=== PATIENT | female | born 1940 ===

== ENCOUNTER → 2022-06-03 | Outpatient (CLI) | payer MEDICARE, OTHER ==
--- NOTE | 2022-06-03 11:16 | XR ---
EXAMINATION TYPE: XR chest 2V DATE OF EXAM: 06/03/2022 11:12 AM COMPARISON: None TECHNIQUE: XR chest 2V Frontal and lateral views of the chest. CLINICAL INDICATION:Female, 81 years old with history of Z01.818 PRE SURGICAL; FINDINGS: Lungs/Pleura: There is no evidence of pleural effusion, focal consolidation, or pneumothorax. Left b asilar linear scarring and/or atelectasis. Pulmonary vascularity: Unremarkable. Heart/mediastinum: Cardiomediastinal silhouette is unremarkable. Atherosclerotic calcifications are seen in the aorta. Musculoskeletal: No acute osseous pathology. Other findings: Multiple surgical clips in the left upper quadrant. IMPRESSION: No acute cardiopulmonary disease/process.
== END | disposition home or self-care (01) ==
LOC: LABWHC1 09:54
PROVIDERS: ATTEND Orthopaedic Surgery Orthopaedic Surgery of the Spine
DX: Z01.818 Encounter for other preprocedural examination (principal); M48.02 Spinal stenosis, cervical region; M50.020 Cervical disc disorder with myelopathy, mid-cervical region, unspecified level
CPT/HCPCS: 71046

== ENCOUNTER → 2022-06-03 | Outpatient (CLI) | payer MEDICARE, OTHER ==
[2022-06-03 16:17] LABS: Basophils # (A) 0.02 X 10*3/uL (0.00-0.10); Basophils % (A) 0.3 %; Eosinophils # (A) 0.04 X 10*3/uL (0.04-0.35); Eosinophils % (A) 0.6 %; HCT 32.9 % (37.2-46.3); HGB 9.7 g/dL (12.0-15.0); Immature Grans, Automated 0.5 %; Lymphocytes # (A) 1.46 X 10*3/uL (0.90-5.00); Lymphocytes % (A) 23.5 %; MCH 22.4 pg (27.0-32.0); MCHC 29.5 g/dL (32.0-37.0); Mean Platelet Volume 10.6 fL (9.5-12.2); Monocytes # (A) 0.72 X 10*3/uL (0.20-1.00); Monocytes % (A) 11.6 %; NRBC Per 100 WBC 0.3 /100 WBCS (0.0-0.0); Neutrophils # (A) 3.93 X 10*3/uL (1.80-7.70); Neutrophils % (A) 63.5 %; Platelet Count 175 X 10*3/uL (140-440); RBC 4.33 X 10*6/uL (4.10-5.20); RDW 15.8 % (11.5-14.5)
[2022-06-03 16:41] LABS: ALT 14 U/L (8-44); AST 23 U/L (13-35); African American GFR (CKD) 49.1 (60.0-200.0); Albumin 3.7 g/dL (3.8-4.9); Albumin/Globulin Ratio 1.68 (1.60-3.17); Alkaline Phosphatase 67 U/L (41-126); BUN/Creat Ratio 22.25 Ratio (12.00-20.00); Blood Urea Nitrogen 26.7 mg/dL (9.0-27.0); Carbon Dioxide 20.1 mmol/L (20.0-27.5); Chloride 102 mmol/L (96-109); Chol/HDL Ratio 4.05 Ratio; Creatine Kinase 55 U/L (26-186); Globulin 2.2 g/dL (1.6-3.3); Glucose 112 mg/dL (70-110); LDL Cholesterol,Calculated 142.2 mg/dL (0.0-131.0); Non-African American GFR(CKD) 42.3 (60.0-200.0); Potassium 4.9 mmol/L (3.5-5.5); Sodium 137 mmol/L (135-145); Total Protein 5.9 g/dL (6.2-8.2); Uric Acid 6.9 mg/dL (2.9-7.7)
[2022-06-03 20:06] LABS: Appearance,Urine Clear (Clear); Bilirubin,Urine Negative (Negative); Blood,Urine Negative (Negative); Color,Urine Yellow (Yellow); Ketones,Urine Negative (Negative); Nitrite,Urine Positive (Negative); PH, Urine 5.5 (5.0-8.0); Specific Gravity,Urine 1.007 (1.001-1.030); Urobilinogen,Urine 0.2 (0.2,1.0)
[2022-06-03 22:25] LABS: Bacteria,Urine 3+ /HPF (None Seen)
== END | disposition home or self-care (01) ==
LOC: LABWHC1 09:56
PROVIDERS: ATTEND Family Medicine
DX: E11.22 Type 2 diabetes mellitus with diabetic chronic kidney disease (principal); N18.31 Chronic kidney disease, stage 3a; I48.0 Paroxysmal atrial fibrillation; E11.8 Type 2 diabetes mellitus with unspecified complications; E78.5 Hyperlipidemia, unspecified; M10.9 Gout, unspecified
CPT/HCPCS: 36415; 80053; 80061; 81001; 82550; 83036; 83970; 84439; 84443; 84550; 85025; 93005

== ENCOUNTER → 2022-07-31 | Outpatient (CLI) | payer MEDICARE, OTHER ==
[2022-07-31 10:00] LABS: INR 0.9 (<1.2); Partial Thromboplastin Time 25.1 sec (22.0-30.0); Prothrombin Time 9.6 sec (9.0-12.0)
--- NOTE | 2022-07-31 10:42 | XR ---
EXAMINATION TYPE: XR chest 2V DATE OF EXAM: 07/31/2022 COMPARISON: 06/03/2022 INDICATION: Presurgical testing TECHNIQUE: Frontal and lateral views of the chest are obtained. FINDINGS: The heart size is highly prominent. The pulmonary vasculature is normal. Some mild platelike atelectasis may be at the left base.. This was present in May and scarring s hould be considered within the differential. Multiple surgical clips are within the left abdomen. IMPRESSION: 1. Mild plate atelectasis left lung base. Scarring could be considered within the differential.
[2022-07-31 14:22] LABS: Basophils # (A) 0.03 X 10*3/uL (0.00-0.10); Basophils % (A) 0.3 %; Eosinophils # (A) 0.11 X 10*3/uL (0.04-0.35); Eosinophils % (A) 1.3 %; HCT 27.1 % (37.2-46.3); HGB 8.1 g/dL (12.0-15.0); Immature Grans, Automated 0.3 %; Lymphocytes # (A) 0.89 X 10*3/uL (0.90-5.00); Lymphocytes % (A) 10.2 %; MCH 23.1 pg (27.0-32.0); MCHC 29.9 g/dL (32.0-37.0); MCV 77.4 fL (80.0-97.0); Mean Platelet Volume 11.1 fL (9.5-12.2); Monocytes # (A) 1.09 X 10*3/uL (0.20-1.00); Monocytes % (A) 12.5 %; NRBC Per 100 WBC 0 /100 WBCS (0.0-0.0); Neutrophils % (A) 75.4 %; Platelet Count 173 X 10*3/uL (140-440); RDW 14.6 % (11.5-14.5); WBC 8.75 X 10*3/uL (4.50-10.00)
[2022-07-31 16:04] LABS: African American GFR (CKD) 36.3 (60.0-200.0); Albumin 3.5 g/dL (3.8-4.9); Albumin/Globulin Ratio 1.64 (1.60-3.17); Anion Gap 11.7 mmol/L (10.00-18.00); BUN/Creat Ratio 14.03 Ratio (12.00-20.00); Blood Urea Nitrogen 21.6 mg/dL (9.0-27.0); Calcium 8.7 mg/dL (8.7-10.3); Carbon Dioxide 23.5 mmol/L (20.0-27.5); Globulin 2.1 g/dL (1.6-3.3); Non-African American GFR(CKD) 31.3 (60.0-200.0); Potassium 4.6 mmol/L (3.5-5.5); Total Bilirubin 0.8 mg/dL (0.30-1.20); Total Protein 5.7 g/dL (6.2-8.2)
[2022-07-31 17:04] LABS: Appearance,Urine Cloudy (Clear); Bilirubin,Urine Negative (Negative); Blood,Urine Negative (Negative); Color,Urine Dark Yellow (Yellow); Ketones,Urine Negative (Negative); Nitrite,Urine Positive (Negative); Specific Gravity,Urine 1.016 (1.001-1.030)
[2022-07-31 17:56] LABS: Bacteria,Urine 3+ /HPF (None Seen); Calcium Oxalate Crystals,Urine Present /LPF (None Seen)
== END | disposition home or self-care (01) ==
LOC: LABPAT 09:06
PROVIDERS: ATTEND Orthopaedic Surgery Orthopaedic Surgery of the Spine
DX: Z01.818 Encounter for other preprocedural examination (principal); J98.11 Atelectasis; I50.9 Heart failure, unspecified; J45.909 Unspecified asthma, uncomplicated
CPT/HCPCS: 71046; 80053; 81001; 82043; 82570; 83036; 83880; 84443; 85025; 85610; 85730; 87070

== ENCOUNTER 2022-08-07 08:00 | Inpatient (IN) | payer MEDICARE, OTHER ==
[~2022-08-07 08:00] MED LIST: ceFAZolin 1,000 MG in SODIUM CHLORIDE 0.9% IRRIGATIO 1,000 ML IRRIGATION PRN
[2022-08-07] MEDS ORDERED: HYDROmorphone 0.5 MG/0.5 ML SYRINGE IVP PRN (10:09)
[2022-08-07] MEDS ORDERED: DEXAMETHASONE SOD PHOSPHATE 4 MG/ML 1 ML VIAL IV ONE (10:09)
[2022-08-07] MEDS ORDERED: LIDOCAINE 1% (10MG/ML) FOR IV START INTRADERMA PRN (10:09)
[2022-08-07] MEDS ORDERED: LACTATED RINGERS 1,000 ML IV SCH (10:09)
[2022-08-07] MEDS ORDERED: ONDANSETRON 4 MG/2 ML VIAL IVP ONE (10:09)
[2022-08-07] MEDS ORDERED: ONDANSETRON 4 MG/2 ML VIAL ONE (10:11)
[2022-08-07] MEDS ORDERED: LACTATED RINGERS 1,000 ML IV ONE (10:29)
[2022-08-07 10:55] LABS: Glucose,Whole Blood 157 mg/dL (70-110)
[2022-08-07 11:05] VITALS: RESP 16; TEMP 97.6
[2022-08-07] MEDS ORDERED: TRELEGY INHALATION PRN (11:46)
[2022-08-07] MEDS ORDERED: NITROGLYCERIN SL TABS 0.4 MG TAB SUBLINGUAL PRN (11:46)
[2022-08-07] MEDS ORDERED: FLUTICASONE 220 MCG INHALER INHALATION PRN (11:46)
[2022-08-07 11:55] VITALS: BP 193/90; PULSE 68
[2022-08-07] MEDS ORDERED: HYDROcodone/APAP 5-325MG 1 EACH TAB PO PRN (11:57)
[2022-08-07] MEDS ORDERED: ERGOCALCIFEROL 1,250 MCG (50,000 IU) CAPSULE PO SCH (12:00)
--- NOTE | 2022-08-07 12:09 | P.HPOR ---
History of Present Illness H&P Date: 08/07/22 Chief Complaint: New hypertensive crisis, new onset atrial ablation, cervical myelopathy, se Patient is a very pleasant 81-year-old female. She presented today for surgical intervention for her cervical spine. She is known to have severe cervical stenosis with cervical myelopathy and upper extremity weakness. We had been playing on her surgery and she has had appropriate workup for this. Today she was scheduled for surgical intervention for anterior cervical decompression with discectomy and fusion C4 5 C5 6 C6 7 and possibly C3 4 for treatment of her cervical myelopathy and cervical stenosis. Today in preoperative holding area the patient was seen and examined. Her blood pressure in preoperatively area was 229/107. She had multiple repeated blood pressure taken the hand she was consistently over 200 systolic and approximately 100 diastolic. Her rhythm leads suggested atrial fibrillation as well. She is known to have anemia and usually runs around 9.0 hemoglobin but had been running approximately 8.0 and 7.9 on recent testing. The patient was not symp tomatically in terms of her hypertension or atrial fibrillation or anemia. With the increased blood pressures and the change in her rhythm as well as her anemia we had to discuss whether or not to proceed with surgical intervention today. We felt that she may be best served with postponing surgical intervention to get a handle on her medical management blood pressure and rhythm issues. She denied any chest pain or shortness of breath. She any visual changes. She denies any headaches. Review of Systems Denies fevers chills. Denies chest pain shortness breath. Denies any headaches or visual changes. Denies any neurologic changes other than her ongoing issues with her cervical myelopathy particularly with some weakness in her right upper extremity Past Medical History Past Medical History: Atrial Fibrillation, Asthma, Coronary Artery Disease (CAD), Cancer, Chest Pain / Angina, Heart Failure, Diabetes Mellitus, GERD/Reflux, Hearing Disorder / Deafness, Hyperlipidemia, Hypertension, Osteoarthritis (OA), Renal Disease, Rheumatoid Arthritis (RA), Vascular Disorder Additional Past Medical History / Comment(s): Cervical myopathy, spinal stenosis, paroxysmal afib, sinus bradycardia, NIDDM type II, 1984 L breast cancer/surgery and chemotherapy, 1985 L renal carcinoma, kidney infections, UTIs with current UTI, pt unsure if she had previous tia, ckd stage III, anemia, past small bowel obstructions, past ulcer, abnormal gait/uses walker, FALLS History of Any Multi-Drug Resistant Organisms: None Reported Past Surgical History: Breast Surgery, Heart Catheterization, Heart Catheterization With Stent, Joint Replacement, Orthopedic Surgery Additional Past Surgical History / Comment(s): Bilateral carpal tunnel releases, bilateral knee replacements, L breast mastectomy, L nephrectomy, colonoscopy, cataract removals. Past Anesthesia/Blood Transfusion Reactions: Motion Sickness, Postoperative Nausea & Vomiting (PONV) Additional Past Anesthesia/Blood Transfusion Reaction / Comment(s): Pt has had blood transfusion without reaction. Pt states she has fear of anesthesia. Date of Last Stent Placement:: 2007 Smoking Status: Never smoker - Past Family History Mother Family Medical History: Cancer, Diabetes Mellitus Additional Family Medical History / Comment(s): Breast and colon cancer Father Additional Family Medical History / Comment(s): bowel problems Medications and Allergies Home Medications Medication Instructions Recorded Confirmed Type Aspirin 81 mg PO QAM 06/05/22 08/07/22 History Ergocalciferol [Vitamin D2 (1250 1,250 mcg PO Q14D 06/05/22 08/07/22 History Mcg = 25815 Iu)] Fluticasone Propionate 220 Mcg 2 puff INHALATION RT-BID PRN 06/05/22 08/07/22 History [Flovent 220 Mcg Inhaler] Irbesartan 300 mg PO QAM 06/05/22 08/07/22 History Isosorbide Mononitrate ER [Imdur] 90 mg PO QAM 06/05/22 08/07/22 History Leflunomide [Arava] 20 mg PO QAM 06/05/22 08/07/22 History Montelukast Sodium [Singulair] 10 mg PO HS 06/05/22 08/07/22 History Nitroglycerin Sl Tabs [Nitrostat] 0.4 mg SUBLINGUAL Q5M PRN 06/05/22 08/07/22 History Pioglitazone [Actos] 15 mg PO QAM 06/05/22 08/07/22 History Ranolazine [Ranexa] 500 mg PO BID 06/05/22 08/07/22 History Repaglinide [Prandin] 0.5 mg PO AC-BID 06/05/22 08/07/22 History Trelegy Unk Dose 1 puff INHALATION DAILY PRN 06/05/22 08/07/22 History amLODIPine [Norvasc] 5 mg PO HS 06/05/22 08/07/22 History atenoloL [Tenormin] 25 mg PO BID 06/05/22 08/07/22 History traMADol HCl [Ultram] 50 mg PO Q4H PRN 06/05/22 08/07/22 History Allergies Allergy/AdvReac Type Severity Reaction Status Date / Time codeine AdvReac Nausea & Verified 08/07/22 10:37 Vomiting,hyperactive Physical Examination Osteopathic Statement: *. No significant issues noted on an osteopathic structural exam other than those noted in the History and Physical/Consult. 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 She has 4+ strength on the left upper extremity. 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 She had undergone preoperative(medical evaluation and testing appropriately and she had been adequately maintained and controlled in this regard. However in the preoperative holding area and her hypertension was significant and she appeared to have new change in her cardiac rhythm. With these changes we did not feel that we should pursue surgery and felt that stabilizing these issues with the potentially safer for the patient and avoid undue risk. I had a long discussion with the patient and her as well as the anesthesia staff. Together we feel that the patient should postpone surgical intervention today. We will cancel surgery for today. We'll plan to have the patient admitted for medical management evaluation with echo service as well as cardiology to evaluate for her hypertension as well as her possible rhythm changes and anemia. We will continue workup and treatment appropriate we. If she stabilizes well without any issues we could consider proceeding with surgery tomorrow however if we need further time we will plan to postpone surgery further. We'll discuss this further with her primary care physician as well as cardiology and follow her closely. I discussed this at length with her and her and they are agreeable Time with Patient: Greater than 30
[2022-08-07] MEDS ORDERED: DEXTROSE 50% SYRINGE 50 ML IVP PRN ×2 (13:40)
[2022-08-07] MEDS ORDERED: NON FORMULARY DRUG (Repaglinide 0.5 MG Tab) PO SCH (17:30)
[2022-08-07] MEDS ORDERED: INSULIN ASPART (NovoLOG) 100 UNIT/ML VIAL SQ SCH (17:30)
[2022-08-07] MEDS ORDERED: MONTELUKAST 10 MG TAB PO SCH (21:00)
[2022-08-07] MEDS ORDERED: atenoloL 25 MG TAB PO SCH (21:00)
[2022-08-07] MEDS ORDERED: amLODIPine 5 MG TAB PO SCH (21:00)
[2022-08-08] MEDS ORDERED: LEFLUNOMIDE 20 MG TAB PO SCH (09:00)
[2022-08-08] MEDS ORDERED: ISOSORBIDE MONONITRATE ER 30 MG TAB.ER.24H PO SCH (09:00)
[2022-08-08] MEDS ORDERED: PIOGLITAZONE 15 MG TAB PO SCH (09:00)
[2022-08-08] MEDS ORDERED: LOSARTAN 50 MG TAB PO SCH (09:00)
[2022-08-08] MEDS ORDERED: ASPIRIN 81 MG PO SCH (09:00)
== END 2022-08-07 11:30 | disposition home or self-care (01) | DRG 305 ==
LOC: 2ORMAIN 09:46
PROVIDERS: ADMIT Orthopaedic Surgery Orthopaedic Surgery of the Spine; ATTEND Orthopaedic Surgery Orthopaedic Surgery of the Spine
DX: I16.9 Hypertensive crisis, unspecified (principal); M47.12 Other spondylosis with myelopathy, cervical region; M50.023 Cervical disc disorder at C6-C7 level with myelopathy; M43.12 Spondylolisthesis, cervical region; Z53.09 Procedure and treatment not carried out because of other contraindication; J45.909 Unspecified asthma, uncomplicated; D64.9 Anemia, unspecified; M50.123 Cervical disc disorder at C6-C7 level with radiculopathy; I25.10 Atherosclerotic heart disease of native coronary artery without angina pectoris; E78.5 Hyperlipidemia, unspecified; G89.29 Other chronic pain; I11.0 Hypertensive heart disease with heart failure; H91.90 Unspecified hearing loss, unspecified ear; I48.0 Paroxysmal atrial fibrillation; M19.90 Unspecified osteoarthritis, unspecified site; M06.9 Rheumatoid arthritis, unspecified; N18.30 Chronic kidney disease, stage 3 unspecified; M47.22 Other spondylosis with radiculopathy, cervical region; E11.22 Type 2 diabetes mellitus with diabetic chronic kidney disease; I50.9 Heart failure, unspecified; R29.6 Repeated falls; M48.02 Spinal stenosis, cervical region; M48.061 Spinal stenosis, lumbar region without neurogenic claudication; Z79.82 Long term (current) use of aspirin; Z79.84 Long term (current) use of oral hypoglycemic drugs; Z79.899 Other long term (current) drug therapy; Z85.3 Personal history of malignant neoplasm of breast; Z85.528 Personal history of other malignant neoplasm of kidney; Z90.12 Acquired absence of left breast and nipple; Z90.5 Acquired absence of kidney; Z96.653 Presence of artificial knee joint, bilateral; Z98.42 Cataract extraction status, left eye; Z98.41 Cataract extraction status, right eye; Z87.440 Personal history of urinary (tract) infections; Z86.73 Personal history of transient ischemic attack (TIA), and cerebral infarction without residual deficits; Z91.81 History of falling; Z87.19 Personal history of other diseases of the digestive system
CPT/HCPCS: 83036; 86850; 86900; 86901

== ENCOUNTER → 2022-08-20 | Outpatient (CLI) | payer MEDICARE, OTHER ==
--- NOTE | 2022-08-20 17:26 | CT ---
EXAMINATION TYPE: CT cervical spine wo con CT DLP: 382 mGycm, Automated exposure control for dose reduction was used. DATE OF EXAM: 08/20/2022 5:14 PM COMPARISON: Cervical spine radiograph 08/08/2022. CLINICAL INDICATION:Female, 81 years old with history of M79.12 MYALGIA OF AUXILIARY MUSCLES, HEAD AN D NECK; PHH, pain in neck post sx. TECHNIQUE: Axial CT images from the skull base to the inferior aspect of T2 we obtained without intra venous contrast. Coronal and sagittal reformatted images were also reviewed. FINDINGS: Fracture: None. Osseous structures: Postsurgical changes with anterior fusion hardware involving C4-C7. Multilevel fa cet arthropathy. Left shoulder arthropathy with bursal fluid collection measuring up to 3.6 cm Vertebral alignment: Straightening of the cervical spine likely due to patient position and postsurgi raphael change. Grade 1 anterolisthesis of C2 on C3 and C7 on T1. Spinal canal/Neural Foramina: Disc osteophyte complexes at C2-C3 and C7-T1 with at least mild spinal canal stenosis. Central disc herniation at C3-C4 with mild canal stenosis. Multilevel uncovertebral j oint hypertrophy and facet arthropathy. Facet joint uncovertebral joint arthropathy scattered through out the cervical spine with varying degrees of moderate to severe neural foraminal stenosis. Neck soft tissues: Prevertebral tissue edema without organized fluid collection. Other: The airway is patent. The lung apices are clear. Moderate atherosclerotic calcification of the bilateral carotid bulbs. IMPRESSION: 1. No evidence of cervical spine fracture. 2. Postsurgical changes of anterior cervical fusion from C4 through C7. Hardware appears intact. Prev ertebral soft tissue edema without organized fluid collection likely postsurgical. 3. Moderate multilevel degenerative disc disease. Central disc herniation at C3-C4 with at least mild spinal canal stenosis. Consider further evaluation with cervical MRI. 4. Left shoulder arthropathy with bursal fluid collection measuring up to 3.6 cm.
== END | disposition home or self-care (01) ==
LOC: RADCTMAIN 16:52
PROVIDERS: ATTEND Orthopaedic Surgery Orthopaedic Surgery of the Spine
DX: M50.121 Cervical disc disorder at C4-C5 level with radiculopathy (principal); M47.22 Other spondylosis with radiculopathy, cervical region; M79.12 Myalgia of auxiliary muscles, head and neck; M99.71 Connective tissue and disc stenosis of intervertebral foramina of cervical region; R59.0 Localized enlarged lymph nodes; Z48.89 Encounter for other specified surgical aftercare; Z98.1 Arthrodesis status
CPT/HCPCS: 72125

== ENCOUNTER 2022-08-23 11:26 | Inpatient (IN) | payer MEDICARE, OTHER ==
[2022-08-23] MEDS ORDERED: LABETALOL 5 MG/ML VIAL MDV IVP STA (11:44)
--- NOTE | 2022-08-23 12:27 | ED ---
General Adult HPI - General Chief complaint: Neck Pain/Injury Stated complaint: post op - neck/shoulder pain Time Seen by Provider: 08/23/22 11:40 Source: patient, RN notes reviewed, old records reviewed Mode of arrival: EMS Limitations: no limitations - History of Present Illness Initial comments: This is an 81-year-old female who presents emergency Department as a transfer from [facility]. Patient had surgery by Dr. Edward couple weeks ago on her neck and according to the patient it did not heal the way it was posttussive Dr. Edward 1 to do a second surgery. Patient was not comfortable with this and wanted a second opinion so went to [facility] as they saw Dr. Hogan and Dr. Hogan stated it wasn't he emergent surgery but I surgery needed to be done and he did not want to do it because he didn't do the original surgery so he sent the patient back to [place] to see Dr. Edward and Dr. Edward is aware the patient is coming to the ER. Patient denies any new pain or numbness or weakness - Related Data Home Medications Medication Instructions Recorded Confirmed Aspirin 81 mg PO QAM 06/05/22 08/07/22 Ergocalciferol [Vitamin D2 (1250 1,250 mcg PO Q14D 06/05/22 08/07/22 Mcg = 74551 Iu)] Fluticasone Propionate 220 Mcg 2 puff INHALATION RT-BID PRN 06/05/22 08/07/22 [Flovent 220 Mcg Inhaler] Irbesartan 300 mg PO QAM 06/05/22 08/07/22 Isosorbide Mononitrate ER [Imdur] 60 mg PO QAM 06/05/22 08/07/22 Leflunomide [Arava] 20 mg PO QAM 06/05/22 08/07/22 Montelukast Sodium [Singulair] 10 mg PO HS 06/05/22 08/07/22 Nitroglycerin Sl Tabs [Nitrostat] 0.4 mg SUBLINGUAL Q5M PRN 06/05/22 08/07/22 Pioglitazone [Actos] 15 mg PO QAM 06/05/22 08/07/22 Ranolazine [Ranexa] 500 mg PO BID 06/05/22 08/07/22 Repaglinide [Prandin] 0.5 mg PO AC-BID 06/05/22 08/07/22 traMADol HCl [Ultram] 50 mg PO QID PRN 06/05/22 08/07/22 Isosorbide Mononitrate ER [Imdur] 30 mg PO QAM 08/07/22 08/07/22 Previous Rx's Medication Instructions Recorded Cyclobenzaprine [Flexeril] 5 mg PO TID PRN #60 tablet 08/09/22 HYDROcodone/APAP 5-325MG [[place] 1 tab PO Q8HR PRN 7 Days #21 tab 08/09/22 5-325] amLODIPine [Norvasc] 10 mg PO DAILY #30 tab 08/09/22 atenoloL [Tenormin] 50 mg PO BID #60 tab 08/09/22 Acetaminophen Tab [Tylenol] 650 mg PO Q6HR PRN tab 08/10/22 Sennosides-Docusate Sodium 1 each PO DAILY #20 tab 08/10/22 [Senokot-S] Allergies Allergy/AdvReac Type Severity Reaction Status Date / Time codeine AdvReac Nausea & Verified 08/07/22 12:26 Vomiting,hyperactive Review of Systems ROS Statement: Those systems with pertinent positive or pertinent negative responses have been documented in the HPI. ROS Other: All systems not noted in ROS Statement are negative. Past Medical History Past Medical History: Atrial Fibrillation, Asthma, Coronary Artery Disease (CAD), Cancer, Chest Pain / Angina, Heart Failure, Diabetes Mellitus, GERD/Reflux, Hearing Disorder / Deafness, Hyperlipidemia, Hypertension, Osteoarthritis (OA), Renal Disease, Rheumatoid Arthritis (RA), Vascular Disorder Additional Past Medical History / Comment(s): Cervical myopathy, spinal s tenosis, paroxysmal afib, sinus bradycardia, NIDDM type II, 1984 L breast cancer/surgery and chemotherapy, 1985 L renal carcinoma, kidney infections, UTIs with current UTI, pt unsure if she had previous tia, ckd stage III, anemia, past small bowel obstructions, past ulcer, abnormal gait/uses walker, FALLS History of Any Multi-Drug Resistant Organisms: None Reported Past Surgical History: Breast Surgery, Heart Catheterization, Heart Catheterization With Stent, Joint Replacement, Orthopedic Surgery Additional Past Surgical History / Comment(s): Bilateral carpal tunnel releases, bilateral knee replacements, L breast mastectomy, L nephrectomy, colonoscopy, cataract removals. Past Anesthesia/Blood Transfusion Reactions: Motion Sickness, Postoperative Nausea & Vomiting (PONV) Additional Past Anesthesia/Blood Transfusion Reaction / Comment(s): Pt has had blood transfusion without reaction. Pt states she has fear of anesthesia. Date of Last Stent Placement:: 2007 Past Psychological History: Anxiety Smoking Status: Never smoker Past Alcohol Use History: None Reported Past Drug Use History: None Reported - Past Family History Mother Family Medical History: Cancer, Diabetes Mellitus Additional Family Medical History / Comment(s): Breast and colon cancer Father Additional Family Medical History / Comment(s): bowel problems General Exam - General Exam Comments Initial Comments: GENERAL: Patient is well-developed and well-nourished. Patient is nontoxic and well- hydrated and is in no acute distress. ENT: Neck is soft and supple. No significant lymphadenopathy is noted. Oropharynx is clear. Moist mucous membranes. Patient was in a c-collar EYES: The sclera were anicteric and conjunctiva were pink and moist. Extraocular movements were intact and pupils were equal round and reactive to light. Eyelids were unremarkable. PULMONARY: Unlabored respirations. Good breath sounds bilaterally. No audible rales rhonchi or wheezing was noted. CARDIOVASCULAR: There is a regular rate and rhythm without any murmurs gallops or rubs. ABDOMEN: Soft and nontender with normal bowel sounds. SKIN: Skin is clear with no lesions or rashes and otherwise unremarkable. NEUROLOGIC: Patient is alert and oriented x3. Cranial nerves II through XII are grossly intact. Motor and sensory are also intact. Normal speech, volume and content. Symmetrical smile. MUSCULOSKELETAL: Normal extremities with adequate strength and full range of motion. No lower extremity swelling or edema. No calf tenderness. LYMPHATICS: No significant lymphadenopathy is noted PSYCHIATRIC: Normal psychiatric evaluation. Limitations: no limitations Course Vital Signs 08/23/22 08/23/22 11:37 11:46 Temperature 98 F Pulse Rate 79 71 Respiratory 20 20 Rate Blood Pressure 219/96 199/91 O2 Sat by Pulse 99 99 Oximetry Medical Decision Making - Medical Decision Making EKG was interpreted by myself shows a sinus rhythm at 69 bpm NM interval is 247 QRS is 90 QT interval 414 QTC is 433. Patient's EKG shows no ST segment eleva tion or depression. Was pt. sent in by a medical professional or institution (, PA, MANAGER INTERVENTIONAL, urgent care, hospital, or snf...) When possible be specific @ -Patient was sent to us from [facility] emergency Department Did you speak to anyone other than the patient for history (EMS, parent, family, police, friend...)? What history was obtained from this source @ -I spoke with Dr. Olivas I spoke with the ER doc at [facility] about this patient's history Did you review nursing and triage notes (agree or disagree)? Why? @ -I reviewed and agree with nursing and triage notes Were old charts reviewed (outside hosp., previous admission, EMS record, old EKG, old radiological studies, urgent care reports/EKG's, snf records)? Report findings @ -I reviewed prior urological studies as well as prior lab work Differential Diagnosis (chest pain, altered mental status, abdominal pain women, abdominal pain men, vaginal bleeding, weakness, fever, dyspnea, syncope, headache, dizziness, GI bleed, back pain, seizure, CVA, palpatations, mental health, musculoskeletal)? @ -Differential Musculoskeletal Muscular strain, contusion, ligament sprain, fracture, arthritis, septic arthritis, bursitis, cellulitis, muscle spasm, nerve compression, DVT, arterial occlusion, herpes zoster, electrolyte abnormality, tumor.... This is not meant to be in all inclusive list EKG interpreted by me (3pts min.). @ -As above X-rays interpreted by me (1pt min.). @ -None done CT interpreted by me (1pt min.). @ -None done U/S interpreted by me (1pt. min.). @ -None done What testing was considered but not performed or refused? (CT, X-rays, U/S, labs)? Why? @ -None What meds were considered but not given or refused? Why? @ -None Did you discuss the management of the patient with other professionals (professionals i.e. , PA, MANAGER INTERVENTIONAL, lab, RT, psych nurse, social worker clinical, airline hostess, teacher, customs patrol officer, foster care case manager)? Give summary @ -I spoke with Dr. Kellogg about the admission. I spoke with Dr. Edward is physician assistant professor of mathematics about the admission and he was in agreement with admitting Was smoking cessation discussed for >3mins.? @ -No Was critical care preformed (if so, how long)? @ -No Were there social determinants of health that impacted care today? How? (Homelessness, low income, unemployed, alcoholism, drug addiction, transportation, low edu. Level, literacy, decrease access to med. care, usp, rehab)? @ -No Was there de-escalation of care discussed even if they declined (Discuss DNR or withdrawal of care, Hospice)? DNR status @ -No What co-morbidities impacted this encounter? (DM, HTN, Smoking, COPD, CAD, Cancer, CVA, ARF, Chemo, Hep., AIDS, mental health diagnosis, sleep apnea, morbid obesity)? @ -None Was patient admitted / discharged? Hospital course, mention meds given and route, prescriptions, significant lab abnormalities, going to OR and other pertinent info. @ -Patient was not having any complaints at this time I spoke with Dr. Edward physician assistant professor of mathematics and there were agreement with me admitting the patient admitted the patient. Undiagnosed new problem with uncertain prognosis? @ -No Drug Therapy requiring intensive monitoring for toxicity (Heparin, Nitro, Insulin, Cardizem)? @ -No Were any procedures done? @ -No Diagnosis/symptom? @ -Spinal stenosis Acute, or Chronic, or Acute on Chronic? @ -Acute Uncomplicated (without systemic symptoms) or Complicated (systemic symptoms)? @ -Complicated Side effects of treatment? @ -No Exacerbation, Progression, or Severe Exacerbation? @ -No Poses a threat to life or bodily function? How? (Chest pain, [place], [place], pneumonia, PE, COPD, DKA, ARF, appy, cholecystitis, CVA, Diverticulitis, Homicidal, Suicidal, threat to staff... and all critical care pts) @ -No Disposition Clinical Impression: Spinal stenosis Disposition: ADMITTED IP TO THIS HOSP Referrals: Ashley Olivas MD [Primary Care Provider] - 1-2 days Time of Disposition: 12:27
[2022-08-23] MEDS ORDERED: SODIUM CHLORIDE 0.9% 1,000 ML IV ONE (12:42)
[2022-08-23] MEDS: HYDROmorphone 1 MG/ML 1 ML SYRINGE IVP PRN ×3 (13:06→21:25)
--- NOTE | 2022-08-23 13:15 | P.HPOR ---
History of Present Illness H&P Date: 08/23/22 Chief Complaint: Upper extremity weakness, neck pain, cervical myelopathy, f pj internal f Patient is 81-year-old female who is well known to our service. She has history of cervical myelopathy with severe cervical stenosis and upper extremity weakness. On August 07 she underwent anterior cervical decompression with discectomy and fusion at C4 5 C5 6 and C6 7 and had a relatively uneventful immediate postoperative course. However on follow-up after the patient was disc harged I was able to see her this week. She had evidence of failed internal fixation with increased kyphosis and dislodgment of the anterior hardware and fixation. She is not having any new progressive neurologic change. At that point we ordered further imaging and discussed the need for further surgical intervention with revision of the hardware anteriorly further decompression and also posterior cervical decompression and fusion. The patient was not having new problem aggressive neurologic deficits or any progressive neurologic loss. She did have chronic upper extremity weakness which was still present. She was able to tolerate her diet. She had not been wearing her cervical collar. She had been controlling her pain with oral medication. She does have history of myelopathy which continued and she is not having changes with her myelopathic symptoms. The patient was discussed with her primary care physician and her family. They were evaluated for further opinions and further imaging of this issue. I discussed the case with other spine surgeon as well. We were in agreement for the possibility of revision anterior cervical decompression with posterior cervical decompression and fusion. The patient decided to present to the emergency room at [facility] and had similar opinions and was deferred back to [facility] for further treatment here. I was able to see the patient and discussed this all with him again. I had had numerous discussions with the family the course of the few days since I saw them in clinic and had continued to recommend surgery. Review of Systems She has significant weakness at her upper extremities worse on the right than left. She has difficulty with her and inflating and she has difficulty with her balance. This has not changed from prior to her cervical surgery 2 weeks ago. She is able to swallow. She was having some coughing yesterday but that has resolved. She denies any changes in bowel bladder function. She denies any new weakness or new changes in her neurologic status. He denies any chest pain shortness breath. Denies any fevers chills or night sweats. Past Medical History Past Medical History: Atrial Fibrillation, Asthma, Coronary Artery Disease (CAD), Cancer, Chest Pain / Angina, Heart Failure, Diabetes Mellitus, GERD/Reflux, Hearing Disorder / Deafness, Hyperlipidemia, Hypertension, Osteoarthritis (OA), Renal Disease, Rheumatoid Arthritis (RA), Vascular Disorder Additional Past Medical History / Comment(s): Cervical myopathy, spinal stenosis, paroxysmal afib, sinus bradycardia, NIDDM type II, 1984 L breast cancer/surgery and chemotherapy, 1985 L renal carcinoma, kidney infections, UTIs with current UTI, pt unsure if she had previous tia, ckd stage III, anemia, past small bowel obstructions, past ulcer, abnormal gait/uses walker, FALLS History of Any Multi-Drug Resistant Organisms: None Reported Past Surgical History: Breast Surgery, Heart Catheterization, Heart Catheterization With Stent, Joint Replacement, Orthopedic Surgery Additional Past Surgical History / Comment(s): Bilateral carpal tunnel releases, bilateral knee replacements, L breast mastectomy, L nephrectomy, colonoscopy, cataract removals. Past Anesthesia/Blood Transfusion Reactions: Motion Sickness, Postoperative Nausea & Vomiting (PONV) Additional Past Anesthesia/Blood Transfusion Reaction / Comment(s): Pt has had blood transfusion without reaction. Pt states she has fear of anesthesia. Date of Last Stent Placement:: 2007 Past Psychological History: Anxiety Smoking Status: Never smoker Past Alcohol Use History: None Reported Past Drug Use History: None Reported - Past Family History Mother Family Medical History: Cancer, Diabetes Mellitus Additional Family Medical History / Comment(s): Breast and colon cancer Father Additional Family Medical History / Comment(s): bowel problems Medications and Allergies Home Medications Medication Instructions Recorded Confirmed Type Aspirin 81 mg PO DAILY 06/05/22 08/23/22 History Ergocalciferol [Vitamin D2 (1250 1,250 mcg PO Q14D 06/05/22 08/23/22 History Mcg = 74216 Iu)] Fluticasone Propionate 220 Mcg 2 puff INHALATION RT-BID PRN 06/05/22 08/23/22 History [Flovent 220 Mcg Inhaler] Irbesartan 300 mg PO QAM 06/05/22 08/23/22 History Isosorbide Mononitrate ER [Imdur] 60 mg PO QAM 06/05/22 08/23/22 History Leflunomide [Arava] 20 mg PO QAM 06/05/22 08/23/22 History Montelukast Sodium [Singulair] 10 mg PO HS 06/05/22 08/23/22 History Nitroglycerin Sl Tabs [Nitrostat] 0.4 mg SUBLINGUAL Q5M PRN 06/05/22 08/23/22 History Pioglitazone [Actos] 15 mg PO QAM 06/05/22 08/23/22 History Ranolazine [Ranexa] 500 mg PO BID 06/05/22 08/23/22 History Repaglinide [Prandin] 0.5 mg PO AC-BID 06/05/22 08/23/22 History traMADol HCl [Ultram] 50 mg PO QID PRN 06/05/22 08/23/22 History Isosorbide Mononitrate ER [Imdur] 30 mg PO QAM 08/07/22 08/23/22 History Cyclobenzaprine [Flexeril] 5 mg PO TID PRN #60 tablet 08/09/22 08/23/22 Rx HYDROcodone/APAP 5-325MG [[place] 1 tab PO Q8HR PRN 7 Days #21 tab 08/09/22 08/23/22 Rx 5-325] amLODIPine [Norvasc] 10 mg PO DAILY #30 tab 08/09/22 08/23/22 Rx atenoloL [Tenormin] 50 mg PO BID #60 tab 08/09/22 08/23/22 Rx Acetaminophen Tab [Tylenol] 650 mg PO Q6HR PRN tab 08/10/22 08/23/22 Rx Sennosides-Docusate Sodium 1 tab PO DAILY 08/23/22 08/23/22 History [Senokot-S] Allergies Allergy/AdvReac Type Severity Reaction Status Date / Time codeine AdvReac Nausea & Verified 08/23/22 12:50 Vomiting,hyperactive Physical Examination Osteopathic Statement: *. No significant issues noted on an osteopathic structural exam other than those noted in the History and Physical/Consult. - C Spine: dermatomal strength & reflexes bilateral Shoulder strength: flexion: 3/5 (Her upper extremity shows significant neurologic change with weakness worse on the right than the left. She has 2-3 strength globally in her right upper extremity and 3 out of 5 strength at the left upper extremity. She has some difficulty when she tries to ambulate and difficulty with her balance) Shoulder strength: extension: 3/5 (Her chest is good excursion with deep inspiration and expiration. Lower extremities have sustained dorsal flexion plantar flexion and EHL. Her thighs Soft nontender. Abdomen is soft nontender) Shoulder strength: abduction: 3/5 (Her neck incision site is clean dry and intact. There is mild swelling without any erythema. There is no drainage. Is nontender over her anterior spine) Results - Diagnostic results CT scan - cervical: report reviewed, image reviewed (Computed tomography scan of cervical spine is reviewed and comparison with her intraoperative x-ray which shows obvious change in hardware position and alignment. There is increased kyphosis at the area. There is dislodgment of the hardware and interbody de vices) Assessment and Plan Assessment: Failed internal fixation C4 to C7-- 2 half weeks status post anterior cervical decompression with discectomy and fusion at C4 5 C5 6 and C6 7 Cervical myelopathy with cervical stenosis Osteopenia Upper extremity weakness Difficulty with ambulation Plan: Failed internal fixation C4 to C7-- 2 half weeks status post anterior cervical decompression with discectomy and fusion at C4 5 C5 6 and C6 7 Cervical myelopathy with cervical stenosis Osteopenia Upper extremity weakness Difficulty with ambulation The patient underwent surgery about 2-1/2 weeks ago however the surgical fixation appears to be failing. This dislodged from the anterior cervical spine and she is falling into kyphosis. She's not having progressive neurologic deficit but does have significant myelopathy and weakness. I do not think that the anterior construct is stable for her hand I believe that she needs revision surgery for stabilization and revision decompression. I would plan for revision anterior cervical decompression and fusion likely from C3 to C7. We will have to remove the hardware. Once this is accomplished we would place posterior stabilization as well. I think that it would be most prudent to pursue posterior fusion from C2 to T2 to allow for good fixation and the best possibility of maintaining alignment. I discussed this case at length with her primary care physician as well as the family and her . I answered their questions repeatedly in regards to the nature of the surgery the issues with her cervical spine and the need for further surgical intervention. I discussed the risks, occasions alternatives and benefits including but limited to the risk of bleeding risk and infection risk and need for further surgery risk of decreased loss of motion loss of function malunion nonunion hardware failure and need for possible surgery further surgery as well as the possibility of problems anesthesia. I answered all his questions and I discussed this at length and they elected to proceed with surgical intervention. I discussed the case with Dr. Jonah Fischer a spine surgeon. Kirk as well. He is in agreement with my evaluation and treatment options and we plan to work together in the case for revision anterior cervical decompression and fusion with posterior cervical decompression and fusion. We'll plan to pursue surgery tomorrow morning. We'll have the patient nothing by mouth after midnight and will obtain further labs and workup to further optimize prior to her surgery.
[2022-08-23 13:32] LABS: Appearance,Urine Clear (Clear); Bilirubin,Urine Negative (Negative); Blood,Urine Negative (Negative); Color,Urine Light Yellow; Glucose,Urine (UA) Negative (Negative); Ketones,Urine Negative (Negative); Leukocyte Esterase,Urine Negative (Negative); Mucus,Urine Rare /hpf; Nitrite,Urine Negative (Negative); PH, Urine 7.5 (5.0-8.0); Protein,Urine 1+ (Negative); RBC,Urine 1 /hpf (0-5); Specific Gravity,Urine 1.007 (1.001-1.035); Squamous Epithelial Cell,Urine 1 /hpf (0-4); Urobilinogen,Urine <2.0 mg/dL (<2.0); WBC,Urine 3 /hpf (0-5)
[2022-08-23 13:38] LABS: Prothrombin Time 10.2 sec (9.0-12.0)
[2022-08-23 13:52] LABS: Calcium 8.9 mg/dL (8.4-10.2); Potassium 4.2 mmol/L (3.5-5.1)
[2022-08-23 15:06] LABS: HCT 28.6 % (34.0-46.0); HGB 8.6 gm/dL (11.4-16.0); Hypochromasia Moderate; MCH 23.8 pg (25.0-35.0); MCHC 30.1 g/dL (31.0-37.0); MCV 78.9 fL (80.0-100.0); Mean Platelet Volume 7.4; Platelet Count 208 k/uL (150-450); RBC 3.63 m/uL (3.80-5.40)
[2022-08-23 16:01] LABS: Glucose,Whole Blood 182 mg/dL (70-110)
[2022-08-23] MEDS ORDERED: CYCLOBENZAPRINE 5 MG TAB PO PRN (19:36)
[2022-08-23] MEDS ORDERED: NITROGLYCERIN SL TABS 0.4 MG TAB SUBLINGUAL PRN (19:36)
[2022-08-23] MEDS ORDERED: HYDROcodone/APAP 5-325MG 1 EACH TAB PO PRN (19:36)
[2022-08-23] MEDS ORDERED: ACETAMINOPHEN TAB 325 MG TAB PO PRN (19:36)
[2022-08-23] MEDS ORDERED: FLUTICASONE 220 MCG INHALER INHALATION PRN (19:36)
[2022-08-23] MEDS ORDERED: LOSARTAN 50 MG TAB PO SCH (19:45)
[2022-08-23] MEDS ORDERED: ISOSORBIDE MONONITRATE ER 30 MG TAB.ER.24H PO SCH (19:45)
[2022-08-23] MEDS ORDERED: PIOGLITAZONE 15 MG TAB PO SCH (19:45)
[2022-08-23] MEDS ORDERED: amLODIPine 10 MG TAB PO SCH (19:45)
[2022-08-23] MEDS ORDERED: ISOSORBIDE MONONITRATE ER 60 MG TAB.ER.24H PO SCH (19:45)
[2022-08-23] MEDS ORDERED: ERGOCALCIFEROL 1,250 MCG (50,000 IU) CAPSULE PO SCH (20:00)
[2022-08-23 20:53] LABS: Glucose,Whole Blood 180 mg/dL (70-110)
[2022-08-23] MEDS: INSULIN ASPART (NovoLOG) 100 UNIT/ML VIAL SQ SCH (21:23)
[2022-08-23] MEDS: atenoloL 50 MG TAB PO SCH (21:24)
[2022-08-23] MEDS: MONTELUKAST 10 MG TAB PO SCH (21:24)
[2022-08-23] MEDS: RANOLAZINE 500 MG TAB.ER.12H PO SCH (21:24)
[2022-08-24] MEDS: HYDROmorphone 1 MG/ML 1 ML SYRINGE IVP PRN ×2 (02:25→08:25)
[2022-08-24 06:12] LABS: Glucose,Whole Blood 117 mg/dL (70-110)
[2022-08-24] MEDS: INSULIN ASPART (NovoLOG) 100 UNIT/ML VIAL SQ SCH ×3 (07:46→18:37)
[2022-08-24] MEDS: LOSARTAN 50 MG TAB PO SCH (08:23)
[2022-08-24] MEDS: PIOGLITAZONE 15 MG TAB PO SCH (08:23)
[2022-08-24] MEDS: ISOSORBIDE MONONITRATE ER 60 MG TAB.ER.24H PO SCH (08:24)
[2022-08-24] MEDS: RANOLAZINE 500 MG TAB.ER.12H PO SCH (08:24)
[2022-08-24] MEDS: atenoloL 50 MG TAB PO SCH (08:24)
[2022-08-24] MEDS: amLODIPine 10 MG TAB PO SCH (08:24)
[2022-08-24] MEDS: SENNOSIDES-DOCUSATE SODIUM 1 EACH TAB PO SCH (08:24)
[2022-08-24] MEDS: ISOSORBIDE MONONITRATE ER 30 MG TAB.ER.24H PO SCH (08:42)
[2022-08-24 09:27] LABS: Basophils # (A) 0.04 X 10*3/uL (0.00-0.10); Basophils % (A) 0.7 %; Eosinophils # (A) 0.09 X 10*3/uL (0.04-0.35); Eosinophils % (A) 1.5 %; HCT 26.3 % (37.2-46.3); HGB 7.9 g/dL (12.0-15.0); Immature Grans, Automated 0.2 %; Lymphocytes # (A) 1.15 X 10*3/uL (0.90-5.00); Lymphocytes % (A) 19.5 %; MCV 76.5 fL (80.0-97.0); Mean Platelet Volume 9.1 fL (9.5-12.2); Monocytes # (A) 0.63 X 10*3/uL (0.20-1.00); Monocytes % (A) 10.7 %; NRBC Per 100 WBC 0 /100 WBCS (0.0-0.0); Neutrophils # (A) 3.97 X 10*3/uL (1.80-7.70); Neutrophils % (A) 67.4 %; Platelet Count 221 X 10*3/uL (140-440); RBC 3.44 X 10*6/uL (4.10-5.20); RDW 16.2 % (11.5-14.5); WBC 5.89 X 10*3/uL (4.50-10.00)
[2022-08-24 09:44] LABS: African American GFR (CKD) 61.2 (60.0-200.0); Anion Gap 9.1 mmol/L (10.00-18.00); Calcium 8.8 mg/dL (8.7-10.3); Carbon Dioxide 24.9 mmol/L (20.0-27.5); Non-African American GFR(CKD) 52.8 (60.0-200.0)
--- NOTE | 2022-08-24 10:12 | P.PN ---
Progress Note - Text Progress Note Date: 08/24/22 Spine Surgery Clinical and Risk Review Paulina Celis is a 81 yo female presenting for evaluation of Neck pain s/p C4-7 ACDF with loosened hardware. It was my pleasure to have seen and examined Paulina Celis. In our visit today we have had a chance to go over subjective complaints, physical examination findings and treatments including the natural course history without intervention and various interventional options. The patients imaging demonstrates Failed hardware C4-7 with cervical kyphosis. On physical exam, Paulina Celis demonstrates Neck pain, b/l UE weakness with paresthesia. I have explained to the patient that as their condition progresses it will cause further neurological deficits and eventual paralysis. Based on the patients imaging, physical exam, and the rapid progression and disabling nature of their symptoms, at this time I recommend surgery in the form or a: Revision anterior decompression fusion with posterior decompression fusion. I discussed the risk and benefits of this procedure at length with Paulina Celis and family The patient and family agreed to considered pursuing the procedure abovementioned. Prior to surgery, she should follow up with her PCP (Cardio, ID, IM etc) for clearance. Questions were invited and answered, and the patient wishes to proceed as outlined below. Currently, I am recommendin. Staged procedure same day, revision C4-7 ACDF with possible C3-7 fusion with corpectomy; Stage II C2-T2 decompression and stabilized fusion with Dr. Edward and myself 2. Follow up with PCP for surgical clearance 3. Review of surgical risks and benefits as well as an educational packet on the proposed surgical procedure. Risks: All surgical procedures come with inherent risks, including those related to positioning, anesthesia, intraoperative findings, and postoperative complications. It is important to understand that surgery does not come with any guarantee of a successful outcome as complications and adverse events are always possible. The patient was given a handout in office today discussing the surgical procedure and risks associated with the intervention, both of which were discussed with the patient. These risks include but are not limited to the following: * Experiencing same, different or even worse symptoms in back, neck, arms, or legs compared to before surgery. * Requiring further surgery or other forms of treatment presently or at some time in the future at same or other levels of the intended spine surgery. * On an extreme but fortunately relatively rare basis severe complication such as blindness, stroke, heart attack, temporary and/or permanent nerve injury, paralysis, coma, or may occur, sometimes without known explanation. * Surgical complications may include but are not limited to risk of infection, fluid accumulation in the surgical dissection site, including a seroma or hematoma, that requires additional surgery, wound drainage, bleeding, new numbness or weakness, vision changes/loss, spinal fluid leakage, non-healing and/or infected incision, headaches, difficulty or inability to swallow, hoarseness, hemopneumothorax, pneumothorax, impotence, retrograde ejaculation, vaginal dryness; injury to nerves, spinal cord, blood vessels, lymphatics or other vital organs (i.e., bowel injury, injury to the great vessels); heterotopic bone formation; complications related to the hardware such as screws, rods, cages including misplaced hardware, device failure, instrumentation at the wrong spine level, hardware fracture/breakage, or hardware loosening; vertebral failure of the spinal column above or below the newly placed hardware; retained surgical instrumentations or devices and the need for further surgery. * Medical risks of the planned spine surgery include but are not limited to generalized Infections to the whole body or local areas outside of the surgical site (sepsis), heart attack, bleeding, anaphylaxis, meningitis, seizure, epilepsy, hearing loss, burn juarez, laceration of the head or other areas of the body, bruising, hypersensitivity of the skin, bladder over distension; allergic reaction; shoulder injury related to positioning; fat, blood and air clots to other areas of the body like heart, lungs, brain; failure of internal organs such as lungs, kidneys, liver and excessive bleeding. If blood transfusions are necessary, note that transfusions may cause intolerance reactions such as anaphylaxis or other complex reactions. * Despite best efforts, the results of spine surgery might not heal in terms of bone, soft tissues such as skin, fascia, ligaments, and joints. Additionally, in order to achieve best possible results, spine surgery may be carried out beyond the initially planned levels and involve decompression, fusion including insertion of hardware at levels other than the original intended area of surgical interest change some portions of the procedure in order to ensure the best possible outcomes. * With spine surgery and spinal fusion, there are different off label uses of instrumentation (devices, implants and hardware) as well as biological substances (bone morphogenic proteins, demineralized bone matrix) as well as using extra bone from allograft sources (i.e. cadaver bone) or autograft (iliac crest bone, ribs, or the spine itself). The patient has been given information about these practices and their inherent risks and benefits. The patient has had a chance to review all the listed information, has been given print outs detailing this information, and has had all his/her questions answered to their satisfaction. It was my pleasure to have seen and examined Paulina Celis. In our visit today we have had a chance to go over my understanding of our patient's current condition, the natural course history without intervention and various interventional options. Questions were invited and answered, and the patient wishes to proceed as outlined above. I have seen and examined the patient for 25 minutes and we have spent more than 50% of the time in repeat and detailed counseling about the patient's condition, its natural course history with out and as much as can be predicted with surgery and re-review of various surgical treatment options. In conclusion, Paulina Celis and her family requested we proceed with the above suggested surgery and are willing to accept risks and limitations of the suggested surgery as nature of the disease process and our best attempts at treatment for the condition. Thank you again for allowing us to be part of your patient's care. Please don't hesitate to contact me if you have any further questions. Signed and authenticated by: Jonah Smith [facility] [address] [place] [address] [place] [address] [address]
[2022-08-24] MEDS ORDERED: TRANEXAMIC ACID IN NACL,ISO-OS 1,000 MG/100 ML BAG ONE (10:13)
[2022-08-24] MEDS ORDERED: ONDANSETRON 4 MG/2 ML VIAL ONE (10:13)
[2022-08-24] MEDS ORDERED: HYDROmorphone (PF) 1 MG/ML ONE (10:13)
[2022-08-24] MEDS ORDERED: DEXAMETHASONE SOD PHOSPHATE 4 MG/ML 1 ML VIAL ONE (10:13)
[2022-08-24] MEDS ORDERED: PROPOFOL 10 MG/ML 20 ML VIAL IV ONE (10:13)
[2022-08-24] MEDS ORDERED: SUCCINYLCHOLINE CHLORIDE 200 MG/10 ML VIAL IV ONE (10:13)
[2022-08-24] MEDS ORDERED: MIDAZOLAM 2 MG/2 ML VIAL ONE (10:13)
[2022-08-24] MEDS ORDERED: LIDOCAINE 2% INJ 20 MG/ML (2 ML VIAL) ONE (10:13)
[2022-08-24] MEDS ORDERED: fentaNYL (PF) 50 MCG/ML 2 ML AMP ONE (10:13)
[2022-08-24] MEDS ORDERED: NEOSTIGMINE 1 MG/ML 10 ML VIAL ONE (10:13)
[2022-08-24] MEDS ORDERED: GLYCOPYRROLATE 0.2 MG/ML 2 ML VIAL ONE (10:13)
[2022-08-24] MEDS ORDERED: ROCURONIUM 10 MG/ML (5 ML VIAL) IV ONE (10:13)
[2022-08-24] MEDS ORDERED: LACTATED RINGERS 1,000 ML IV ONE ×4 (10:16→13:41)
[2022-08-24] MEDS ORDERED: IV FLUID CONTINUATION 1,000 ML IV ONE (10:16)
[2022-08-24] MEDS ORDERED: ceFAZolin 1,000 MG in SODIUM CHLORIDE 0.9% 1,000 ML IRRIGATION ONE (10:50)
[2022-08-24] MEDS ORDERED: SODIUM CHLORIDE 0.9% 100 ML with ceFAZolin 2,000 MG IV ONE ×2 (10:50)
[2022-08-24] MEDS ORDERED: LIDOCAINE 2%-EPI 1:100,000 20 ML VIAL SQ ONE (11:24)
[2022-08-24] MEDS ORDERED: BUPIVACAINE (PF) 0.5% 30 ML VIAL SQ ONE (11:24)
--- NOTE | 2022-08-24 12:52 | P.ANPRN ---
Procedure Note - Anesthesia - Invasive Line Right Arterial Line Time Out Performed: Yes ([id number]) Date of Procedure: 08/24/22 Time of Procedure: 09:47 Location of Patient: Phase I Preparation: Sterile Prep, Sterile Dressing Arterial Line Location: Radial (right radial) Ultrasound Used: Yes Purpose - Visualization and Identification of Vasculature: Yes Needle Guage: 20g Image Stored and Saved: Yes Narrative: Central line placement per sterile protocol utilized.
[2022-08-24] MEDS ORDERED: TRANEXAMIC ACID 1,000 MG in SODIUM CHLORIDE 0.9% 100 ML IVPB PRN (13:48)
[2022-08-24] MEDS ORDERED: ceFAZolin 3,000 MG in SODIUM CHLORIDE 0.9% IRRIGATIO 3,000 ML IRRIGATION ONE (14:22)
[2022-08-24] MEDS ORDERED: GENTAMICIN 80 MG in SODIUM CHLORIDE 0.9% IRRIGATIO 3,000 ML IRRIGATION ONE (14:22)
[2022-08-24] MEDS ORDERED: VANCOMYCIN 1,000 MG VIAL MISCELLANE ONE (15:26)
--- NOTE | 2022-08-24 16:09 | XR ---
Fluoroscopy History: Anterior cervical revision/ posterior decompression Anterior cervical revision and posterior cervical decompression. Dr. Edward and Dr. Fischer. 52 sec fluoro time. 20 images. [id number] DAP
[2022-08-24] MEDS ORDERED: propofoL 100 ML IV ONE (16:32)
[2022-08-24 16:40] LABS: Glucose,Whole Blood 183 mg/dL (70-110)
--- NOTE | 2022-08-24 16:40 | FL ---
Fluoroscopy History: LOOKING FOR NEEDLE; C SPINE Metallic surgical needle is not seen with absolute certainty however there is extensive metallic hard grace which could obscure a needle. Correlate clinically.
[2022-08-24] MEDS ORDERED: BENZOCAINE/MENTHOL LOZENG 1 EACH LOZENGE MUCOUS MEM PRN (16:56)
[2022-08-24] MEDS ORDERED: ONDANSETRON 4 MG/2 ML VIAL IVP PRN (16:56)
[2022-08-24] MEDS ORDERED: MAGNESIUM HYDROXIDE 2,400 MG/10 ML CUP PO PRN (16:56)
[2022-08-24] MEDS ORDERED: diazePAM 5 MG TAB PO PRN (16:56)
[2022-08-24] MEDS ORDERED: CYCLOBENZAPRINE 5 MG TAB PO PRN (16:56)
[2022-08-24] MEDS: SODIUM CHLORIDE 0.9% 1,000 ML IV SCH (17:00)
[2022-08-24 17:04] LABS: ABG Base Excess -0.4 mmol/L; ABG HCO3 24 mmol/L (21-25); ABG PCO2 33 mmHg (35-45); ABG PH 7.46 (7.35-7.45); ABG PO2 231 mmHg (83-108); ABG TCO2 25 mmol/L (19-24); Allen Test Performed? Yes
[2022-08-24 17:08] LABS: Glucose,Whole Blood 211 mg/dL (70-110)
--- NOTE | 2022-08-24 17:16 | FL ---
Fluoroscopy History: Anterior cervical revision/ posterior decompression Anterior cervical revision and posterior cervical decompression. Dr. Edward and Dr. Fischer. 52 sec fluoro time. 20 images. [id number] DAP
--- NOTE | 2022-08-24 17:33 | P.OP ---
Date of Procedure: 08/24/22 Preoperative Diagnosis: Cervical myelopathy, severe cervical stenosis, upper extremity weakness, Failed cervical anterior cervical fixation C4 to C7 2-1/2 weeks status post anterior cervical decompression with discectomy and fusion C4 5 C5 6 C6 7 Cervical kyphosis Postoperative Diagnosis: Cervical myelopathy, severe cervical stenosis, upper extremity weakness, Failed cervical anterior cervical fixation C4 to C7 2-1/2 weeks status post anterior cervical decompression with discectomy and fusion C4 5 C5 6 C6 7 Cervical kyphosis Anesthesia: GETA Pathology: none sent Condition: other (Intubated but stable to the intensive care unit) Disposition: ICU Description of Procedure: BRIEF OPERATIVE NOTE Preoperative Diagnosis:Cervical myelopathy, severe cervical stenosis, upper extremity weakness, Failed cervical anterior cervical fixation C4 to C7 2-1/2 weeks status post anterior cervical decompression with discectomy and fusion C4 5 C5 6 C6 7 Cervical kyphosis Postoperative Diagnosis:Cervical myelopathy, severe cervical stenosis, upper extremity weakness, Failed cervical anterior cervical fixation C4 to C7 2-1/2 weeks status post anterior cervical decompression with discectomy and fusion C4 5 C5 6 C6 7 Cervical kyphosis Findings of vertical type fractures at the vertebral bodies of C4-C5 and C6 where the hardware appeared to dislodge from the vertebral bodies Procedure: Two-stage procedure with anterior and posterior cervical decompression and fusion under the same anesthesia Stage I Revision Anterior cervical decompression and fusion C3 4 C4 5 C5 6 C6 7 Corpectomy of C3 4 C5 and C6 for decompression Placement of interbody expandable titanium graft from C3 to C7 Application of anterior cervical plate from C3 to C7 Local autogenous bone grafting Use of Vika longoria Stage II Posterior cervical decompression C2 3 C3 4 C4 5 C5 6 C6 7 Posterior cervical spinal fusion C2 3 C3 4 C4 5 C5 6 C6 7 C7 T1 T1-T2, for 8 levels of spinal fusion for a posterior lateral and facet fusion Local autogenous bone grafting Use of fluoroscopic guidance He[employer] of [place] filter tank tender helper head Co-surgeons: Dr. Edward and Dr. Jonah Walls, both of us were present throughout the entirety of the case persistence during positioning dissection exposure visualization decompression for the anterior cervical surgery as well as the posterior cervical surgery Anesthesia: General anesthesia Estimated blood loss: Approximately 500 mL total with 250 mL from anterior stage I and 250 mL from the posterior stage II Complications: None apparent Components implanted: For the stage I procedure with the anterior surgery we remove the anterior cervical plate with screws there evaluated and found to be in their entirety. We also removed the 3 because allograft bone grafts. We placed an expandable titanium interbody cage from C3 to C7 with a new anterior cervical plate with 2 screws measuring 3.5 and 410 mm at C3 and at C7. We used local autogenous bone graft within the cage itself For stage II procedure with the posterior cervical decompression and fusion we used [employer] posterior cervical system with pedicle screws at C2 bilaterally as well as at T1 and T2 pedicle screws bilaterally with lateral mass screws at C3 4 5 and 6 with 2 rods and one cross-link. We used Teodoro oss synthetic bone graft strips as well as local autogenous bone graft from the laminectomy. We also left surgi cell overlying the dura Disposition: To recovery room in good stable condition, intubated and sedated with hard cervical collar intact OPERATIVE INDICATIONS The patient has had significant issues in their neck and upper extremities. She has been having significant worsening at her neck and her upper extremities also troubles with her balance. She was showing synovitis myelopathy. She was found have severe stenosis at multiple levels at her cervical spine most prominently at C4 5 C5 6 and C6 7 but also some changes at C3 4. The patient initially went through some conservative management for this The patient has been through conservative treatment. She was having worsening of her symptoms and she underwent anterior cervical decompression with discectomy and fusion at C4 5 C5 6 C6 7 on 08/07/2022 with our service. The patient initially had a uneventful immediate postoperative course and was able to go home but on follow-up she was found have evidence of increased kyphosis with failure of the inner internal fixation and disruption of the fixation and hardware. She underwent further testing and imaging which showed obvious displacement of the hardware and interbody grafts. The patient was not having new neurologic deficits she is not having any new focal neurologic changes. She was having some increased pain and continued have evidence of myelopathy. With the failed internal fixation at multiple levels will multiple discussions regarding the possibility of further treatment. I counseled that in had further evaluation from Dr. Jonah Walls spine surgeon here cleared. We reviewed the imaging together and discussed the case. The patient also had evaluation at [facility] with Dr. Edison gipson. We felt that the best Course of action for the patient would be to perform revision decompression of her cervical spine anteriorly and provided further decompression with stabilization and fusion posteriorly. We felt that this can give us the best chance of decompressing her spine and giving her neurologic structures the best chance of healing well also. He stabilization both anteriorly and posteriorly giving the best chance for fusion and minimizing chance of hardware failure. We had long lengthy discussions with the family and with multiple services for this. I discussed this with primary care physician as well. We discussed various treatment options including surgery, and the patient wishes to proceed with surgery We discussed the risk, patient's alternatives and benefits of surgery including but not limited to, risk of bleeding risk of infection, risk of need for further surgery, risk of decreased, loss of motion, muscle function, malunion nonunion, hardware failure, nerve damage, paralysis, heart attack, and . I felt that the patient be best served with myself and Dr. Fischer working together is co-operators and co-surgeons for the procedure to provide revision anterior cervical compression with fusion and corpectomy and stabilization with a 2-stage staged approach during the same anesthesia and posterior cervical decompression and fusion from C2 to T2. OPERATIVE SUMMARY After discussing all the risks, patient alternatives and benefits at length, the patient elected to proceed with surgical intervention, signed informed consent, and presented for their procedure. The patient was seen and examined in the preoperative holding area and the surgical site was marked. The patient was given antibiotics and brought to the operating room. The patient was positioned on the operating room table in a supine position being careful to pad any bony prominences and pressure points. The patient was sedated and intubated by anesthesia in standard fashion with a hard cervical collar intact. Once the airway and C-spine were stabilized the patient's arms were padded and tucked at her side, with her shoulders gently taped. The head was placed in a donut pad with the neck in good neutral alignment and position. We were careful to maintain the patient's cervical spine and good neutral alignment and position throughout. We placed [employer] tongs and applied approximate 15 pounds of in-line traction. The patient was prepped and draped in a normal standard fashion. An appropriate timeout and keystone protocol performed. We were able to proceed with the surgery. The local wound area was infiltrated with local anesthetic. I was able to use the prior incision on the right side and extended slightly for about 3-1/2 cm there was a significant amount of scar tissue formation but I was able to split the platysma and gain access with a carotid approach down to the anterior surface of the vertebral bodies and to expose the plate. We're able to protect the trachea and esophagus medially and the carotid sheath laterally. All of the operative levels were exposed appropriately from C3 to C7. The patient had all their twitches back, and there was no evidence of recurrent laryngeal issue. The wound was copiously irrigated and suctioned dry as had been done periodically throughout the case. It was obvious that the plate had failed fixation. I was able to undo all of the locking devices and removed the screws appropriately. There were all accounted for and examined and found be in total. The plate was removed probably and found be in total. There is obvious fracture of the vertebral bodies in a vertical type fashion causing shear from the anterior aspect of the vertebral bodies from the posterior. There is multiple loose fragments which were able to be removed there is and were saved for local autogenous bone grafting. I started at C67 and then worked my way cephalad. I did corpectomy at C6 C5 and C4 to get further decompression. Portions of the posterior wall of C6 were left intact. I was able get excellent decompression from C4 to C7. At C34 I did a new discectomy. I established an annulotomy with an 11 blade scalpel. A discectomy was performed with a combination of pituitary rongeurs, curettes, a high-speed bur, and Kerrison rongeurs. The posterior longitudinal ligament was taken down as were any posterior osteophytes. This gave good central and bilateral foraminal decompression. The C4 vertebral body was significantly comminuted and I did corpectomy at C4 to provide further decompression and to prepare for placement of a longitudinal graft from C3 to C7. There is no evidence of any dural tear or leak. The endplates were prepared with a high-speed bur. With the endplates in good parallel position, I was able to size for the appropriate size interbody graft. The wound was irrigated and suctioned dry. I measured appropriate for the expandable interbody graft size. We chose appropriate size graft placed it at the midline position from C3 to C7 and then expanded it appropriately for good resistance and good stabilization from C3 to C7. I was able to adjust the lordosis and get good feel and fit along the endplates at C3 and C7. Lordosis and the expansion were locked in place appropriate length screws. The construct was checked and f ound have good stability. It was checked with C-arm as it had been done periodically throughout the case and it was shown to have good position at the midline from C3 to see 7 with anterior surface flush with the anterior surface of the vertebral bodies. the graft was prepared and malleted into position. It had good alignment and position with the anterior surface flush with the anterior surface of the vertebral bodies. With the expandable cage intact, I was able to measure and contour and appropriate sized plate. The plate was positioned at the midline over the appropriate levels from C3 to C7. Screw holes were established with a hand drill and drill guide. Screws were placed in good alignment and position with adequate bony purchase. I placed rescue screws at C7 2. They were seated under the locking device. The construct was checked and found to be stable. Intraoperative x-ray was taken which showed good alignment and position of the implants at the appropriate levels from C3 C7. There was no evidence of any dural tear or leak. Good hemostasis was maintained. The wound was copiously irrigated and suctioned dry as had been done periodically throughout the case. The platysma was closed with absorbable suture. The subcutaneous tissue was closed. The subcuticular tissue was closed with absorbable suture. The wound was cleaned and dried and dressed appropriately. A hard cervical collar was placed appropriately. At this point stage I of the procedure was completed and we're able to move on toward stage II. I was able to remove the [employer] tongs properly without any evidence of problem. The patient was transferred back to her hospital bed as the Dany table was prepared. The patient had the same intubation without waking up. We will see her the bed and I placed new Jaime filter tank tender helper head on the patient appropriately without any apparent complications. We then flipped the patient into a prone position onto appropriate chest and thigh pads with [place] filter tank tender helper head and keeping her neck in good neutral alignment and position and placing the appropriate filter tank tender helper head construct. Her neck was in good position and imaging was taken which showed excellent alignment and position of her cervical spine without change in hardware anteriorly. Her arms were padded and tucked at her sides and her hair was shaved and her neck was prepped and draped in normal standard fashion posteriorly. We then prepared for posterior cervical decompression and fusion. Incision made sharply through the skin and subcu tissue from C2 to T2. That his dissection was taken down with Bovie cauterization over the posterior spinous processes and over the lamina over the lateral masses and transfer processes appropriately from C2 to T2. Once we had good exposure were then able to prepare for placement of the hardware. We started with placement of pedicle screws at C2. We were able to visualize appropriately the starting point palpate the medial wall and then with C-arm guidance establish pedicle screw holes bilaterally at C2. The holes were palpated and found have good for luis and a good base and pedicle screws were placed in good alignment and good position with good bony purchase. We then moved down to T1 and T2 where in similar fashion where able to expose our starting point appropriately drill out the facet joint and then drill out a starting hole. We able to use a [id number] pedicle finder to establish appropriate chest x-ray alignment and position. This was checked with C-arm guidance. Once we found have good alignment and position where place the bilateral pedicle screws in good alignment good position with excellent bony purchase at T1 and T2 bilaterally. With screws at C2, T1 and T2 we are then able place lateral mass screws at C3 4 5 and 6. The facet joints were drilled out appropriately and starting screw points were established with C-arm guidance. The holes were checked and we'll place screws bilaterally at C3 and C4 unilaterally at C5 and C6 skipping C7 so that we could place the rods in appropriate contour. The positions of the screws were checked and we're able to measure and contour appropriate rods bilaterally the screws were then placed Screws were placed with the rods in place in good alignment good position and the construct checked found have good stability. We then moved on to decompression posteriorly We established appropriate troughs bilaterally from C3 to C7 inclusive, and with the troughs that we're able to mobilize the posterior elements and remove the posterior elements for unroofing decompression from C2 to T1. This gave excellent posterior decompression. Bleeding was meticulously controlled. There is no evidence of any dural tear or leak. We're then able to place a cross-link from magali magali to give further security and stability and the construct was checked and found to be stable. All of the screws were torqued appropriately. With excellent decompression posteriorly final images were taken which showed excellent position of the hardware from C2 to T2 We're able to prepare for closure. The wound was irrigated suctioned dry. We Were [address] Surgicel over the exposed dura and we placed May DOS bone graft as well as local autogenous bone graft over the posterior lateral aspects and facet joints from C2 to T2. The area was coated with back Meissen powder and we prepared for closure the fascial layer was closed with #1 PDS for watertight closure over a drain. Subcu tissues closed with 2-0 Vicryl and the skin was closed with jeremias. The wound is clean and dried and dressed with Opteform securing the drain. The drapes were broken down. We eventually had all counts correct control the needles. The patient was then transferred back supine position onto her hospital bed keep her neck in good neutral alignment and position with a hard cervical collar intact. The Jaime filter tank tender helper head was removed without any evidence of consultation or problems. The patient had good stable vital signs and was doing well however anesthesia felt that she would become more comfortable and safer with a slow wakeup prior to extubation. She remained estimated and was being transferred to the intensive care unit for weaning off the vent. The patient will be admitted to the hospital intensive care unit for weaning the vent for appropriate postoperative care, medical management and monitoring. We will continue to follow them closely about the postoperative course.She should have her hard cervical collar intact at all times
--- NOTE | 2022-08-24 18:03 | XR ---
EXAMINATION TYPE: XR chest 1V DATE OF EXAM: 08/24/2022 HISTORY: Shortness of breath. COMPARISON: 08/09/2022 TECHNIQUE: Single view of the chest is submitted. FINDINGS: Endotracheal tube is appropriately placed with its distal tip 3.6 cm from the toñito. NG tube is seen coursing into the stomach. Pedicular screws cervicothoracic region. Increased density left lower lob e may reflect atelectasis or infiltrate. The heart is stable. Hilar and mediastinal structures are within normal limits. Degenerative changes are seen of the dorsal spine. IMPRESSION: 1. Indwelling tubes and catheters as noted. 2.Increased density left lower lobe may reflect atelectasis or infiltrate.
[2022-08-24] MEDS: HYDROmorphone 0.5 MG/0.5 ML SYRINGE IVP PRN ×2 (18:24→23:04)
[2022-08-24] MEDS: REPAGLINIDE 1 MG TAB PO SCH (18:28)
[2022-08-24 18:38] LABS: Glucose,Whole Blood 175 mg/dL (70-110)
[2022-08-24] MEDS ORDERED: SODIUM CHLORIDE 0.9% 1,000 ML IV ONE (21:32)
[2022-08-24] MEDS: hydrALAZINE HCL 20 MG/ML 1 ML VIAL IVP PRN (21:44)
--- NOTE | 2022-08-24 22:37 | P.CONS ---
History of Present Illness - Reason for Consult Consult date: 08/24/22 Medical management - Chief Complaint Revision anterior cervical decompression and fusion - History of Present Illness Patient is a 81-year-old female with a known history of coronary artery disease history of stent placement, atrial fibrillation, diabetes type 2 [id number], hearing disorder/deafness, osteoarthritis, rheumatoid arthritis, anxiety and other medical problems was admitted to the hospital due to upper extremity weakness, neck pain and cervical myelopathy failed outpatient conservative treatment. Patient underwent anterior cervical decompression with discectomy and fusion at C4 C5-C6 and C6-C7 due to severe cervical stenosis and cervical myelopathy. Upon follow-up in the clinic she had evidence of failed internal fixation with increased kyphosis and dislodgment of the anterior hardware and fixation. Patient was admitted to the hospital for possible revision anterior cervical decompression with posterior cervical decompression and fusion. Patient initially presented to [facility] and was transferred back to [facility] for further management. Otherwise patient denied any chest pain or shortness of breath. No fever no chills. Laboratory showed WBC 5.0 hemoglobin 8.6 and platelets 206 RDW 16.0 Sodium 139 potassium 4.2 chloride 105 bicarb is 30 BUN 13 and creatinine 0.94 Urinalysis is negative for infection Blood sugar is 142 EKG showed sinus rhythm with first-degree AV block Patient is scheduled for revision ACDF Past Medical History Past Medical History: Atrial Fibrillation, Asthma, Coronary Artery Disease (CAD), Cancer, Chest Pain / Angina, Heart Failure, Diabetes Mellitus, GERD/Refl ux, Hearing Disorder / Deafness, Hyperlipidemia, Hypertension, Osteoarthritis (OA), Renal Disease, Rheumatoid Arthritis (RA), Vascular Disorder Additional Past Medical History / Comment(s): Cervical myopathy, spinal stenosis, paroxysmal afib, sinus bradycardia, NIDDM type II, 1984 L breast cancer/surgery and chemotherapy, 1985 L renal carcinoma, kidney infections, UTIs with current UTI, pt unsure if she had previous tia, ckd stage III, anemia, past small bowel obstructions, past ulcer, abnormal gait/uses walker, FALLS History of Any Multi-Drug Resistant Organisms: None Reported Past Surgical History: Breast Surgery, Heart Catheterization, Heart Catheterization With Stent, Joint Replacement, Orthopedic Surgery Additional Past Surgical History / Comment(s): Bilateral carpal tunnel releases, bilateral knee replacements, L breast mastectomy, L nephrectomy, colonoscopy, cataract removals. Past Anesthesia/Blood Transfusion Reactions: Motion Sickness, Postoperative Na usea & Vomiting (PONV) Additional Past Anesthesia/Blood Transfusion Reaction / Comm: Pt has had blood transfusion without reaction. Pt states she has fear of anesthesia. Date of Last Stent Placement:: 2007 Past Psychological History: Anxiety Additional Psychological History / Comment(s): Pt resides with her spouse. Smoking Status: Never smoker Past Alcohol Use History: None Reported Past Drug Use History: None Reported - Past Family History Mother Family Medical History: Cancer, Diabetes Mellitus Additional Family Medical History / Comment(s): Breast and colon cancer Father Additional Family Medical History / Comment(s): bowel problems Medications and Allergies Home Medications Medication Instructions Recorded Confirmed Type Aspirin 81 mg PO DAILY 06/05/22 08/23/22 History Ergocalciferol [Vitamin D2 (1250 1,250 mcg PO Q14D 06/05/22 08/23/22 History Mcg = 60437 Iu)] Fluticasone Propionate 220 Mcg 2 puff INHALATION RT-BID PRN 06/05/22 08/23/22 History [Flovent 220 Mcg Inhaler] Irbesartan 300 mg PO QAM 06/05/22 08/23/22 History Isosorbide Mononitrate ER [Imdur] 60 mg PO QAM 06/05/22 08/23/22 History Leflunomide [Arava] 20 mg PO QAM 06/05/22 08/23/22 History Montelukast Sodium [Singulair] 10 mg PO HS 06/05/22 08/23/22 History Nitroglycerin Sl Tabs [Nitrostat] 0.4 mg SUBLINGUAL Q5M PRN 06/05/22 08/23/22 History Pioglitazone [Actos] 15 mg PO QAM 06/05/22 08/23/22 History Ranolazine [Ranexa] 500 mg PO BID 06/05/22 08/23/22 History Repaglinide [Prandin] 0.5 mg PO AC-BID 06/05/22 08/23/22 History traMADol HCl [Ultram] 50 mg PO QID PRN 06/05/22 08/23/22 History Isosorbide Mononitrate ER [Imdur] 30 mg PO QAM 08/07/22 08/23/22 History Cyclobenzaprine [Flexeril] 5 mg PO TID PRN #60 tablet 08/09/22 08/23/22 Rx HYDROcodone/APAP 5-325MG [[place] 1 tab PO Q8HR PRN 7 Days #21 tab 08/09/22 08/23/22 Rx 5-325] amLODIPine [Norvasc] 10 mg PO DAILY #30 tab 08/09/22 08/23/22 Rx atenoloL [Tenormin] 50 mg PO BID #60 tab 08/09/22 08/23/22 Rx Acetaminophen Tab [Tylenol] 650 mg PO Q6HR PRN tab 08/10/22 08/23/22 Rx Sennosides-Docusate Sodium 1 tab PO DAILY 08/23/22 08/23/22 History [Senokot-S] Allergies Allergy/AdvReac Type Severity Reaction Status Date / Time codeine AdvReac Nausea & Verified 08/23/22 12:50 Vomiting,hyperactive Physical Exam Vitals: Vital Signs Temp Pulse Pulse Pulse Resp BP BP 08/24/22 07:15 98.4 F 67 16 192/79 08/24/22 01:58 98.5 F 60 18 133/63 08/23/22 20:54 98.4 F 82 18 08/23/22 20:00 82 18 08/23/22 16:08 98.7 F 67 16 08/23/22 15:33 65 16 110/60 08/23/22 14:00 70 16 100/60 08/23/22 13:00 75 20 99/65 08/23/22 12:42 60 20 130/60 08/23/22 11:46 71 20 199/91 08/23/22 11:37 98 F 79 20 219/96 BP Pulse Ox 08/24/22 07:15 97 08/24/22 01:58 96 08/23/22 20:54 132/88 97 08/23/22 20:00 08/23/22 16:08 132/72 100 08/23/22 15:33 98 08/23/22 14:00 98 08/23/22 13:00 98 08/23/22 12:42 98 08/23/22 11:46 99 08/23/22 11:37 99 Intake and Output 08/23/22 08/24/22 08/24/22 22:59 06:59 14:59 Other: # Voids 1 Weight 63.503 kg Results CBC & Chem 7: 08/24/22 06:44 08/24/22 06:44 Labs: Abnormal Lab Results - Last 24 Hours (Table) 08/23/22 08/23/22 08/23/22 Range/Units 13:03 13:03 14:26 RBC 3.63 L (3.80-5.40) m/uL Hgb 8.6 L (11.4-16.0) gm/dL Hct 28.6 L (34.0-46.0) % MCV 78.9 L (80.0-100.0) fL MCH 23.8 L (25.0-35.0) pg MCHC 30.1 L (31.0-37.0) g/dL RDW 16.0 H (11.5-15.5) % MPV (9.5-12.2) fL Chloride (96-109) mmol/L Anion Gap (10.00-18.00) mmol/L Est GFR (CKD-EPI)NonAf (60.0-200.0) Glucose 142 H (74-99) mg/dL POC Glucose (mg/dL) (70-110) mg/dL Urine Protein 1+ H (Negative) Urine Mucus Rare H (None) /hpf 08/23/22 08/23/22 08/24/22 Range/Units 16:00 20:45 06:08 RBC (3.80-5.40) m/uL Hgb (11.4-16.0) gm/dL Hct (34.0-46.0) % MCV (80.0-100.0) fL MCH (25.0-35.0) pg MCHC (31.0-37.0) g/dL RDW (11.5-15.5) % MPV (9.5-12.2) fL Chloride (96-109) mmol/L Anion Gap (10.00-18.00) mmol/L Est GFR (CKD-EPI)NonAf (60.0-200.0) Glucose (74-99) mg/dL POC Glucose (mg/dL) 182 H 180 H 117 H (70-110) mg/dL Urine Protein (Negative) Urine Mucus (None) /hpf 04/22/23 04/22/23 Range/Units 06:44 06:44 RBC 3.44 L (3.80-5.40) m/uL Hgb 7.9 L (11.4-16.0) gm/dL Hct 26.3 L (34.0-46.0) % MCV 76.5 L (80.0-100.0) fL MCH 23.0 L (25.0-35.0) pg MCHC 30.0 L (31.0-37.0) g/dL RDW 16.2 H (11.5-15.5) % MPV 9.1 L (9.5-12.2) fL Chloride 110 H (96-109) mmol/L Anion Gap 9.10 L (10.00-18.00) mmol/L Est GFR (CKD-EPI)NonAf 52.8 L (60.0-200.0) Glucose 117 H (74-99) mg/dL POC Glucose (mg/dL) (70-110) mg/dL Urine Protein (Negative) Urine Mucus (None) /hpf Assessment and Plan Assessment: Failed internal fixation C4-C7. Status post ACDF at C4 C5-C6 and C6-C7 initially done on 08/08/2022.Scheduled for revision surgery today. Cervical myelopathy and spinal stenosis and upper extremity weakness. Atrial fibrillation ruled out as per recent cardiology consult. Diabetes type 2 [id number] Coronary artery disease history of stent in the mid RCA Hyperlipidemia Hypertension Hearing disorder/deafness Rheumatoid arthritis Osteoarthritis History of left breast cancer status post surgery and chemotherapy in 1984. Anxiety DVT prophylaxis with SCDs Plan: Patient will be continued on pain management, bowel regimen and encourage incentive spirometry. Started back on atenolol, amlodipine and losartan. Continue with Imdur and hydralazine as needed. Titrate blood pressure medications as needed. Continue with insulin sliding scale and home medications.. We will continue to follow and further recommendations based on the clinical course. Thank you for your consult. Time with Patient: Greater than 30
[2022-08-25] MEDS: atenoloL 50 MG TAB PO SCH ×3 (00:05→21:42)
[2022-08-25] MEDS: RANOLAZINE 500 MG TAB.ER.12H PO SCH ×3 (00:05→21:43)
[2022-08-25] MEDS: MONTELUKAST 10 MG TAB PO SCH ×2 (00:07→21:43)
[2022-08-25 00:11] LABS: Glucose,Whole Blood 166 mg/dL (70-110)
[2022-08-25] MEDS: INSULIN ASPART (NovoLOG) 100 UNIT/ML VIAL SQ SCH ×4 (00:15→18:25)
[2022-08-25] MEDS: HYDROmorphone 1 MG/ML 1 ML SYRINGE IVP PRN ×3 (01:14→12:41)
[2022-08-25] MEDS ORDERED: SODIUM CHLORIDE 0.9% 1,000 ML IV ONE (02:10)
[2022-08-25] MEDS: HYDROmorphone 0.5 MG/0.5 ML SYRINGE IVP PRN ×5 (03:33→23:06)
[2022-08-25 04:12] LABS: Calcium 6.8 mg/dL (8.4-10.2); Potassium 3.3 mmol/L (3.5-5.1); Total Bilirubin 0.2 mg/dL (0.2-1.3); Total Protein 3.7 g/dL (6.3-8.2)
[2022-08-25 04:13] LABS: Anisocytosis Slight; HCT 20.4 % (34.0-46.0); Hypochromasia Slight; MCH 24.7 pg (25.0-35.0); MCHC 31.8 g/dL (31.0-37.0); MCV 77.8 fL (80.0-100.0); Mean Platelet Volume 7.9; Microcytosis Slight; Platelet Count 155 k/uL (150-450); Poikilocytosis Slight; RBC 2.62 m/uL (3.80-5.40); RDW 16.1 % (11.5-15.5)
[2022-08-25 04:32] LABS: ABG Base Excess -0.1 mmol/L; ABG HCO3 23 mmol/L (21-25); ABG Oxygen Saturation 99.6 % (94-97); ABG PCO2 28 mmHg (35-45); ABG PH 7.52 (7.35-7.45); ABG PO2 103 mmHg (83-108); ABG TCO2 24 mmol/L (19-24)
[2022-08-25 04:35] LABS: Allen Test Performed? no
[2022-08-25 04:39] LABS: HGB 6.5 gm/dL (11.4-16.0)
[2022-08-25] MEDS: POTASSIUM BICARBONATE/CIT AC 20 MEQ TABLET.EFF NG-TUBE SCH ×2 (05:08→06:26)
[2022-08-25 06:18] LABS: Glucose,Whole Blood 114 mg/dL (70-110)
[2022-08-25] MEDS: REPAGLINIDE 1 MG TAB PO SCH ×2 (06:56→18:21)
[2022-08-25] MEDS: SODIUM CHLORIDE 0.9% 1,000 ML IV SCH ×2 (06:57→23:10)
--- NOTE | 2022-08-25 07:11 | XR ---
EXAMINATION TYPE: XR chest 1V DATE OF EXAM: 08/25/2022 COMPARISON: 08/24/2022 HISTORY: SOB, Follow Up FINDINGS: Indwelling tubes and catheters are unchanged. Stable left lower lobe opacity may reflect atelectasis or infiltrate. Small effusion is not excluded. The remainder of the lungs are clear and unchanged. Stable appearance of the cardio-mediastinal structures at this time. Postoperative changes cervical spine. IMPRESSION: 1. Stable portable chest. Clinical correlation and follow up until resolution is recommended.
[2022-08-25] MEDS: SENNOSIDES-DOCUSATE SODIUM 1 EACH TAB PO SCH (08:29)
[2022-08-25] MEDS: LOSARTAN 50 MG TAB PO SCH (08:29)
[2022-08-25] MEDS: amLODIPine 10 MG TAB PO SCH (08:29)
[2022-08-25] MEDS: PIOGLITAZONE 15 MG TAB PO SCH (08:33)
[2022-08-25] MEDS: ISOSORBIDE MONONITRATE ER 60 MG TAB.ER.24H PO SCH (08:34)
[2022-08-25] MEDS: ISOSORBIDE MONONITRATE ER 30 MG TAB.ER.24H PO SCH (08:34)
[2022-08-25] MEDS ORDERED: SENNOSIDES-DOCUSATE SODIUM 1 EACH TAB PO SCH (09:00)
--- NOTE | 2022-08-25 09:35 | P.PN ---
Progress Note - Text Progress Note Date: 08/25/22 Postoperative day #1 and postop day 17 Patient is seen and examined today at bedside in the intensive care unit. Patient has remained intubated on the vent overnight. Currently she is at 30% oxygen and saturating 100%. She received 1 unit of blood overnight last night for hemoglobin of 6.5. Physical Exam Afebrile with stable vital signs. She is on a vent at 30% and appears comfortable Abdomen is soft nontender. Chest has good excursion deep and space expiration The incision site is clean dry and intact. No erythema there is no purulence. The neck incision sites. The neck incision sites. Be stable without any significant swelling or drainage. The posterior cervical drain is intact. She has remained intubated from her surgery and is not able to have neurologic exam change from prior to surgery. Calves and thighs were soft nontender without evidence of DVT. Assessment/Plan Postoperative day #1 status post 2-stage anterior and posterior cervical decompression and fusion from C2 to C7 with removal of failed hardware from prior surgery 17 days ago with anterior cervical decompression and fusion C4 to 7 Intubated and sedated on mechanical ventilator postoperatively for airway protection Acute on chronic anemia, acute blood loss anemia due to surgery says post [place] sfusion 1 unit of blood overnight Patient seems to be making some progress with her ventilation status postoperatively. There is a plan to start to wake her up and to hopefully be able to wean the vent this morning after she seen by the intensive care physician. The operative sites appear to be stable without obvious incident. We will leave the posterior cervical drain until tomorrow. When she is x-ray that she can start to increase her mobilization. She should have her hard cervical collar intact at all times.. She's getting close medical management critical care management as per the ICU and medicine service. We will continue to increase the patient's mobilization with therapy when she is able with her hard cervical collar intact. We will continue pain control with oral or IV medications. We'll continue to follow patient closely.
[2022-08-25] MEDS: HYDROcodone/APAP 5-325MG 1 EACH TAB PO PRN (10:15)
--- NOTE | 2022-08-25 10:38 | P.CNPUL ---
History of Present Illness Consult date: 08/25/22 Chief complaint: Surgery, respiratory failure History of present illness: The patient is a 81-year-old female patient who was post a lengthy and extensive cervical spine surgery and postoperative the patient was kept intubated on a mechanical ventilator and the patient was transferred to the ICU for further evaluation and treatment. The patient has had significant issues in their neck and upper extremities. She has been having significant worsening at her neck and her upper extremities also troubles with her balance. She was showing syn ovitis myelopathy. She was found have severe stenosis at multiple levels at her cervical spine most prominently at C4 5 C5 6 and C6 7 but also some changes at C3 4. The patient initially went through some conservative management for this The patient has been through conservative treatment. She was having worsening of her symptoms and she underwent anterior cervical decompression with discectomy and fusion at C4 5 C5 6 C6 7 on 08/07/2022 with our service. The patient initially had a uneventful immediate postoperative course and was able to go home but on follow-up she was found have evidence of increased kyphosis with failure of the inner internal fixation and disruption of the fixation and hardware. She underwent further testing and imaging which showed obvious displacement of the hardware and interbody grafts. The patient was not having new neurologic deficits she is not having any new focal neurologic changes. She was having some increased pain and continued have evidence of myelopathy. The patient underwent Two-stage procedure with anterior and posterior cervical decompression and fusion under the same anesthesia Stage I Revision Anterior cervical decompression and fusion C3 4 C4 5 C5 6 C6 7 Corpectomy of C3 4 C5 and C6 for decompression Placement of interbody expandable titanium graft from C3 to C7 Application of anterior cervical plate from C3 to C7 Local autogenous bone grafting Use of Vika longoria Stage II Posterior cervical decompression C2 3 C3 4 C4 5 C5 6 C6 7 Posterior cervical spinal fusion C2 3 C3 4 C4 5 C5 6 C6 7 C7 T1 T1-T2, for 8 levels of spinal fusion for a posterior lateral and facet fusion Local autogenous bone grafting Use of fluoroscopic guidance He[facility] of [facility] head neck surgeon At this point in time, the patient remains intubated on a mechanical ventilator. The patient was kept intubated overnight. The patient is postop day #1. The patient is wearing a hard neck collar. She does have a drain in her posterior neck area and this is a Hemovac and the output from the drain is minimal at this point in time. Overnight, the patient continued to have low urine output. The patient was given a total of 2 L of normal saline bolus and currently she is on a maintenance of normal saline at the rate of 75 mL's an hour. She remains sedated on propofol. She is calm and comfortable. Along with the fluid resuscitation, the patient's urine output improved and she is currently producing 30 mL an hour. In terms of her blood work, there is a drop in hemoglobin down to 6.5. A unit of packed RBC was ordered and given to her. Note that her preop hemoglobin was 8.6. As such, the patient may potentially have chronic anemia. The morning blood gas showing a pH of 7.2 with a pCO2 of 28 and pO2 of 103. This was on assist-control mode at the rate of 16, tidal volume of 400, FiO2 of 30% with a PEEP of 5. The electrolytes are all stable. BUN is at 70 with a creatinine of 0.8. Sodiums of 139 with a potassium level of 3.3. Bicarb is 21. LFTs are normal. Her white cell count is 5.0. The chest x-ray from today shows adequate positioning of 82. The patient has a stable left lower lobe opacity/atelectasis. There are postoperative changes in the neck area. The patient is known to have coronary artery disease and she has undergone previous coronary stenting. She has hypertension and she is known to have chronic anemia. She does have Dilaudid for pain control. She is also diabetic maintained on oral hypoglycemics on outpatient basis. Review of Systems ROS unobtainable: due to endotracheal tube Past Medical History Past Medical History: Atrial Fibrillation, Asthma, Coronary Artery Disease (CAD), Cancer, Chest Pain / Angina, Heart Failure, Diabetes Mellitus, GERD/Reflux, Hearing Disorder / Deafness, Hyperlipidemia, Hypertension, Osteoarthritis (OA), Renal Disease, Rheumatoid Arthritis (RA), Vascular Disorder Additional Past Medical History / Comment(s): Cervical myopathy, spinal stenosis, paroxysmal afib, sinus bradycardia, NIDDM type II, 1984 L breast cancer/surgery and chemotherapy, 1985 L renal carcinoma, kidney infections, UTIs with current UTI, pt unsure if she had previous tia, ckd stage III, anemia, past small bowel obstructions, past ulcer, abnormal gait/uses walker, FALLS History of Any Multi-Drug Resistant Organisms: None Reported Past Surgical History: Breast Surgery, Heart Catheterization, Heart Catheterization With Stent, Joint Replacement, Orthopedic Surgery Additional Past Surgical History / Comment(s): Bilateral carpal tunnel releases, bilateral knee replacements, L breast mastectomy, L nephrectomy, colonoscopy, cataract removals. Past Anesthesia/Blood Transfusion Reactions: Motion Sickness, Postoperative Nausea & Vomiting (PONV) Additional Past Anesthesia/Blood Transfusion Reaction / Comment(s): Pt has had blood transfusion without reaction. Pt states she has fear of anesthesia. Date of Last Stent Placement:: 2007 Past Psychological History: Anxiety Additional Psychological History / Comment(s): Pt resides with her spouse. Smoking Status: Never smoker Past Alcohol Use History: None Reported Past Drug Use History: None Reported - Past Family History Mother Family Medical History: Cancer, Diabetes Mellitus Additional Family Medical History / Comment(s): Breast and colon cancer Father Additional Family Medical History / Comment(s): bowel problems Medications and Allergies Home Medications Medication Instructions Recorded Confirmed Type Aspirin 81 mg PO DAILY 06/05/22 08/23/22 History Ergocalciferol [Vitamin D2 (1250 1,250 mcg PO Q14D 06/05/22 08/23/22 History Mcg = 33101 Iu)] Fluticasone Propionate 220 Mcg 2 puff INHALATION RT-BID PRN 06/05/22 08/23/22 History [Flovent 220 Mcg Inhaler] Irbesartan 300 mg PO QAM 06/05/22 08/23/22 History Isosorbide Mononitrate ER [Imdur] 60 mg PO QAM 06/05/22 08/23/22 History Leflunomide [Arava] 20 mg PO QAM 06/05/22 08/23/22 History Montelukast Sodium [Singulair] 10 mg PO HS 06/05/22 08/23/22 History Nitroglycerin Sl Tabs [Nitrostat] 0.4 mg SUBLINGUAL Q5M PRN 06/05/22 08/23/22 History Pioglitazone [Actos] 15 mg PO QAM 06/05/22 08/23/22 History Ranolazine [Ranexa] 500 mg PO BID 06/05/22 08/23/22 History Repaglinide [Prandin] 0.5 mg PO AC-BID 06/05/22 08/23/22 History traMADol HCl [Ultram] 50 mg PO QID PRN 06/05/22 08/23/22 History Isosorbide Mononitrate ER [Imdur] 30 mg PO QAM 08/07/22 08/23/22 History Cyclobenzaprine [Flexeril] 5 mg PO TID PRN #60 tablet 08/09/22 08/23/22 Rx HYDROcodone/APAP 5-325MG [[place] 1 tab PO Q8HR PRN 7 Days #21 tab 08/09/22 08/23/22 Rx 5-325] amLODIPine [Norvasc] 10 mg PO DAILY #30 tab 08/09/22 08/23/22 Rx atenoloL [Tenormin] 50 mg PO BID #60 tab 08/09/22 08/23/22 Rx Acetaminophen Tab [Tylenol] 650 mg PO Q6HR PRN tab 08/10/22 08/23/22 Rx Sennosides-Docusate Sodium 1 tab PO DAILY 08/23/22 08/23/22 History [Senokot-S] Allergies Allergy/AdvReac Type Severity Reaction Status Date / Time codeine AdvReac Nausea & Verified 08/23/22 12:50 Vomiting,hyperactive Physical Exam Vitals: Vital Signs Temp Pulse Pulse Resp BP BP Pulse Ox 08/25/22 10:00 52 L 13 100 08/25/22 09:00 56 L 16 100 08/25/22 08:49 08/25/22 08:00 97.5 F L 53 L 17 100 08/25/22 07:00 54 L 16 100 08/25/22 06:24 97.4 F L 54 L 16 167/52 100 08/25/22 06:04 97.3 F L 56 L 16 164/51 100 08/25/22 06:00 56 L 16 105/54 100 08/25/22 05:00 52 L 16 105/54 100 08/25/22 04:00 97.4 F L 53 L 17 105/54 100 08/25/22 03:26 08/25/22 03:00 53 L 12 105/54 100 08/25/22 02:00 57 L 16 105/54 100 08/25/22 01:00 64 15 100 08/25/22 00:18 58 L 16 100 08/25/22 00:00 97.4 F L 57 L 16 100 08/24/22 23:38 08/24/22 23:00 61 17 100 08/24/22 22:00 69 16 100 08/24/22 21:00 56 L 16 100 08/24/22 20:00 97.4 F L 53 L 16 100 08/24/22 19:57 08/24/22 19:08 50 L 13 100 08/24/22 19:00 100 16 158/42 08/24/22 18:00 49 L 16 166/77 08/24/22 17:14 08/24/22 17:00 95.6 F L 55 L 16 143/43 08/24/22 16:52 08/24/22 16:49 08/24/22 14:40 97.4 F L 56 L 16 164/52 100 FiO2 08/25/22 10:00 30 08/25/22 09:00 30 08/25/22 08:49 30 08/25/22 08:00 30 08/25/22 07:00 08/25/22 06:24 08/25/22 06:04 08/25/22 06:00 08/25/22 05:00 08/25/22 04:00 30 08/25/22 03:26 30 08/25/22 03:00 08/25/22 02:00 08/25/22 01:00 08/25/22 00:18 08/25/22 00:00 30 08/24/22 23:38 30 08/24/22 23:00 08/24/22 22:00 08/24/22 21:00 08/24/22 20:00 30 08/24/22 19:57 30 08/24/22 19:08 08/24/22 19:00 30 08/24/22 18:00 08/24/22 17:14 30 08/24/22 17:00 08/24/22 16:52 60 08/24/22 16:49 100 08/24/22 14:40 Intake and Output 08/24/22 08/25/22 08/25/22 22:59 06:59 14:59 Intake Total 7350.315 1498.960 973.664 Output Total 552 122 130 Balance 325.675 0872.960 843.664 Intake: IV 1465 1590 55 Sodium Chloride 0.9% 1, 415 540 55 000 ml @ 75 mls/hr IV . [id number] [facility] Rx#:[id number] Sodium Chloride 0.9% 1, 1000 1000 000 ml @ 999 mls/hr IV . Q1H1M ONE Rx#:[id number] ceFAZolin 2 gm In Sodium 50 50 Chloride 0.9% 50 ml @ 100 mls/hr IVPB Q8H [facility] Rx#: [id number] Intake, IV Titration 72.014 148.960 298.664 Amount Sodium Chloride 0.9% 1, 225 000 ml @ 75 mls/hr IV . [id number] [facility] Rx#:[id number] propofoL 1,000 mg In 72.014 148.960 73.664 Empty Bag 1 bag @ 15 MCG/ KG/MIN 5.715 mls/hr IV . [id number] [facility] Rx#:[id number] Blood Product 0 620 Rc As-1 Unit 0 310 [id number] Output: Drainage 0 0 Neck 0 0 Urine 52 122 130 Estimated Blood Loss 500 Other: Voiding Method Indwelling Catheter Indwelling Catheter Indwelling Catheter Weight 62.2 kg ABP, PAP, CO, CI - Last 8 Hours Arterial Blood Pressure 151/46 Arterial Blood Pressure 163/51 Arterial Blood Pressure 163/50 Arterial Blood Pressure 164/54 Arterial Blood Pressure 162/51 Arterial Blood Pressure 144/41 Arterial Blood Pressure 145/39 Gen. appearance, the patient is calm and comfortable, currently intubated on a mechanical ventilator and she continues to wear a hard neck collar. She has an NG tube in place. Orotracheal tube is also in place. Head exam was generally normal. There was no scleral icterus or corneal arcus. Mucous membranes were moist. In fact there is some swelling in her eyes and her face which is attributed to her prolonged surgery Neck examination shows a hard neck collar and the patient has a drain in her posterior neck area. Output is blood. Minimal at this point in time. Lungs were clear to auscultation and percussion, and with normal diaphragmatic excursion. No wheezes or rales were noted. Cardiac exam revealed the PMI to be normally situated and sized. The rhythm was regular and no extrasystoles were noted during several minutes of auscultation. The first and second heart sounds were normal and physiologic splitting of the second heart sound was noted. There were no murmurs, rubs, clicks, or gallops. Abdominal exam revealed normal bowel sounds. The abdomen was soft, non-tender, and without masses, organomegaly, or appreciable enlargement of the abdominal aorta. Extremities are slightly swollen and the proximity is bilaterally and there is some minimal edema lower extremities Examination of the skin revealed no evidence of significant rashes, suspicious appearing nevi or other concerning lesions. Neurologically, the patient is waken up from sedation. The patient has following simple commands and she is moving all 4 extremities without any limitation. No facial asymmetry. Pupils are equal and reactive to light. Results - Laboratory Findings CBC and BMP: 08/25/22 03:23 08/25/22 03:23 ABG ABG pH 7.52 (7.35-7.45) H 08/25/22 04:30 ABG pCO2 28 mmHg (35-45) L 08/25/22 04:30 ABG pO2 103 mmHg (83-108) 08/25/22 04:30 ABG O2 Saturation 99.6 % (94-97) H 08/25/22 04:30 PT/INR, D-dimer PT 10.2 sec (9.0-12.0) 08/23/22 13:03 INR 1.0 (<1.2) 08/23/22 13:03 Abnormal lab findings: Abnormal Labs 08/23/22 08/23/22 08/23/22 13:03 13:03 14:26 RBC 3.63 L Hgb 8.6 L Hct 28.6 L MCV 78.9 L MCH 23.8 L MCHC 30.1 L RDW 16.0 H MPV ABG pH ABG pCO2 ABG pO2 ABG Total CO2 ABG O2 Saturation Potassium Chloride Carbon Dioxide Anion Gap Est GFR (CKD-EPI)NonAf Glucose 142 H POC Glucose (mg/dL) Calcium Total Protein Albumin Urine Protein 1+ H Urine Mucus Rare H Crossmatch 08/23/22 08/23/22 08/23/22 14:37 16:00 20:45 RBC Hgb Hct MCV MCH MCHC RDW MPV ABG pH ABG pCO2 ABG pO2 ABG Total CO2 ABG O2 Saturation Potassium Chloride Carbon Dioxide Anion Gap Est GFR (CKD-EPI)NonAf Glucose POC Glucose (mg/dL) 182 H 180 H Calcium Total Protein Albumin Urine Protein Urine Mucus Crossmatch See Detail 08/24/22 08/24/22 08/24/22 06:08 06:44 06:44 RBC 3.44 L Hgb 7.9 L Hct 26.3 L MCV 76.5 L MCH 23.0 L MCHC 30.0 L RDW 16.2 H MPV 9.1 L ABG pH ABG pCO2 ABG pO2 ABG Total CO2 ABG O2 Saturation Potassium Chloride 110 H Carbon Dioxide Anion Gap 9.10 L Est GFR (CKD-EPI)NonAf 52.8 L Glucose 117 H POC Glucose (mg/dL) 117 H Calcium Total Protein Albumin Urine Protein Urine Mucus Crossmatch 08/24/22 08/24/22 08/24/22 16:38 16:50 17:06 RBC Hgb Hct MCV MCH MCHC RDW MPV ABG pH 7.46 H ABG pCO2 33 L ABG pO2 231 H ABG Total CO2 25 H ABG O2 Saturation 100.0 H Potassium Chloride Carbon Dioxide Anion Gap Est GFR (CKD-EPI)NonAf Glucose POC Glucose (mg/dL) 183 H 211 H Calcium Total Protein Albumin Urine Protein Urine Mucus Crossmatch 08/24/22 08/25/22 08/25/22 18:37 00:10 03:23 RBC 2.62 L Hgb 6.5 L* D Hct 20.4 L MCV 77.8 L MCH 24.7 L MCHC RDW 16.1 H MPV ABG pH ABG pCO2 ABG pO2 ABG Total CO2 ABG O2 Saturation Potassium Chloride Carbon Dioxide Anion Gap Est GFR (CKD-EPI)NonAf Glucose POC Glucose (mg/dL) 175 H 166 H Calcium Total Protein Albumin Urine Protein Urine Mucus Crossmatch 08/25/22 08/25/22 08/25/22 03:23 04:30 06:16 RBC Hgb Hct MCV MCH MCHC RDW MPV ABG pH 7.52 H ABG pCO2 28 L ABG pO2 ABG Total CO2 ABG O2 Saturation 99.6 H Potassium 3.3 L Chloride 114 H Carbon Dioxide 21 L Anion Gap Est GFR (CKD-EPI)NonAf Glucose 131 H POC Glucose (mg/dL) 114 H Calcium 6.8 L Total Protein 3.7 L Albumin 2.0 L Urine Protein Urine Mucus Crossmatch - Diagnostic Findings Chest x-ray: image reviewed Assessment and Plan Plan: Cervical myelopathy, severe cervical stenosis, upper extremity weakness,Failed cervical anterior cervical fixation C4 to C7, 2-1/2 weeks status post anterior cervical decompression with discectomy and fusion C4 5 C5 6 C6 7, Cervical kyphosis. The patient has an extensive neck surgery which involved Two-stage procedure with anterior and posterior cervical decompression and fusion under the same anesthesia Stage I Revision Anterior cervical decompression and fusion C3 4 C4 5 C5 6 C6 7 Corpectomy of C3 4 C5 and C6 for decompression Placement of interbody expandable titanium graft from C3 to C7 Application of anterior cervical plate from C3 to C7 Local autogenous bone grafting Use of Vika longoria Stage II Posterior cervical decompression C2 3 C3 4 C4 5 C5 6 C6 7 Posterior cervical spinal fusion C2 3 C3 4 C4 5 C5 6 C6 7 C7 T1 T1-T2, for 8 levels of spinal fusion for a posterior lateral and facet fusion Local autogenous bone grafting Use of fluoroscopic guidance He's of Jaime head neck surgeon The patient is postop day #1 Ventilatory dependent respiratory failure. The patient was Intubated yesterday due to concerns of airway swelling and compromise due to prolonged surgical time. As such, she was kept on a mechanical ventilator overnight and this morning we'll going to proceed with her weaning. She remains intubated on a mechanical ventilator for now. Chest x-ray in the blood gases are adequate. Acute on chronic anemia. Acute drop in hemoglobin is probably due to intraoperative blood loss and the patient was given units of packed RBC today. Coronary artery disease with previous history of coronary stenting Paroxysmal A. fib fibrillation, currently in sinus rhythm Diabetes mellitus type 2 History of rheumatoid arthritis History of osteoarthritis Chronic intermittent bronchial asthma History of less breast cancer with a previous surgical resection followed by systemic chemotherapy back in 1984 History of renal carcinoma with a left nephrectomy History of recurrent UTIs History of TIA. Previous history of bowel obstruction involving the small bowel Difficulty with mobility and gait and the patient uses a walker and she is considered to be at a high risk of falls Plan Continue vent support for now Stop the sedation and assess the patient's neurologic functions. Assess the level of consciousness and assess her motor functions the lower and upper extremities bilaterally following Surgery Check weaning parameters Interval weaning parameters are adequate, we'll going to give the patient is point his breathing trial and possibly extubated today We'll monitor the hemoglobin and the patient will receive units of packed RBC Hemodynamically stable and the patient is on no pressors and will continue normal saline at rate of 75 mL an hour. In fact she has slightly hypertensive this morning. Continue sliding scale insulin coverage Pain control with Dilaudid Compression devices to lower oximetry for DVT prophylaxis and we'll utilize Lovenox once cleared by spine surgery Continue atenolol 50 mg by mouth twice a day and Norvasc 10 mg by mouth daily for blood pressure control She has hydralazine on an as-needed basis Monitor the output from the DENA drain We'll continue to follow Time with Patient: Greater than 30
[2022-08-25] MEDS: hydrALAZINE HCL 20 MG/ML 1 ML VIAL IVP PRN (10:45)
[2022-08-25 11:13] LABS: Anisocytosis Slight; Basophils % (A) 0 %; Eosinophils % (A) 0 %; HCT 26.6 % (34.0-46.0); Lymphocytes # (A) 0.7 k/uL (1.0-4.8); Lymphocytes % (A) 7 %; MCH 26.4 pg (25.0-35.0); MCHC 32.9 g/dL (31.0-37.0); MCV 80.1 fL (80.0-100.0); Mean Platelet Volume 8.1; Monocytes # (A) 0.5 k/uL (0-1.0); Monocytes % (A) 5 %; Neutrophils % (A) 87 %; Platelet Count 172 k/uL (150-450); Poikilocytosis Slight; RBC 3.32 m/uL (3.80-5.40); RDW 17.2 % (11.5-15.5); WBC 9.3 k/uL (3.8-10.6)
[2022-08-25 11:18] LABS: Calcium 7.3 mg/dL (8.4-10.2)
[2022-08-25 11:34] LABS: HGB 8.8 gm/dL (11.4-16.0)
[2022-08-25 12:03] LABS: Allen Test Performed? Yes
[2022-08-25 12:06] LABS: ABG Base Excess -1.7 mmol/L; ABG HCO3 20 mmol/L (21-25); ABG Oxygen Saturation 98.7 % (94-97); ABG PCO2 21 mmHg (35-45); ABG PO2 128 mmHg (83-108); ABG TCO2 21 mmol/L (19-24)
[2022-08-25 12:18] LABS: ABG PH 7.58 (7.35-7.45)
[2022-08-25] MEDS: ALBUTEROL NEBULIZED 2.5 MG/3 ML INHALATION SCH ×3 (13:06→21:14)
--- NOTE | 2022-08-25 16:01 | P.OP ---
Date of Procedure: 08/24/22 Preoperative Diagnosis: 1. 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 Neck pain 3. Cervical myelopathy 4. UE weakness 5. Osteoporosis 6. Complex medical patient Postoperative Diagnosis: 1. 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 Neck pain 3. Cervical myelopathy 4. UE weakness 5. Osteoporosis 6. Complex medical patient Procedure(s) Performed: Two-stage procedure with anterior and posterior cervical decompression and fusion under the same anesthesia Co-Surgeon Case with Dr. Edward and myself who were both present for both stages and the entire case from positioning to dressing placement. Stage I 1. C4, C5, C6 corpectomy (19299, [id number]) 2. Revision anterior fusion C3-7 (25401, [id number]) 3. Application of non integrated anterior cervical plate C3-7 (28963) 4. Insertion of biomechanical device C3-7, corpectomy cage x1 (75810) 5. Removal of anterior hardware plate and grafts (73047) Stage II 1. C2-T2 posteriolateral stabilized fusion (65705, 76294v0) 2. Segmental instrumentation C2-T2 (68898) 3. Bilateral decompressive laminectomy C2-C7 (17374, 18488q5) Use of IONM Implants: -Mandi [place]ef[place] expandable corpectomy cage anterior -Mandi [place] Plate anterior -Mandi Posterior cervical system -Autograft, Allograft, MagnatOs Anesthesia: GETA Surgeon: Jonah Fischer (Co-Surgeon Case with Dr. Edmond Edward) Estimated Blood Loss (ml): 500 IV fluids (ml): 2,500 Urine output (ml): 450 Pathology: none sent Condition: stable Disposition: PACU Indications for Procedure: This is a pleasant 81 yo female who 2 weeks prior had a C3-7 ACDF. She initially did OK, but was found on her post op appointment to have fractured her anterior cervical vertebral bodies From C4-6 with hardware failure and neck pain with progressive weakness and continued issues. She was seen and evaluated in the Pre-op area. She and her family understood the options for treatment and due to her poor bone quality and failed hardware would need an anterior and posterior surgery to fix the issues. They understood and were comfortable with this. Risks were discussed as in the risk review. Anesthesia cleared her for surgery. They were ready and willing to proceed. Description of Procedure: Stage I: C3-7 revision ACDF with corpectomy The patient was seen and examined in the preoperative area. All preoperative protocols were followed. Informed consent was obtained risks and benefits of the procedure were discussed at length. Risks including bleeding infection damage to the surrounding tissue and risk of re-operation were discussed with the patient. Risk of anesthesia up to and including was a discussed with the patient. These are outlined in the risk review. They were willing to accept these risks and all the risks of surgery. The patient was given a weight-based dose of antibiotics in the form of 2 g Ancef. The patient was seen and evaluated by the anesthesia team who deemed them fit for surgery. The site was marked, the patient was willing to proceed with the procedure.The patient was transferred to the operative suite by the Department of anesthesia. They were then drifted off to sleep by the department anesthesia and GETA was performed. The patient tolerated this well. Copeland catheter was placed by nursing staff, a-traumatically. Once confirmation of lines and ventilation the patient was transferred to a Supine Dany table very carefully. All bony prominences including wrists, elbows, axilla, chest, hips, and thighs, and feet were padded very well. Special attention was paid to the genitalia, and these were padded accordingly. SCDs were placed on bilateral lower extremities and were connected. Arms were well padded and placed at their side thumbs up. Once in position, again we confirmed good ventilation capabilities and that lines were running appropriately. The patients Cervical spine was then exposed. 1010s were placed outlining the incision site. Standard alcohol was used to clean the incision site and allowed to dry. C-arm was used to bio-pippa the patient and confirm level for incision which was marked with a skin marker. Operative briefing was performed with all teams and everyone in agreement to proceed. The patient was then prepped and draped in a normal sterile fashion. Timeout was then performed, and all parties agreed with the procedure to be performed. Transverse skin incision was then made on the right side of the patients neck 3 cm over the previous incision and dissection taken down to the platysma which was split. Scar tissue was exposed and carefully mobilized. Sub platysma flap was made, and interval identified between SCM and medial structures. Omohyoid was visualized and protected. Blunt dissection taken down to the anterior cervical plate was identified. Exposure was taken up to C3 and plate and screw were removed along with allograft inerbodies. The wound bed was irrigated and then inspected. Retractor was then placed deep to these muscles and held in place with a bed arm. Due to the fractures of each body it was elected to do corpectomies of C4-6. This was accomplished with dony, rongure, up-bite curette and pituitary. High speed dony used to remove osteophytes anteriorly and posteriorly until PLL was identified. 6-0 up curette then used to identify the canal and resect the PLL. 2-0 and 3-0 Kerrison used then to remove PLL and disc herniation and performed b/l foraminotomies. Once good decompression accomplished, meticulous hemostasis was performed. Sizers were then placed under lateral fluoroscopy until the desired height and lordosis. Cage was then selected, packed with autograft and allograft and placed under lateral imaging. Once in good position it was tested and stable. Motors run before and after cage placement were stable. The wound was irrigated, and autograft placed lateral to the cage anteriorly for fusion. A plate was then selected and placed and sized appropriately. Once in position screw holes were drilled in C7 and C3 respectively and filled with screws. There was adequate purchase. The locking mechanisms were then set. Final AP and lateral images taken confirmed good placement of hardware and good reduction and denominational of height. The wound was then irrigated copiously with NSS. Layered closure then performed with 3-0 Vicryl in the platysma and sub-Q tissue. 4-0 Strata fix in the subcuticular tissue. The wound was then cleaned, and dried and skin glue placed. Once glue dried an Opifoam was placed. The patient was then transferred back to their hospital bed a-traumatically. She was placed in a hard collar for the flip. She tolerated this stage well and after discussion with anesthesia and parties in the room it was OK to proceed with second stage. Stage II: C2-T2 Decompression and Fusion After first stage, The patient was given a weight-based dose of antibiotics at appropriate interval. Once confirmation of lines and ventilation Jaime head clamp was placed on the patient and secured and the patient was transferred to a [prone Dany table very carefully] with the Jaime head of music the head was secured and placed into an optimal position x-ray confirmed this position. Post- positioning motors remained stable. All bony prominences including wrists, elbows, axilla, chest, hips, and thighs, and feet were padded very well. Special attention was paid to the genitalia and these were padded accordingly. SCDs were placed on bilateral lower extremities and were connected. Arms were well padded and placed tucked at his side thumbs down. Shoulders were gently taped down to the table.. Once in position, again we confirmed good ventilation capabilities and that lines were running appropriately. The patient's posterior cervical spine was then exposed. 1010s were placed outlining the incision site. Standard alcohol was used to clean the incision site and allowed to dry. C-arm was used to biomark the patient and confirm level for incision which was marked with a skin marker. Operative briefing was performed with all teams and everyone in agreement to proceed. The patient was then prepped and draped in a normal sterile fashion. Timeout was then performed and all parties were in agreement with the procedure to be performed. Midline skin incision made over the previously biomarked area and dissection taken down midline to the SP of C2-T1. Subperiosteal dissection taken out over the lamina and lateral masses of C2-C7 and TVP of T2. Once exposure complete, wound was irrigated and c arm brought in for imaging. A penfield 4 was used to bluntly dissect the medial border of C2 pedicle and placed for guidance. C arm used and dony hole made for starting point. C2 pedicle was then drilled in 2mm increments to 18 mm using a ball tip feeler in between each drill session to make sure within the 4 luis with a good bottom. once this was accomplished a screw was selected and placed under lateral fluoroscopic guidance. Screw had good purchase. This was then repeated on the contralateral side drilling to 16 mm due to anatomy of VA. AP confirmed good placement of both screws. We then proceeded to the T1 and T2 screws bilaterally dony was used to remove the facet joint of C7 and to create a starting point for T1. Pedicle finder was then passed into T1 and imaging taken to confirm placement this was then removed and a tap placed ball-tipped probe was then placed and 4 luis of pedicle fell with good bottom. Screw was then measured and placed into T1. This is repeated on the contralateral side.T2 was placed in the same fashion and had good purchase. The wound was then irrigated. Lateral mass screws were then drilled to 14 mm and placed at each level. Each had a good bite. Rods were then sized and selected and cut to length. They were bent accordingly and lordosis. There is secured into C2 bilaterally and then sequentially her diet reduced into T1. All set screws were placed and were then final tightened and the position. Laminectomy was then performed using Ronjair followed by dony bilateral laminotomies and laminectomy was performed using high-speed bur Kerrison Ronjair and up-biting curette. Motors were run before and after decompression and they remain stable. Good pulsations of the cord were noted after decompression. The wound was then copiously irrigated with 3 L of Ancef irrigation followed by 3 L of gentamicin irrigation followed by 3 L of normal sterile saline. Facet joints were drilled at each level to allow for fusion Surgicel was placed over the dura. MagnetOs were placed in the posterior lateral gutters along with autograft. This was impacted into position for fusion. 2 g of powdered bank was not placed deep within the wound and a deep drain was placed. A cross-link was placed and final tightened. We then proceeded with layered closure first in the deep fascia with #1 PDS then in the middle fascia with 0 Vicryl superficial fascia was closed with 2-0 Vicryl and skin closed with skin jeremias. The wound edges approximated very well. The wound was then cleaned and dressed sterilely with an operative foam dressing 4 x 4 and Tegaderm. The drain had good suction. The patient was placed in a hard cervical collar.The patient was transferred back to their hospital bed atraumatically. Jaime head clamp was removed and pin sites were clear. [Drain continued to hold suction and were in good position]. Patient was then awakened and extubated by the department of anesthesia having tolerated the procedure very well with no complications. They were transferred to the postoperative care unit in stable condition.
[2022-08-25 18:26] LABS: Glucose,Whole Blood 159 mg/dL (70-110)
[2022-08-25] MEDS: LORazepam 2 MG/ML INJ IV PRN (21:35)
[2022-08-26 00:09] LABS: Glucose,Whole Blood 130 mg/dL (70-110)
[2022-08-26] MEDS: INSULIN ASPART (NovoLOG) 100 UNIT/ML VIAL SQ SCH (00:12)
[2022-08-26] MEDS: HYDROmorphone 0.5 MG/0.5 ML SYRINGE IVP PRN ×7 (02:24→23:29)
[2022-08-26 05:26] LABS: Anisocytosis Slight; Basophils % (A) 0 %; Eosinophils % (A) 0 %; HCT 30.1 % (34.0-46.0); HGB 9.5 gm/dL (11.4-16.0); Hypochromasia Slight; Lymphocytes # (A) 1.1 k/uL (1.0-4.8); Lymphocytes % (A) 11 %; MCH 25.7 pg (25.0-35.0); MCHC 31.6 g/dL (31.0-37.0); MCV 81.4 fL (80.0-100.0); Mean Platelet Volume 8.1; Monocytes # (A) 0.8 k/uL (0-1.0); Monocytes % (A) 8 %; Neutrophils # (A) 8.6 k/uL (1.3-7.7); Neutrophils % (A) 81 %; Platelet Count 214 k/uL (150-450); Poikilocytosis Slight; RDW 17.4 % (11.5-15.5); WBC 10.6 k/uL (3.8-10.6)
[2022-08-26 05:37] LABS: Albumin 2.6 g/dL (3.5-5.0); Calcium 7.8 mg/dL (8.4-10.2); Potassium 3.7 mmol/L (3.5-5.1); Total Bilirubin 0.6 mg/dL (0.2-1.3); Total Protein 4.8 g/dL (6.3-8.2)
[2022-08-26] MEDS: REPAGLINIDE 1 MG TAB PO SCH ×2 (06:44→16:09)
[2022-08-26] MEDS: atenoloL 50 MG TAB PO SCH ×2 (08:51→20:24)
[2022-08-26] MEDS: ISOSORBIDE MONONITRATE ER 60 MG TAB.ER.24H PO SCH (08:51)
[2022-08-26] MEDS: amLODIPine 10 MG TAB PO SCH (08:51)
[2022-08-26] MEDS: ISOSORBIDE MONONITRATE ER 30 MG TAB.ER.24H PO SCH (08:51)
[2022-08-26] MEDS: LOSARTAN 50 MG TAB PO SCH (08:53)
[2022-08-26] MEDS: SENNOSIDES-DOCUSATE SODIUM 1 EACH TAB PO SCH (08:53)
[2022-08-26] MEDS: PIOGLITAZONE 15 MG TAB PO SCH (08:53)
[2022-08-26] MEDS: RANOLAZINE 500 MG TAB.ER.12H PO SCH ×2 (08:53→20:25)
[2022-08-26 09:05] LABS: % Iron Saturation 29.23 (12.00-45.00)
[2022-08-26] MEDS ORDERED: HEPARIN SODIUM 1,000 UN/ML (10ML VL) IV PRN (09:17)
[2022-08-26] MEDS: ALBUTEROL NEBULIZED 2.5 MG/3 ML INHALATION SCH ×4 (09:17→20:30)
[2022-08-26] MEDS ORDERED: HEPARIN SODIUM 1,000 UN/ML (10ML VL) IV ONE (09:17)
[2022-08-26] MEDS: CLEVIDIPINE BUTYRATE 25 MG in EMPTY BAG 1 BAG IV SCH ×4 (09:25→22:25)
[2022-08-26] MEDS: SODIUM CHLORIDE 0.9% 1,000 ML IV SCH ×2 (09:26→22:26)
[2022-08-26 09:51] LABS: INR 0.9 (<1.2); Partial Thromboplastin Time 24.1 sec (22.0-30.0); Prothrombin Time 9.9 sec (9.0-12.0)
[2022-08-26] MEDS: HEPARIN SOD,PORK IN 0.45% NACL 25,000 UNIT in 0.45% NACL 1 250ML.BAG IV SCH (10:18)
--- NOTE | 2022-08-26 10:31 | P.PN ---
Progress Note - Text Progress Note Date: 08/26/22 Postoperative day #2 Patient is seen and examined today at bedside. Her and her daughter at bedside with her. She was extubated yesterday and is breathing comfortably on room air. She was saturating 100% on room air. She has been using her hard cervical collar. She does not feel that she has made any change in her right upper extremity. She has not yet been out of bed but has her bed elevated to sit up. She had a swallow study this morning but failed. She has pain between her shoulder blades and at the base of her neck and towards her front of her chest around her surgical site. Pain is being controlled with medication. Physical Exam Afebrile Her rhythm showed evidence of atrial fibrillation and she had EKG which confirms presence of atrial fibrillation with a rate around 80 Abdomen is soft nontender. Chest has good excursion deep and space expiration The incision site is clean dry and intact. No erythema there is no purulence. The anterior incision does not have any drainage at all. There is no segment swelling or tension. The posterior incision site jeremias are intact. I removed the drain is it was not putting out any drainage since the time of surgery. On pulling the drainage there is some small amount of serosanguineous fluid but no significant fluid or bleeding. The jeremias were intact and appear to be doing well without any segment swelling Extremities have not had neurologic change from prior to surgery. She is very limited motion at her right upper extremity but is able to move her hands and fingers. Her left upper extremity and bilateral lower extremities do not have any change and she seems to be moving those adequately Calves and thighs were soft nontender without evidence of DVT. Assessment/Plan Postoperative day #2 status post revision anterior cervical compression and fusion with corpectomy C3 to C7 along with posterior cervical decompression and fusion C2 to T2 for her cervical myelopathy with failed internal fixation after her surgery from August 08 almost 3 weeks ago. Patient is progressing as expected from the surgery in terms of her pain and neurologic status. She has her hard collar on and we would like to see her mobilizing further if she is able. They plan to get her up out of bed today and transferring over to a chair with significant assistance. We will continue to increase the patient's mobilization with therapy as she is able. She has atrial fibrillation on her rhythm now and critical care is starting her on anticoagulants. She is going to start heparin drip as she is not been able to clear her swallow study yet. She was tolerating some fluid yesterday but occasionally has some difficulty and had a swallow study which she failed this morning. Hopefully we can start to mobilize her diet as her swelling improves. We will continue pain control with oral or IV medications. We'll continue to follow patient closely. She should continue her hard collar all times
--- NOTE | 2022-08-26 13:37 | P.PN ---
Subjective Progress Note Date: 08/26/22 Principal diagnosis: Cervical myelopathy The patient is a 81-year-old female patient who was post a lengthy and extensive cervical spine surgery and postoperative the patient was kept intubated on a mechanical ventilator and the patient was transferred to the ICU for further dilshad luation and treatment. The patient has had significant issues in their neck and upper extremities. She has been having significant worsening at her neck and her upper extremities also troubles with her balance. She was showing synovitis myelopathy. She was found have severe stenosis at multiple levels at her cervical spine most prominently at C4 5 C5 6 and C6 7 but also some changes at C3 4. The patient initially went through some conservative management for this The patient has been through conservative treatment. She was having worsening of her symptoms and she underwent anterior cervical decompression with discectomy and fusion at C4 5 C5 6 C6 7 on 08/07/2022 with our service. The patient initially had a uneventful immediate postoperative course and was able to go home but on follow-up she was found have evidence of increased kyphosis with failure of the inner internal fixation and disruption of the fixation and hardware. She underwent further testing and imaging which showed obvious displacement of the hardware and interbody grafts. The patient was not having new neurologic deficits she is not having any new focal neurologic changes. She was having some increased pain and continued have evidence of myelopathy. The patient underwent Two-stage procedure with anterior and posterior cervical decompression and fusion under the same anesthesia Stage I Revision Anterior cervical decompression and fusion C3 4 C4 5 C5 6 C6 7 Corpectomy of C3 4 C5 and C6 for decompression Placement of interbody expandable titanium graft from C3 to C7 Application of anterior cervical plate from C3 to C7 Local autogenous bone grafting Use of Vika longoria Stage II Posterior cervical decompression C2 3 C3 4 C4 5 C5 6 C6 7 Posterior cervical spinal fusion C2 3 C3 4 C4 5 C5 6 C6 7 C7 T1 T1-T2, for 8 levels of spinal fusion for a posterior lateral and facet fusion Local autogenous bone grafting Use of fluoroscopic guidance He's of Stendal hogshead liner At this point in time, the patient remains intubated on a mechanical ventilator. The patient was kept intubated overnight. The patient is postop day #1. The patient is wearing a hard neck collar. She does have a drain in her posterior neck area and this is a Hemovac and the output from the drain is minimal at this point in time. Overnight, the patient continued to have low urine output. The patient was given a total of 2 L of normal saline bolus and currently she is on a maintenance of normal saline at the rate of 75 mL's an hour. She remains sedated on propofol. She is calm and comfortable. Along with the fluid resuscitation, the patient's urine output improved and she is currently producing 30 mL an hour. In terms of her blood work, there is a drop in hemoglobin down to 6.5. A unit of packed RBC was ordered and given to her. Note that her preop hemoglobin was 8.6. As such, the patient may potentially have chronic anemia. The morning blood gas showing a pH of 7.2 with a pCO2 of 28 and pO2 of 103. This was on assist-control mode at the rate of 16, tidal volume of 400, FiO2 of 30% with a PEEP of 5. The electrolytes are all stable. BUN is at 70 with a creatinine of 0.8. Sodiums of 139 with a potassium level of 3.3. Bicarb is 21. LFTs are normal. Her white cell count is 5.0. The chest x-ray from today shows adequate positioning of 82. The patient has a stable left lower lobe opacity/atelectasis. There are postoperative changes in the neck area. The patient is known to have coronary artery disease and she has undergone previous coronary stenting. She has hypertension and she is known to have chronic anemia. She does have Dilaudid for pain control. She is also diabetic maintained on oral hypoglycemics on outpatient basis. Reevaluated today on 08/26/2022, patient was extubated yesterday by Dr. Jim, seems to be doing relatively well. She is now postoperative day #2, status post revision anterior cervical compression and fusion with corpectomy C3 to C7 along with posterior cervical decompression and fusion C2 to T2 for her cervical myelopathy with failed internal fixation after her surgery from August 08 almost 3 weeks ago. Patient seems to have difficulty with swallowing, she failed the swallow evaluation. Patient is on room air, she does not seem to be in any distress. WBC count of 10.6 hemoglobin is 9.5. Basic metabolic profile is unremarkable. Bicarb is 18 BUN is 19 and creatinine 1.05. Again the patient is on room air with O2 sats from 99%, blood pressure is a bit elevated 158/44, may consider using IV clevidipine X a blood pressure remains elevated. No oral meds to be given yet since the patient failed her swallow evaluation. And this will be reassessed in the next 24 hours Objective - Vital Signs Vital signs: Vital Signs Temp 98.4 F 08/26/22 08:00 Pulse 98 08/26/22 11:00 Resp 28 H 08/26/22 11:00 BP 78/52 08/26/22 07:00 Pulse Ox 98 08/26/22 11:00 FiO2 30 08/25/22 12:00 Intake & Output 08/25/22 08/26/22 08/26/22 18:59 06:59 18:59 Intake Total 1577.474 900 521.6 Output Total 480 715 290 Balance 1097.474 185 231.6 Weight 78 kg Intake: IV 55 825 450 Sodium Chloride 0.9% 1, 55 375 000 ml @ 75 mls/hr IV . [id number] [facility] Rx#:[id number] Sodium Chloride 0.9% 1, 450 450 000 ml @ 75 mls/hr IV . [id number] [facility] Rx#:[id number] Intake, IV Titration 902.474 75 71.6 Amount Clevidipine Butyrate 25 21.6 mg In Empty Bag 1 bag @ 1 MG/HR 2 mls/hr IV .Q24H [facility] Rx#:[id number] Sodium Chloride 0.9% 1, 825 75 000 ml @ 75 mls/hr IV . [id number] [facility] Rx#:[id number] ceFAZolin 2 gm In Sodium 50 Chloride 0.9% 50 ml @ 100 mls/hr IVPB Q8HR [facility] Rx# :[id number] propofoL 1,000 mg In 77.474 Empty Bag 1 bag @ 15 MCG/ KG/MIN 5.715 mls/hr IV . [id number] [facility] Rx#:[id number] Blood Product 620 Rc As-1 Unit 310 [id number] Output: Drainage 0 0 Neck 0 0 Urine 480 715 290 Other: Voiding Method Indwelling Catheter Indwelling Catheter Indwelling Catheter ABP, PAP, CO, CI - Last Documented Arterial Blood Pressure 133/37 - Exam Physical Exam: Revealed an 81-year-old female in no distress. Head: Atraumatic, normocephalic, HEENT:[Neck is supple.] [No neck masses.] [No thyromegaly.] [No JVD.] Cervical hard neck collar remains in place. Chest: [Clear throughout, no crackles, no rhonchi, no wheezes.] Cardiac Exam: [Normal S1 and S2, no S3 gallop, no murmur.] Abdomen: [Soft, nontender, no megaly, no rebound, no guarding, normal bowel sounds.] Extremities: [No clubbing, no edema, no cyanosis.] Right upper extremity seems to be a bit weaker compared to the left upper extremity. Neurological Exam: [No focal neurologic deficit.] No gross focal neurologic deficits. Psychiatric: Normal mood affect and normal mental status examination. - Labs CBC & Chem 7: 08/26/22 04:40 08/26/22 04:40 Labs: Abnormal Lab Results - Last 24 Hours (Table) 08/25/22 08/25/22 08/26/22 Range/Units 10:31 18:24 00:08 RBC (3.80-5.40) m/uL Hgb (11.4-16.0) gm/dL Hct (34.0-46.0) % RDW (11.5-15.5) % Neutrophils # (1.3-7.7) k/uL Chloride (98-107) mmol/L Carbon Dioxide (22-30) mmol/L BUN (7-17) mg/dL Creatinine (0.52-1.04) mg/dL Glucose (74-99) mg/dL POC Glucose (mg/dL) 159 H 130 H (70-110) mg/dL Calcium (8.4-10.2) mg/dL TIBC 183 L (228-460) ug/dL Transferrin 131.0 L (204.0-354.0) mg/dL Total Protein (6.3-8.2) g/dL Albumin (3.5-5.0) g/dL 08/26/22 08/26/22 Range/Units 04:40 04:40 RBC 3.70 L (3.80-5.40) m/uL Hgb 9.5 L (11.4-16.0) gm/dL Hct 30.1 L (34.0-46.0) % RDW 17.4 H (11.5-15.5) % Neutrophils # 8.6 H (1.3-7.7) k/uL Chloride 114 H (98-107) mmol/L Carbon Dioxide 18 L (22-30) mmol/L BUN 19 H (7-17) mg/dL Creatinine 1.05 H (0.52-1.04) mg/dL Glucose 146 H (74-99) mg/dL POC Glucose (mg/dL) (70-110) mg/dL Calcium 7.8 L (8.4-10.2) mg/dL TIBC (228-460) ug/dL Transferrin (204.0-354.0) mg/dL Total Protein 4.8 L (6.3-8.2) g/dL Albumin 2.6 L (3.5-5.0) g/dL Microbiology - Last 24 Hours (Table) 08/25/22 09:00 Sputum Culture - Preliminary Sputum Assessment and Plan Assessment: Impression: Postoperative day #2 status post revision anterior cervical compression and fusion with corpectomy C3 to C7 along with posterior cervical decompression and fusion C2 to T2 for her cervical myelopathy with failed internal fixation after her surgery from August 08 almost 3 weeks ago. Patient was extubated yesterday, tolerated extubation well. History of coronary artery disease and previous coronary stenting Paroxysmal atrial fibrillation, that is being addressed by cardiology on the case. Type 2 diabetes without complications. Mild intermittent asthma, under control. History of rheumatoid arthritis. History of renal cell carcinoma and previous left nephrectomy Previous TIA. Failed swallow evaluation Recommendation: Continue to monitor in the ICU for the next 24 hours Continue incentive spirometry Repeat swallow evaluation in the next 24 hours and addressed accordingly Early ambulation Continue pain control with Dilaudid Continue GI and DVT prophylaxis Continue blood pressure medication/hydralazine as needed may use clevidipine. Continue to monitor JVD or a output from cervical spine area. We will continue to follow. Time with Patient: Less than 30
--- NOTE | 2022-08-26 15:46 | CDI ---
Documentation Clarification Form Date: 08/26/2022 3:17:00 PM From: Jackie Joseph RN, CCDS Phone: [phone] Admit Date: 08/23/2022 12:42:00 PM Patient Name: Paulina Celis Visit Number: [id number] Discharge Date: ATTENTION: The Clinical Documentation Specialists (CDI) and [facility] Coding Staff appreciate your assistance in clarifying documentation. Please respond to the clarification below the line at the bottom and electronically sign. The CDI & [facility] Coding staff will review the response and follow-up if needed. Please note: Queries are made part of the Legal Health Record. If you have any questions, please contact the author of this message via ITS. Dr. Indio Edward Acute blood loss anemia due to surgery is documented in the progress note on 08/25/22 and patient had 2 stage anterior and posterior cervical decompression and fusion C2 to C7 with removal of failed hardware from prior surgery 17 days ago with anterior cervical decompression and fusion C4 to 7. Additional clarification is requested regarding the relationship, if any, that exists between the diagnosis and the procedure. Patients Admitting Diagnosis: Cervical myopathy, severe cervical stenosis, upper extremity weakness. Failed cervical anterior cervical fixation C4-C7 Post-Operative Diagnosis: Same Procedure performed: 2 stage anterior and posterior cervical decompression and fusion C2 to C7 with removal of failed hardware from prior surgery 17 days ago with anterior cervical decompression and fusion C4 to 7. History/Risk Factors: Afib, Asthma CAD, Heart Failure, Diabetes mellitus Hypertension Rheumatoid Arthritis CKD stage III, Estimated blood loss: Approximately 500 ml with 200 ml form anterior stage I and 250 ml form the posterior stage II (per operative note) Clinical Indicators: 81-year old female present with upper extremity weakness, neck pain, cervical myelopathy, failed internal fixation C4 to C7. 08/23 HGB 8.6 HCT 28.6 08/24 HGB 7.9 HCT 26.3 08/25 HGB 6.5 HCT 20.4 post transfusion HGB 8.8 HCT 26.6 Treatment: ICU/Telemetry monitoring Transfuse 2 units PRBC Monitor CBC per orders What relationship, if any, exists between the diagnosis of acute blood loss anemia and the procedure? [ ] Acute blood loss anemia is a complication of surgical procedure [ ] Acute blood loss anemia is an expected outcome of the surgical procedure [ x ] Acute blood loss anemia is related to patients co-morbid condition(s) of [insert co-morbid dxs] & not a complication of the procedure [ ] Other please specify ____ [ ] Unable to determine Acute blood loss anemia is related to the patient's comorbid conditions and chronic anemia. She did have significant blood loss of 500 mL and it is an expected outcome of the surgical procedure as well. (Template Last Revised: July 2020) MTDD
[2022-08-26 18:05] LABS: Glucose,Whole Blood 175 mg/dL (70-110)
[2022-08-26] MEDS: MONTELUKAST 10 MG TAB PO SCH (20:24)
[2022-08-26] MEDS ORDERED: FUROSEMIDE 10 MG/ML 2 ML VIAL IV STA (23:39)
[2022-08-26 23:48] LABS: Glucose,Whole Blood 179 mg/dL (70-110)
--- NOTE | 2022-08-27 00:35 | P.PN ---
Subjective Progress Note Date: 08/25/22 Patient is a 81-year-old female with a known history of coronary artery disease history of stent placement, atrial fibrillation, diabetes type 2 [id number], hearing disorder/deafness, osteoarthritis, rheumatoid arthritis, anxiety and other medical problems was admitted to the hospital due to upper extremity weakness, neck pain and cervical myelopathy failed outpatient conservative treatment. Patient underwent anterior cervical decompression with discectomy and fusion at C4 C5-C6 and C6-C7 due to severe cervical stenosis and cervical myelopathy. Upon follow-up in the clinic she had evidence of failed internal fixation with increased kyphosis and dislodgment of the anterior hardware and fixation. Patient was admitted to the hospital for possible revision anterior cervical decompression with posterior cervical decompression and fusion. Patient initially presented to [facility] and was transferred back to [facility] for further management. Otherwise patient denied any chest pain or shortness of breath. No fever no chills. Laboratory showed WBC 5.0 hemoglobin 8.6 and platelets 206 RDW 16.0 Sodium 139 potassium 4.2 chloride 105 bicarb is 30 BUN 13 and creatinine 0.94 Urinalysis is negative for infection Blood sugar is 142 EKG showed sinus rhythm with first-degree AV block Patient is scheduled for revision ACDF 08/25/2022 Patient is currently in the MICU. Extubated this morning. Awake alert but lethargic and drowsy currently. Pain is fairly controlled. Patient is on neck collar.Denied complaints of chest pain or worsening shortness of breath. Chest x-ray showed stable portable chest. Clinical correlation and follow-up until resolution is recommended. Laboratory data showed WBC 9.3 hemoglobin 8.8 and platelets 172 ABGs showed pH of 7.58 PCO2 21 and PO2 128. Sodium 138 potassium 4.0 chloride 112 bicarb is 21 BUN 19 and creatinine 0.94 Patient is being continued on cefazolin and also on IV hydration with normal saline at 75 cc/h. Current medications reviewed. Objective - Vital Signs Vital signs: Vital Signs Temp 98.3 F 08/25/22 20:00 Pulse 91 08/25/22 21:20 Resp 27 H 08/25/22 21:00 BP 93/59 08/25/22 16:00 Pulse Ox 100 08/25/22 21:00 FiO2 30 08/25/22 12:00 Intake & Output 08/25/22 08/25/22 08/26/22 06:59 18:59 06:59 Intake Total 3142.494 1577.474 225 Output Total 174 480 220 Balance 2968.494 1097.474 5 Weight 62.2 kg Intake: IV 2940 55 150 Sodium Chloride 0.9% 1, 840 55 150 000 ml @ 75 mls/hr IV . [id number] [facility] Rx#:[id number] Sodium Chloride 0.9% 1, 2000 000 ml @ 999 mls/hr IV . Q1H1M [facility] Rx#:[id number] ceFAZolin 2 gm In Sodium 100 Chloride 0.9% 50 ml @ 100 mls/hr IVPB Q8H [facility] Rx#: [id number] Intake, IV Titration 202.494 902.474 75 Amount Sodium Chloride 0.9% 1, 825 75 000 ml @ 75 mls/hr IV . [id number] [facility] Rx#:[id number] propofoL 1,000 mg In 202.494 77.474 Empty Bag 1 bag @ 15 MCG/ KG/MIN 5.715 mls/hr IV . [id number] [facility] Rx#:[id number] Blood Product 0 620 Rc As-1 Unit 0 310 [id number] Output: Drainage 0 0 Neck 0 0 Urine 174 480 220 Other: Voiding Method Indwelling Catheter Indwelling Catheter Indwelling Catheter ABP, PAP, CO, CI - Last Documented Arterial Blood Pressure 158/51 - Exam PHYSICAL EXAMINATION: Patient is lying in the bed awake alert but lethargic and drowsy. HEENT: N ormocephalic. Neck is supple. Pupils reactive. Nostrils clear. Oral cavity is moist. Neck reveals no JVD, carotid bruits, or thyromegaly. CHEST EXAMINATION: Trachea is central. Symmetrical expansion. Bibasilar diminished sounds. No wheezing or rhonchi. CARDIAC: Normal S1, S2 with no gallops. No murmurs ABDOMEN: Soft. Bowel sounds present. Nontender. No organomegaly. No abdominal bruits. Extremities: reveal no edema. No clubbing or cyanosis Neurologically awake, alert. Drowsy. No gross focal deficits noted Skin: No rash or skin lesions. Psychiatric: Coperative could not be assessed completely, Musculoskeletal: No joint swelling or deformity - Labs CBC & Chem 7: 08/26/22 04:40 08/26/22 04:40 Labs: Abnormal Lab Results - Last 24 Hours (Table) 08/23/22 08/25/22 08/25/22 Range/Units 14:37 00:10 03:23 RBC 2.62 L (3.80-5.40) m/uL Hgb 6.5 L* D (11.4-16.0) gm/dL Hct 20.4 L (34.0-46.0) % MCV 77.8 L (80.0-100.0) fL MCH 24.7 L (25.0-35.0) pg RDW 16.1 H (11.5-15.5) % Neutrophils # (1.3-7.7) k/uL Lymphocytes # (1.0-4.8) k/uL ABG pH (7.35-7.45) ABG pCO2 (35-45) mmHg ABG pO2 (83-108) mmHg ABG HCO3 (21-25) mmol/L ABG O2 Saturation (94-97) % Potassium (3.5-5.1) mmol/L Chloride (98-107) mmol/L Carbon Dioxide (22-30) mmol/L BUN (7-17) mg/dL Glucose (74-99) mg/dL POC Glucose (mg/dL) 166 H (70-110) mg/dL Calcium (8.4-10.2) mg/dL Total Protein (6.3-8.2) g/dL Albumin (3.5-5.0) g/dL Crossmatch See Detail 08/25/22 08/25/22 08/25/22 Range/Units 03:23 04:30 06:16 RBC (3.80-5.40) m/uL Hgb (11.4-16.0) gm/dL Hct (34.0-46.0) % MCV (80.0-100.0) fL MCH (25.0-35.0) pg RDW (11.5-15.5) % Neutrophils # (1.3-7.7) k/uL Lymphocytes # (1.0-4.8) k/uL ABG pH 7.52 H (7.35-7.45) ABG pCO2 28 L (35-45) mmHg ABG pO2 (83-108) mmHg ABG HCO3 (21-25) mmol/L ABG O2 Saturation 99.6 H (94-97) % Potassium 3.3 L (3.5-5.1) mmol/L Chloride 114 H (98-107) mmol/L Carbon Dioxide 21 L (22-30) mmol/L BUN (7-17) mg/dL Glucose 131 H (74-99) mg/dL POC Glucose (mg/dL) 114 H (70-110) mg/dL Calcium 6.8 L (8.4-10.2) mg/dL Total Protein 3.7 L (6.3-8.2) g/dL Albumin 2.0 L (3.5-5.0) g/dL Crossmatch 08/25/22 08/25/22 08/25/22 Range/Units 10:31 10:31 11:59 RBC 3.32 L (3.80-5.40) m/uL Hgb 8.8 L D (11.4-16.0) gm/dL Hct 26.6 L (34.0-46.0) % MCV (80.0-100.0) fL MCH (25.0-35.0) pg RDW 17.2 H (11.5-15.5) % Neutrophils # 8.0 H (1.3-7.7) k/uL Lymphocytes # 0.7 L (1.0-4.8) k/uL ABG pH 7.58 H* (7.35-7.45) ABG pCO2 21 L (35-45) mmHg ABG pO2 128 H (83-108) mmHg ABG HCO3 20 L (21-25) mmol/L ABG O2 Saturation 98.7 H (94-97) % Potassium (3.5-5.1) mmol/L Chloride 112 H (98-107) mmol/L Carbon Dioxide 21 L (22-30) mmol/L BUN 19 H (7-17) mg/dL Glucose 137 H (74-99) mg/dL POC Glucose (mg/dL) (70-110) mg/dL Calcium 7.3 L (8.4-10.2) mg/dL Total Protein (6.3-8.2) g/dL Albumin (3.5-5.0) g/dL Crossmatch 08/25/22 Range/Units 18:24 RBC (3.80-5.40) m/uL Hgb (11.4-16.0) gm/dL Hct (34.0-46.0) % MCV (80.0-100.0) fL MCH (25.0-35.0) pg RDW (11.5-15.5) % Neutrophils # (1.3-7.7) k/uL Lymphocytes # (1.0-4.8) k/uL ABG pH (7.35-7.45) ABG pCO2 (35-45) mmHg ABG pO2 (83-108) mmHg ABG HCO3 (21-25) mmol/L ABG O2 Saturation (94-97) % Potassium (3.5-5.1) mmol/L Chloride (98-107) mmol/L Carbon Dioxide (22-30) mmol/L BUN (7-17) mg/dL Glucose (74-99) mg/dL POC Glucose (mg/dL) 159 H (70-110) mg/dL Calcium (8.4-10.2) mg/dL Total Protein (6.3-8.2) g/dL Albumin (3.5-5.0) g/dL Crossmatch Assessment and Plan Assessment: Failed internal fixation C4-C7. Status post ACDF at C4 C5-C6 and C6-C7 initially done on 08/08/2022.Scheduled for revision surgery on 08/24/22. Patient was on mechanical ventilator perioperatively. Extubated on 08/25/2022 Cervical myelopathy and spinal stenosis and upper extremity weakness. Atrial fibrillation ruled out as per recent cardiology consult. Diabetes type 2 cch-edwjjzy-eyuqidjlm Coronary artery disease history of stent in the mid RCA Hyperlipidemia Hypertension Hearing disorder/deafness Rheumatoid arthritis Osteoarthritis History of left breast cancer status post surgery and chemotherapy in 1984. Anxiety DVT prophylaxis with SCDs Plan: Patient will be continued on pain management, bowel regimen and encourage incentive spirometry. Started back on atenolol, amlodipine and losartan. Continue with Imdur and hydralazine as needed. Titrate blood pressure medications as needed. Continue with insulin sliding scale and home medications.. We will continue to follow and further recommendations based on the clinical course. Time with Patient: Greater than 30
--- NOTE | 2022-08-27 00:49 | P.PN ---
Subjective Progress Note Date: 08/26/22 Patient is a 81-year-old female with a known history of coronary artery disease history of stent placement, atrial fibrillation, diabetes type 2 [id number]-hexahlfzd, hearing disorder/deafness, osteoarthritis, rheumatoid arthritis, anxiety and other medical problems was admitted to the hospital due to upper extremity weakness, neck pain and cervical myelopathy failed outpatient conservative treatment. Patient underwent anterior cervical decompression with discectomy and fusion at C4 C5-C6 and C6-C7 due to severe cervical stenosis and cervical myelopathy. Upon follow-up in the clinic she had evidence of failed internal fixation with increased kyphosis and dislodgment of the anterior hardware and fixation. Patient was admitted to the hospital for possible revision anterior cervical decompression with posterior cervical decompression and fusion. Patient initially presented to [facility] and was transferred back to [facility] for further management. Otherwise patient denied any chest pain or shortness of breath. No fever no chills. Laboratory showed WBC 5.0 hemoglobin 8.6 and platelets 206 RDW 16.0 Sodium 139 potassium 4.2 chloride 105 bicarb is 30 BUN 13 and creatinine 0.94 Urinalysis is negative for infection Blood sugar is 142 EKG showed sinus rhythm with first-degree AV block Patient is scheduled for revision ACDF 08/25/2022 Patient is currently in the MICU. Extubated this morning. Awake alert but lethargic and drowsy currently. Pain is fairly controlled. Patient is on neck collar.Denied complaints of chest pain or worsening shortness of breath. Chest x-ray showed stable portable chest. Clinical correlation and follow-up until resolution is recommended. Laboratory data showed WBC 9.3 hemoglobin 8.8 and platelets 172 ABGs showed pH of 7.58 PCO2 21 and PO2 128. Sodium 138 potassium 4.0 chloride 112 bicarb is 21 BUN 19 and creatinine 0.94 Patient is being continued on cefazolin and also on IV hydration with normal saline at 75 cc/h. 08/26/2022 Patient is in the MICU. Awake alert and oriented. Neck collar in place. Patient is currently on room air. Status post revision ACDF postoperative day 2 Patient went into atrial fibrillation. Heart rate is controlled. Patient otherwise failed swallow evaluation and is kept nothing by mouth. IV hydration with normal saline at 75 cc/h. Laboratory data showed WBC 10.6 hemoglobin 9.9 platelets 214 Sodium 141 potassium 3.7 chloride 114 bicarb is 18 BUN 19 and creatinine 1.05 and blood sugar is 146 and albumin 2.6. Cardiology will be consulted due to atrial fibrillation. Current medications reviewed. Objective - Vital Signs Vital signs: Vital Signs Temp 99.7 F H 08/26/22 16:00 Pulse 78 08/26/22 20:39 Resp 24 08/26/22 19:00 BP 78/52 08/26/22 07:00 Pulse Ox 98 08/26/22 19:00 FiO2 30 08/25/22 12:00 Intake & Output 08/26/22 08/26/22 08/27/22 06:59 18:59 06:59 Intake Total 900 1218.379 161 Output Total 715 565 30 Balance 185 653.379 131 Weight 78 kg Intake: IV 825 975 150 Sodium Chloride 0.9% 1, 375 000 ml @ 75 mls/hr IV . [id number] [facility] Rx#:[id number] Sodium Chloride 0.9% 1, 450 975 150 000 ml @ 75 mls/hr IV . [id number] [facility] Rx#:[id number] Intake, IV Titration 75 243.379 11 Amount Clevidipine Butyrate 25 72.867 11 mg In Empty Bag 1 bag @ 1 MG/HR 2 mls/hr IV .Q24H [facility] Rx#:[id number] Heparin Sod,Pork in 0.45% 70.512 NaCl 25,000 unit In 0.45 % NaCl 1 250ml.bag @ 12 UNITS/KG/HR 9.36 mls/hr IV .Q24H [facility] Rx#: [id number] Sodium Chloride 0.9% 1, 75 000 ml @ 75 mls/hr IV . [id number] [facility] Rx#:[id number] ceFAZolin 2 gm In Sodium 100 Chloride 0.9% 50 ml @ 100 mls/hr IVPB Q8HR [facility] Rx# :[id number] Output: Drainage 0 0 Neck 0 0 Urine 715 565 30 Other: Voiding Method Indwelling Catheter Indwelling Catheter ABP, PAP, CO, CI - Last Documented Arterial Blood Pressure 143/39 - Exam PHYSICAL EXAMINATION: Patient is lying in the bed awake alert and oriented. HEENT: Normocephalic. Neck is supple. Pupils reactive. Nostrils clear. Oral cavity is moist. Neck reveals no JVD, carotid bruits, or thyromegaly. CHEST EXAMINATION: Trachea is central. Symmetrical expansion. Bibasilar diminished sounds. No wheezing or rhonchi. CARDIAC: Normal S1, S2 with no gallops. No murmurs ABDOMEN: Soft. Bowel sounds present. Nontender. No organomegaly. No abdominal bruits. Extremities: reveal no edema. No clubbing or cyanosis Neurologically awake, alert. Drowsy. No gross focal deficits noted Skin: No rash or skin lesions. Psychiatric: Coperative could not be assessed completely, Musculoskeletal: No joint swelling or deformity - Labs CBC & Chem 7: 08/26/22 04:40 08/26/22 04:40 Labs: Abnormal Lab Results - Last 24 Hours (Table) 08/25/22 08/26/22 08/26/22 Range/Units 10:31 00:08 04:40 RBC 3.70 L (3.80-5.40) m/uL Hgb 9.5 L (11.4-16.0) gm/dL Hct 30.1 L (34.0-46.0) % RDW 17.4 H (11.5-15.5) % Neutrophils # 8.6 H (1.3-7.7) k/uL APTT (22.0-30.0) sec Chloride (98-107) mmol/L Carbon Dioxide (22-30) mmol/L BUN (7-17) mg/dL Creatinine (0.52-1.04) mg/dL Glucose (74-99) mg/dL POC Glucose (mg/dL) 130 H (70-110) mg/dL Calcium (8.4-10.2) mg/dL TIBC 183 L (228-460) ug/dL Transferrin 131.0 L (204.0-354.0) mg/dL Total Protein (6.3-8.2) g/dL Albumin (3.5-5.0) g/dL 08/26/22 08/26/22 08/26/22 Range/Units 04:40 16:45 18:03 RBC (3.80-5.40) m/uL Hgb (11.4-16.0) gm/dL Hct (34.0-46.0) % RDW (11.5-15.5) % Neutrophils # (1.3-7.7) k/uL APTT 140.6 H* (22.0-30.0) sec Chloride 114 H (98-107) mmol/L Carbon Dioxide 18 L (22-30) mmol/L BUN 19 H (7-17) mg/dL Creatinine 1.05 H (0.52-1.04) mg/dL Glucose 146 H (74-99) mg/dL POC Glucose (mg/dL) 175 H (70-110) mg/dL Calcium 7.8 L (8.4-10.2) mg/dL TIBC (228-460) ug/dL Transferrin (204.0-354.0) mg/dL Total Protein 4.8 L (6.3-8.2) g/dL Albumin 2.6 L (3.5-5.0) g/dL Microbiology - Last 24 Hours (Table) 08/25/22 09:00 Sputum Culture - Preliminary Sputum Assessment and Plan Assessment: Failed internal fixation C4-C7. Status post ACDF at C4 C5-C6 and C6-C7 initially done on 08/08/2022.Scheduled for revision surgery on 08/24/22. Patient was on mechanical ventilator perioperatively. Extubated on 08/25/2022 Cervical myelopathy and spinal stenosis and upper extremity weakness. Atrial fibrillation ruled out as per recent cardiology consult. Diabetes type 2 mvn-yvvhnbd-trozyxios Coronary artery disease history of stent in the mid RCA Hyperlipidemia Hypertension Hearing disorder/deafness Rheumatoid arthritis Osteoarthritis History of left breast cancer status post surgery and chemotherapy in 1984. Anxiety DVT prophylaxis with SCDs Plan: Patient will be continued on pain management, bowel regimen and encourage incentive spirometry. Started back on atenolol, amlodipine and losartan. Continue with Imdur and hydralazine as needed. Titrate blood pressure medications as needed. Continue with insulin sliding scale and home medications.. Atrial fibrillation noted on the EKG. Cardiology consult for further evaluation. Patient failed swallow evaluation and is kept nothing by mouth currently. We will continue to follow and further recommendations based on the clinical course. Time with Patient: Greater than 30
[2022-08-27] MEDS: LORazepam 2 MG/ML INJ IV PRN (02:28)
[2022-08-27] MEDS: CLEVIDIPINE BUTYRATE 25 MG in EMPTY BAG 1 BAG IV SCH ×6 (02:43→19:13)
[2022-08-27 03:48] LABS: Partial Thromboplastin Time 59.6 sec (22.0-30.0); Prothrombin Time 10.4 sec (9.0-12.0)
[2022-08-27 05:13] LABS: Anisocytosis Slight; Basophils % (A) 0 %; Eosinophils % (A) 0 %; HCT 29.5 % (34.0-46.0); HGB 8.9 gm/dL (11.4-16.0); Hypochromasia Slight; Lymphocytes % (A) 10 %; MCH 25.1 pg (25.0-35.0); MCHC 30.1 g/dL (31.0-37.0); MCV 83.4 fL (80.0-100.0); Mean Platelet Volume 8.6; Monocytes # (A) 0.8 k/uL (0-1.0); Monocytes % (A) 9 %; Neutrophils # (A) 7.7 k/uL (1.3-7.7); Neutrophils % (A) 79 %; Platelet Count 212 k/uL (150-450); Poikilocytosis Slight; RBC 3.53 m/uL (3.80-5.40); RDW 17.6 % (11.5-15.5); WBC 9.7 k/uL (3.8-10.6)
[2022-08-27 05:33] LABS: Glucose,Whole Blood 178 mg/dL (70-110)
[2022-08-27] MEDS ORDERED: POTASSIUM CHLORIDE 10 MEQ in WATER FOR INJECTION 1 100ML.BAG IVPB SCH ×2 (05:45→06:00)
[2022-08-27 05:47] LABS: Calcium 7.6 mg/dL (8.4-10.2); Potassium 3.5 mmol/L (3.5-5.1)
[2022-08-27] MEDS: POTASSIUM CHLORIDE 10 MEQ in WATER FOR INJECTION 1 100ML.BAG IVPB SCH ×6 (06:33→19:20)
[2022-08-27] MEDS: HYDROmorphone 0.5 MG/0.5 ML SYRINGE IVP PRN ×6 (06:45→22:14)
[2022-08-27] MEDS: REPAGLINIDE 1 MG TAB PO SCH ×2 (07:11→15:05)
[2022-08-27] MEDS: ALBUTEROL NEBULIZED 2.5 MG/3 ML INHALATION SCH ×4 (08:04→21:54)
--- NOTE | 2022-08-27 08:05 | P.PN ---
Progress Note - Text Progress Note Date: 08/27/22 Postoperative day #3 Patient is seen and examined today at bedside in the intensive care unit. She is resting comfortably this morning but responsive. The patient has some pain around the surgical site as expected, but was able get out of bed 2 yesterday. She is able to move her hand on the right but does not feel any significant improvement thus far. Pain is being controlled with medication. Physical Exam Afebrile with stable vital signs Her rhythm remains in atrial fibrillation with a rate in the 80s. Abdomen is soft nontender. Chest has good excursion deep and space expiration The incision site is clean dry and intact. No erythema there is no purulence. There is no active drainage. Her neck is supple Extremities have not had neurologic change from prior to surgery.she has decreased strength particular at the right upper extremity which is unchanged from prior to surgery Calves and thighs were soft nontender without evidence of DVT. Assessment/Plan Postoperative day #3 status post revision anterior cervical decompression and fusion with posterior cervical decompression and fusion C2 to T2 for her cervical myelopathy with upper extremity and lower extremity weakness due to her severe cervical stenosis Patient is progressing slowly as expected from the surgery. She was able to get out of bed yesterday which is encouraging. Hopefully we can encourage and improve and increase her mobilization today We will continue to increase the patient's mobilization with therapy. We will have to see if patient is able to return home versus prison or rehab post hospitalization. It may be helpful to have PMNR see her as well. The patient had some slight decrease in her urinary output and was started on some Lasix yesterday. Cardiology was also consulted. We will continue pain control with oral or IV medications. We'll continue to follow patient closely.
--- NOTE | 2022-08-27 08:45 | P.CONS ---
History of Present Illness - Chief Complaint Gait disturbance, cervical spondylosis - History of Present Illness I had the opportunity to see patient for inpatient rehab consultation. Patient admitted to [facility] August 23 history of recent C-spine surgery, ACDF, Dr. Edward 3 weeks ago. Seen by Dr. Edward diagnosis failed spine surgery and underwent redo on August 24. Was also seen by Dr. Walls who did a cervical spine surgery in August 25. Seen for medical by Dr. Campos. Seen for ICU care by Dr. Jim. Chest x-rays noted and possible left lower lobe atelectasis versus infiltrate. PT and [employer] prescribed. I've added OT at this time. Previous functional history as elicited from : Patient currently drowsy from medication. Patient 81-year-old right-handed female who is lives in one floor home. Patient previously independent 3 weeks ago including cooking, laundry, standing shower gait without device. does the driving. 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 Over the last 3 weeks, his been using a roller walker and required some assistance for a sponge bath and occasional assistance for dressing. Review of Systems Review of systems: ENT: Rigid collar. Eyes: Denies discharge or photophobia. Cardiac: Denies chest pain or palpitation. Pulmonary: Denies cough or shortness of breath. Breast: Denies discharge or lumps. Gastrointestinal: Denies nausea, emesis, constipation, diarrhea. Genitourinary: Denies discharge or frequency. Musculoskeletal: Denies muscle or bone aches. Neurologic: Sleepy. Generalized weakness. Endocrine: Denies shakes or sweats. Oncology: Denies cancers. Dermatologic: Denies rash, itching, pruritus. ALLERGY/immunology: Denies sneezes, rashes. Past Medical History Past Medical History: Atrial Fibrillation, Asthma, Coronary Artery Disease (CAD), Cancer, Chest Pain / Angina, Heart Failure, Diabetes Mellitus, GERD/Reflux, Hearing Disorder / Deafness, Hyperlipidemia, Hypertension, Osteoarthritis (OA), Renal Disease, Rheumatoid Arthritis (RA), Vascular Disorder Additional Past Medical History / Comment(s): Cervical myopathy, spinal stenosis, paroxysmal afib, sinus bradycardia, NIDDM type II, 1984 L breast cancer/surgery and chemotherapy, 1985 L renal carcinoma, kidney infections, UTIs with current UTI, pt unsure if she had previous tia, ckd stage III, anemia, past small bowel obstructions, past ulcer, abnormal gait/uses walker, FALLS History of Any Multi-Drug Resistant Organisms: None Reported Past Surgical History: Breast Surgery, Heart Catheterization, Heart Catheterization With Stent, Joint Replacement, Orthopedic Surgery Additional Past Surgical History / Comment(s): Bilateral carpal tunnel releases, bilateral knee replacements, L breast mastectomy, L nephrectomy, colonoscopy, cataract removals. Past Anesthesia/Blood Transfusion Reactions: Motion Sickness, Postoperative Nausea & Vomiting (PONV) Additional Past Anesthesia/Blood Transfusion Reaction / Comm: Pt has had blood transfusion without reaction. Pt states she has fear of anesthesia. Date of Last Stent Placement:: 2007 Past Psychological History: Anxiety Additional Psychological History / Comment(s): Pt resides with her spouse. Smoking Status: Never smoker Past Alcohol Use History: None Reported Past Drug Use History: None Reported - Past Family History Mother Family Medical History: Cancer, Diabetes Mellitus Additional Family Medical History / Comment(s): Breast and colon cancer Father Additional Family Medical History / Comment(s): bowel problems Medications and Allergies Home Medications Medication Instructions Recorded Confirmed Type Aspirin 81 mg PO DAILY 06/05/22 08/23/22 History Ergocalciferol [Vitamin D2 (1250 1,250 mcg PO Q14D 06/05/22 08/23/22 History Mcg = [id number] Iu)] Fluticasone Propionate 220 Mcg 2 puff INHALATION RT-BID PRN 06/05/22 08/23/22 History [Flovent 220 Mcg Inhaler] Irbesartan 300 mg PO QAM 06/05/22 08/23/22 History Isosorbide Mononitrate ER [Imdur] 60 mg PO QAM 06/05/22 08/23/22 History Leflunomide [Arava] 20 mg PO QAM 06/05/22 08/23/22 History Montelukast Sodium [Singulair] 10 mg PO HS 06/05/22 08/23/22 History Nitroglycerin Sl Tabs [Nitrostat] 0.4 mg SUBLINGUAL Q5M PRN 06/05/22 08/23/22 History Pioglitazone [Actos] 15 mg PO QAM 06/05/22 08/23/22 History Ranolazine [Ranexa] 500 mg PO BID 06/05/22 08/23/22 History Repaglinide [Prandin] 0.5 mg PO AC-BID 06/05/22 08/23/22 History traMADol HCl [Ultram] 50 mg PO QID PRN 06/05/22 08/23/22 History Isosorbide Mononitrate ER [Imdur] 30 mg PO QAM 08/07/22 08/23/22 History Cyclobenzaprine [Flexeril] 5 mg PO TID PRN #60 tablet 08/09/22 08/23/22 Rx HYDROcodone/APAP 5-325MG [[place] 1 tab PO Q8HR PRN 7 Days #21 tab 08/09/22 08/23/22 Rx 5-325] amLODIPine [Norvasc] 10 mg PO DAILY #30 tab 08/09/22 08/23/22 Rx atenoloL [Tenormin] 50 mg PO BID #60 tab 08/09/22 08/23/22 Rx Acetaminophen Tab [Tylenol] 650 mg PO Q6HR PRN tab 08/10/22 08/23/22 Rx Sennosides-Docusate Sodium 1 tab PO DAILY 08/23/22 08/23/22 History [Senokot-S] Allergies Allergy/AdvReac Type Severity Reaction Status Date / Time codeine AdvReac Nausea & Verified 08/23/22 12:50 Vomiting,hyperactive Physical Exam Vitals: Vital Signs Temp Pulse Resp Pulse Ox 08/27/22 08:18 78 08/27/22 08:06 76 08/27/22 07:00 96 26 H 98 08/27/22 06:00 85 27 H 99 08/27/22 05:00 80 21 98 08/27/22 04:00 99 F 89 24 98 08/27/22 03:00 58 L 22 99 08/27/22 02:00 85 18 100 08/27/22 01:00 71 20 99 08/27/22 00:11 82 18 100 08/27/22 00:00 99.6 F 87 20 100 08/26/22 23:00 90 24 98 08/26/22 22:00 90 20 98 08/26/22 21:00 92 22 99 08/26/22 20:39 78 08/26/22 20:32 84 08/26/22 20:00 99.2 F 87 24 98 08/26/22 19:00 96 24 98 08/26/22 18:00 103 H 16 97 08/26/22 17:00 79 20 98 08/26/22 16:54 89 08/26/22 16:46 80 08/26/22 16:00 99.7 F H 74 24 98 08/26/22 15:00 85 16 100 08/26/22 14:00 74 20 99 08/26/22 13:00 80 12 100 08/26/22 12:00 89.6 F L 98 16 99 08/26/22 11:00 98 28 H 98 08/26/22 10:00 83 20 96 08/26/22 09:23 79 08/26/22 09:17 78 08/26/22 09:00 78 14 100 Intake and Output 08/26/22 08/27/22 08/27/22 22:59 06:59 14:59 Intake Total 818.579 739.9 75 Output Total 185 830 50 Balance 633.579 -90.1 25 Intake: IV 600 650 75 Sodium Chloride 0.9% 1, 600 600 75 000 ml @ 75 mls/hr IV . [id number] [facility] Rx#:[id number] ceFAZolin 2 gm In Sodium 50 Chloride 0.9% 50 ml @ 100 mls/hr IVPB Q8HR [facility] Rx# :[id number] Intake, IV Titration 218.579 89.9 Amount Clevidipine Butyrate 25 98.067 89.9 mg In Empty Bag 1 bag @ 1 MG/HR 2 mls/hr IV .Q24H [facility] Rx#:[id number] Heparin Sod,Pork in 0.45% 70.512 NaCl 25,000 unit In 0.45 % NaCl 1 250ml.bag @ 12 UNITS/KG/HR 9.36 mls/hr IV .Q24H [facility] Rx#: [id number] ceFAZolin 2 gm In Sodium 50 Chloride 0.9% 50 ml @ 100 mls/hr IVPB Q8HR [facility] Rx# :[id number] Output: Urine 185 830 50 Other: Voiding Method Indwelling Catheter Indwelling Catheter Weight 71.5 kg ABP, PAP, CO, CI - Last 8 Hours Arterial Blood Pressure 135/34 Arterial Blood Pressure 136/37 Arterial Blood Pressure 129/34 Arterial Blood Pressure 136/48 Arterial Blood Pressure 128/31 Arterial Blood Pressure 126/34 Arterial Blood Pressure 129/32 Skin: Atrophic, intact. General: Medium build and sleepy appearance. Head: Normocephalic, atraumatic. Eyes: Symmetric. Pupils equal round. Ears: Symmetric. Hearing within normal limits. Mouth: Clear. Neck: Rigid collar. Cardiac: Regular rate and rhythm. Lungs: Clear anteriorly and posteriorly. Abdomen: Soft active nontender. Extremities: Normal tone. Neurological: Mental status: Alert, cooperative, pleasant. Cranial nerves: Symmetric facial tone and trapezius. Motor: Can actively move all 4 limbs but less than antigravity and this appears to be related to sedation. Sensation: Intact throughout. DTRs: Symmetric and equal throughout. Mobility: I did not attempt to sit or stand at this time. Results CBC & Chem 7: 08/27/22 04:45 08/27/22 04:45 Labs: Abnormal Lab Results - Last 24 Hours (Table) 08/25/22 08/26/22 08/26/22 Range/Units 10:31 16:45 18:03 RBC (3.80-5.40) m/uL Hgb (11.4-16.0) gm/dL Hct (34.0-46.0) % MCHC (31.0-37.0) g/dL RDW (11.5-15.5) % APTT 140.6 H* (22.0-30.0) sec Chloride (98-107) mmol/L Carbon Dioxide (22-30) mmol/L BUN (7-17) mg/dL Creatinine (0.52-1.04) mg/dL Glucose (74-99) mg/dL POC Glucose (mg/dL) 175 H (70-110) mg/dL Calcium (8.4-10.2) mg/dL TIBC 183 L (228-460) ug/dL Transferrin 131.0 L (204.0-354.0) mg/dL 08/26/22 08/27/22 08/27/22 Range/Units 23:46 03:15 04:45 RBC 3.53 L (3.80-5.40) m/uL Hgb 8.9 L (11.4-16.0) gm/dL Hct 29.5 L (34.0-46.0) % MCHC 30.1 L (31.0-37.0) g/dL RDW 17.6 H (11.5-15.5) % APTT 59.6 H (22.0-30.0) sec Chloride (98-107) mmol/L Carbon Dioxide (22-30) mmol/L BUN (7-17) mg/dL Creatinine (0.52-1.04) mg/dL Glucose (74-99) mg/dL POC Glucose (mg/dL) 179 H (70-110) mg/dL Calcium (8.4-10.2) mg/dL TIBC (228-460) ug/dL Transferrin (204.0-354.0) mg/dL 08/27/22 08/27/22 Range/Units 04:45 05:31 RBC (3.80-5.40) m/uL Hgb (11.4-16.0) gm/dL Hct (34.0-46.0) % MCHC (31.0-37.0) g/dL RDW (11.5-15.5) % APTT (22.0-30.0) sec Chloride 116 H (98-107) mmol/L Carbon Dioxide 14 L (22-30) mmol/L BUN 22 H (7-17) mg/dL Creatinine 1.06 H (0.52-1.04) mg/dL Glucose 179 H (74-99) mg/dL POC Glucose (mg/dL) 178 H (70-110) mg/dL Calcium 7.6 L (8.4-10.2) mg/dL TIBC (228-460) ug/dL Transferrin (204.0-354.0) mg/dL Microbiology - Last 24 Hours (Table) 08/25/22 09:00 Gram Stain - Preliminary Sputum Sputum Culture - Preliminary Assessment and Plan (1) Cervical myelopathy Current Visit: No Status: Acute Code(s): G95.9 - DISEASE OF SPINAL CORD, UNSPECIFIED SNOMED Code(s): 944461874 (2) Cervical stenosis of spine Current Visit: No Status: Acute Code(s): M48.02 - SPINAL STENOSIS, CERVICAL REGION SNOMED Code(s): 84786857 Plan: Comments and plan: At this time PT, OT, [employer] all now prescribed. Follow therapies with yourself. Discussed possible inpatient rehab with and he is aware of a anticipated need for such.
[2022-08-27] MEDS ORDERED: DEXTROSE 50% SYRINGE 50 ML IVP PRN ×2 (09:57)
--- NOTE | 2022-08-27 10:04 | P.CRDCN ---
History of Present Illness History of present illness: History of present illness: This is an 81 year old female patient of Dr. Herman with past medical history of angina on Ranexa, coronary artery disease with stent in the mid RCA in 2007, hypertension, dyslipidemia. We have been asked to evaluate the patient for hypertension and new onset atrial fibrillation. Patient had anterior cervical decompression and fusion approximately 3 weeks ago and unfortunately has had progressive issues with her surgery requiring redo surgery 08/23. Cardiology was consulted for A. fib. She had prior episodes preoperatively 08/07 with prior consultation at that time however appeared to be frequent PACs. Patient currently with a neck brace and has been having difficulty swallowing and undergoing swallow eval. Her albumin is decreased at 2.6 and she has been third spacing with significant bilateral upper as well as lower extremity edema. She denies any chest pain or pressure however at home occasionally takes nitro. admits sometimes she has a difficult time explaining some of her symptoms. She denies any recent chest pain or pressure however. Cardiology was consult with secondary to similar episodes of irregular heart rates with reading out of A. fib. It appears she has had sinus rhythm with frequent PACs and no clear-cut prolonged episodes of A. fib. She did have one episode of questionable left upper face numbness and tingling for a few seconds 3-4 months ago however not clearly TIA and denies any history of TIA or stroke. She is on a cleviprex drip with systolics 120s over 30s. Bicarb going down to 14 today. Echocardiogram 2019 revealed normal EF, mild mitral regurgitation, mild mitral annular calcification, mild tricuspid regurgitation, mild pulmonic regurgitation. Cardiolite stress test in 2019 was negative. Abnormal perfusion study with mild reversible defect involving the inferior lateral segment. Gated study shows normal wall motion and thickening. At that time, patient declined coronary angiography. Review Of Systems: At the time of my evaluation: Constitutional: No fever, no chills. No weakness, fatigue or lethargy. EENT: No headache. No dizziness. Lungs: No shortness of breath, cough, no sputum production. No wheezing. Cardiovascular: No chest pain, no lower extremity edema. No palpitations. No paroxysmal nocturnal dyspnea. No orthopnea. No lightheadedness or dizziness. No syncopal episodes. Genitourinary: No dysuria.. No urinary retention. Musculoskeletal: No myalgias. No muscle weakness, no frequent falls. Reported neck pain. Neurologic: No aphasia. No facial droop. No change in mentation. No head injury. No headache. Physical examination: Gen: This is an 81-year-old female, resting in bed and appears to be comfortable and in no acute distress VS: reviewed HEENT: Head is atraumatic, normocephalic. Pupils equal, round. Sclerae is anicteric. NECK: Supple. No JVD. . LUNGS: Clear to auscultation. No wheezes or rhonchi. No intercostal retractions. HEART: Regular rate and rhythm. 2/6 systolic ejection murmur at the base. ABDOMEN: Soft No tenderness. EXTREMITIES: No pedal edema. No calf tenderness. NEUROLOGICAL: Patient is awake, alert and oriented x3. Assessment: Abnormal EKG with a regular rhythm appears mainly related to sinus rhythm and frequent PACs. No clear-cut prolonged A. fib episodes Cervical pain History of coronary artery disease with stent in the mid RCA Hypertension Dyslipidemia Plan: Patient with multiple atrial ectopy and no prolonged A. fib episodes. Especially given recent surgery and no clear-cut A. fib discontinue anticoagulation. Patient does have decreased bicarbonate and check lactic acid to evaluate for any cause of worsening acidosis. Speech eval and when able transition to oral medications. Start hydralazine 10 mg IV every 6 hours and decrease Cleviprex as able. Significant third spacing and evaluate speech eval or consider NG tube. Check TSH for completeness. Past Medical History Past Medical History: Atrial Fibrillation, Asthma, Coronary Artery Disease (CAD), Cancer, Chest Pain / Angina, Heart Failure, Diabetes Mellitus, GERD/Reflux, Hearing Disorder / Deafness, Hyperlipidemia, Hypertension, Osteoarthritis (OA), Renal Disease, Rheumatoid Arthritis (RA), Vascular Disorder Additional Past Medical History / Comment(s): Cervical myopathy, spinal stenosis, paroxysmal afib, sinus bradycardia, NIDDM type II, 1985 L breast canc er/surgery and chemotherapy, 1985 L renal carcinoma, kidney infections, UTIs with current UTI, pt unsure if she had previous tia, ckd stage III, anemia, past small bowel obstructions, past ulcer, abnormal gait/uses walker, FALLS History of Any Multi-Drug Resistant Organisms: None Reported Past Surgical History: Breast Surgery, Heart Catheterization, Heart Catheterization With Stent, Joint Replacement, Orthopedic Surgery Additional Past Surgical History / Comment(s): Bilateral carpal tunnel releases, bilateral knee replacements, L breast mastectomy, L nephrectomy, colonoscopy, cataract removals. Past Anesthesia/Blood Transfusion Reactions: Motion Sickness, Postoperative Nausea & Vomiting (PONV) Additional Past Anesthesia/Blood Transfusion Reaction / Comment(s): Pt has had blood transfusion without reaction. Pt states she has fear of anesthesia. Date of Last Stent Placement:: 2007 Past Psychological History: Anxiety Additional Psychological History / Comment(s): Pt resides with her spouse. Smoking Status: Never smoker Past Alcohol Use History: None Reported Past Drug Use History: None Reported - Past Family History Mother Family Medical History: Cancer, Diabetes Mellitus Additional Family Medical History / Comment(s): Breast and colon cancer Father Additional Family Medical History / Comment(s): bowel problems Medications and Allergies Home Medications Medication Instructions Recorded Confirmed Type Aspirin 81 mg PO DAILY 06/05/22 08/23/22 History Ergocalciferol [Vitamin D2 (1250 1,250 mcg PO Q14D 06/05/22 08/23/22 History Mcg = 32721 Iu)] Fluticasone Propionate 220 Mcg 2 puff INHALATION RT-BID PRN 06/05/22 08/23/22 History [Flovent 220 Mcg Inhaler] Irbesartan 300 mg PO QAM 06/05/22 08/23/22 History Isosorbide Mononitrate ER [Imdur] 60 mg PO QAM 06/05/22 08/23/22 History Leflunomide [Arava] 20 mg PO QAM 06/05/22 08/23/22 History Montelukast Sodium [Singulair] 10 mg PO HS 06/05/22 08/23/22 History Nitroglycerin Sl Tabs [Nitrostat] 0.4 mg SUBLINGUAL Q5M PRN 06/05/22 08/23/22 History Pioglitazone [Actos] 15 mg PO QAM 06/05/22 08/23/22 History Ranolazine [Ranexa] 500 mg PO BID 06/05/22 08/23/22 History Repaglinide [Prandin] 0.5 mg PO AC-BID 06/05/22 08/23/22 History traMADol HCl [Ultram] 50 mg PO QID PRN 06/05/22 08/23/22 History Isosorbide Mononitrate ER [Imdur] 30 mg PO QAM 08/07/22 08/23/22 History Cyclobenzaprine [Flexeril] 5 mg PO TID PRN #60 tablet 08/09/22 08/23/22 Rx HYDROcodone/APAP 5-325MG [[place] 1 tab PO Q8HR PRN 7 Days #21 tab 08/09/22 08/23/22 Rx 5-325] amLODIPine [Norvasc] 10 mg PO DAILY #30 tab 08/09/22 08/23/22 Rx atenoloL [Tenormin] 50 mg PO BID #60 tab 08/09/22 08/23/22 Rx Acetaminophen Tab [Tylenol] 650 mg PO Q6HR PRN tab 08/10/22 08/23/22 Rx Sennosides-Docusate Sodium 1 tab PO DAILY 08/23/22 08/23/22 History [Senokot-S] Allergies Allergy/AdvReac Type Severity Reaction Status Date / Time codeine AdvReac Nausea & Verified 08/23/22 12:50 Vomiting,hyperactive Physical Exam Vitals: Vital Signs Temp Pulse Resp Pulse Ox 08/27/22 09:00 92 22 97 08/27/22 08:18 78 08/27/22 08:06 76 08/27/22 08:00 98.1 F 84 20 98 08/27/22 07:00 96 26 H 98 08/27/22 06:00 85 27 H 99 08/27/22 05:00 80 21 98 08/27/22 04:00 99 F 89 24 98 08/27/22 03:00 58 L 22 99 08/27/22 02:00 85 18 100 08/27/22 01:00 71 20 99 08/27/22 00:11 82 18 100 08/27/22 00:00 99.6 F 87 20 100 08/26/22 23:00 90 24 98 08/26/22 22:00 90 20 98 08/26/22 21:00 92 22 99 08/26/22 20:39 78 08/26/22 20:32 84 08/26/22 20:00 99.2 F 87 24 98 08/26/22 19:00 96 24 98 08/26/22 18:00 103 H 16 97 08/26/22 17:00 79 20 98 04/24/23 16:54 89 08/26/22 16:46 80 08/26/22 16:00 99.7 F H 74 24 98 08/26/22 15:00 85 16 100 08/26/22 14:00 74 20 99 08/26/22 13:00 80 12 100 08/26/22 12:00 89.6 F L 98 16 99 08/26/22 11:00 98 28 H 98 08/26/22 10:00 83 20 96 Intake and Output 08/26/22 08/27/22 08/27/22 22:59 06:59 14:59 Intake Total 818.579 739.9 521.667 Output Total 185 830 160 Balance 633.579 -90.1 361.667 Intake: IV 600 650 275 Sodium Chloride 0.9% 1, 600 600 225 000 ml @ 75 mls/hr IV . [id number] [facility] Rx#:[id number] ceFAZolin 2 gm In Sodium 50 50 Chloride 0.9% 50 ml @ 100 mls/hr IVPB Q8HR [facility] Rx# :[id number] Intake, IV Titration 218.579 89.9 246.667 Amount Clevidipine Butyrate 25 98.067 89.9 46.667 mg In Empty Bag 1 bag @ 1 MG/HR 2 mls/hr IV .Q24H [facility] Rx#:[id number] Heparin Sod,Pork in 0.45% 70.512 NaCl 25,000 unit In 0.45 % NaCl 1 250ml.bag @ 12 UNITS/KG/HR 9.36 mls/hr IV .Q24H [facility] Rx#: [id number] Potassium Chloride 10 meq 200 In Water For Injection 1 100ml.bag @ 100 mls/hr IVPB Q1H [facility] Rx#: [id number] ceFAZolin 2 gm In Sodium 50 Chloride 0.9% 50 ml @ 100 mls/hr IVPB Q8HR [facility] Rx# :[id number] Output: Urine 185 830 160 Other: Voiding Method Indwelling Catheter Indwelling Catheter Indwelling Catheter Weight 71.5 kg ABP, PAP, CO, CI - Last 8 Hours Arterial Blood Pressure 130/33 Arterial Blood Pressure 126/33 Arterial Blood Pressure 135/34 Arterial Blood Pressure 136/37 Arterial Blood Pressure 129/34 Arterial Blood Pressure 136/48 Arterial Blood Pressure 128/31 Arterial Blood Pressure 126/34 Results 08/27/22 04:45 08/27/22 04:45 Coagulation 08/26/22 08/27/22 Range/Units 16:45 03:15 PT 10.4 (9.0-12.0) sec APTT 140.6 H* 59.6 H (22.0-30.0) sec CBC 08/27/22 Range/Units 04:45 WBC 9.7 (3.8-10.6) k/uL RBC 3.53 L (3.80-5.40) m/uL Hgb 8.9 L (11.4-16.0) gm/dL Hct 29.5 L (34.0-46.0) % Plt Count 212 (150-450) k/uL Comprehensive Metabolic Panel 08/27/22 Range/Units 04:45 Sodium 141 (137-145) mmol/L Potassium 3.5 (3.5-5.1) mmol/L Chloride 116 H (98-107) mmol/L Carbon Dioxide 14 L (22-30) mmol/L BUN 22 H (7-17) mg/dL Creatinine 1.06 H (0.52-1.04) mg/dL Glucose 179 H (74-99) mg/dL Calcium 7.6 L (8.4-10.2) mg/dL Current Medications Generic Name Dose Route Start Last Admin Trade Name Freq PRN Reason Stop Dose Admin Acetaminophen 650 mg 08/23/22 19:36 Acetaminophen Tab 325 Mg Tab PO Q6HR PRN Pain Hydrocodone Bitart/Acetaminophen 1 each 08/24/22 16:56 08/25/22 10:15 Hydrocodone/Apap 5-325mg 1 Each Tab PO 1 each Q4HR PRN Administration Pain Albuterol Sulfate 2.5 mg 08/25/22 12:00 08/27/22 08:04 Albuterol Nebulized 2.5 Mg/3 Ml INHALATION 2.5 mg RT-QID [facility] Administration Atenolol 50 mg 08/23/22 21:00 08/26/22 20:24 Atenolol 50 Mg Tab PO Not Given BID [facility] Benzocaine/Menthol 1 each 08/24/22 16:56 Benzocaine/Menthol Lozeng 1 Each Lozenge MUCOUS MEM Q4HR PRN Sore Throat Cyclobenzaprine HCl 5 mg 08/24/22 16:56 Cyclobenzaprine 5 Mg Tab PO TID PRN Muscle Spasm Diazepam 5 mg 08/24/22 16:56 Diazepam 5 Mg Tab PO QID PRN Anxiety Ergocalciferol 1,250 mcg 08/23/22 20:00 08/23/22 21:24 Ergocalciferol 1,250 Mcg (50,000 Iu) Capsule PO 1,250 mcg Q14D [facility] Administration Heparin Sodium (Porcine) 0 unit 08/26/22 09:17 Heparin Sodium 1,000 Un/Ml (10ml Vl) IV PER PROTOCOL PRN Low PTT Protocol Hydralazine HCl 10 mg 08/24/22 21:29 08/25/22 10:45 Hydralazine Hcl 20 Mg/Ml 1 Ml Vial IVP 10 mg Q4HR PRN Administration Blood Pressure - High Hydromorphone HCl 1 mg 08/24/22 16:56 08/25/22 12:41 Hydromorphone 1 Mg/Ml 1 Ml Syringe IVP 1 mg Q4HR PRN Administration Pain 6-10 Hydromorphone HCl 0.5 mg 08/26/22 13:44 08/27/22 06:45 Hydromorphone 0.5 Mg/0.5 Ml Syringe IVP 0.5 mg Q3H PRN Administration Pain 1-5 Sodium Chloride 1,000 mls @ 75 mls/hr 08/24/22 17:00 08/26/22 22:26 Saline 0.9% IV 75 mls/hr .[id number] [facility] Administration Propofol 1,000 mg/ IV Solution 100 mls @ 5.715 mls/hr 08/24/22 18:30 08/25/22 10:33 IV 30 mcg/kg/min .[id number] [facility] 11.431 mls/hr Titration Protocol 15 MCG/KG/MIN Clevidipine 25 mg/ IV Solution 50 mls @ 2 mls/hr 08/26/22 09:00 08/27/22 08:54 IV 7 mg/hr .Q24H [facility] 14 mls/hr Administration Protocol 1 MG/HR Heparin Sodium/Sodium Chloride 250 mls @ 9.36 mls/hr 08/26/22 09:30 08/26/22 18:53 25,000 unit/ Sodium Chloride IV 9 units/kg/hr .Q24H [facility] 7.02 mls/hr Titration Protocol 12 UNITS/KG/HR Cefazolin Sodium 2 gm/ Sodium 50 mls @ 100 mls/hr 08/26/22 10:30 08/27/22 08:54 Chloride IVPB 08/28/22 23:59 100 mls/hr Q8HR [facility] Administration Protocol Potassium Chloride 10 meq/ IV 100 mls @ 100 mls/hr 08/27/22 06:00 08/27/22 08:54 Solution IVPB 08/27/22 09:59 100 mls/hr Q1H [facility] Administration Protocol Isosorbide Mononitrate 30 mg 08/24/22 09:00 08/26/22 08:51 Isosorbide Mononitrate Er 30 Mg Tab.Er.24h PO Not Given QAM [facility] Isosorbide Mononitrate 60 mg 08/24/22 09:00 08/26/22 08:51 Isosorbide Mononitrate Er 60 Mg Tab.Er.24h PO Not Given QAM [facility] Lorazepam 0.25 mg 08/25/22 21:23 08/27/22 02:28 Lorazepam 2 Mg/Ml Inj IV 0.25 mg BID PRN Administration Anxiety Losartan Potassium 100 mg 08/24/22 09:00 08/26/22 08:53 Losartan 50 Mg Tab PO Not Given QAM [facility] Magnesium Hydroxide 2,400 mg 08/24/22 16:56 Magnesium Hydroxide 2,400 Mg/10 Ml Cup PO DAILY PRN Constipation Montelukast Sodium 10 mg 08/23/22 21:00 08/26/22 20:24 Montelukast 10 Mg Tab PO Not Given HS [facility] Nitroglycerin 0.4 mg 08/23/22 19:36 Nitroglycerin Sl Tabs 0.4 Mg Tab SUBLINGUAL Q5M PRN Chest Pain Ondansetron HCl 4 mg 08/24/22 16:56 Ondansetron 4 Mg/2 Ml Vial IVP Q8HR PRN Nausea And Vomiting Pioglitazone HCl 15 mg 08/24/22 09:00 08/26/22 08:53 Pioglitazone 15 Mg Tab PO Not Given QAM [facility] Ranolazine 500 mg 08/23/22 21:00 08/26/22 20:25 Ranolazine 500 Mg Tab.Er.12h PO Not Given BID [facility] Repaglinide 0.5 mg 08/24/22 18:00 08/27/22 07:11 Repaglinide 1 Mg Tab PO Not Given AC-BID [facility] Senna/Docusate Sodium 1 each 08/24/22 09:00 08/26/22 08:53 Sennosides-Docusate Sodium 1 Each Tab PO Not Given DAILY [facility] Intake and Output 08/26/22 08/27/22 08/27/22 22:59 06:59 14:59 Intake Total 818.579 739.9 521.667 Output Total 185 830 160 Balance 633.579 -90.1 361.667 Intake: IV 600 650 275 Sodium Chloride 0.9% 1, 600 600 225 000 ml @ 75 mls/hr IV . [id number] [facility] Rx#:[id number] ceFAZolin 2 gm In Sodium 50 50 Chloride 0.9% 50 ml @ 100 mls/hr IVPB Q8HR [facility] Rx# :[id number] Intake, IV Titration 218.579 89.9 246.667 Amount Clevidipine Butyrate 25 98.067 89.9 46.667 mg In Empty Bag 1 bag @ 1 MG/HR 2 mls/hr IV .Q24H [facility] Rx#:[id number] Heparin Sod,Pork in 0.45% 70.512 NaCl 25,000 unit In 0.45 % NaCl 1 250ml.bag @ 12 UNITS/KG/HR 9.36 mls/hr IV .Q24H [facility] Rx#: [id number] Potassium Chloride 10 meq 200 In Water For Injection 1 100ml.bag @ 100 mls/hr IVPB Q1H [facility] Rx#: [id number] ceFAZolin 2 gm In Sodium 50 Chloride 0.9% 50 ml @ 100 mls/hr IVPB Q8HR [facility] Rx# :[id number] Output: Urine 185 830 160 Other: Voiding Method Indwelling Catheter Indwelling Catheter Indwelling Catheter Weight 71.5 kg 08/27/22 04:45 08/27/22 04:45
[2022-08-27] MEDS: RANOLAZINE 500 MG TAB.ER.12H PO SCH ×2 (10:09→20:25)
[2022-08-27] MEDS: SENNOSIDES-DOCUSATE SODIUM 1 EACH TAB PO SCH (10:09)
[2022-08-27] MEDS: atenoloL 50 MG TAB PO SCH ×2 (10:09→20:25)
[2022-08-27] MEDS: PIOGLITAZONE 15 MG TAB PO SCH (10:09)
[2022-08-27] MEDS: ISOSORBIDE MONONITRATE ER 30 MG TAB.ER.24H PO SCH (10:09)
[2022-08-27] MEDS: LOSARTAN 50 MG TAB PO SCH (10:09)
[2022-08-27] MEDS: ISOSORBIDE MONONITRATE ER 60 MG TAB.ER.24H PO SCH (10:09)
[2022-08-27] MEDS: hydrALAZINE HCL 20 MG/ML 1 ML VIAL IVP PRN ×3 (10:17→19:14)
[2022-08-27 11:24] LABS: Glucose,Whole Blood 220 mg/dL (70-110)
[2022-08-27] MEDS: SODIUM CHLORIDE 0.9% 1,000 ML IV SCH (11:44)
[2022-08-27] MEDS: INSULIN ASPART (NovoLOG) 100 UNIT/ML VIAL SQ SCH ×3 (11:44→20:34)
--- NOTE | 2022-08-27 12:19 | P.PN ---
Subjective Progress Note Date: 08/27/22 Principal diagnosis: Cervical myelopathy The patient is a 81-year-old female patient who was post a lengthy and extensive cervical spine surgery and postoperative the patient was kept intubated on a mechanical ventilator and the patient was transferred to the ICU for further dilshad luation and treatment. The patient has had significant issues in their neck and upper extremities. She has been having significant worsening at her neck and her upper extremities also troubles with her balance. She was showing synovitis myelopathy. She was found have severe stenosis at multiple levels at her cervical spine most prominently at C4 5 C5 6 and C6 7 but also some changes at C3 4. The patient initially went through some conservative management for this The patient has been through conservative treatment. She was having worsening of her symptoms and she underwent anterior cervical decompression with discectomy and fusion at C4 5 C5 6 C6 7 on 08/07/2022 with our service. The patient initially had a uneventful immediate postoperative course and was able to go home but on follow-up she was found have evidence of increased kyphosis with failure of the inner internal fixation and disruption of the fixation and hardware. She underwent further testing and imaging which showed obvious displacement of the hardware and interbody grafts. The patient was not having new neurologic deficits she is not having any new focal neurologic changes. She was having some increased pain and continued have evidence of myelopathy. The patient underwent Two-stage procedure with anterior and posterior cervical decompression and fusion under the same anesthesia Stage I Revision Anterior cervical decompression and fusion C3 4 C4 5 C5 6 C6 7 Corpectomy of C3 4 C5 and C6 for decompression Placement of interbody expandable titanium graft from C3 to C7 Application of anterior cervical plate from C3 to C7 Local autogenous bone grafting Use of Vika longoria Stage II Posterior cervical decompression C2 3 C3 4 C4 5 C5 6 C6 7 Posterior cervical spinal fusion C2 3 C3 4 C4 5 C5 6 C6 7 C7 T1 T1-T2, for 8 levels of spinal fusion for a posterior lateral and facet fusion Local autogenous bone grafting Use of fluoroscopic guidance [employer] [place] supervisor heading At this point in time, the patient remains intubated on a mechanical ventilator. The patient was kept intubated overnight. The patient is postop day #1. The patient is wearing a hard neck collar. She does have a drain in her posterior neck area and this is a Hemovac and the output from the drain is minimal at this point in time. Overnight, the patient continued to have low urine output. The patient was given a total of 2 L of normal saline bolus and currently she is on a maintenance of normal saline at the rate of 75 mL's an hour. She remains sedated on propofol. She is calm and comfortable. Along with the fluid resuscitation, the patient's urine output improved and she is currently producing 30 mL an hour. In terms of her blood work, there is a drop in hemoglobin down to 6.5. A unit of packed RBC was ordered and given to her. Note that her preop hemoglobin was 8.6. As such, the patient may potentially have chronic anemia. The morning blood gas showing a pH of 7.2 with a pCO2 of 28 and pO2 of 103. This was on assist-control mode at the rate of 16, tidal volume of 400, FiO2 of 30% with a PEEP of 5. The electrolytes are all stable. BUN is at 70 with a creatinine of 0.8. Sodiums of 139 with a potassium level of 3.3. Bicarb is 21. LFTs are normal. Her white cell count is 5.0. The chest x-ray from today shows adequate positioning of 82. The patient has a stable left lower lobe opacity/atelectasis. There are postoperative changes in the neck area. The patient is known to have coronary artery disease and she has undergone previous coronary stenting. She has hypertension and she is known to have chronic anemia. She does have Dilaudid for pain control. She is also diabetic maintained on oral hypoglycemics on outpatient basis. Reevaluated today on 08/26/2022, patient was extubated yesterday by Dr. Jim, seems to be doing relatively well. She is now postoperative day #2, status post revision anterior cervical compression and fusion with corpectomy C3 to C7 along with posterior cervical decompression and fusion C2 to T2 for her cervical myelopathy with failed internal fixation after her surgery from August 08 almost 3 weeks ago. Patient seems to have difficulty with swallowing, she failed the swallow evaluation. Patient is on room air, she does not seem to be in any distress. WBC count of 10.6 hemoglobin is 9.5. Basic metabolic profile is unremarkable. Bicarb is 18 BUN is 19 and creatinine 1.05. Again the patient is on room air with O2 sats from 99%, blood pressure is a bit elevated 158/44, may consider using IV clevidipine X a blood pressure remains elevated. No oral meds to be given yet since the patient failed her swallow evaluation. And this will be reassessed in the next 24 hours Reevaluated today on 08/27/2022, patient remains in the ICU, tolerated the extubation well few days ago, she is on room air, her blood pressure is elevated and she is on Klonopin X at 7 mg per hour. Patient is to have repeat swallow evaluation today. Continues to have weakness mostly in the right upper extremity and it basically the same as it was prior to surgery. According to the at bedside. Patient remains nothing by mouth, being followed by many consultants. Cardiology saw the patient for frequent PACs, no evidence of atrial fibrillation episodes. Labs today showed WBC count of 9.7 hemoglobin is 8.9. Lactic acid is 0.7. Patient does have a picture of hyperchloremic non-anion gap metabolic acidosis, bicarb is 14 and renal profile is normal. Objective - Vital Signs Vital signs: Vital Signs Temp 98.1 F 08/27/22 08:00 Pulse 75 08/27/22 12:10 Resp 20 08/27/22 10:00 BP 78/52 08/26/22 07:00 Pulse Ox 98 08/27/22 10:00 FiO2 30 08/25/22 12:00 Intake & Output 08/26/22 08/27/22 08/27/22 18:59 06:59 18:59 Intake Total 7138.908 6773.9 531.300 Output Total 565 880 160 Balance 653.379 134.9 371.300 Weight 71.5 kg Intake: IV 975 875 275 Sodium Chloride 0.9% 1, 975 825 225 000 ml @ 75 mls/hr IV . [id number] [facility] Rx#:[id number] ceFAZolin 2 gm In Sodium 50 50 Chloride 0.9% 50 ml @ 100 mls/hr IVPB Q8HR [facility] Rx# :[id number] Intake, IV Titration 243.379 139.9 256.300 Amount Clevidipine Butyrate 25 72.867 139.9 46.667 mg In Empty Bag 1 bag @ 1 MG/HR 2 mls/hr IV .Q24H [facility] Rx#:[id number] Clevidipine Butyrate 25 9.633 mg In Empty Bag 1 bag @ 1 MG/HR 2 mls/hr IV .Q24H [facility] Rx#:[id number] Heparin Sod,Pork in 0.45% 70.512 NaCl 25,000 unit In 0.45 % NaCl 1 250ml.bag @ 12 UNITS/KG/HR 9.36 mls/hr IV .Q24H [facility] Rx#: [id number] Potassium Chloride 10 meq 200 In Water For Injection 1 100ml.bag @ 100 mls/hr IVPB Q1H [facility] Rx#: [id number] ceFAZolin 2 gm In Sodium 100 Chloride 0.9% 50 ml @ 100 mls/hr IVPB Q8HR [facility] Rx# :[id number] Output: Drainage 0 Neck 0 Urine 565 880 160 Other: Voiding Method Indwelling Catheter Indwelling Catheter Indwelling Catheter ABP, PAP, CO, CI - Last Documented Arterial Blood Pressure 145/40 - Exam Physical Exam: Revealed an 81-year-old female in no distress. Remains on room air. Head: Atraumatic, normocephalic, HEENT:[Neck is supple.] [No neck masses.] [No thyromegaly.] [No JVD.] Cervical hard neck collar remains in place. Chest: [Clear throughout, no crackles, no rhonchi, no wheezes.] Cardiac Exam: [Normal S1 and S2, no S3 gallop, no murmur.] Abdomen: [Soft, nontender, no megaly, no rebound, no guarding, normal bowel sounds.] Extremities: [No clubbing, no edema, no cyanosis.] Right upper extremity seems to be a bit weaker compared to the left upper extremity. Neurological Exam: [No focal neurologic deficit.] No gross focal neurologic d eficits. Psychiatric: Normal mood affect and normal mental status examination. - Labs CBC & Chem 7: 08/27/22 04:45 08/27/22 04:45 Labs: Abnormal Lab Results - Last 24 Hours (Table) 08/26/22 08/26/22 08/26/22 Range/Units 16:45 18:03 23:46 RBC (3.80-5.40) m/uL Hgb (11.4-16.0) gm/dL Hct (34.0-46.0) % MCHC (31.0-37.0) g/dL RDW (11.5-15.5) % APTT 140.6 H* (22.0-30.0) sec Chloride (98-107) mmol/L Carbon Dioxide (22-30) mmol/L BUN (7-17) mg/dL Creatinine (0.52-1.04) mg/dL Glucose (74-99) mg/dL POC Glucose (mg/dL) 175 H 179 H (70-110) mg/dL Calcium (8.4-10.2) mg/dL 08/27/22 08/27/22 08/27/22 Range/Units 03:15 04:45 04:45 RBC 3.53 L (3.80-5.40) m/uL Hgb 8.9 L (11.4-16.0) gm/dL Hct 29.5 L (34.0-46.0) % MCHC 30.1 L (31.0-37.0) g/dL RDW 17.6 H (11.5-15.5) % APTT 59.6 H (22.0-30.0) sec Chloride 116 H (98-107) mmol/L Carbon Dioxide 14 L (22-30) mmol/L BUN 22 H (7-17) mg/dL Creatinine 1.06 H (0.52-1.04) mg/dL Glucose 179 H (74-99) mg/dL POC Glucose (mg/dL) (70-110) mg/dL Calcium 7.6 L (8.4-10.2) mg/dL 08/27/22 08/27/22 Range/Units 05:31 11:22 RBC (3.80-5.40) m/uL Hgb (11.4-16.0) gm/dL Hct (34.0-46.0) % MCHC (31.0-37.0) g/dL RDW (11.5-15.5) % APTT (22.0-30.0) sec Chloride (98-107) mmol/L Carbon Dioxide (22-30) mmol/L BUN (7-17) mg/dL Creatinine (0.52-1.04) mg/dL Glucose (74-99) mg/dL POC Glucose (mg/dL) 178 H 220 H (70-110) mg/dL Calcium (8.4-10.2) mg/dL Microbiology - Last 24 Hours (Table) 08/25/22 09:00 Gram Stain - Preliminary Sputum Sputum Culture - Preliminary Assessment and Plan Assessment: Impression: Postoperative day #3 status post revision anterior cervical compression and fusion with corpectomy C3 to C7 along with posterior cervical decompression and fusion C2 to T2 for her cervical myelopathy with failed internal fixation after her surgery from August 08 almost 3 weeks ago. History of coronary artery disease and previous coronary stenting Paroxysmal atrial fibrillation, seen by cardiology feels that the patient has mostly premature atrial contractions recommending stopping and coagulation therapy Type 2 diabetes without complications. Mild intermittent asthma, under control. History of rheumatoid arthritis. History of renal cell carcinoma and previous left nephrectomy Previous TIA. Failed swallow evaluation patient will have repeat swallow evaluation today. Recommendation: Continue to monitor in the ICU for the next 24 hours Continue incentive spirometry Repeat swallow evaluation Early ambulation Continue pain control with Dilaudid Continue GI and DVT prophylaxis Continue blood pressure medication, will switch to oral blood pressure meds once the patient could swallow properly. Discussed her overall status with her at bedside We will continue to follow. Time with Patient: Less than 30
--- NOTE | 2022-08-27 12:32 | CA ---
Transthoracic Echo Report Name: Paulina Celis Age: 81 Gender: F : 1940 Exam Date: 08/27/2022 10:24 Exam Location: [facility] Ht (in): 60 Wt (lb): 157 Ordering Physician: Jose Rafael Mejia DO ([id number]) Attending/Referring Phys: Addiction Therapist Jazlyn Martínez RDCS Procedure CPT: Indications: re: LV function Cardiac Hx: Technical Quality: Good Contrast 1: Total Dose (mL): Contrast 2: Total Dose (mL): MEASUREMENTS (Male / Female) Normal Values 2D ECHO LV Diastolic Diameter PLAX 3.8 cm 4.2 - 5.9 / 3.9 - 5.3 cm LV Systolic Diameter PLAX 1.5 cm IVS Diastolic Thickness 1.1 cm 0.6 - 1.0 / 0.6 - 0.9 cm LVPW Diastolic Thickness 1.1 cm 0.6 - 1.0 / 0.6 - 0.9 cm LV Relative Wall Thickness 0.6 RV Internal Dim ED PLAX 2.5 cm LA Systolic Diameter LX 3.5 cm 3.0 - 4.0 / 2.7 - 3.8 cm LV Diastolic Volume MOD 4C 65.6 cm??? LV Systolic Volume MOD 4C 23.7 cm??? LV Ejection Fraction MOD 4C 63.8 % LV Diastolic Length 4C 6.5 cm LV Systolic Length 4C 5.4 cm LV Diastolic Volume MOD 2C 58.7 cm??? LV Systolic Volume MOD 2C 26.8 cm??? LV Ejection Fraction MOD 2C 54.3 % LV Diastolic Length 2C 6.5 cm LV Systolic Length 2C 5.5 cm LA Volume 60.2 cm??? 18 - 58 / 22 - 52 cm??? M-MODE Aortic Root Diameter MM 3.3 cm MV E Point Septal Separation 0.5 cm AV Cusp Separation MM 2.0 cm DOPPLER AV Peak Velocity 167.0 cm/s AV Peak Gradient 11.2 mmHg LVOT Peak Velocity 123.2 cm/s LVOT Peak Gradient 6.1 mmHg MV Area PHT 2.7 cm??? MV Deceleration Time 258.6 ms MV E' Velocity 8.5 cm/s TR Peak Velocity 317.2 cm/s TR Peak Gradient 40.2 mmHg Right Ventricular Systolic Press 45.2 mmHg FINDINGS Left Ventricle Left ventricular ejection fraction is estimated at 60-65 %. Small left ventricular cavity. Mildly increased septal wall thickness. Mildly increased posterior wall thickness. Normal left ventricular wall motion. Right Ventricle Normal right ventricular size and function. Mild to moderata pulmonary hypertension. Right ventricular systolic pressure estimated at 45 mm hg. Right Atrium Normal right atrial size. Left Atrium Mildly increased left atrial volume. Mitral Valve Mitral valve thickened. Moderate mitral annular calcification. Trace to mild mitral regurgitation. Aortic Valve Trileaflet aortic valve. Focal thickening of the aortic valve cusps. No aortic valve stenosis or regurgitation. Tricuspid Valve Structurally normal tricuspid valve. Mild tricuspid regurgitation. Pulmonic Valve Structurally normal pulmonic valve. No pulmonic regurgitation. Pericardium Normal pericardium. No pericardial effusion. Aorta Normal size aortic root and proximal ascending aorta. CONCLUSIONS Normal LV systolic function [id number] pulmonary hypertension Previewed by: Dr. Max Weinstein MD (Electronically Signed) Final Date: 27 August 2022 12:31
--- NOTE | 2022-08-27 12:38 | XR ---
EXAMINATION TYPE: XR chest 1V portable DATE OF EXAM: 08/27/2022 HISTORY: Shortness of breath. COMPARISON: 08/25/2022 TECHNIQUE: Single view of the chest is submitted. FINDINGS: Demonstrated are scattered senescent parenchymal change. Increased basilar density left greater than right. Small effusions. No overt failure seen. The heart is stable. Hilar and mediastinal structures are within normal limits. Degenerative changes are seen of the dorsal spine. IMPRESSION: 1. Increased basilar density left greater than right. Small effusions. No overt failure seen.
[2022-08-27] MEDS ORDERED: Potassium Replacement Protocol 1 EACH MISC MISCELLANE PRN (16:16)
[2022-08-27 19:12] LABS: Glucose,Whole Blood 133 mg/dL (70-110)
[2022-08-27] MEDS: MONTELUKAST 10 MG TAB PO SCH (20:25)
[2022-08-27 20:31] LABS: Glucose,Whole Blood 159 mg/dL (70-110)
[2022-08-28] MEDS: SODIUM CHLORIDE 0.9% 1,000 ML IV SCH ×2 (00:21→09:27)
[2022-08-28] MEDS: CLEVIDIPINE BUTYRATE 25 MG in EMPTY BAG 1 BAG IV SCH ×2 (00:22→05:07)
[2022-08-28] MEDS: HYDROmorphone 0.5 MG/0.5 ML SYRINGE IVP PRN ×3 (01:28→20:21)
--- NOTE | 2022-08-28 03:20 | PN ---
PROGRESS NOTE DATE OF SERVICE: 08/27/2022 SUBJECTIVE: This is an 81-year-old woman who was admitted after redo surgery and internal fixation of C4-C7, also was on mechanical ventilation. Currently, the patient has some swallowing issues. The patient also has irregular cardiac rhythm, possibly noted atrial fibrillation per Cardiology, otherwise the patient will be closely monitored in ICU. PAST MEDICAL HISTORY: Reviewed. REVIEW OF SYSTEMS: A 14-point review of systems is negative except as mentioned earlier. PHYSICAL EXAMINATION: VITAL SIGNS: Pulse is 95, blood pressure ntd, respirations 20. NECK: No jugular venous distention. CARDIOVASCULAR: S1, S2 noted. CHEST: Clear to auscultation. ABDOMEN: Soft. LABORATORY DATA: Reviewed. ASSESSMENT: 1. Status post revision surgery for C4-C7. 2. Status post mechanical ventilation preoperatively. 3. Cervical myelopathy. 4. Atrial fibrillation, ruled out per Cardiology. 5. Hypertension. 6. Diabetes mellitus, type 2. 7. CAD and stent in the mid RCA. 8. Multiple medical issues. RECOMMENDATIONS AND DISCUSSION: This 81-year-old woman who presented with multiple complex medical issues. I would recommend to continue the current medications, continue symptomatic treatment. Otherwise, I will recommend swallow evaluation. Repeat labs. Otherwise, monitor closely. Guarded prognosis. Further recommendations to follow. MMODL / IJN: [id number] / MTDD
[2022-08-28 06:20] LABS: Anisocytosis Slight; HCT 27.5 % (34.0-46.0); HGB 8.6 gm/dL (11.4-16.0); Hypochromasia Moderate; MCH 25.4 pg (25.0-35.0); MCHC 31.2 g/dL (31.0-37.0); MCV 81.4 fL (80.0-100.0); Mean Platelet Volume 8.2; Platelet Count 198 k/uL (150-450); Poikilocytosis Slight; RBC 3.38 m/uL (3.80-5.40); RDW 17.6 % (11.5-15.5); WBC 9.8 k/uL (3.8-10.6)
[2022-08-28 06:32] LABS: Calcium 7.9 mg/dL (8.4-10.2); Potassium 3.9 mmol/L (3.5-5.1)
[2022-08-28 07:02] LABS: Glucose,Whole Blood 173 mg/dL (70-110)
[2022-08-28] MEDS: INSULIN ASPART (NovoLOG) 100 UNIT/ML VIAL SQ SCH ×4 (07:09→20:41)
[2022-08-28] MEDS: POTASSIUM CHLORIDE 10 MEQ in WATER FOR INJECTION 1 100ML.BAG IVPB SCH ×2 (07:12→09:27)
[2022-08-28] MEDS: REPAGLINIDE 1 MG TAB PO SCH ×2 (07:16→18:26)
--- NOTE | 2022-08-28 08:32 | P.PN ---
Subjective History of present illness: This is an 81 year old female patient of Dr. Hemran with past medical history of angina on Ranexa, coronary artery disease with stent in the mid RCA in 2007, hypertension, dyslipidemia. We have been asked to evaluate the patient for hypertension and new onset atrial fibrillation. Patient had anterior cervical decompression and fusion approximately 3 weeks ago and unfortunately has had progressive issues with her surgery requiring redo surgery 08/23. Cardiology was consulted for A. fib. She had prior episodes preoperatively 08/07 with prior consultation at that time however appeared to be frequent PACs. Patient currently with a neck brace and has been having difficulty swallowing and undergoing swallow eval. Her albumin is decreased at 2.6 and she has been third spacing with significant bilateral upper as well as lower extremity edema. She denies any chest pain or pressure however at home occasionally takes nitro. admits sometimes she has a difficult time explaining some of her symptoms. She denies any recent chest pain or pressure however. Cardiology was consult with secondary to similar episodes of irregular heart rates with reading out of A. fib. It appears she has had sinus rhythm with frequent PACs and no clear-cut prolonged episodes of A. fib. She did have one episode of questi onable left upper face numbness and tingling for a few seconds 3-4 months ago however not clearly TIA and denies any history of TIA or stroke. She is on a cleviprex drip with systolics 120s over 30s. Bicarb going down to 14 today. Echocardiogram 2019 revealed normal EF, mild mitral regurgitation, mild mitral annular calcification, mild tricuspid regurgitation, mild pulmonic regurgitation. Cardiolite stress test in 2019 was negative. Abnormal perfusion study with mild reversible defect involving the inferior lateral segment. Gated study shows normal wall motion and thickening. At that time, patient declined coronary angiography. 08/28 Patient seen and examined. Echocardiogram performed yesterday which shows left ventricular ejection fraction 60-65% with RVSP 45. Hemoglobin today 8.6, platelets 198, bicarb continues a decreased down to 12, BUN 20, creatinine 0.9, TSH yesterday was 0.3 with free T4 2 0.0, lactic acid was normal. EKG reviewed with episodes overnight clearly consistent with atrial fibrillation with varying heart rates 90s to low 100 100s. Physical examination: Gen: This is an 81-year-old female, resting in bed and appears to be comfortable and in no acute distress VS: reviewed HEENT: Head is atraumatic, normocephalic. Pupils equal, round. Sclerae is anic teric. NECK: Supple. No JVD. . LUNGS: Clear to auscultation. No wheezes or rhonchi. No intercostal retractions. HEART: Regular rate and rhythm. 2/6 systolic ejection murmur at the base. ABDOMEN: Soft No tenderness. EXTREMITIES: No pedal edema. No calf tenderness. NEUROLOGICAL: Patient is awake, alert and oriented x3. Assessment: Paroxysmal Afib Cervical pain History of coronary artery disease with stent in the mid RCA Hypertension Dyslipidemia Acidosis Upper extremeity edema appears related to third spacing Plan: Telemetry does show clear cut Afib and therefore restart heparin drip. Start Cardizem drip and wean Cleviprex as able. When able to tolerate oral meds transition to BBlocker. Cautious IVF however has been NPO. Consider NG tube if failing swallow eval. Objective - Vital Signs Vital signs: Vital Signs Temp 98.3 F 08/28/22 04:00 Pulse 105 H 08/28/22 07:00 Resp 31 H 08/28/22 07:00 BP 78/52 08/26/22 07:00 Pulse Ox 96 08/28/22 07:00 FiO2 30 08/25/22 12:00 Intake & Output 08/27/22 08/28/22 08/28/22 18:59 06:59 18:59 Intake Total 1245.900 928.867 75 Output Total 590 385 30 Balance 655.900 543.867 45 Intake: IV 850 825 75 Sodium Chloride 0.9% 1, 750 825 75 000 ml @ 75 mls/hr IV . [id number] [facility] Rx#:[id number] ceFAZolin 2 gm In Sodium 100 Chloride 0.9% 50 ml @ 100 mls/hr IVPB Q8HR [facility] Rx# :[id number] Intake, IV Titration 395.900 103.867 Amount Clevidipine Butyrate 25 46.667 mg In Empty Bag 1 bag @ 1 MG/HR 2 mls/hr IV .Q24H [facility] Rx#:[id number] Clevidipine Butyrate 25 49.233 103.867 mg In Empty Bag 1 bag @ 1 MG/HR 2 mls/hr IV .Q24H [facility] Rx#:[id number] Potassium Chloride 10 meq 300 In Water For Injection 1 100ml.bag @ 100 mls/hr IVPB Q1H [facility] Rx#: [id number] Output: Urine 590 385 30 Other: Voiding Method Indwelling Catheter Indwelling Catheter ABP, PAP, CO, CI - Last Documented Arterial Blood Pressure 131/39 - Labs CBC & Chem 7: 08/28/22 06:00 08/28/22 06:00 Labs: Abnormal Lab Results - Last 24 Hours (Table) 08/27/22 08/27/22 08/27/22 Range/Units 04:45 11:22 19:10 RBC (3.80-5.40) m/uL Hgb (11.4-16.0) gm/dL Hct (34.0-46.0) % RDW (11.5-15.5) % Chloride (98-107) mmol/L Carbon Dioxide (22-30) mmol/L BUN (7-17) mg/dL Glucose (74-99) mg/dL POC Glucose (mg/dL) 220 H 133 H (70-110) mg/dL Calcium (8.4-10.2) mg/dL TSH 0.323 L (0.465-4.680) mIU/L 08/27/22 08/28/22 08/28/22 Range/Units 20:29 06:00 06:00 RBC 3.38 L (3.80-5.40) m/uL Hgb 8.6 L (11.4-16.0) gm/dL Hct 27.5 L (34.0-46.0) % RDW 17.6 H (11.5-15.5) % Chloride 117 H (98-107) mmol/L Carbon Dioxide 12 L (22-30) mmol/L BUN 20 H (7-17) mg/dL Glucose 160 H (74-99) mg/dL POC Glucose (mg/dL) 159 H (70-110) mg/dL Calcium 7.9 L (8.4-10.2) mg/dL TSH (0.465-4.680) mIU/L 08/28/22 Range/Units 07:00 RBC (3.80-5.40) m/uL Hgb (11.4-16.0) gm/dL Hct (34.0-46.0) % RDW (11.5-15.5) % Chloride (98-107) mmol/L Carbon Dioxide (22-30) mmol/L BUN (7-17) mg/dL Glucose (74-99) mg/dL POC Glucose (mg/dL) 173 H (70-110) mg/dL Calcium (8.4-10.2) mg/dL TSH (0.465-4.680) mIU/L Microbiology - Last 24 Hours (Table) 08/25/22 09:00 Gram Stain - Preliminary Sputum Sputum Culture - Preliminary
[2022-08-28] MEDS: ALBUTEROL NEBULIZED 2.5 MG/3 ML INHALATION SCH ×4 (08:37→21:24)
[2022-08-28] MEDS ORDERED: HEPARIN SODIUM 1,000 UN/ML (10ML VL) IV ONE (09:01)
[2022-08-28] MEDS ORDERED: HEPARIN SODIUM 1,000 UN/ML (10ML VL) IV PRN (09:01)
[2022-08-28] MEDS ORDERED: HEPARIN SOD,PORK IN 0.45% NACL 25,000 UNIT in 0.45% NACL 1 250ML.BAG IV SCH (09:15)
[2022-08-28] MEDS: HYDROmorphone 1 MG/ML 1 ML SYRINGE IVP PRN ×3 (09:16→17:03)
[2022-08-28] MEDS: LOSARTAN 50 MG TAB PO SCH ×2 (09:22→14:40)
[2022-08-28] MEDS: ISOSORBIDE MONONITRATE ER 60 MG TAB.ER.24H PO SCH ×2 (09:22→14:40)
[2022-08-28] MEDS: SENNOSIDES-DOCUSATE SODIUM 1 EACH TAB PO SCH ×2 (09:22→14:40)
[2022-08-28] MEDS: ISOSORBIDE MONONITRATE ER 30 MG TAB.ER.24H PO SCH ×2 (09:22→14:39)
[2022-08-28] MEDS: RANOLAZINE 500 MG TAB.ER.12H PO SCH ×2 (09:22→20:40)
[2022-08-28] MEDS: atenoloL 50 MG TAB PO SCH ×2 (09:22→19:13)
[2022-08-28] MEDS: PIOGLITAZONE 15 MG TAB PO SCH (09:22)
[2022-08-28] MEDS: DILTIAZEM 125 MG in SODIUM CHLORIDE 0.9% 100 ML IV SCH (09:43)
[2022-08-28] MEDS: LORazepam 2 MG/ML INJ IV PRN ×2 (09:43→18:45)
[2022-08-28 09:51] LABS: Anisocytosis Slight; Basophils % (A) 0 %; Eosinophils # (A) 0.1 k/uL (0-0.7); Eosinophils % (A) 1 %; HCT 27.2 % (34.0-46.0); HGB 8.4 gm/dL (11.4-16.0); Hypochromasia Moderate; Lymphocytes # (A) 0.9 k/uL (1.0-4.8); Lymphocytes % (A) 9 %; MCH 24.7 pg (25.0-35.0); MCHC 30.7 g/dL (31.0-37.0); MCV 80.5 fL (80.0-100.0); Mean Platelet Volume 9.2; Microcytosis Slight; Monocytes # (A) 0.7 k/uL (0-1.0); Monocytes % (A) 7 %; Neutrophils # (A) 8.4 k/uL (1.3-7.7); Neutrophils % (A) 82 %; Platelet Count 205 k/uL (150-450); Poikilocytosis Slight; RBC 3.38 m/uL (3.80-5.40); RDW 17.8 % (11.5-15.5); WBC 10.3 k/uL (3.8-10.6)
[2022-08-28] MEDS: HEPARIN SOD,PORK IN 0.45% NACL 25,000 UNIT in 0.45% NACL 1 250ML.BAG IV SCH (09:59)
[2022-08-28 10:09] LABS: INR 0.9 (<1.2); Partial Thromboplastin Time 26.2 sec (22.0-30.0); Prothrombin Time 9.5 sec (9.0-12.0)
[2022-08-28] MEDS ORDERED: cloNIDine 0.3 MG/24HR PATCH TRANSDERM SCH (11:00)
--- NOTE | 2022-08-28 11:01 | XR ---
EXAMINATION TYPE: XR chest 1V portable DATE OF EXAM: 08/28/2022 10:50 AM COMPARISON: Chest radiographs from 08/27/2022 TECHNIQUE: XR chest 1V portable Frontal view of the chest. CLINICAL INDICATION:Female, 81 years old with history of sob; FINDINGS: Lungs/Pleura: No evidence of focal consolidation or pneumothorax. Blunting of the costophrenic angles is present. Pulmonary vascularity: Unremarkable. Heart/mediastinum: Cardiomediastinal silhouette is enlarged and stable. Atherosclerotic calcificatio ns are seen in the aorta. Musculoskeletal: No acute osseous pathology. Postsurgical changes in the upper spine with hardware in tact. Other findings: Surgical clips near gastroesophageal junction. IMPRESSION: Bibasilar pleural effusions with cardiomegaly. Correlate for volume overload.
--- NOTE | 2022-08-28 11:49 | P.PN ---
Progress Note - Text Progress Note Date: 08/28/22 Postoperative day #4 Patient is seen and examined today at bedside in the intensive care unit. The patient has some pain around the surgical site as expected. Pain is being controlled with medication. She is breathing comfortably on room air saturating 98 200%. Her brace is intact. She is still not been able to pass her swallow study was scheduled to have another one today. She does not feel her neurologic status is changed. Physical Exam Afebrile with stable vital signs. She goes in and out of atrial fibrillation and remains on IV medications to control Abdomen is soft nontender. Chest has good excursion deep and space expiration The incision site is clean dry and intact. No erythema there is no purulence. Her dressings are intact and clear without any active drainage Extremities have not had neurologic change from prior to surgery. She has global weakness but is able to move her legs and then her knees ankles and toes. Her left arm able to lift up off the bed extend and flex her wrist and elbow hand and fingers. Her right arm she is unable to lift her arm up above that but she is able to flex her elbow wrist and fingers remains weak. Calves and thighs were soft nontender without evidence of DVT. Assessment/Plan Postoperative day #4 status post anterior and posterior cervical spinal decompression with corpectomy and fusion done anteriorly from C3 to C7 and posteriorly from C2 to T2 Approximately 3 weeks post initial anterior cervical decompression and fusion which was revised 4 days ago Cervical myelopathy with severe stenosis and upper extremity lower extremity weakness most severe at the right upper extremity Atrial fibrillation being managed by cardiology Patient is progressing very slowly from the surgery. She remains in the intensive care unit as she needs IV medication to help control her rhythm. She is unable to take oral medications for control at this point but hopefully this will make some progress with her swallow study today and we will be able to increase her diet and medications by mouth. We will continue to increase the patient's mobilization with therapy. The patient has her cervical collar intact and should try to increase her mobilization with her collar intact. It is okay for her family to move her arms and legs with her in bed and when she is up in a chair. She just needs to have her collar intact. We will continue pain control with oral or IV medications. We'll continue to follow patient closely.
[2022-08-28 11:54] LABS: Glucose,Whole Blood 152 mg/dL (70-110)
[2022-08-28] MEDS: DEXTROSE 5%-0.45% NACL 1,000 ML IV SCH (13:19)
--- NOTE | 2022-08-28 14:35 | P.PN ---
Subjective Progress Note Date: 08/28/22 Principal diagnosis: Cervical myelopathy The patient is a 81-year-old female patient who was post a lengthy and extensive cervical spine surgery and postoperative the patient was kept intubated on a mechanical ventilator and the patient was transferred to the ICU for further dilshad luation and treatment. The patient has had significant issues in their neck and upper extremities. She has been having significant worsening at her neck and her upper extremities also troubles with her balance. She was showing synovitis myelopathy. She was found have severe stenosis at multiple levels at her cervical spine most prominently at C4 5 C5 6 and C6 7 but also some changes at C3 4. The patient initially went through some conservative management for this The patient has been through conservative treatment. She was having worsening of her symptoms and she underwent anterior cervical decompression with discectomy and fusion at C4 5 C5 6 C6 7 on 08/07/2022 with our service. The patient initially had a uneventful immediate postoperative course and was able to go home but on follow-up she was found have evidence of increased kyphosis with failure of the inner internal fixation and disruption of the fixation and hardware. She underwent further testing and imaging which showed obvious displacement of the hardware and interbody grafts. The patient was not having new neurologic deficits she is not having any new focal neurologic changes. She was having some increased pain and continued have evidence of myelopathy. The patient underwent Two-stage procedure with anterior and posterior cervical decompression and fusion under the same anesthesia Stage I Revision Anterior cervical decompression and fusion C3 4 C4 5 C5 6 C6 7 Corpectomy of C3 4 C5 and C6 for decompression Placement of interbody expandable titanium graft from C3 to C7 Application of anterior cervical plate from C3 to C7 Local autogenous bone grafting Use of Vika longoria Stage II Posterior cervical decompression C2 3 C3 4 C4 5 C5 6 C6 7 Posterior cervical spinal fusion C2 3 C3 4 C4 5 C5 6 C6 7 C7 T1 T1-T2, for 8 levels of spinal fusion for a posterior lateral and facet fusion Local autogenous bone grafting Use of fluoroscopic guidance He's of [place] billet header At this point in time, the patient remains intubated on a mechanical ventilator. The patient was kept intubated overnight. The patient is postop day #1. The patient is wearing a hard neck collar. She does have a drain in her posterior neck area and this is a Hemovac and the output from the drain is minimal at this point in time. Overnight, the patient continued to have low urine output. The patient was given a total of 2 L of normal saline bolus and currently she is on a maintenance of normal saline at the rate of 75 mL's an hour. She remains sedated on propofol. She is calm and comfortable. Along with the fluid resuscitation, the patient's urine output improved and she is currently producing 30 mL an hour. In terms of her blood work, there is a drop in hemoglobin down to 6.5. A unit of packed RBC was ordered and given to her. Note that her preop hemoglobin was 8.6. As such, the patient may potentially have chronic anemia. The morning blood gas showing a pH of 7.2 with a pCO2 of 28 and pO2 of 103. This was on assist-control mode at the rate of 16, tidal volume of 400, FiO2 of 30% with a PEEP of 5. The electrolytes are all stable. BUN is at 70 with a creatinine of 0.8. Sodiums of 139 with a potassium level of 3.3. Bicarb is 21. LFTs are normal. Her white cell count is 5.0. The chest x-ray from today shows adequate positioning of 82. The patient has a stable left lower lobe opacity/atelectasis. There are postoperative changes in the neck area. The patient is known to have coronary artery disease and she has undergone previous coronary stenting. She has hypertension and she is known to have chronic anemia. She does have Dilaudid for pain control. She is also diabetic maintained on oral hypoglycemics on outpatient basis. Reevaluated today on 08/26/2022, patient was extubated yesterday by Dr. Jim, seems to be doing relatively well. She is now postoperative day #2, status post revision anterior cervical compression and fusion with corpectomy C3 to C7 along with posterior cervical decompression and fusion C2 to T2 for her cervical myelopathy with failed internal fixation after her surgery from August 08 almost 3 weeks ago. Patient seems to have difficulty with swallowing, she failed the swallow evaluation. Patient is on room air, she does not seem to be in any distress. WBC count of 10.6 hemoglobin is 9.5. Basic metabolic profile is unremarkable. Bicarb is 18 BUN is 19 and creatinine 1.05. Again the patient is on room air with O2 sats from 99%, blood pressure is a bit elevated 158/44, may consider using IV clevidipine X a blood pressure remains elevated. No oral meds to be given yet since the patient failed her swallow evaluation. And this will be reassessed in the next 24 hours Reevaluated today on 08/27/2022, patient remains in the ICU, tolerated the extubation well few days ago, she is on room air, her blood pressure is elevated and she is on Klonopin X at 7 mg per hour. Patient is to have repeat swallow evaluation today. Continues to have weakness mostly in the right upper extremity and it basically the same as it was prior to surgery. According to the at bedside. Patient remains nothing by mouth, being followed by many consultants. Cardiology saw the patient for frequent PACs, no evidence of atrial fibrillation episodes. Labs today showed WBC count of 9.7 hemoglobin is 8.9. Lactic acid is 0.7. Patient does have a picture of hyperchloremic non-anion gap metabolic acidosis, bicarb is 14 and renal profile is normal. Reevaluated today on 08/28/2022, patient remains in the ICU, remains on clevidipine for elevated blood pressure, trying to titrate and possibly discontinue. Patient is receiving IV hydralazine she remains nothing by mouth, patient failed her swallow evaluation, hence am recommending a clonidine patch to be started on this patient, and hopefully continue to titrate her Cleviprex and use hydralazine as needed. Patient continues to have what seems to be at hyperchloremic metabolic acidosis, non-anion gap, patient may have renal tubular acidosis, will recommend nephrology to evaluate. In the meantime continue IV fluids, electrolytes are relatively unremarkable except for hyperchloremia and low bicarb of 12. Patient did have positive ketones but her glucose is 152. Objective - Vital Signs Vital signs: Vital Signs Temp 98.3 F 08/28/22 04:00 Pulse 98 08/28/22 08:48 Resp 31 H 08/28/22 07:00 BP 78/52 08/26/22 07:00 Pulse Ox 96 08/28/22 07:00 FiO2 30 08/25/22 12:00 Intake & Output 08/27/22 08/28/22 08/28/22 18:59 06:59 18:59 Intake Total 1245.900 928.867 75 Output Total 590 385 30 Balance 655.900 543.867 45 Intake: IV 850 825 75 Sodium Chloride 0.9% 1, 750 825 75 000 ml @ 75 mls/hr IV . [id number] [facility] Rx#:[id number] ceFAZolin 2 gm In Sodium 100 Chloride 0.9% 50 ml @ 100 mls/hr IVPB Q8HR [facility] Rx# :[id number] Intake, IV Titration 395.900 103.867 Amount Clevidipine Butyrate 25 46.667 mg In Empty Bag 1 bag @ 1 MG/HR 2 mls/hr IV .Q24H [facility] Rx#:[id number] Clevidipine Butyrate 25 49.233 103.867 mg In Empty Bag 1 bag @ 1 MG/HR 2 mls/hr IV .Q24H [facility] Rx#:[id number] Potassium Chloride 10 meq 300 In Water For Injection 1 100ml.bag @ 100 mls/hr IVPB Q1H [facility] Rx#: [id number] Output: Urine 590 385 30 Other: Voiding Method Indwelling Catheter Indwelling Catheter ABP, PAP, CO, CI - Last Documented Arterial Blood Pressure 131/39 - Exam Physical Exam: Revealed an 81-year-old female in no distress. Remains on room air. O2 saturations 96% Head: Atraumatic, normocephalic, HEENT:[Neck is supple.] [No neck masses.] [No thyromegaly.] [No JVD.] Cervical hard neck collar remains in place. Chest: [Clear throughout, no crackles, no rhonchi, no wheezes.] Cardiac Exam: [Normal S1 and S2, no S3 gallop, no murmur.] Abdomen: [Soft, nontender, no megaly, no rebound, no guarding, normal bowel sounds.] Extremities: [No clubbing, no edema, no cyanosis.] Right upper extremity seems to be a bit weaker compared to the left upper extremity. Neurological Exam: [No focal neurologic deficit.] No gross focal neurologic deficits. Psychiatric: Normal mood affect and normal mental status examination. - Labs CBC & Chem 7: 08/28/22 09:36 08/28/22 06:00 Labs: Abnormal Lab Results - Last 24 Hours (Table) 08/27/22 08/27/22 08/28/22 Range/Units 19:10 20:29 06:00 RBC (3.80-5.40) m/uL Hgb (11.4-16.0) gm/dL Hct (34.0-46.0) % MCH (25.0-35.0) pg MCHC (31.0-37.0) g/dL RDW (11.5-15.5) % Neutrophils # (1.3-7.7) k/uL Lymphocytes # (1.0-4.8) k/uL Chloride (98-107) mmol/L Carbon Dioxide (22-30) mmol/L BUN (7-17) mg/dL Glucose (74-99) mg/dL POC Glucose (mg/dL) 133 H 159 H (70-110) mg/dL Hemoglobin A1c 6.3 H (0.0-6.0) % Calcium (8.4-10.2) mg/dL 08/28/22 08/28/22 08/28/22 Range/Units 06:00 06:00 07:00 RBC 3.38 L (3.80-5.40) m/uL Hgb 8.6 L (11.4-16.0) gm/dL Hct 27.5 L (34.0-46.0) % MCH (25.0-35.0) pg MCHC (31.0-37.0) g/dL RDW 17.6 H (11.5-15.5) % Neutrophils # (1.3-7.7) k/uL Lymphocytes # (1.0-4.8) k/uL Chloride 117 H (98-107) mmol/L Carbon Dioxide 12 L (22-30) mmol/L BUN 20 H (7-17) mg/dL Glucose 160 H (74-99) mg/dL POC Glucose (mg/dL) 173 H (70-110) mg/dL Hemoglobin A1c (0.0-6.0) % Calcium 7.9 L (8.4-10.2) mg/dL 08/28/22 08/28/22 Range/Units 09:36 11:53 RBC 3.38 L (3.80-5.40) m/uL Hgb 8.4 L (11.4-16.0) gm/dL Hct 27.2 L (34.0-46.0) % MCH 24.7 L (25.0-35.0) pg MCHC 30.7 L (31.0-37.0) g/dL RDW 17.8 H (11.5-15.5) % Neutrophils # 8.4 H (1.3-7.7) k/uL Lymphocytes # 0.9 L (1.0-4.8) k/uL Chloride (98-107) mmol/L Carbon Dioxide (22-30) mmol/L BUN (7-17) mg/dL Glucose (74-99) mg/dL POC Glucose (mg/dL) 152 H (70-110) mg/dL Hemoglobin A1c (0.0-6.0) % Calcium (8.4-10.2) mg/dL Microbiology - Last 24 Hours (Table) 08/25/22 09:00 Gram Stain - Final Sputum Sputum Culture - Final Assessment and Plan Assessment: Impression: Postoperative day #4 status post revision anterior cervical compression and fusion with corpectomy C3 to C7 along with posterior cervical decompression and fusion C2 to T2 for her cervical myelopathy with failed internal fixation after her surgery from August 08 almost 3 weeks ago. History of coronary artery disease and previous coronary stenting Paroxysmal atrial fibrillation, seen by cardiology feels that the patient has mostly premature atrial contractions recommending stopping and coagulation therapy Type 2 diabetes without complications. Mild intermittent asthma, under control. History of rheumatoid arthritis. History of renal cell carcinoma and previous left nephrectomy Previous TIA. Failed swallow evaluation patient will have repeat swallow evaluation today. Suspect renal tubular acidosis/hyperchloremic metabolic acidosis, nephrology will be consulted Recommendation: Continue incentive spirometry nephrology to see on consultation Clonidine patch was added hopefully we could get the patient off clevidipine. Repeat swallow evaluation Early ambulation Continue pain control with Dilaudid Continue GI and DVT prophylaxis We will continue to follow. Time with Patient: Less than 30
[2022-08-28] MEDS: HYDROcodone/APAP 5-325MG 1 EACH TAB PO PRN ×2 (14:49→21:54)
--- NOTE | 2022-08-28 15:44 | FL ---
Exam Date: 08/28/2022 2:36 PM. Modified barium swallow for dysphagia. Consistencies administered: Various consistency of barium. Fluoro time: 51 seconds DAP: 142.50
[2022-08-28] MEDS ORDERED: FUROSEMIDE 10 MG/ML 4 ML VIAL IV STA (17:24)
[2022-08-28 18:03] LABS: Glucose,Whole Blood 222 mg/dL (70-110)
[2022-08-28 18:19] LABS: ABG Base Excess -10.3 mmol/L; ABG HCO3 16 mmol/L (21-25); ABG Oxygen Saturation 98.6 % (94-97); ABG PCO2 31 mmHg (35-45); ABG PH 7.32 (7.35-7.45); ABG PO2 104 mmHg (83-108); ABG TCO2 17 mmol/L (19-24)
[2022-08-28 18:20] LABS: Allen Test Performed? no
[2022-08-28 19:43] LABS: Albumin 2.6 g/dL (3.5-5.0); Calcium 7.7 mg/dL (8.4-10.2); Magnesium 1.8 mg/dL (1.6-2.3); Potassium 3.8 mmol/L (3.5-5.1); Total Bilirubin 0.7 mg/dL (0.2-1.3); Total Protein 5.2 g/dL (6.3-8.2)
[2022-08-28 20:33] LABS: Glucose,Whole Blood 222 mg/dL (70-110)
[2022-08-28] MEDS: POTASSIUM CHLORIDE ER 10 MEQ TAB.ER.PRT PO SCH (20:41)
[2022-08-28] MEDS: MONTELUKAST 10 MG TAB PO SCH (21:04)
[2022-08-29] MEDS: DEXTROSE 5%-0.45% NACL 1,000 ML IV SCH (03:08)
[2022-08-29 03:40] LABS: INR 0.9 (<1.2); Partial Thromboplastin Time 52.1 sec (22.0-30.0); Prothrombin Time 9.7 sec (9.0-12.0)
[2022-08-29 03:45] LABS: Albumin 2.1 g/dL (3.5-5.0); Potassium 3.8 mmol/L (3.5-5.1); Total Bilirubin 0.6 mg/dL (0.2-1.3)
[2022-08-29 03:49] LABS: Anisocytosis Slight; Basophils % (A) 0 %; Eosinophils # (A) 0.1 k/uL (0-0.7); Eosinophils % (A) 1 %; HCT 22.4 % (34.0-46.0); Hypochromasia Moderate; Lymphocytes # (A) 0.7 k/uL (1.0-4.8); Lymphocytes % (A) 11 %; MCH 24.4 pg (25.0-35.0); MCHC 30.6 g/dL (31.0-37.0); MCV 79.9 fL (80.0-100.0); Mean Platelet Volume 8.4; Microcytosis Slight; Monocytes # (A) 0.6 k/uL (0-1.0); Monocytes % (A) 8 %; Neutrophils # (A) 5.3 k/uL (1.3-7.7); Neutrophils % (A) 77 %; Platelet Count 168 k/uL (150-450); Poikilocytosis Slight; RBC 2.81 m/uL (3.80-5.40); RDW 17.9 % (11.5-15.5); WBC 6.8 k/uL (3.8-10.6)
[2022-08-29 03:51] LABS: HGB 6.9 gm/dL (11.4-16.0)
[2022-08-29 04:21] LABS: Calcium 7.4 mg/dL (8.4-10.2); Total Protein 4.2 g/dL (6.3-8.2)
[2022-08-29] MEDS ORDERED: POTASSIUM CHLORIDE ER 20 MEQ TAB.ER PO SCH (05:00)
[2022-08-29] MEDS: REPAGLINIDE 1 MG TAB PO SCH ×2 (06:27→17:18)
[2022-08-29] MEDS: HYDROmorphone 0.5 MG/0.5 ML SYRINGE IVP PRN ×2 (06:27→11:08)
[2022-08-29 06:49] LABS: Glucose,Whole Blood 170 mg/dL (70-110)
[2022-08-29] MEDS: INSULIN ASPART (NovoLOG) 100 UNIT/ML VIAL SQ SCH ×4 (06:53→20:25)
[2022-08-29] MEDS: ISOSORBIDE MONONITRATE ER 60 MG TAB.ER.24H PO SCH (08:16)
[2022-08-29] MEDS: PIOGLITAZONE 15 MG TAB PO SCH (08:16)
[2022-08-29] MEDS: atenoloL 50 MG TAB PO SCH ×2 (08:16→20:45)
[2022-08-29] MEDS: LOSARTAN 50 MG TAB PO SCH (08:16)
[2022-08-29] MEDS: ISOSORBIDE MONONITRATE ER 30 MG TAB.ER.24H PO SCH (08:16)
[2022-08-29] MEDS: SENNOSIDES-DOCUSATE SODIUM 1 EACH TAB PO SCH (08:17)
[2022-08-29] MEDS: RANOLAZINE 500 MG TAB.ER.12H PO SCH ×2 (08:17→20:44)
[2022-08-29] MEDS: ALBUTEROL NEBULIZED 2.5 MG/3 ML INHALATION SCH ×4 (08:39→20:12)
--- NOTE | 2022-08-29 08:47 | P.PN ---
Progress Note - Text Progress Note Date: 08/29/22 Postoperative day #5 Patient is seen and examined today at bedside. Her pain seems better cont rolled. She was able to pass her swallow study yesterday and is moving on to regular diet today. She says she has been trying to move her arms and legs a bit more. She still has weakness somewhat globally bone was significantly in her right upper extremity Physical Exam Afebrile with stable vital signs this morning she was on 2 L nasal cannula at 98%. They will try to see if she is okay on room air. Rhythm and still atrial fibrillation morning Abdomen is soft nontender. Chest has good excursion deep and space expiration The dressing at her neck is changed today. There is no see him and swelling there is no active drainage there is no erythema. Mirna are intact. Collar is intact. The incision site is clean dry and intact. No erythema there is no purulence. Extremities have not had neurologic change from prior to surgery. Calves and thighs were soft nontender without evidence of DVT. Assessment/Plan Postoperative day #5 status post two-stage cervical decompression and fusion with anterior revision decompression and fusion C3 through 7 with corpectomy and posterior decompression fusion from C2 to T2 for her severe cervical myelopathy and severe cervical stenosis with upper extremity weakness The patient seems to be starting to move a little bit more in bed which is encouraging. We will continue to increase the patient's mobilization with therapy. She was able to pass her swallow study and hopefully will get more energy as she starts to eat foods. She should continue her hard cervical collar at all times. We'll see if she can be supplied with some supple metal pads for her collar so that she can wash them and change them out when they're soiled. From a orthopedic standpoint is okay for patient to transfer and increase her mobilization. His okay for her to be on a regular floor when she is stable with medicine and and critical care and cardiac service. It is likely that she'll need some inpatient rehab versus extended care versus home with home health after hospitalization. I discussed case further with the and son at bedside today as well. We will continue pain control with oral or IV medications. We'll continue to follow patient closely.
[2022-08-29] MEDS: HYDROcodone/APAP 5-325MG 1 EACH TAB PO PRN ×3 (09:21→20:44)
[2022-08-29] MEDS ORDERED: FUROSEMIDE 10 MG/ML 4 ML VIAL IV STA (09:53)
[2022-08-29] MEDS: DILTIAZEM 125 MG in SODIUM CHLORIDE 0.9% 100 ML IV SCH (09:54)
[2022-08-29] MEDS: SODIUM CHLORIDE 0.9% 1,000 ML IV SCH (10:05)
--- NOTE | 2022-08-29 10:16 | PN ---
PROGRESS NOTE DATE OF SERVICE: 08/28/2022 SUBJECTIVE: This is an 81-year-old woman who was admitted after revision surgery for C4-C7, also had atrial fibrillation with fast ventricular rate, hypertension also. The patient is on Cleviprex drip and being closely monitored with Cardiology and Pulmonology. OBJECTIVE: VITAL SIGNS: Pulse 105, blood pressure 131/39, respirations 20. CHEST: Clear to auscultation. CARDIOVASCULAR: S1, S2 muffled. ABDOMEN: Soft, nontender. NECK: Status post surgery. LABORATORY DATA: CO2 is 12. ASSESSMENT: 1. Status post revision surgery for C4-C7. 2. Acidosis for evaluation. 3. Status post mechanical ventilation preoperatively. 4. Cervical myelopathy. 5. Atrial fibrillation with fast ventricular rate. 6. Hypertension. 7. Diabetes mellitus, type 2. 8. Coronary artery disease and stent in the mid right coronary artery. 9. Multiple medical issues. RECOMMENDATIONS AND DISCUSSION: Recommend to continue current medications, continue symptomatic treatment. Otherwise, I would also recommend an ABG. Repeat labs. Closely monitor. Further recommendations to follow. MMODL / IJN: [id number] /
--- NOTE | 2022-08-29 10:46 | P.NPCON ---
History of Present Illness - Reason for Consult chronic renal failure, metabolic acidosis - History of Present Illness Patient is an 81-year-old female with history of chronic kidney disease NKF stage III with baseline creatinine about 1-1.3 mg/dL. Patient has a solitary kidney due to history of left nephrectomy for renal cell carcinoma. Patient is status post anterior cervical decompression with discectomy and fusion at C4 C5 C6 and 7 for cervical stenosis and cervical myelopathy. Patient has been extubated Serum creatinine has been around 0.9 mg/dL. Patient has been receiving IV fluids. Patient was noted to have metabolic acidosis with decreased bicarb to about 12 on 08/28/2022. Lactic acid was not elevated No diarrhea documented. Blood sugar was not elevated. Off note is that patient's pCO2 on blood gas was quite low around 21 after intubation. The serum bicarb had been progressively decreasing since patient was intubated and it has improved on its own after extubation. Patient has not received IV bicarb. Medications were reviewed and no significant meds were noted to predispose to metabolic acidosis. Review of Systems As per HPI Past Medical History Past Medical History: Atrial Fibrillation, Asthma, Coronary Artery Disease (CAD), Cancer, Chest Pain / Angina, Heart Failure, Diabetes Mellitus, GERD/Reflux, Hearing Disorder / Deafness, Hyperlipidemia, Hypertension, Osteoarthritis (OA), Renal Disease, Rheumatoid Arthritis (RA), Vascular Disorder Additional Past Medical History / Comment(s): Cervical myopathy, spinal stenosis, paroxysmal afib, sinus bradycardia, NIDDM type II, 1984 L breast cancer/surgery and chemotherapy, 1985 L renal carcinoma, kidney infections, UTIs with current UTI, pt unsure if she had previous tia, ckd stage III, anemia, past small bowel obstructions, past ulcer, abnormal gait/uses walker, FALLS History of Any Multi-Drug Resistant Organisms: None Reported Past Surgical History: Breast Surgery, Heart Catheterization, Heart Catheterization With Stent, Joint Replacement, Orthopedic Surgery Additional Past Surgical History / Comment(s): Bilateral carpal tunnel releases, bilateral knee replacements, L breast mastectomy, L nephrectomy, colonoscopy, cataract removals. Past Anesthesia/Blood Transfusion Reactions: Motion Sickness, Postoperative Nausea & Vomiting (PONV) Additional Past Anesthesia/Blood Transfusion Reaction / Comment(s): Pt has had blood transfusion without reaction. Pt states she has fear of anesthesia. Date of Last Stent Placement:: 2007 Past Psychological History: Anxiety Additional Psychological History / Comment(s): Pt resides with her spouse. Smoking Status: Never smoker Past Alcohol Use History: None Reported Past Drug Use History: None Reported - Past Family History Mother Family Medical History: Cancer, Diabetes Mellitus Additional Family Medical History / Comment(s): Breast and colon cancer Father Additional Family Medical History / Comment(s): bowel problems Medications and Allergies Home Medications Medication Instructions Recorded Confirmed Type Aspirin 81 mg PO DAILY 06/05/22 08/23/22 History Ergocalciferol [Vitamin D2 (1250 1,250 mcg PO Q14D 06/05/22 08/23/22 History Mcg = [id number] Iu)] Fluticasone Propionate 220 Mcg 2 puff INHALATION RT-BID PRN 06/05/22 08/23/22 History [Flovent 220 Mcg Inhaler] Irbesartan 300 mg PO QAM 06/05/22 08/23/22 History Isosorbide Mononitrate ER [Imdur] 60 mg PO QAM 06/05/22 08/23/22 History Leflunomide [Arava] 20 mg PO QAM 06/05/22 08/23/22 History Montelukast Sodium [Singulair] 10 mg PO HS 06/05/22 08/23/22 History Nitroglycerin Sl Tabs [Nitrostat] 0.4 mg SUBLINGUAL Q5M PRN 06/05/22 08/23/22 History Pioglitazone [Actos] 15 mg PO QAM 06/05/22 08/23/22 History Ranolazine [Ranexa] 500 mg PO BID 06/05/22 08/23/22 History Repaglinide [Prandin] 0.5 mg PO AC-BID 06/05/22 08/23/22 History traMADol HCl [Ultram] 50 mg PO QID PRN 06/05/22 08/23/22 History Isosorbide Mononitrate ER [Imdur] 30 mg PO QAM 08/07/22 08/23/22 History Cyclobenzaprine [Flexeril] 5 mg PO TID PRN #60 tablet 08/09/22 08/23/22 Rx HYDROcodone/APAP 5-325MG [[place] 1 tab PO Q8HR PRN 7 Days #21 tab 08/09/22 08/23/22 Rx 5-325] amLODIPine [Norvasc] 10 mg PO DAILY #30 tab 08/09/22 08/23/22 Rx atenoloL [Tenormin] 50 mg PO BID #60 tab 08/09/22 08/23/22 Rx Acetaminophen Tab [Tylenol] 650 mg PO Q6HR PRN tab 08/10/22 08/23/22 Rx Sennosides-Docusate Sodium 1 tab PO DAILY 08/23/22 08/23/22 History [Senokot-S] Allergies Allergy/AdvReac Type Severity Reaction Status Date / Time codeine AdvReac Nausea & Verified 08/23/22 12:50 Vomiting,hyperactive Physical Exam Vitals: Vital Signs Temp Pulse Resp BP Pulse Ox 08/29/22 10:00 68 21 92 L 08/29/22 09:32 97.7 F 73 28 H 153/48 08/29/22 09:12 97.7 F 75 24 156/46 08/29/22 09:02 97.7 F 78 26 H 142/42 08/29/22 09:00 77 18 94 L 08/29/22 08:53 84 08/29/22 08:43 83 08/29/22 08:00 97.7 F 67 15 94/82 97 08/29/22 07:00 60 13 97 08/29/22 06:00 62 22 100 08/29/22 05:00 64 24 99 08/29/22 04:00 98.2 F 54 L 20 100 08/29/22 03:04 50 L 17 99 08/29/22 02:00 63 22 94/82 100 08/29/22 01:00 56 L 21 99 08/29/22 00:00 98.1 F 68 22 99 08/28/22 23:00 53 L 22 99 08/28/22 22:00 73 20 97 08/28/22 21:45 80 08/28/22 21:24 79 08/28/22 21:00 80 12 97 08/28/22 20:00 98.2 F 85 26 H 97 08/28/22 19:00 79 22 98 08/28/22 18:00 79 27 H 99 08/28/22 17:00 93 18 97 08/28/22 16:19 93 08/28/22 16:08 93 08/28/22 16:00 98.6 F 88 16 98 08/28/22 15:00 83 15 08/28/22 13:00 99 23 99 08/28/22 12:00 98.2 F 91 22 98 08/28/22 11:00 81 24 99 Intake and Output 08/28/22 08/29/22 08/29/22 22:59 06:59 14:59 Intake Total 1430.489 768.327 415 Output Total 780 500 140 Balance 650.489 268.327 275 Intake: IV 690 640 265 Dextrose 5%-0.45% NaCl 1, 600 600 225 000 ml @ 75 mls/hr IV . [id number] [facility] Rx#:[id number] Invasive Line 1 20 20 10 Invasive Line 2 20 20 10 Sodium Chloride 0.9% 1, 20 000 ml @ 20 mls/hr IV . Q24H [facility] Rx#:[id number] ceFAZolin 2 gm In Sodium 50 Chloride 0.9% 50 ml @ 100 mls/hr IVPB Q8HR [facility] Rx# :[id number] Intake, IV Titration 60.489 128.327 Amount Diltiazem 125 mg In 74.583 Sodium Chloride 0.9% 100 ml @ 5 MG/HR 5 mls/hr IV .Q24H [facility] Rx#:[id number] Heparin Sod,Pork in 0.45% 60.489 53.744 NaCl 25,000 unit In 0.45 % NaCl 1 250ml.bag @ 12 UNITS/KG/HR 8.58 mls/hr IV .Q24H ON LICENSE OF [facility] Rx#: [id number] Oral 680 150 Blood Product 0 Unit 0 Output: Urine 780 500 140 Other: Voiding Method Indwelling Catheter Indwelling Catheter Indwelling Catheter ABP, PAP, CO, CI - Last 8 Hours Arterial Blood Pressure 142/47 Arterial Blood Pressure 138/41 Arterial Blood Pressure 144/45 Arterial Blood Pressure 137/40 Arterial Blood Pressure 141/40 Arterial Blood Pressure 123/35 Arterial Blood Pressure 121/34 Awake, comfortable Cervical collar Examination of the heart S1 and S2 Examination of the lungs decreased breath sounds at the bases Abdomen is soft nontender Examination lower extremity shows edema trace bilaterally Results - Lab Results Most recent lab results ABG pH 7.32 (7.35-7.45) L 08/28/22 18:15 ABG pCO2 31 mmHg (35-45) L 08/28/22 18:15 ABG pO2 104 mmHg (83-108) 08/28/22 18:15 ABG HCO3 16 mmol/L (21-25) L 08/28/22 18:15 ABG O2 Saturation 98.6 % (94-97) H 08/28/22 18:15 Calcium 7.4 mg/dL (8.4-10.2) L 08/29/22 03:10 Magnesium 1.8 mg/dL (1.6-2.3) 08/28/22 19:02 08/29/22 03:10 08/29/22 03:10 Assessment and Plan Assessment: 1. Non-gap metabolic acidosis appears to be compensatory mechanism for respiratory alkalosis while patient was intubated. This has improved after extubation. No obvious medication was noted to predispose to metabolic acidosis. Doubt RTA however urine and on Will be sent out. 2. Chronic kidney disease NKF stage III with baseline creatinine around 1-1.3 mg/dL secondary to solitary kidney and possible underlying diabetic kidney disease 3. History of left nephrectomy for renal cell carcinoma 4. Anemia status post packed RBCs transfusion. No active bleeding noted 5. Status post anterior cervical decompression and discectomy with fusion at C4 C5 to C6 and C6-C7 per cervical stenosis and cervical myelopathy Plan: Repeat Lasix times one today KVO IV fluids Repeat labs in a.m. Check random urine potassium, chloride and sodium next Thank you for the consultation. We will continue to follow the patient with you during her hospitalization
[2022-08-29 11:12] LABS: Glucose,Whole Blood 145 mg/dL (70-110)
[2022-08-29] MEDS ORDERED: Potassium Replacement Protocol 1 EACH MISC MISCELLANE PRN (11:39)
[2022-08-29] MEDS ORDERED: Magnesium Replacement Protocol 1 EACH MISC MISCELLANE PRN (11:39)
--- NOTE | 2022-08-29 12:27 | P.PN ---
Subjective Progress Note Date: 08/29/22 Principal diagnosis: Cervical myelopathy The patient is a 81-year-old female patient who was post a lengthy and extensive cervical spine surgery and postoperative the patient was kept intubated on a mechanical ventilator and the patient was transferred to the ICU for further dilshad luation and treatment. The patient has had significant issues in their neck and upper extremities. She has been having significant worsening at her neck and her upper extremities also troubles with her balance. She was showing synovitis myelopathy. She was found have severe stenosis at multiple levels at her cervical spine most prominently at C4 5 C5 6 and C6 7 but also some changes at C3 4. The patient initially went through some conservative management for this The patient has been through conservative treatment. She was having worsening of her symptoms and she underwent anterior cervical decompression with discectomy and fusion at C4 5 C5 6 C6 7 on 08/07/2022 with our service. The patient initially had a uneventful immediate postoperative course and was able to go home but on follow-up she was found have evidence of increased kyphosis with failure of the inner internal fixation and disruption of the fixation and hardware. She underwent further testing and imaging which showed obvious displacement of the hardware and interbody grafts. The patient was not having new neurologic deficits she is not having any new focal neurologic changes. She was having some increased pain and continued have evidence of myelopathy. The patient underwent Two-stage procedure with anterior and posterior cervical decompression and fusion under the same anesthesia Stage I Revision Anterior cervical decompression and fusion C3 4 C4 5 C5 6 C6 7 Corpectomy of C3 4 C5 and C6 for decompression Placement of interbody expandable titanium graft from C3 to C7 Application of anterior cervical plate from C3 to C7 Local autogenous bone grafting Use of Vika longoria Stage II Posterior cervical decompression C2 3 C3 4 C4 5 C5 6 C6 7 Posterior cervical spinal fusion C2 3 C3 4 C4 5 C5 6 C6 7 C7 T1 T1-T2, for 8 levels of spinal fusion for a posterior lateral and facet fusion Local autogenous bone grafting 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 The patient was kept intubated overnight. The patient is postop day #1. The patient is wearing a hard neck collar. She does have a drain in her posterior neck area and this is a Hemovac and the output from the drain is minimal at this point in time. Overnight, the patient continued to have low urine output. The patient was given a total of 2 L of normal saline bolus and currently she is on a maintenance of normal saline at the rate of 75 mL's an hour. She remains sedated on propofol. She is calm and comfortable. Along with the fluid resuscitation, the patient's urine output improved and she is currently producing 30 mL an hour. In terms of her blood work, there is a drop in hemoglobin down to 6.5. A unit of packed RBC was ordered and given to her. Note that her preop hemoglobin was 8.6. As such, the patient may potentially have chronic anemia. The morning blood gas showing a pH of 7.2 with a pCO2 of 28 and pO2 of 103. This was on assist-control mode at the rate of 16, tidal volume of 400, FiO2 of 30% with a PEEP of 5. The electrolytes are all stable. BUN is at 70 with a creatinine of 0.8. Sodiums of 139 with a potassium level of 3.3. Bicarb is 21. LFTs are normal. Her white cell count is 5.0. The chest x-ray from today shows adequate positioning of 82. The patient has a stable left lower lobe opacity/atelectasis. There are postoperative changes in the neck area. The patient is known to have coronary artery disease and she has undergone previous coronary stenting. She has hypertension and she is known to have chronic anemia. She does have Dilaudid for pain control. She is also diabetic maintained on oral hypoglycemics on outpatient basis. Reevaluated today on 08/26/2022, patient was extubated yesterday by Dr. Jim, seems to be doing relatively well. She is now postoperative day #2, status post revision anterior cervical compression and fusion with corpectomy C3 to C7 along with posterior cervical decompression and fusion C2 to T2 for her cervical myelopathy with failed internal fixation after her surgery from August 08 almost 3 weeks ago. Patient seems to have difficulty with swallowing, she failed the swallow evaluation. Patient is on room air, she does not seem to be in any distress. WBC count of 10.6 hemoglobin is 9.5. Basic metabolic profile is unremarkable. Bicarb is 18 BUN is 19 and creatinine 1.05. Again the patient is on room air with O2 sats from 99%, blood pressure is a bit elevated 158/44, may consider using IV clevidipine X a blood pressure remains elevated. No oral meds to be given yet since the patient failed her swallow evaluation. And this will be reassessed in the next 24 hours Reevaluated today on 08/27/2022, patient remains in the ICU, tolerated the extubation well few days ago, she is on room air, her blood pressure is elevated and she is on Klonopin X at 7 mg per hour. Patient is to have repeat swallow evaluation today. Continues to have weakness mostly in the right upper extremity and it basically the same as it was prior to surgery. According to the at bedside. Patient remains nothing by mouth, being followed by many consultants. Cardiology saw the patient for frequent PACs, no evidence of atrial fibrillation episodes. Labs today showed WBC count of 9.7 hemoglobin is 8.9. Lactic acid is 0.7. Patient does have a picture of hyperchloremic non-anion gap metabolic acidosis, bicarb is 14 and renal profile is normal. Reevaluated today on 08/28/2022, patient remains in the ICU, remains on clevidipine for elevated blood pressure, trying to titrate and possibly discontinue. Patient is receiving IV hydralazine she remains nothing by mouth, patient failed her swallow evaluation, hence am recommending a clonidine patch to be started on this patient, and hopefully continue to titrate her Cleviprex and use hydralazine as needed. Patient continues to have what seems to be at hyperchloremic metabolic acidosis, non-anion gap, patient may have renal tubular acidosis, will recommend nephrology to evaluate. In the meantime continue IV fluids, electrolytes are relatively unremarkable except for hyperchloremia and low bicarb of 12. Patient did have positive ketones but her glucose is 152. Reevaluated today on 08/29/2022, patient is doing much better today compared to yesterday, she is now off clevidipine, her blood pressure seems to be under be tter control. Her bicarb is improving based on the labs today. Patient did receive Lasix 1 dose yesterday for what seems to be a bit of fluid overload according to the chest x-ray done yesterday. Patient also developed drop in her hemoglobin without obvious active bleeding, and she required a unit of packed RBCs which was given this morning. Overall the patient is doing better, her electrolytes are improving her bicarb is also improving up to 19 today. Seen by nephrology for possible RTA, however patient is correcting her acid base status nicely over the last 24 hours. Workup for RTA is still pending Objective - Vital Signs Vital signs: Vital Signs Temp 97.7 F 08/29/22 11:14 Pulse 85 08/29/22 11:42 Resp 24 08/29/22 11:14 BP 133/74 08/29/22 11:14 Pulse Ox 95 08/29/22 11:14 FiO2 30 08/25/22 12:00 Intake & Output 08/28/22 08/29/22 08/29/22 18:59 06:59 18:59 Intake Total 1600 1388.816 725 Output Total 605 940 140 Balance 995 448.816 585 Intake: IV 1160 960 265 Dextrose 5%-0.45% NaCl 1, 600 900 225 000 ml @ 75 mls/hr IV . [id number] [facility] Rx#:[id number] Invasive Line 1 30 30 10 Invasive Line 2 30 30 10 Potassium Chloride 10 meq 100 In Water For Injection 1 100ml.bag @ 100 mls/hr IVPB Q1H [facility] Rx#: [id number] Sodium Chloride 0.9% 1, 20 000 ml @ 20 mls/hr IV . Q24H [facility] Rx#:[id number] Sodium Chloride 0.9% 1, 300 000 ml @ 75 mls/hr IV . [id number] [facility] Rx#:[id number] ceFAZolin 2 gm In Sodium 100 Chloride 0.9% 50 ml @ 100 mls/hr IVPB Q8HR [facility] Rx# :[id number] Intake, IV Titration 188.816 Amount Diltiazem 125 mg In 74.583 Sodium Chloride 0.9% 100 ml @ 5 MG/HR 5 mls/hr IV .Q24H [facility] Rx#:[id number] Heparin Sod,Pork in 0.45% 114.233 NaCl 25,000 unit In 0.45 % NaCl 1 250ml.bag @ 12 UNITS/KG/HR 8.58 mls/hr IV .Q24H [facility] Rx#: [id number] Oral 440 240 150 Blood Product 310 Rc As-1 Unit 310 [id number] Output: Urine 605 940 140 Other: Voiding Method Indwelling Catheter Indwelling Catheter Indwelling Catheter ABP, PAP, CO, CI - Last Documented Arterial Blood Pressure 142/47 - Exam Physical Exam: Revealed an 81-year-old female in no distress. Remains on room air. O2 saturations 96% Head: Atraumatic, normocephalic, HEENT:[Neck is supple.] [No neck masses.] [No thyromegaly.] [No JVD.] Cervical hard neck collar remains in place. Chest: [Clear throughout, no crackles, no rhonchi, no wheezes.] Cardiac Exam: [Normal S1 and S2, no S3 gallop, no murmur.] Abdomen: [Soft, nontender, no megaly, no rebound, no guarding, normal bowel sounds.] Extremities: [No clubbing, no edema, no cyanosis.] Right upper extremity seems to be a bit weaker compared to the left upper extremity. Neurological Exam: [No focal neurologic deficit.] No gross focal neurologic deficits. Psychiatric: Normal mood affect and normal mental status examination. - Labs CBC & Chem 7: 08/29/22 03:10 08/29/22 03:10 Labs: Abnormal Lab Results - Last 24 Hours (Table) 08/23/22 08/28/22 08/28/22 Range/Units 14:37 18:01 18:15 RBC (3.80-5.40) m/uL Hgb (11.4-16.0) gm/dL Hct (34.0-46.0) % MCV (80.0-100.0) fL MCH (25.0-35.0) pg MCHC (31.0-37.0) g/dL RDW (11.5-15.5) % Lymphocytes # (1.0-4.8) k/uL APTT (22.0-30.0) sec ABG pH 7.32 L (7.35-7.45) ABG pCO2 31 L (35-45) mmHg ABG HCO3 16 L (21-25) mmol/L ABG Total CO2 17 L (19-24) mmol/L ABG O2 Saturation 98.6 H (94-97) % Chloride (98-107) mmol/L Carbon Dioxide (22-30) mmol/L BUN (7-17) mg/dL Glucose (74-99) mg/dL POC Glucose (mg/dL) 222 H (70-110) mg/dL Calcium (8.4-10.2) mg/dL Total Protein (6.3-8.2) g/dL Albumin (3.5-5.0) g/dL Crossmatch See Detail 08/28/22 08/28/22 08/28/22 Range/Units 19:02 19:02 20:31 RBC (3.80-5.40) m/uL Hgb (11.4-16.0) gm/dL Hct (34.0-46.0) % MCV (80.0-100.0) fL MCH (25.0-35.0) pg MCHC (31.0-37.0) g/dL RDW (11.5-15.5) % Lymphocytes # (1.0-4.8) k/uL APTT 80.1 H (22.0-30.0) sec ABG pH (7.35-7.45) ABG pCO2 (35-45) mmHg ABG HCO3 (21-25) mmol/L ABG Total CO2 (19-24) mmol/L ABG O2 Saturation (94-97) % Chloride 116 H (98-107) mmol/L Carbon Dioxide 16 L (22-30) mmol/L BUN 20 H (7-17) mg/dL Glucose 221 H (74-99) mg/dL POC Glucose (mg/dL) 222 H (70-110) mg/dL Calcium 7.7 L (8.4-10.2) mg/dL Total Protein 5.2 L (6.3-8.2) g/dL Albumin 2.6 L (3.5-5.0) g/dL Crossmatch 08/29/22 08/29/22 08/29/22 Range/Units 03:10 03:10 03:10 RBC 2.81 L (3.80-5.40) m/uL Hgb 6.9 L* D (11.4-16.0) gm/dL Hct 22.4 L (34.0-46.0) % MCV 79.9 L (80.0-100.0) fL MCH 24.4 L (25.0-35.0) pg MCHC 30.6 L (31.0-37.0) g/dL RDW 17.9 H (11.5-15.5) % Lymphocytes # 0.7 L (1.0-4.8) k/uL APTT 52.1 H (22.0-30.0) sec ABG pH (7.35-7.45) ABG pCO2 (35-45) mmHg ABG HCO3 (21-25) mmol/L ABG Total CO2 (19-24) mmol/L ABG O2 Saturation (94-97) % Chloride 116 H (98-107) mmol/L Carbon Dioxide 19 L (22-30) mmol/L BUN 20 H (7-17) mg/dL Glucose 106 H (74-99) mg/dL POC Glucose (mg/dL) (70-110) mg/dL Calcium 7.4 L (8.4-10.2) mg/dL Total Protein 4.2 L (6.3-8.2) g/dL Albumin 2.1 L (3.5-5.0) g/dL Crossmatch 08/29/22 08/29/22 08/29/22 Range/Units 04:55 06:47 11:10 RBC (3.80-5.40) m/uL Hgb (11.4-16.0) gm/dL Hct (34.0-46.0) % MCV (80.0-100.0) fL MCH (25.0-35.0) pg MCHC (31.0-37.0) g/dL RDW (11.5-15.5) % Lymphocytes # (1.0-4.8) k/uL APTT (22.0-30.0) sec ABG pH (7.35-7.45) ABG pCO2 (35-45) mmHg ABG HCO3 (21-25) mmol/L ABG Total CO2 (19-24) mmol/L ABG O2 Saturation (94-97) % Chloride (98-107) mmol/L Carbon Dioxide (22-30) mmol/L BUN (7-17) mg/dL Glucose (74-99) mg/dL POC Glucose (mg/dL) 170 H 145 H (70-110) mg/dL Calcium (8.4-10.2) mg/dL Total Protein (6.3-8.2) g/dL Albumin (3.5-5.0) g/dL Crossmatch See Detail Microbiology - Last 24 Hours (Table) 08/25/22 09:00 Gram Stain - Final Sputum Sputum Culture - Final Assessment and Plan Assessment: Impression: Postoperative day #5 status post revision anterior cervical compression and f usion with corpectomy C3 to C7 along with posterior cervical decompression and fusion C2 to T2 for her cervical myelopathy with failed internal fixation after her surgery from August 08 almost 3 weeks ago. History of coronary artery disease and previous coronary stenting Paroxysmal atrial fibrillation, seen by cardiology feels that the patient has mostly premature atrial contractions recommending stopping and coagulation therapy Type 2 diabetes without complications. Mild intermittent asthma, under control. History of rheumatoid arthritis. History of renal cell carcinoma and previous left nephrectomy Previous TIA. Repeat swallow evaluation was normal, hence the patient will be started on oral meds and oral blood pressure medications. Non-Anion gap hyperchloremic metabolic acidosis, being addressed by nephrology on consultation. Recommendation: Transfer patient out of the ICU to a monitor bed. Continue to hold heparin for now. Mostly because of the drop in her hemoglobin Continue incentive spirometry Nephrology consultation is appreciated. Continue pain control with Dilaudid Continue GI and DVT prophylaxis We will continue to follow. Time with Patient: Less than 30
--- NOTE | 2022-08-29 16:00 | PN ---
PROGRESS NOTE DATE OF SERVICE: 08/29/2022 SUBJECTIVE: This is an 81-year-old woman who was admitted after revision surgery at C4-7, also had atrial fibrillation. The patient also had anemia, being transfused at this time. There are no obvious signs of bleeding. No chest pain. No palpitation. OBJECTIVE: VITAL SIGNS: Pulse is 68, blood pressure 136/74, respirations 24. CHEST: Clear to auscultation. CARDIOVASCULAR: S1, S2 normal. ABDOMEN: Soft, nontender. NERVOUS SYSTEM: No focal deficits. LABORATORY DATA: Hemoglobin 6.9. The rest of the labs are noted. ASSESSMENT: 1. Status post revision surgery for C4-C7. 2. Acidosis, improving. 3. Status post mechanical ventilation preoperatively. 4. Cervical myelopathy. 5. Atrial fibrillation with fast ventricular rate. 6. Hypertension. 7. Diabetes mellitus, type 2. 8. Coronary artery disease, history of stent in the mid RCA. 9. Multiple medical issues. RECOMMENDATIONS: Recommend to continue current medications. Continue symptomatic treatment. Otherwise, continue with p.o. atenolol. Continue the rest of medications. Closely follow with Cardiology and further recommendations to follow. MMODL / IJN: [id number] /
[2022-08-29 16:22] LABS: Glucose,Whole Blood 202 mg/dL (70-110)
[2022-08-29 19:57] LABS: Glucose,Whole Blood 146 mg/dL (70-110)
[2022-08-29] MEDS: hydrALAZINE HCL 20 MG/ML 1 ML VIAL IVP PRN (20:43)
[2022-08-29] MEDS: MONTELUKAST 10 MG TAB PO SCH (20:44)
[2022-08-29 21:16] LABS: Potassium,Urine Random 35.9 mmol/L (25.0-125.0)
[2022-08-29] MEDS: HYDROmorphone 1 MG/ML 1 ML SYRINGE IVP PRN (22:13)
[2022-08-29] MEDS: LORazepam 2 MG/ML INJ IV PRN (22:14)
[2022-08-30] MEDS: HYDROmorphone 0.5 MG/0.5 ML SYRINGE IVP PRN (04:25)
[2022-08-30 06:03] LABS: Glucose,Whole Blood 115 mg/dL (70-110)
[2022-08-30] MEDS: INSULIN ASPART (NovoLOG) 100 UNIT/ML VIAL SQ SCH ×4 (06:11→21:38)
[2022-08-30] MEDS: REPAGLINIDE 1 MG TAB PO SCH ×2 (06:20→17:12)
--- NOTE | 2022-08-30 07:27 | P.PN ---
Progress Note - Text Progress Note Date: 08/30/22 Postoperative day #6 Patient is seen and examined today at bedside. Her neck pain is being better controlled but she still having occasional breakthrough pain requiring IV meds. She has been able to sit up in bed yesterday but has had very limited ambulation and walking. She does feel like she is moving her left arm better and moving her leg somewhat better in sitting up a little more but it is still quite minimal. She is tolerating her diet. She does not feel like she is choking. Physical Exam Afebrile with stable vital signs Abdomen is soft nontender. Chest has good excursion deep and space expiration The incision site is clean dry and intact. No erythema there is no purulence. The dressings are clean and dry without any active drainage. Her neck is soft and supple Extremities have not had neurologic change from prior to surgery. She has some better motion at her left arm but still very limited motion in her right arm with only 2-2+ strength Calves and thighs were soft nontender without evidence of DVT. The [place] has been discontinued Assessment/Plan Postoperative day #6 status post anterior and posterior cervical decompression with fusion for her severe cervical myelopathy and severe cervical stenosis with upper and lower extremity weakness Patient is progressing a bit more in the past 2 days from the surgery. We will continue to increase the patient's mobilization with therapy. We will see how she is able to increase her mobilization and determine if she is able to start doing transfers a bit more on her own. She should keep her hard cervical collar intact. She is quite timid in terms of her movement which is understandable given that her fixation failed after her first surgery 3 weeks ago and she had yet a second procedure 6 days ago. She has very limited motion and believe placement likely to long term post hospitalization with [facility] physical therapy. She should continue her therapy with her hard cervical collar intact. All limitations from cardiology, critical care, and nephrology are appreciated. She'll continue with her regular aggressive management We will continue pain control with oral or IV medications. We'll continue to follow patient closely.
[2022-08-30] MEDS: ISOSORBIDE MONONITRATE ER 60 MG TAB.ER.24H PO SCH (08:45)
[2022-08-30] MEDS: LOSARTAN 50 MG TAB PO SCH (08:45)
[2022-08-30] MEDS: HYDROcodone/APAP 5-325MG 1 EACH TAB PO PRN ×3 (08:45→21:38)
[2022-08-30] MEDS: PIOGLITAZONE 15 MG TAB PO SCH (08:45)
[2022-08-30] MEDS: atenoloL 50 MG TAB PO SCH ×2 (08:46→21:35)
[2022-08-30] MEDS: SENNOSIDES-DOCUSATE SODIUM 1 EACH TAB PO SCH (08:46)
[2022-08-30] MEDS: RANOLAZINE 500 MG TAB.ER.12H PO SCH ×2 (08:46→21:35)
[2022-08-30] MEDS: ISOSORBIDE MONONITRATE ER 30 MG TAB.ER.24H PO SCH (08:46)
--- NOTE | 2022-08-30 10:36 | P.PN ---
Subjective Patient is seen for follow-up for chronic kidney disease. Patient has underlying chronic kidney disease stage IIIA with baseline creatinine around 1- 1.3 mg/dL. She has a solitary kidney due to history of left nephrectomy for renal cell carcinoma. Patient is status post anterior and posterior cervical decompression and fusion. Patient had developed non-gap metabolic acidosis while she had been on the vent. Review of blood gases and labs revealed respiratory alkalosis at that time. Labs have improved with much improvement in the metabolic acidosis postextubation. Labs are pending from today. There is evidence of volume overload, third spacing and patient received a dose of IV Lasix yesterday. IV fluids have been discontinued and patient is encouraged to increase oral intake. Patient has been transferred out of the ICU. No significant complaints today. Objective - Vital Signs Vital signs: Vital Signs Temp 97.6 F 08/30/22 08:00 Pulse 72 08/30/22 08:00 Resp 16 08/30/22 08:00 BP 164/76 08/30/22 08:00 Pulse Ox 96 08/30/22 08:00 FiO2 30 08/25/22 12:00 Intake & Output 08/29/22 08/30/22 08/30/22 18:59 06:59 18:59 Intake Total 735 540 Output Total 2040 450 Balance -1305 90 Intake: IV 275 Dextrose 5%-0.45% NaCl 1, 225 000 ml @ 75 mls/hr IV . [id number] WILLIS Rx#:[id number] Invasive Line 1 10 Invasive Line 2 10 Invasive Line 4 10 Sodium Chloride 0.9% 1, 20 000 ml @ 20 mls/hr IV . Q24H WILLIS Rx#:[id number] Oral 150 540 Blood Product 310 Rc As-1 Unit 310 [id number] Output: Urine 2040 450 Uretheral (Copeland) 950 Other: Voiding Method Indwelling Catheter External Catheter ABP, PAP, CO, CI - Last Documented Arterial Blood Pressure 142/47 - Exam Awake comfortable no acute distress Cervical collar in place Examination of the heart S1 and S2 Examination of the lungs bilateral breath sounds are heard with decreased breath sounds at the bases Abdomen is soft nontender Examination lower extremity shows trace edema bilaterally with edema noted in the upper extremities as well. [employer]ES [employer]ER exam grossly intact - Labs CBC & Chem 7: 08/29/22 03:10 08/29/22 03:10 Labs: Abnormal Lab Results - Last 24 Hours (Table) 08/29/22 08/29/22 08/29/22 Range/Units 04:55 11:10 16:20 POC Glucose (mg/dL) 145 H 202 H (70-110) mg/dL Crossmatch See Detail 08/29/22 08/30/22 Range/Units 19:53 06:01 POC Glucose (mg/dL) 146 H 115 H (70-110) mg/dL Crossmatch Assessment and Plan Assessment: 1. Non-gap metabolic acidosis appears to be compensatory mechanism for respiratory alkalosis while patient was intubated. This has improved after extubation. No obvious medication was noted to predispose to metabolic acidosis. Doubt RTA however urine anion gap will be sent out. Urinary chloride not reported. We will discuss with lab 2. Chronic kidney disease NKF stage III with baseline creatinine around 1-1.3 mg/dL secondary to solitary kidney and possible underlying diabetic kidney disease 3. History of left nephrectomy for renal cell carcinoma 4. Anemia status post packed RBCs transfusion. No active bleeding noted 5. Status post anterior cervical decompression and discectomy with fusion at C4 C5 to C6 and C6-C7 per cervical stenosis and cervical myelopathy Plan: Follow-up on labs from today Encourage increased oral intake Check with lab regarding urine chloride to calculate the urine anion gap.
[2022-08-30 11:50] LABS: Anisocytosis Slight; Basophils % (A) 0 %; Eosinophils # (A) 0.2 k/uL (0-0.7); Eosinophils % (A) 4 %; HCT 31.2 % (34.0-46.0); Hypochromasia Marked; Lymphocytes # (A) 0.6 k/uL (1.0-4.8); Lymphocytes % (A) 11 %; MCH 26.2 pg (25.0-35.0); MCHC 31.5 g/dL (31.0-37.0); MCV 83.2 fL (80.0-100.0); Mean Platelet Volume 8.5; Monocytes # (A) 0.5 k/uL (0-1.0); Monocytes % (A) 9 %; Neutrophils # (A) 4.2 k/uL (1.3-7.7); Neutrophils % (A) 74 %; Platelet Count 212 k/uL (150-450); Poikilocytosis Slight; RBC 3.75 m/uL (3.80-5.40); RDW 17.8 % (11.5-15.5); WBC 5.7 k/uL (3.8-10.6)
[2022-08-30 11:52] LABS: HGB 9.8 gm/dL (11.4-16.0)
[2022-08-30 11:52] LABS: Glucose,Whole Blood 165 mg/dL (70-110)
[2022-08-30 11:57] LABS: Albumin 2.5 g/dL (3.5-5.0); Calcium 8.2 mg/dL (8.4-10.2); Magnesium 1.7 mg/dL (1.6-2.3); Potassium 3.9 mmol/L (3.5-5.1); Total Bilirubin 0.7 mg/dL (0.2-1.3); Total Protein 4.9 g/dL (6.3-8.2)
[2022-08-30] MEDS: SODIUM CHLORIDE 0.9% 1,000 ML IV SCH (12:11)
--- NOTE | 2022-08-30 15:56 | US ---
EXAMINATION TYPE: US venous doppler duplex UE DATE OF EXAM: 08/30/2022 COMPARISON: NONE CLINICAL INDICATION: Female, 81 years old with history of swelling; Bilateral arm swelling, h/o left mastectomy years ago, patient states left arm is always swollen, right arm swollen now, does have IV in this arm SIDE PERFORMED: Bilateral patient wearing c-collar from recent spinal surgery, unable to view IJV and subclavian vein bilater ally Right Arm: Negative for DVT Left Arm: Negative for DVT Grayscale, color doppler, spectral doppler imaging performed of the deep veins of the bilateral upper extremities. There is normal flow, compressibility and vascular waveforms. IMPRESSION: Slightly suboptimal study but no convincing evidence for acute deep or superficial venous thrombosis in either upper extremity. Focal nonsimple thin-walled fluid collection near the right sh oulder is marked by technologist. There is moderate subcutaneous edema in the distal right upper extr emity noted.
[2022-08-30 16:35] LABS: Glucose,Whole Blood 121 mg/dL (70-110)
[2022-08-30] MEDS: ALBUTEROL NEBULIZED 2.5 MG/3 ML INHALATION SCH ×3 (18:52→19:46)
[2022-08-30 20:07] LABS: Glucose,Whole Blood 173 mg/dL (70-110)
[2022-08-30] MEDS: MONTELUKAST 10 MG TAB PO SCH (21:35)
[2022-08-30] MEDS: SODIUM BICARBONATE TAB 650 MG TAB PO SCH (21:35)
[2022-08-30] MEDS: hydrALAZINE HCL 20 MG/ML 1 ML VIAL IVP PRN (21:37)
--- NOTE | 2022-08-30 22:19 | P.PN ---
Subjective History of present illness: This is an 81 year old female patient of Dr. Herman with past medical history of angina on Ranexa, coronary artery disease with stent in the mid RCA in 2007, hypertension, dyslipidemia. We have been asked to evaluate the patient for hypertension and new onset atrial fibrillation. Patient had anterior cervical decompression and fusion approximately 3 weeks ago and unfortunately has had progressive issues with her surgery requiring redo surgery 08/23. Cardiology was consulted for A. fib. She had prior episodes preoperatively 08/07 with prior consultation at that time however appeared to be frequent PACs. Patient currently with a neck brace and has been having difficulty swallowing and undergoing swallow eval. Her albumin is decreased at 2.6 and she has been third spacing with significant bilateral upper as well as lower extremity edema. She denies any chest pain or pressure however at home occasionally takes nitro. admits sometimes she has a difficult time explaining some of her symptoms. She denies any recent chest pain or pressure however. Cardiology was consult with secondary to similar episodes of irregular heart rates with reading out of A. fib. It appears she has had sinus rhythm with frequent PACs and no clear-cut prolonged episodes of A. fib. She did have one episode of questi onable left upper face numbness and tingling for a few seconds 3-4 months ago however not clearly TIA and denies any history of TIA or stroke. She is on a cleviprex drip with systolics 120s over 30s. Bicarb going down to 14 today. Echocardiogram 2019 revealed normal EF, mild mitral regurgitation, mild mitral annular calcification, mild tricuspid regurgitation, mild pulmonic regurgitation. Cardiolite stress test in 2019 was negative. Abnormal perfusion study with mild reversible defect involving the inferior lateral segment. Gated study shows normal wall motion and thickening. At that time, patient declined coronary angiography. 08/28 Patient seen and examined. Echocardiogram performed yesterday which shows left ventricular ejection fraction 60-65% with RVSP 45. Hemoglobin today 8.6, platelets 198, bicarb continues a decreased down to 12, BUN 20, creatinine 0.9, TSH yesterday was 0.3 with free T4 2 0.0, lactic acid was normal. EKG reviewed with episodes overnight clearly consistent with atrial fibrillation with varying heart rates 90s to low 100 100s. 08/30 Patient seen and examined. Denies any SOB, no chest pain or pressure. She had anemia with hgb down from 8.4-6.9 and up to 9.8 after 1UPRBCs. Heparin drip was discontinued. Tolerating diet. Still with some difficulty swallowing and feeling like she has mucous she has to cough up. No hematochezia or melena. Physical examination: Gen: This is an 81-year-old female, resting in bed and appears to be comfortable and in no acute distress VS: reviewed HEENT: Head is atraumatic, normocephalic. Pupils equal, round. Sclerae is anicteric. NECK: Supple. No JVD. . LUNGS: Clear to auscultation. No wheezes or rhonchi. No intercostal retractions. HEART: Regular rate and rhythm. 2/6 systolic ejection murmur at the base. ABDOMEN: Soft No tenderness. EXTREMITIES: No pedal edema. No calf tenderness. NEUROLOGICAL: Patient is awake, alert and oriented x3. Assessment: Paroxysmal Afib Cervical pain History of coronary artery disease with stent in the mid RCA Hypertension Dyslipidemia Acidosis Upper extremeity edema appears related to third spacing Anemia, s/p transfusion Plan: Hgb of 6.9 likely lab error with hgb going from 6.9 to 9.8 with only 1 UPRBC's. Continue to hold anticoagulation for now and reassess in the future. BP labile and home Atenolol, Ranexa, Imdur restarted. May be influenced by pain. Further recommendations to follow. Objective - Vital Signs Vital signs: Vital Signs Temp 97.4 F L 08/30/22 20:00 Pulse 73 08/30/22 20:00 Resp 18 08/30/22 20:00 BP 179/60 08/30/22 20:00 Pulse Ox 96 08/30/22 20:00 FiO2 30 08/25/22 12:00 Intake & Output 08/30/22 08/30/22 08/31/22 06:59 18:59 06:59 Intake Total 540 540 Output Total 450 500 Balance 90 -500 540 Intake: Oral 540 540 Output: Urine 450 500 Other: Voiding Method External Catheter External Catheter External Catheter ABP, PAP, CO, CI - Last Documented Arterial Blood Pressure 142/47 - Labs CBC & Chem 7: 08/30/22 11:18 08/30/22 11:18 Labs: Abnormal Lab Results - Last 24 Hours (Table) 0408/30/22 08/30/22 Range/Units 06:01 11:18 11:18 RBC 3.75 L (3.80-5.40) m/uL Hgb 9.8 L D (11.4-16.0) gm/dL Hct 31.2 L (34.0-46.0) % RDW 17.8 H (11.5-15.5) % Lymphocytes # 0.6 L (1.0-4.8) k/uL Chloride 112 H (98-107) mmol/L Carbon Dioxide 18 L (22-30) mmol/L Glucose 152 H (74-99) mg/dL POC Glucose (mg/dL) 115 H (70-110) mg/dL Calcium 8.2 L (8.4-10.2) mg/dL Total Protein 4.9 L (6.3-8.2) g/dL Albumin 2.5 L (3.5-5.0) g/dL 08/30/22 08/30/22 08/30/22 Range/Units 11:51 16:34 20:06 RBC (3.80-5.40) m/uL Hgb (11.4-16.0) gm/dL Hct (34.0-46.0) % RDW (11.5-15.5) % Lymphocytes # (1.0-4.8) k/uL Chloride (98-107) mmol/L Carbon Dioxide (22-30) mmol/L Glucose (74-99) mg/dL POC Glucose (mg/dL) 165 H 121 H 173 H (70-110) mg/dL Calcium (8.4-10.2) mg/dL Total Protein (6.3-8.2) g/dL Albumin (3.5-5.0) g/dL
[2022-08-31] MEDS: HYDROmorphone 0.5 MG/0.5 ML SYRINGE IVP PRN (00:28)
[2022-08-31] MEDS: LORazepam 2 MG/ML INJ IV PRN ×4 (00:28→23:14)
[2022-08-31 05:48] LABS: Glucose,Whole Blood 109 mg/dL (70-110)
[2022-08-31] MEDS: REPAGLINIDE 1 MG TAB PO SCH ×2 (06:09→17:00)
[2022-08-31] MEDS: INSULIN ASPART (NovoLOG) 100 UNIT/ML VIAL SQ SCH ×4 (06:09→21:36)
--- NOTE | 2022-08-31 06:22 | PN ---
PROGRESS NOTE DATE OF SERVICE: 08/30/2022 SUBJECTIVE: This is an 81-year-old woman who was admitted after revision surgery C4-C7, is being closely monitored. No chest pain, no palpitations, no fever. The patient is complaining of bilateral upper arm edema. OBJECTIVE: VITAL SIGNS: Pulse 71, blood pressure 130/60, and respirations 18. CHEST: Clear to auscultation. CARDIOVASCULAR: S1, S2. ABDOMEN: Soft. NERVOUS SYSTEM: No focal deficits. LABORATORY DATA: Reviewed. ASSESSMENT: 1. Status post revision surgery for C4-C7. 2. Acidosis, improving. 3. Status post mechanical ventilation perioperatively. 4. Cervical myelopathy. 5. Bilateral arm swelling. 6. Atrial ablation with fast ventricular rate, paroxysmal. 7. Hypertension. 8. Diabetes mellitus type 2. 9. History of CAD and history of stent to the mid RCA. 10.Multiple medical issues. RECOMMENDATIONS AND DISCUSSION: Recommended to continue current management, continue symptomatic treatment. Recommend ultrasound of both arms, upper limbs to rule out the possibility of DVT. Otherwise, the patient received [address] Cormier so far is following the patient closely, follow closely with multiple consultants. Prognosis guarded. Eventually ECF rehab, possibly [facility]. Further recommendations to follow. MMODL / IJN: [id number] /
[2022-08-31 08:16] LABS: Anisocytosis Slight; Basophils % (A) 0 %; Eosinophils # (A) 0.2 k/uL (0-0.7); Eosinophils % (A) 5 %; HCT 30.4 % (34.0-46.0); HGB 9.3 gm/dL (11.4-16.0); Hypochromasia Marked; Lymphocytes # (A) 0.6 k/uL (1.0-4.8); Lymphocytes % (A) 18 %; MCH 26.4 pg (25.0-35.0); MCHC 30.6 g/dL (31.0-37.0); MCV 86.1 fL (80.0-100.0); Mean Platelet Volume 7.3; Monocytes # (A) 0.3 k/uL (0-1.0); Monocytes % (A) 9 %; Neutrophils # (A) 2.2 k/uL (1.3-7.7); Neutrophils % (A) 66 %; Platelet Count 207 k/uL (150-450); Poikilocytosis Slight; RBC 3.53 m/uL (3.80-5.40); RDW 17.7 % (11.5-15.5); WBC 3.3 k/uL (3.8-10.6)
--- NOTE | 2022-08-31 09:01 | P.PN ---
Progress Note - Text Progress Note Date: 08/31/22 Post op day #7 Patient is seen and examined today at bedside. She feels her pain is making goo d improvement. Pain is being controlled with medication. She feels that she is moving a little bit better but still significant weakness globally. She was able to take 5 steps yesterday with therapy but feels like her legs give way. She is not been able to transfer on her own yet. She says that she had a couple of anxiety attacks last night and feels the need to have a family member with her 100% of the time. The Ativan helps her anxiety yesterday. Physical Exam Afebrile with stable vital signs she is on 2 L nasal cannula Abdomen is soft nontender. Chest has good excursion deep and space expiration The incision site is clean dry and intact. No erythema there is no purulence. Dressings are clear without any drainage. Her neck is soft. Extremities have significant weakness at her right elbow wrist hand. She is not able to lift her right shoulder up. Her left upper extremity she can bring up to her mouth with her hand. She is able grafts some things and put food in her mouth but is somewhat messy. Her lower extremity she is able to weight-bear on her feet and toes she has significant difficulty lifting her legs up off the bed Calves and thighs were soft nontender without evidence of DVT. Assessment/Plan Postoperative day #7 status post anterior and posterior cervical decompression and fusion for her severe myelopathy with upper and lower extremity weakness Patient is progressing very slowly from the surgery as expected. We had a long talk today in regards to her needs looking forward to post hospitalization. She really feels the need to have someone with her at all times in her room. This poses a difficult situation in terms of inpatient rehab or jail. It does not seem that she is safe enough to return home even with home health for physical therapy and let she is able to improve her strength and mobilized further. Perhaps she can make some gains or turn a corner in the next 1-2 days. We will continue to increase the patient's mobilization with therapy. She can also work on transferring to a wheelchair. From an orthopedic spine standpoint we are really just working on mobilization and strengthening which can be done at jail versus rehab at this point. It would be okay for transfer to one of those possibilities if she is able from a orthopedic spine standpoint once cleared with medicine. We will continue pain control with oral or IV medications. We'll continue to follow patient closely.
[2022-08-31] MEDS: HYDROcodone/APAP 5-325MG 1 EACH TAB PO PRN ×3 (09:17→20:05)
[2022-08-31] MEDS: ISOSORBIDE MONONITRATE ER 30 MG TAB.ER.24H PO SCH (09:18)
[2022-08-31] MEDS: ISOSORBIDE MONONITRATE ER 60 MG TAB.ER.24H PO SCH (09:18)
[2022-08-31] MEDS: PIOGLITAZONE 15 MG TAB PO SCH (09:18)
[2022-08-31] MEDS: SENNOSIDES-DOCUSATE SODIUM 1 EACH TAB PO SCH (09:18)
[2022-08-31] MEDS: atenoloL 50 MG TAB PO SCH ×2 (09:18→20:05)
[2022-08-31] MEDS: LOSARTAN 50 MG TAB PO SCH (09:18)
[2022-08-31] MEDS: SODIUM BICARBONATE TAB 650 MG TAB PO SCH ×2 (09:18→20:05)
[2022-08-31] MEDS: RANOLAZINE 500 MG TAB.ER.12H PO SCH ×2 (09:18→20:05)
[2022-08-31] MEDS: SODIUM CHLORIDE 0.9% 1,000 ML IV SCH (09:19)
--- NOTE | 2022-08-31 09:30 | P.PN ---
Subjective Progress Note Date: 08/31/22 Principal diagnosis: This 81-year-old female is followed up with chronic kidney disease Baseline creatinine about 1.3, and renal cell CA and nephrectomy. She is admitted and had cervical decompression and fusion surgery. She was seen because of significant respiratory alkalosis with a metabolic acidosis as a compensation mechanism. These are all getting better Her creatinine is currently 0.9, bicarb is 19 with a gap of 7 currently on bicarb. She is awake alert oriented has a collar on her While signs are stable urine output is documented at 825 mL somewhat dark, with a pure wick Objective - Vital Signs Vital signs: Vital Signs Temp 96.8 F L 08/31/22 08:00 Pulse 67 08/31/22 08:00 Resp 18 08/31/22 08:00 BP 169/71 08/31/22 08:00 Pulse Ox 100 08/31/22 08:00 FiO2 30 08/25/22 12:00 Intake & Output 08/30/22 08/31/22 08/31/22 18:59 06:59 18:59 Intake Total 780 Output Total 500 325 Balance -500 455 Intake: Oral 780 Output: Urine 500 325 Other: Voiding Method External Catheter External Catheter External Catheter ABP, PAP, CO, CI - Last Documented Arterial Blood Pressure 142/47 Awake alert oriented with neck collar Lungs are clear to auscultation Heart sounds are unremarkable Abdomen soft Extremity exam significant edema of both upper limbs more on the left because of a remote mastectomy. Lower leg also has minimal edema. A upper extremity Doppler was negative for any DVT - Labs CBC & Chem 7: 08/31/22 07:19 08/31/22 07:19 Labs: Abnormal Lab Results - Last 24 Hours (Table) 08/30/22 08/30/22 08/30/22 Range/Units 11:18 11:18 11:51 WBC (3.8-10.6) k/uL RBC 3.75 L (3.80-5.40) m/uL Hgb 9.8 L D (11.4-16.0) gm/dL Hct 31.2 L (34.0-46.0) % MCHC (31.0-37.0) g/dL RDW 17.8 H (11.5-15.5) % Lymphocytes # 0.6 L (1.0-4.8) k/uL Chloride 112 H (98-107) mmol/L Carbon Dioxide 18 L (22-30) mmol/L Glucose 152 H (74-99) mg/dL POC Glucose (mg/dL) 165 H (70-110) mg/dL Calcium 8.2 L (8.4-10.2) mg/dL Total Protein 4.9 L (6.3-8.2) g/dL Albumin 2.5 L (3.5-5.0) g/dL 08/30/22 08/30/22 08/31/22 Range/Units 16:34 20:06 07:19 WBC 3.3 L (3.8-10.6) k/uL RBC 3.53 L (3.80-5.40) m/uL Hgb 9.3 L (11.4-16.0) gm/dL Hct 30.4 L (34.0-46.0) % MCHC 30.6 L (31.0-37.0) g/dL RDW 17.7 H (11.5-15.5) % Lymphocytes # 0.6 L (1.0-4.8) k/uL Chloride (98-107) mmol/L Carbon Dioxide (22-30) mmol/L Glucose (74-99) mg/dL POC Glucose (mg/dL) 121 H 173 H (70-110) mg/dL Calcium (8.4-10.2) mg/dL Total Protein (6.3-8.2) g/dL Albumin (3.5-5.0) g/dL 08/31/22 Range/Units 07:19 WBC (3.8-10.6) k/uL RBC (3.80-5.40) m/uL Hgb (11.4-16.0) gm/dL Hct (34.0-46.0) % MCHC (31.0-37.0) g/dL RDW (11.5-15.5) % Lymphocytes # (1.0-4.8) k/uL Chloride 113 H (98-107) mmol/L Carbon Dioxide 19 L (22-30) mmol/L Glucose (74-99) mg/dL POC Glucose (mg/dL) (70-110) mg/dL Calcium 8.0 L (8.4-10.2) mg/dL Total Protein (6.3-8.2) g/dL Albumin (3.5-5.0) g/dL Assessment and Plan Assessment: Impression 1. Chronic kidney disease stable renal function creatinine 0.9 to GFR is 68 mL per minute. 2. [facility] 3. Seen with significant respiratory alkalosis with a pH of 7.58 and a CO2 of 21 dated 08/25/2022, with a compensate 3 metabolic acidosis, resolving, currently has mild degree of non-gap acidosis and is on bicarb. Recommendation 1. Maintain current bicarb treatment and we will continue to watch her
[2022-08-31] MEDS: ALBUTEROL NEBULIZED 2.5 MG/3 ML INHALATION SCH ×4 (09:40→20:44)
[2022-08-31 11:45] LABS: Glucose,Whole Blood 141 mg/dL (70-110)
[2022-08-31 12:20] VITALS: BMI 30.7
[2022-08-31 13:02] LABS: Appearance,Urine Clear (Clear); Bilirubin,Urine Negative (Negative); Blood,Urine Negative (Negative); Color,Urine Yellow; Glucose,Urine (UA) Negative (Negative); Ketones,Urine Negative (Negative); Leukocyte Esterase,Urine Negative (Negative); Nitrite,Urine Negative (Negative); Protein,Urine 1+ (Negative); RBC,Urine 1 /hpf (0-5); Specific Gravity,Urine 1.017 (1.001-1.035); Squamous Epithelial Cell,Urine <1 /hpf (0-4); Urobilinogen,Urine <2.0 mg/dL (<2.0); WBC,Urine 3 /hpf (0-5)
--- NOTE | 2022-08-31 13:34 | P.PN ---
Subjective Progress Note Date: 08/31/22 This is an 81 year old female patient of Dr. Herman with past medical history of angina on Ranexa, coronary artery disease with stent in the mid RCA in 2007, hypertension, dyslipidemia. We have been asked to evaluate the patient for hypertension and new onset atrial fibrillation. Patient had anterior cervical decompression and fusion approximately 3 weeks ago and unfortunately has had progressive issues with her surgery requiring redo surgery 08/23. Cardiology was consulted for A. fib. She had prior episodes preoperatively 08/07 with prior consultation at that time however appeared to be frequent PACs. Patient currently with a neck brace and has been having difficulty swallowing and undergoing swallow eval. Her albumin is decreased at 2.6 and she has been third spacing with significant bilateral upper as well as lower extremity edema. She denies any chest pain or pressure however at home occasionally takes nitro. admits sometimes she has a difficult time explaining some of her s ymptoms. She denies any recent chest pain or pressure however. Cardiology was consult with secondary to similar episodes of irregular heart rates with reading out of A. fib. It appears she has had sinus rhythm with frequent PACs and no clear-cut prolonged episodes of A. fib. She did have one episode of questionable left upper face numbness and tingling for a few seconds 3-4 months ago however not clearly TIA and denies any history of TIA or stroke. She is on a cleviprex drip with systolics 120s over 30s. Bicarb going down to 14 today. Echocardiogram 2019 revealed normal EF, mild mitral regurgitation, mild mitral annular calcification, mild tricuspid regurgitation, mild pulmonic reg urgitation. Cardiolite stress test in 2019 was negative. Abnormal perfusion study with mild reversible defect involving the inferior lateral segment. Gated study shows normal wall motion and thickening. At that time, patient declined coronary angiography. 08/28 Patient seen and examined. Echocardiogram performed yesterday which shows left ventricular ejection fraction 60-65% with RVSP 45. Hemoglobin today 8.6, platelets 198, bicarb continues a decreased down to 12, BUN 20, creatinine 0.9, TSH yesterday was 0.3 with free T4 2 0.0, lactic acid was normal. EKG reviewed with episodes overnight clearly consistent with atrial fibrillation with varying heart rates 90s to low 100 100s. 08/30 Patient seen and examined. Denies any SOB, no chest pain or pressure. She had anemia with hgb down from 8.4-6.9 and up to 9.8 after 1UPRBCs. Heparin drip was discontinued. Tolerating diet. Still with some difficulty swallowing and feeling like she has mucous she has to cough up. No hematochezia or melena. 08/31 She reports having a headache. Denies any chest pain or shortness of breath. Hgb stable at 9.3. No reports of bleeding. Physical examination: Gen: This is an 81-year-old female, resting in bed and appears to be comfortable and in no acute distress VS: reviewed HEENT: Head is atraumatic, normocephalic. Pupils equal, round. Sclerae is anicteric. NECK: C-collar on. LUNGS: Clear to auscultation. No wheezes or rhonchi. No intercostal retractions. HEART: Regular rate and rhythm. 2/6 systolic ejection murmur at the base. ABDOMEN: Soft No tenderness. EXTREMITIES: No pedal edema. No calf tenderness. NEUROLOGICAL: Patient is awake, alert and oriented x3. Assessment: Paroxysmal Afib Cervical pain History of coronary artery disease with stent in the mid RCA Hypertension Dyslipidemia Acidosis Upper extremeity edema appears related to third spacing Anemia, s/p transfusion Plan: Given anemia, will continue to hold anticoagulation for now and reassess in the future. BP labile and home Atenolol, Ranexa, Imdur restarted. Monitor blood pressure. Will follow. Objective - Vital Signs Vital signs: Vital Signs Temp 96.8 F L 08/31/22 08:00 Pulse 70 08/31/22 09:49 Resp 18 08/31/22 08:00 BP 169/71 08/31/22 08:00 Pulse Ox 96 08/31/22 09:40 FiO2 30 08/25/22 12:00 Intake & Output 08/30/22 08/31/22 08/31/22 18:59 06:59 18:59 Intake Total 780 Output Total 500 325 Balance -500 455 Intake: Oral 780 Output: Urine 500 325 Other: Voiding Method External Catheter External Catheter External Catheter ABP, PAP, CO, CI - Last Documented Arterial Blood Pressure 142/47 - Labs CBC & Chem 7: 08/31/22 07:19 08/31/22 07:19 Labs: Abnormal Lab Results - Last 24 Hours (Table) 08/30/22 08/30/22 08/30/22 Range/Units 11:18 11:18 11:51 WBC (3.8-10.6) k/uL RBC 3.75 L (3.80-5.40) m/uL Hgb 9.8 L D (11.4-16.0) gm/dL Hct 31.2 L (34.0-46.0) % MCHC (31.0-37.0) g/dL RDW 17.8 H (11.5-15.5) % Lymphocytes # 0.6 L (1.0-4.8) k/uL Chloride 112 H (98-107) mmol/L Carbon Dioxide 18 L (22-30) mmol/L Glucose 152 H (74-99) mg/dL POC Glucose (mg/dL) 165 H (70-110) mg/dL Calcium 8.2 L (8.4-10.2) mg/dL Total Protein 4.9 L (6.3-8.2) g/dL Albumin 2.5 L (3.5-5.0) g/dL 08/30/22 08/30/22 08/31/22 Range/Units 16:34 20:06 07:19 WBC 3.3 L (3.8-10.6) k/uL RBC 3.53 L (3.80-5.40) m/uL Hgb 9.3 L (11.4-16.0) gm/dL Hct 30.4 L (34.0-46.0) % MCHC 30.6 L (31.0-37.0) g/dL RDW 17.7 H (11.5-15.5) % Lymphocytes # 0.6 L (1.0-4.8) k/uL Chloride (98-107) mmol/L Carbon Dioxide (22-30) mmol/L Glucose (74-99) mg/dL POC Glucose (mg/dL) 121 H 173 H (70-110) mg/dL Calcium (8.4-10.2) mg/dL Total Protein (6.3-8.2) g/dL Albumin (3.5-5.0) g/dL 08/31/22 Range/Units 07:19 WBC (3.8-10.6) k/uL RBC (3.80-5.40) m/uL Hgb (11.4-16.0) gm/dL Hct (34.0-46.0) % MCHC (31.0-37.0) g/dL RDW (11.5-15.5) % Lymphocytes # (1.0-4.8) k/uL Chloride 113 H (98-107) mmol/L Carbon Dioxide 19 L (22-30) mmol/L Glucose (74-99) mg/dL POC Glucose (mg/dL) (70-110) mg/dL Calcium 8.0 L (8.4-10.2) mg/dL Total Protein (6.3-8.2) g/dL Albumin (3.5-5.0) g/dL
--- NOTE | 2022-08-31 15:20 | P.PN ---
Subjective Progress Note Date: 08/31/22 This is an 81-year-old lady who was admitted after revision surgery for C4-C7 08/31. Patient seen and examined. Laying comfortably in the bed. Son at the bedside. Vital signs this morning are temperature 90.7, heart rate 70, respirations 18, blood pressure 136/62, WBC 3.3, hemoglobin 9.3, sodium 139, potassium 4, BUN 17 REVIEW OF SYSTEMS: CONSTITUTIONAL: No fever, no malaise,. CARDIOVASCULAR: No chest pain, no palpitations, no syncope. PULMONARY: No shortness of breath, no cough, GASTROINTESTINAL: No diarrhea, no nausea, no vomiting, no abdominal pain. NEUROLOGICAL: No headaches, no weakness, PHYSICAL EXAMINATION: GENERAL: The patient is alert and oriented x3, not in any acute distress. Well developed, well nourished. Cervical collar in place HEENT: Pupils are round and equally reacting to light. EOMI. No scleral icterus. No conjunctival pallor. Normocephalic, atraumatic. No pharyngeal erythema. No thyromegaly. CARDIOVASCULAR: S1 and S2 present. No murmurs, rubs, or gallops. PULMONARY: Chest is clear to auscultation, no wheezing or crackles. ABDOMEN: Soft, nontender, nondistended, normoactive bowel sounds. No palpable organomegaly. MUSCULOSKELETAL: No joint swelling or deformity. EXTREMITIES: No cyanosis, clubbing, or pedal edema. NEUROLOGICAL: Gross neurological examination did not reveal any focal deficits. SKIN: No rashes. Assessment and plan Status post revision surgery for C4 to C7 Metabolic acidosis Status post mechanical ventilation perioperatively Cervical myelopathy Atrial fibrillation paroxysmal Hypertension Type 2 diabetes mellitus Plan Monitor vital signs Monitor CBC Monitor CMP Continue telemetry monitoring Continue pain management Encourage ambulation Aggressive bowel regimen Ultrasound of upper extremities negative for DVT. PT and OT recommended rehab Orthopedic spine surgery following Objective - Vital Signs Vital signs: Vital Signs Temp 96.8 F L 08/31/22 08:00 Pulse 67 08/31/22 12:04 Resp 18 08/31/22 12:04 BP 169/71 08/31/22 08:00 Pulse Ox 96 08/31/22 09:40 FiO2 30 08/25/22 12:00 Intake & Output 08/30/22 08/31/22 08/31/22 18:59 06:59 18:59 Intake Total 780 Output Total 500 325 Balance -500 455 Intake: Oral 780 Output: Urine 500 325 Other: Voiding Method External Catheter External Catheter External Catheter ABP, PAP, CO, CI - Last Documented Arterial Blood Pressure 142/47 - Labs CBC & Chem 7: 08/31/22 07:19 08/31/22 07:19 Labs: Abnormal Lab Results - Last 24 Hours (Table) 08/30/22 08/30/22 08/31/22 Range/Units 16:34 20:06 07:19 WBC 3.3 L (3.8-10.6) k/uL RBC 3.53 L (3.80-5.40) m/uL Hgb 9.3 L (11.4-16.0) gm/dL Hct 30.4 L (34.0-46.0) % MCHC 30.6 L (31.0-37.0) g/dL RDW 17.7 H (11.5-15.5) % Lymphocytes # 0.6 L (1.0-4.8) k/uL Chloride (98-107) mmol/L Carbon Dioxide (22-30) mmol/L POC Glucose (mg/dL) 121 H 173 H (70-110) mg/dL Calcium (8.4-10.2) mg/dL 08/31/22 08/31/22 Range/Units 07:19 11:44 WBC (3.8-10.6) k/uL RBC (3.80-5.40) m/uL Hgb (11.4-16.0) gm/dL Hct (34.0-46.0) % MCHC (31.0-37.0) g/dL RDW (11.5-15.5) % Lymphocytes # (1.0-4.8) k/uL Chloride 113 H (98-107) mmol/L Carbon Dioxide 19 L (22-30) mmol/L POC Glucose (mg/dL) 141 H (70-110) mg/dL Calcium 8.0 L (8.4-10.2) mg/dL
[2022-08-31 16:36] LABS: Glucose,Whole Blood 177 mg/dL (70-110)
[2022-08-31] MEDS: MONTELUKAST 10 MG TAB PO SCH (20:05)
[2022-08-31 21:17] LABS: Glucose,Whole Blood 133 mg/dL (70-110)
[2022-08-31] MEDS: HYDROmorphone 1 MG/ML 1 ML SYRINGE IVP PRN (23:13)
[2022-09-01] MEDS: HYDROmorphone 0.5 MG/0.5 ML SYRINGE IVP PRN (03:03)
[2022-09-01 06:30] LABS: Glucose,Whole Blood 84 mg/dL (70-110)
[2022-09-01] MEDS: INSULIN ASPART (NovoLOG) 100 UNIT/ML VIAL SQ SCH ×4 (06:31→21:00)
[2022-09-01] MEDS: REPAGLINIDE 1 MG TAB PO SCH ×2 (06:32→16:38)
--- NOTE | 2022-09-01 07:24 | P.PN ---
Subjective Progress Note Date: 09/01/22 Principal diagnosis: This 81-year-old female is followed up with chronic kidney disease Baseline creatinine about 1.3, and renal cell CA and nephrectomy. She is admitted and had cervical decompression and fusion surgery. She was seen because of significant respiratory alkalosis with a metabolic acidosis as a compensation mechanism. These are all getting better Her creatinine yesterday on 08/31/2022 0.9, bicarb is 19 with a gap of 7 currently on bicarb. She is awake alert oriented has a collar on her neck Vital signs are stable urine output is documented at 825 mL yesterday and this morning only 150 mL her documented somewhat dark, with a pure wick urinalysis is rather benign with 1+ proteinuria 1 RBCs 3 WBCs Objective - Vital Signs Vital signs: Vital Signs Temp 98 F 09/01/22 03:50 Pulse 64 09/01/22 03:50 Resp 16 09/01/22 03:50 BP 137/72 09/01/22 03:50 Pulse Ox 97 09/01/22 03:50 FiO2 30 08/25/22 12:00 Intake & Output 08/31/22 09/01/22 09/01/22 18:59 06:59 18:59 Intake Total 540 Output Total 0 150 Balance 0 390 Weight 71.5 kg Intake: Oral 540 Output: Drainage 0 0 Neck 0 0 Urine 150 Other: Voiding Method External Catheter External Catheter ABP, PAP, CO, CI - Last Documented Arterial Blood Pressure 142/47 Awake alert oriented with neck collar Lungs are clear to auscultation Heart sounds are unremarkable Abdomen soft Extremity exam significant edema of both upper limbs more on the left because of a remote mastectomy. Lower leg also has minimal edema. A upper extremity Doppler was negative for any DVT - Labs CBC & Chem 7: 08/31/22 07:19 08/31/22 07:19 Labs: Abnormal Lab Results - Last 24 Hours (Table) 08/31/22 08/31/22 08/31/22 Range/Units 07:19 07:19 11:44 WBC 3.3 L (3.8-10.6) k/uL RBC 3.53 L (3.80-5.40) m/uL Hgb 9.3 L (11.4-16.0) gm/dL Hct 30.4 L (34.0-46.0) % MCHC 30.6 L (31.0-37.0) g/dL RDW 17.7 H (11.5-15.5) % Lymphocytes # 0.6 L (1.0-4.8) k/uL Chloride 113 H (98-107) mmol/L Carbon Dioxide 19 L (22-30) mmol/L POC Glucose (mg/dL) 141 H (70-110) mg/dL Calcium 8.0 L (8.4-10.2) mg/dL Urine Protein (Negative) 08/31/22 08/31/22 08/31/22 Range/Units 11:47 16:34 21:15 WBC (3.8-10.6) k/uL RBC (3.80-5.40) m/uL Hgb (11.4-16.0) gm/dL Hct (34.0-46.0) % MCHC (31.0-37.0) g/dL RDW (11.5-15.5) % Lymphocytes # (1.0-4.8) k/uL Chloride (98-107) mmol/L Carbon Dioxide (22-30) mmol/L POC Glucose (mg/dL) 177 H 133 H (70-110) mg/dL Calcium (8.4-10.2) mg/dL Urine Protein 1+ H (Negative) Assessment and Plan Assessment: Impression 1. Chronic kidney disease stage II stable renal function creatinine 0.9 to GFR is 68 mL per minute. 2. Status post Cervical decompression surgery, as the neck collar 3. Seen with significant respiratory alkalosis with a pH of 7.58 and a CO2 of 21 dated 08/25/2022, with a compensatory metabolic acidosis, resolving, currently has mild degree of non-gap acidosis and is on bicarb, bicarb is up at 19 as of yesterday lasted air not available. Recommendation 1. Maintain current bicarb treatment and we will continue to watch her. 2. Repeat labs tomorrow. 3. Will give her 1 dose of Lasix 20 mg by mouth today because of the edema
[2022-09-01] MEDS: SODIUM CHLORIDE 0.9% 1,000 ML IV SCH (08:37)
[2022-09-01] MEDS: ALBUTEROL NEBULIZED 2.5 MG/3 ML INHALATION SCH ×4 (08:37→21:39)
[2022-09-01] MEDS ORDERED: FUROSEMIDE 20 MG TAB PO ONE (09:00)
[2022-09-01] MEDS: atenoloL 50 MG TAB PO SCH ×2 (09:05→20:02)
[2022-09-01] MEDS: ISOSORBIDE MONONITRATE ER 30 MG TAB.ER.24H PO SCH (09:05)
[2022-09-01] MEDS: PIOGLITAZONE 15 MG TAB PO SCH (09:05)
[2022-09-01] MEDS: RANOLAZINE 500 MG TAB.ER.12H PO SCH ×2 (09:05→20:02)
[2022-09-01] MEDS: ISOSORBIDE MONONITRATE ER 60 MG TAB.ER.24H PO SCH (09:06)
[2022-09-01] MEDS: SODIUM BICARBONATE TAB 650 MG TAB PO SCH ×2 (09:06→20:03)
[2022-09-01] MEDS: LOSARTAN 50 MG TAB PO SCH (09:06)
[2022-09-01] MEDS: SENNOSIDES-DOCUSATE SODIUM 1 EACH TAB PO SCH (09:06)
[2022-09-01] MEDS: HYDROcodone/APAP 5-325MG 1 EACH TAB PO PRN ×3 (09:32→20:03)
--- NOTE | 2022-09-01 10:01 | P.PN ---
Progress Note - Text Progress Note Date: 09/01/22 Postoperative day #8 Patient is seen and examined today at bedside. The patient has had better control of her pain and is more mobile in bed but his not transferring on her own. She is still requiring full assist with 2 persons for any sort of transfers. She has been able to feed herself some fall soft foods. She has not yet had a bowel movement but she says she is passing gas. Physical Exam Afebrile with stable vital signs She is breathing comfortably and eating on room air Abdomen is soft nontender. Chest has good excursion deep and space expiration The incision site is clean dry and intact. No erythema there is no purulence. A hard cervical collar is intact. Extremities have not had neurologic change from prior to surgery. She still has significant weakness of the right lower extremity and is still weak at the left lower shoulder pain. She is moving her legs somewhat better in bed but cannot stand for more than a few steps Calves and thighs were soft nontender without evidence of DVT. Assessment/Plan Postoperative day #8 status post anterior-posterior cervical decompression and fusion for her severe cervical stenosis with cervical myelopathy and upper and lower extremity weakness The patient continues to make very slow but incremental progress from her proc edure in terms of her strength and mobility. She is moving her hands somewhat better and using her left arm a little bit more for her self-care and ADLs. Her pain is better controlled and her wounds remain stable without any evidence of infectious process. I appreciate the input from the other services. Her renal function is improving. She is passing gas but has not yet had a bowel movement. Hopefully she can get up to a toilet and try to have a bowel movement. We should provide her assistance for getting up to a toilet today. Certainly she should continue to have assistance for getting up to a chair and work on transfer training potentially to a wheelchair that she can become more mobile and progressed to ambulation. We will continue to increase the patient's mobilization with therapy. I think the patient should be okay for alf tomorrow or Friday if it is okay with medicine. Case management is working on this. We will continue pain control with oral or IV medications. We'll continue to follow patient closely.
[2022-09-01 11:36] LABS: Glucose,Whole Blood 135 mg/dL (70-110)
--- NOTE | 2022-09-01 13:51 | P.PN ---
Subjective Progress Note Date: 09/01/22 This is an 81 year old female patient of Dr. Herman with past medical history of angina on Ranexa, coronary artery disease with stent in the mid RCA in 2007, hypertension, dyslipidemia. We have been asked to evaluate the patient for hypertension and new onset atrial fibrillation. Patient had anterior cervical decompression and fusion approximately 3 weeks ago and unfortunately has had progressive issues with her surgery requiring redo surgery 08/23. Cardiology was consulted for A. fib. She had prior episodes preoperatively 08/07 with prior consultation at that time however appeared to be frequent PACs. Patient currently with a neck brace and has been having difficulty swallowing and undergoing swallow eval. Her albumin is decreased at 2.6 and she has been third spacing with significant bilateral upper as well as lower extremity edema. She denies any chest pain or pressure however at home occasionally takes nitro. admits sometimes she has a difficult time explaining some of her s ymptoms. She denies any recent chest pain or pressure however. Cardiology was consult with secondary to similar episodes of irregular heart rates with reading out of A. fib. It appears she has had sinus rhythm with frequent PACs and no clear-cut prolonged episodes of A. fib. She did have one episode of questionable left upper face numbness and tingling for a few seconds 3-4 months ago however not clearly TIA and denies any history of TIA or stroke. She is on a cleviprex drip with systolics 120s over 30s. Bicarb going down to 14 today. Echocardiogram 2019 revealed normal EF, mild mitral regurgitation, mild mitral annular calcification, mild tricuspid regurgitation, mild pulmonic reg urgitation. Cardiolite stress test in 2019 was negative. Abnormal perfusion study with mild reversible defect involving the inferior lateral segment. Gated study shows normal wall motion and thickening. At that time, patient declined coronary angiography. 08/28 Patient seen and examined. Echocardiogram performed yesterday which shows left ventricular ejection fraction 60-65% with RVSP 45. Hemoglobin today 8.6, platelets 198, bicarb continues a decreased down to 12, BUN 20, creatinine 0.9, TSH yesterday was 0.3 with free T4 2 0.0, lactic acid was normal. EKG reviewed with episodes overnight clearly consistent with atrial fibrillation with varying heart rates 90s to low 100 100s. 08/30 Patient seen and examined. Denies any SOB, no chest pain or pressure. She had anemia with hgb down from 8.4-6.9 and up to 9.8 after 1UPRBCs. Heparin drip was discontinued. Tolerating diet. Still with some difficulty swallowing and feeling like she has mucous she has to cough up. No hematochezia or melena. 08/31 She reports having a headache. Denies any chest pain or shortness of breath. Hgb stable at 9.3. No reports of bleeding. 09/01 Denies any pain today, no chest pains. Blood pressure remains labile. She got a 1x dose of lasix 20mg po this am. Physical examination: Gen: This is an 81-year-old female, resting in bed and appears to be comfortable and in no acute distress VS: reviewed HEENT: Head is atraumatic, normocephalic. Pupils equal, round. Sclerae is anicteric. NECK: C-collar on. LUNGS: Clear to auscultation. No wheezes or rhonchi. No intercostal retractions. HEART: Regular rate and rhythm. 2/6 systolic ejection murmur at the base. ABDOMEN: Soft No tenderness. EXTREMITIES: No pedal edema. No calf tenderness. NEUROLOGICAL: Patient is awake, alert and oriented x3. Assessment: Paroxysmal Afib Cervical pain History of coronary artery disease with stent in the mid RCA Hypertension Dyslipidemia Acidosis Upper extremeity edema appears related to third spacing Anemia, s/p transfusion Plan: Given anemia, will continue to hold anticoagulation for now and reassess in the future. BP remains labile. Atenolol, Ranexa, Imdur restarted. Monitor blood pressure. Anticipate DIANN placement in next 1-2 days. Will follow. Objective - Vital Signs Vital signs: Vital Signs Temp 98 F 09/01/22 03:50 Pulse 72 09/01/22 08:47 Resp 18 09/01/22 08:00 BP 198/88 09/01/22 08:00 Pulse Ox 97 09/01/22 08:37 FiO2 30 08/25/22 12:00 Intake & Output 08/31/22 09/01/22 09/01/22 18:59 06:59 18:59 Intake Total 540 Output Total 0 150 Balance 0 390 Weight 71.5 kg Intake: Oral 540 Output: Drainage 0 0 Neck 0 0 Urine 150 Other: Voiding Method External Catheter External Catheter External Catheter ABP, PAP, CO, CI - Last Documented Arterial Blood Pressure 142/47 - Labs CBC & Chem 7: 08/31/22 07:19 08/31/22 07:19 Labs: Abnormal Lab Results - Last 24 Hours (Table) 08/31/22 08/31/22 08/31/22 Range/Units 11:44 11:47 16:34 POC Glucose (mg/dL) 141 H 177 H (70-110) mg/dL Urine Protein 1+ H (Negative) 08/31/22 Range/Units 21:15 POC Glucose (mg/dL) 133 H (70-110) mg/dL Urine Protein (Negative)
--- NOTE | 2022-09-01 14:44 | P.PN ---
Subjective Progress Note Date: 09/01/22 This is an 81-year-old lady who was admitted after revision surgery for C4-C7 08/31. Patient seen and examined. Laying comfortably in the bed. Son at the bedside. Vital signs this morning are temperature 90.7, heart rate 70, respirations 18, blood pressure 136/62, WBC 3.3, hemoglobin 9.3, sodium 139, potassium 4, BUN 17 /30. Patient seen and examined. Nephrology recommended giving one more dose o f Lasix. Vital signs this morning temperature afebrile, pulse 72, blood pressure 137/72. Patient has not had a bowel movement yet, passing gas. Appetite is poor REVIEW OF SYSTEMS: CONSTITUTIONAL: No fever, no malaise,. CARDIOVASCULAR: No chest pain, no palpitations, no syncope. PULMONARY: No shortness of breath, no cough, GASTROINTESTINAL: No diarrhea, no nausea, no vomiting, no abdominal pain. NEUROLOGICAL: No headaches, no weakness, PHYSICAL EXAMINATION: GENERAL: The patient is alert and oriented x3, not in any acute distress. Well developed, well nourished. Cervical collar in place HEENT: Pupils are round and equally reacting to light. EOMI. No scleral icterus. No conjunctival pallor. Normocephalic, atraumatic. No pharyngeal erythema. No thyromegaly. CARDIOVASCULAR: S1 and S2 present. No murmurs, rubs, or gallops. PULMONARY: Chest is clear to auscultation, no wheezing or crackles. ABDOMEN: Soft, nontender, nondistended, normoactive bowel sounds. No palpable organomegaly. MUSCULOSKELETAL: No joint swelling or deformity. EXTREMITIES: No cyanosis, clubbing, or pedal edema. NEUROLOGICAL: Gross neurological examination did not reveal any focal deficits. SKIN: No rashes. Assessment and plan Status post revision surgery for C4 to C7 Metabolic acidosis Status post mechanical ventilation perioperatively Cervical myelopathy Atrial fibrillation paroxysmal Hypertension Type 2 diabetes mellitus Plan Monitor vital signs Monitor CBC Monitor CMP Continue telemetry monitoring Continue pain management Encourage ambulation Aggressive bowel regimen Continue sodium bicarb twice a day Continue Lasix and losartan Ultrasound of upper extremities negative for DVT. PT and OT recommended rehab Orthopedic spine surgery following Objective - Vital Signs Vital signs: Vital Signs Temp 98 F 09/01/22 03:50 Pulse 70 09/01/22 12:01 Resp 18 09/01/22 08:00 BP 198/88 09/01/22 08:00 Pulse Ox 97 09/01/22 08:37 FiO2 30 08/25/22 12:00 Intake & Output 08/31/22 09/01/22 09/01/22 18:59 06:59 18:59 Intake Total 540 Output Total 0 150 Balance 0 390 Weight 71.5 kg Intake: Oral 540 Output: Drainage 0 0 Neck 0 0 Urine 150 Other: Voiding Method External Catheter External Catheter External Catheter ABP, PAP, CO, CI - Last Documented Arterial Blood Pressure 142/47 - Labs CBC & Chem 7: 08/31/22 07:19 08/31/22 07:19 Labs: Abnormal Lab Results - Last 24 Hours (Table) 08/31/22 08/31/22 08/31/22 Range/Units 11:47 16:34 21:15 POC Glucose (mg/dL) 177 H 133 H (70-110) mg/dL Urine Protein 1+ H (Negative) 09/01/22 Range/Units 11:35 POC Glucose (mg/dL) 135 H (70-110) mg/dL Urine Protein (Negative)
[2022-09-01 16:11] LABS: Glucose,Whole Blood 158 mg/dL (70-110)
[2022-09-01] MEDS: LORazepam 2 MG/ML INJ IV PRN (18:00)
[2022-09-01] MEDS: MONTELUKAST 10 MG TAB PO SCH (20:03)
[2022-09-01 20:06] LABS: Glucose,Whole Blood 165 mg/dL (70-110)
[2022-09-02] MEDS: LORazepam 2 MG/ML INJ IV PRN (01:38)
[2022-09-02] MEDS: HYDROmorphone 0.5 MG/0.5 ML SYRINGE IVP PRN ×3 (01:40→20:05)
[2022-09-02 06:22] LABS: Glucose,Whole Blood 105 mg/dL (70-110)
[2022-09-02] MEDS: REPAGLINIDE 1 MG TAB PO SCH ×2 (06:56→17:00)
[2022-09-02] MEDS: INSULIN ASPART (NovoLOG) 100 UNIT/ML VIAL SQ SCH ×4 (06:59→20:45)
[2022-09-02] MEDS: SODIUM CHLORIDE 0.9% 1,000 ML IV SCH (08:34)
[2022-09-02] MEDS: SENNOSIDES-DOCUSATE SODIUM 1 EACH TAB PO SCH ×2 (08:48→20:46)
[2022-09-02] MEDS: HYDROcodone/APAP 5-325MG 1 EACH TAB PO PRN ×3 (08:48→22:43)
[2022-09-02] MEDS: RANOLAZINE 500 MG TAB.ER.12H PO SCH ×2 (08:49→20:45)
[2022-09-02] MEDS: LOSARTAN 50 MG TAB PO SCH (08:49)
[2022-09-02] MEDS: SODIUM BICARBONATE TAB 650 MG TAB PO SCH ×2 (08:49→20:46)
[2022-09-02] MEDS: atenoloL 50 MG TAB PO SCH ×2 (08:49→20:45)
[2022-09-02] MEDS: ISOSORBIDE MONONITRATE ER 60 MG TAB.ER.24H PO SCH (08:49)
[2022-09-02] MEDS: PIOGLITAZONE 15 MG TAB PO SCH (08:49)
[2022-09-02] MEDS: ISOSORBIDE MONONITRATE ER 30 MG TAB.ER.24H PO SCH (08:49)
[2022-09-02] MEDS: ALBUTEROL NEBULIZED 2.5 MG/3 ML INHALATION SCH ×4 (09:30→21:10)
--- NOTE | 2022-09-02 10:13 | P.PN ---
Subjective Patient is seen in follow-up for acute kidney injury on chronic disease. Creatinine 0.92 date 08/31/2022. Resting in bed. Nonoliguric. Denies chest pain or shortness of breath. Vital signs are stable. General: No acute distress. HEENT: Head exam is unremarkable. LUNGS: No audible rhonchi or wheezes. HEART: Rate and Rhythm are regular. ABDOMEN: Nontender. EXTREMITITES: No edema. Upper extremities swollen. Objective - Vital Signs Vital signs: Vital Signs Temp 97.9 F 09/02/22 08:34 Pulse 72 09/02/22 09:43 Resp 20 09/02/22 08:34 BP 191/76 09/02/22 08:34 Pulse Ox 94 L 09/02/22 09:31 FiO2 30 08/25/22 12:00 Intake & Output 09/01/22 09/02/22 09/02/22 18:59 06:59 18:59 Intake Total 110 Output Total 0 550 550 Balance 0 -550 -440 Intake: Oral 110 Output: Drainage 0 0 Neck 0 0 Urine 550 550 Other: Voiding Method External Catheter External Catheter External Catheter ABP, PAP, CO, CI - Last Documented Arterial Blood Pressure 142/47 - Labs CBC & Chem 7: 08/31/22 07:19 08/31/22 07:19 Labs: Abnormal Lab Results - Last 24 Hours (Table) 09/01/22 09/01/22 09/01/22 Range/Units 11:35 16:10 20:05 POC Glucose (mg/dL) 135 H 158 H 165 H (70-110) mg/dL Assessment and Plan Plan: Assessment: 1. Mild acute kidney injury mostly prerenal, improved. 2. 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 GFR at baseline. 3. Status post left nephrectomy due to renal cell cancer. 4. Status post cervical decompression surgery. 5. Acute blood loss anemia status post blood transfusion this admission. No active bleeding. 6. Metabolic acidosis, compensatory for respiratory alkalosis. Currently on oral bicarb. 7. Hypertension with chronic kidney disease. Labile. 8. Coronary artery disease status post cardiac stenting. 9. Diabetes mellitus. Plan: Repeat UA as patient complaining of mild dysuria. Encouraged oral intake. Resume amlodipine but at a lower dose of 5 mg once daily. Hold for systolic blood pressure less than 120. Follow-up morning labs.
[2022-09-02] MEDS: amLODIPine 5 MG TAB PO SCH (11:13)
[2022-09-02 11:52] LABS: Glucose,Whole Blood 167 mg/dL (70-110)
--- NOTE | 2022-09-02 12:32 | P.PN ---
Progress Note - Text Progress Note Date: 09/02/22 Postoperative day #9 Patient is seen and examined today at bedside. The patient was in a chair and we held her move from the chair to the bed. She is able to have one person assist to stand up with her walker. And standby assist with her walker over to her bed. She still needs assistance getting in and out of bed. She says the pain is doing somewhat better. Her arms have some motion more so on the left than the right. She is voiding freely on a commode. She states she is passing gas but has not had a bowel movement Physical Exam Afebrile with stable vital signs Abdomen is soft nontender. Chest has good excursion deep and space expiration The incision site is clean dry and intact. No erythema there is no purulence. Dressings are clear and appears to be healing appropriately Extremities have not had neurologic change from prior to surgery. She is using her left arm better with her activities of daily living. She still has limitations in her strength overall particularly on the right upper extremity. She was able to a moderate a couple of steps with her walker with just standby assist today at bedside. Calves and thighs were soft nontender without evidence of DVT. Assessment/Plan Postoperative day #9 status post anterior and posterior cervical decompression a nd fusion for her severe cervical myelopathy with cervical stenosis and weakness Patient is progressing slowly as expected from the surgery. She seems to be making some gains in terms of her mobility overall and it is encouraging to see her walking a few steps and transferring with just standby assist. She still needs help standing up out of a chair and getting in and out of bed. She is only walking a few steps but this seems to be making some progress as well. We will continue to increase the patient's mobilization with therapy. I appreciate urology note and we'll follow the urinalysis She is passing gas but not had a bowel movement yet. Her intake is quite small but she feels though she is getting close to having bowel movement. She may be ready for transfer to senior living tomorrow if it is okay with medicine. We will take the opportunity now to Follow-up on new x-rays of her cervical spine in an upright position with collar on She should continue to use her cervical collar at all times. I will try to order new pads from [employer] and flipped this so that she can wash her current pads and change about for bathing We will continue pain control with oral or IV medications. We'll continue to follow patient closely.
[2022-09-02 12:40] LABS: Appearance,Urine Clear (Clear); Bilirubin,Urine Negative (Negative); Blood,Urine Negative (Negative); Color,Urine Yellow; Glucose,Urine (UA) Negative (Negative); Ketones,Urine Negative (Negative); Leukocyte Esterase,Urine Negative (Negative); Nitrite,Urine Negative (Negative); PH, Urine 5.5 (5.0-8.0); Protein,Urine Trace (Negative); Urobilinogen,Urine <2.0 mg/dL (<2.0)
[2022-09-02 12:50] LABS: Albumin 2.6 g/dL (3.5-5.0); Calcium 7.9 mg/dL (8.4-10.2); Total Bilirubin 0.8 mg/dL (0.2-1.3); Total Protein 5.1 g/dL (6.3-8.2)
[2022-09-02] MEDS ORDERED: bisacodyL 10 MG SUPP RECTAL STA (13:05)
[2022-09-02 13:11] LABS: Anisocytosis Slight; Basophils % (A) 0 %; Eosinophils # (A) 0.2 k/uL (0-0.7); Eosinophils % (A) 3 %; HCT 31.2 % (34.0-46.0); HGB 9.8 gm/dL (11.4-16.0); Hypochromasia Slight; Lymphocytes # (A) 0.7 k/uL (1.0-4.8); Lymphocytes % (A) 12 %; MCH 25.6 pg (25.0-35.0); MCHC 31.2 g/dL (31.0-37.0); MCV 81.9 fL (80.0-100.0); Mean Platelet Volume 8.3; Monocytes # (A) 0.4 k/uL (0-1.0); Monocytes % (A) 7 %; Neutrophils # (A) 4.3 k/uL (1.3-7.7); Neutrophils % (A) 77 %; Platelet Count 268 k/uL (150-450); Potassium 4.2 mmol/L (3.5-5.1); RBC 3.81 m/uL (3.80-5.40); WBC 5.6 k/uL (3.8-10.6)
--- NOTE | 2022-09-02 13:34 | XR ---
EXAMINATION TYPE: XR cervical spine limited DATE OF EXAM: 09/02/2022 TECHNIQUE: Frontal and lateral views of the cervical spine are obtained. HISTORY: Follow-up postop fusion stenosis and pain. COMPARISON: Cervical spine CT August 20, 2022 FINDINGS: The cervical spine is visualized from C1 thru the upper thoracic levels, it is satisfactor y in alignment . There is now posterior interpedicular rods and screws transfixing C3 level bilateral ly through the upper thoracic spine suspected T2 level. There is anterior fusion now identified from C3 through C7 level with metallic cage from C3 to C4 disc space through the mid C7 vertebra. Expected prevertebral soft tissue swelling is seen at this level. Posterior vertical skin jeremias are noted. Slight scoliotic curvature positioning on the frontal view in the visualized thoracic spine. IMPRESSION: As above.
--- NOTE | 2022-09-02 14:24 | P.PN ---
Subjective Progress Note Date: 09/02/22 HISTORY OF PRESENT ILLNESS: This is an 81 year old female patient of Dr. Herman with past medical history of angina on Ranexa, coronary artery disease with stent in the mid RCA in 2007, hypertension, dyslipidemia. We have been asked to evaluate the patient for hypertension and new onset atrial fibrillation. Patient had anterior cervical decompression and fusion approximately 3 weeks ago and unfortunately has had progressive issues with her surgery requiring redo surgery 08/23. Cardiology was consulted for A. fib. She had prior episodes preoperatively 08/07 with prior consultation at that time however appeared to be frequent PACs. Patient currently with a neck brace and has been having difficulty swallowing and undergoing swallow eval. Her albumin is decreased at 2.6 and she has been third spacing with significant bilateral upper as well as lower extremity edema. She denies any chest pain or pressure however at home occasionally takes nitro. admits sometimes she has a difficult time explaining some of her symptoms. She denies any recent chest pain or pressure however. Cardiology was consult with secondary to similar episodes of irregular heart rates with reading out of A. fib. It appears she has had sinus rhythm with frequent PACs and no clear-cut prolonged episodes of A. fib. She did have one episode of questionable left upper face numbness and tingling for a few seconds 3-4 months ago however not clearly TIA and denies any history of TIA or stroke. She is on a cleviprex drip with systolics 120s over 30s. Bicarb going down to 14 today. Echocardiogram 2019 revealed normal EF, mild mitral regurgitation, mild mitral annular calcification, mild tricuspid regurgitation, mild pulmonic regurgitation. Cardiolite stress test in 2019 was negative. Abnormal perfusion study with mild reversible defect involving the inferior lateral segment. Gated study shows normal wall motion and thickening. At that time, patient declined coronary a ngiography. 08/28 Patient seen and examined. Echocardiogram performed yesterday which shows left ventricular ejection fraction 60-65% with RVSP 45. Hemoglobin today 8.6, platelets 198, bicarb continues a decreased down to 12, BUN 20, creatinine 0.9, TSH yesterday was 0.3 with free T4 2 0.0, lactic acid was normal. EKG reviewed with episodes overnight clearly consistent with atrial fibrillation with varying heart rates 90s to low 100 100s. 08/30 Patient seen and examined. Denies any SOB, no chest pain or pressure. She had anemia with hgb down from 8.4-6.9 and up to 9.8 after 1UPRBCs. Heparin drip was discontinued. Tolerating diet. Still with some difficulty swallowing and feeling like she has mucous she has to cough up. No hematochezia or melena. 08/31 She reports having a headache. Denies any chest pain or shortness of breath. Hgb stable at 9.3. No reports of bleeding. 09/01 Denies any pain today, no chest pains. Blood pressure remains labile. She got a 1x dose of lasix 20mg po this am. 09/02/2022 Patient examined this morning at the bedside. Patient denies chest pain or pressure. She denies shortness of breath. She complains of pain in her neck. Blood pressure is elevated this morning with a systolic in the 170s. She has been started on Norvasc. PHYSICAL EXAM: VITAL SIGNS: Reviewed. GENERAL: Well-developed in no acute distress. NECK: Supple. No JVD or thyromegaly LUNGS: Respirations even and unlabored. Lungs essentially clear to auscultation bilaterally. HEART: Regular rate and rhythm. S1 and S2 heard. EXTREMITIES: Normal range of motion. No clubbing or cyanosis. Peripheral pulses intact. No lower extremity edema ASSESSMENT: Paroxysmal atrial fibrillation Cervical pain, s/p anterior and posterior cervical decompression and fusion History of coronary artery disease PCI to the mid RCA Hypertension Dyslipidemia Upper extremeity edema appears related to third spacing Anemia, s/p transfusion PLAN: Anticoagulation remains on hold Norvasc started today. Monitor blood pressure Continue additional cardiac medications Further recommendations pending patient course Nurse practitioner note has been reviewed by physician. Signing provider agrees with the documented findings, assessment, and plan of care. Objective - Vital Signs Vital signs: Vital Signs Temp 97.9 F 09/02/22 08:34 Pulse 82 09/02/22 13:40 Resp 20 09/02/22 11:09 BP 189/79 09/02/22 11:09 Pulse Ox 94 L 09/02/22 11:09 FiO2 30 08/25/22 12:00 Intake & Output 09/01/22 09/02/22 09/02/22 18:59 06:59 18:59 Intake Total 160 Output Total 0 550 550 Balance 0 -550 -390 Intake: Oral 160 Output: Drainage 0 0 Neck 0 0 Urine 550 550 Other: Voiding Method External Catheter External Catheter External Catheter ABP, PAP, CO, CI - Last Documented Arterial Blood Pressure 142/47 - Labs CBC & Chem 7: 09/02/22 12:22 09/02/22 12:22 Labs: Abnormal Lab Results - Last 24 Hours (Table) 09/01/22 09/01/22 09/02/22 Range/Units 16:10 20:05 11:50 Hgb (11.4-16.0) gm/dL Hct (34.0-46.0) % RDW (11.5-15.5) % Lymphocytes # (1.0-4.8) k/uL Sodium (137-145) mmol/L Carbon Dioxide (22-30) mmol/L BUN (7-17) mg/dL Glucose (74-99) mg/dL POC Glucose (mg/dL) 158 H 165 H 167 H (70-110) mg/dL Calcium (8.4-10.2) mg/dL Total Protein (6.3-8.2) g/dL Albumin (3.5-5.0) g/dL Urine Protein (Negative) 09/02/22 09/02/22 09/02/22 Range/Units 11:50 12:22 12:22 Hgb 9.8 L (11.4-16.0) gm/dL Hct 31.2 L (34.0-46.0) % RDW 18.0 H (11.5-15.5) % Lymphocytes # 0.7 L (1.0-4.8) k/uL Sodium 136 L (137-145) mmol/L Carbon Dioxide 21 L (22-30) mmol/L BUN 19 H (7-17) mg/dL Glucose 147 H (74-99) mg/dL POC Glucose (mg/dL) (70-110) mg/dL Calcium 7.9 L (8.4-10.2) mg/dL Total Protein 5.1 L (6.3-8.2) g/dL Albumin 2.6 L (3.5-5.0) g/dL Urine Protein Trace H (Negative)
[2022-09-02 16:34] LABS: Glucose,Whole Blood 132 mg/dL (70-110)
[2022-09-02] MEDS: diazePAM 2 MG TAB PO PRN (17:20)
[2022-09-02 20:37] LABS: Glucose,Whole Blood 162 mg/dL (70-110)
[2022-09-02] MEDS: MONTELUKAST 10 MG TAB PO SCH (20:45)
--- NOTE | 2022-09-02 23:14 | P.PN ---
Subjective Progress Note Date: 09/02/22 This is an 81-year-old lady who was admitted after revision surgery for C4-C7 08/31. Patient seen and examined. Laying comfortably in the bed. Son at the bedside. Vital signs this morning are temperature 90.7, heart rate 70, respirations 18, blood pressure 136/62, WBC 3.3, hemoglobin 9.3, sodium 139, potassium 4, BUN 17 /30. Patient seen and examined. Nephrology recommended giving one more dose of Lasix. Vital signs this morning temperature afebrile, pulse 72, blood pressure 137/72. Patient has not had a bowel movement yet, passing gas. Appetite is poor 09/02/2022 Patient is seen and evaluated in follow-up this morning currently sitting up in the bed and family at bedside reports she was just in the chair and was helping transferred back to the bed. Patient continues with weakness and will be going to ECF once cleared by consultations. Patient is tolerating oral intake although fair and encouraged to increase activity as tolerated. Patient blood pressure mildly elevated with nephrology following and has been resumed on Norvasc. Cardiology following as well currently rate controlled and recommending to continue with current regimen. Discussed with the patient and family about pain management as patient reports she continues to have anxiety and pain and per nursing staff has been requesting IV Dilaudid. Encourage the patient to avoid IV narcotics and continue with pain control with oral medications. Patient is medically stable for transfer to ECF once orthopedic d ischarges. REVIEW OF SYSTEMS: CONSTITUTIONAL: No fever, no malaise,. CARDIOVASCULAR: No chest pain, no palpitations, no syncope. PULMONARY: No shortness of breath, no cough, GASTROINTESTINAL: No diarrhea, no nausea, no vomiting, no abdominal pain. NEUROLOGICAL: No headaches, reports of generalized weakness PHYSICAL EXAMINATION: GENERAL: The patient is alert and oriented x3, not in any acute distress. Well developed, well nourished. Cervical collar in place HEENT: Pupils are round and equally reacting to light. EOMI. No scleral icterus. No conjunctival pallor. Normocephalic, atraumatic. No pharyngeal erythema. No thyromegaly. CARDIOVASCULAR: S1 and S2 present. No murmurs, rubs, or gallops. PULMONARY: Chest is clear to auscultation, no wheezing or crackles. ABDOMEN: Soft, nontender, nondistended, normoactive bowel sounds. No palpable organomegaly. MUSCULOSKELETAL: No joint swelling or deformity. EXTREMITIES: No cyanosis, clubbing, or pedal edema. NEUROLOGICAL: Gross neurological examination did not reveal any focal deficits. Diffusely weak SKIN: No rashes. Assessment: Status post anterior and posterior cervical decompression with revision surgery for C4 to C7 Metabolic acidosis, improved Status post mechanical ventilation perioperatively Cervical myelopathy Atrial fibrillation, paroxysmal currently rate controlled Hypertension Type 2 diabetes mellitus Obesity with a BMI of 30.8 GI prophylaxis DVT prophylaxis Full code Plan: Recommend to continue with current medications and management with multiple medical consultations following Patient working with physical therapy and continues with significant weakness and agreeable to rehab and will be going to [facility] Patient's blood pressure slightly elevated and being resumed on Norvasc recommend monitoring Per nursing staff patient has been requesting IV Dilaudid and discussed with the patient as well as family at the bedside to limit IV narcotic use. Patient also reports increased anxiety and does have anxiety medications as needed Patient reports has not had a bowel movement and will add suppository and continue stool softeners and increase to twice daily Encouraged oral intake and increased activity as tolerated Patient to continue on breathing treatments Case management/social work following his patient will be going to [facility] once cleared. Patient is medically stable for transfer to [facility] We will continue to follow with orthopedics during this hospitalization. Thank you kindly for this consultation The impression and plan of care has been dictated by Simin Chew, Nurse Practitioner as directed. Dr. Christiano MD I have performed a history and examination and MDM of this patient, discussed the same with the dictator, and agree with the dictator's assessment and plan as written ,documented as a scribe. Based on total visit time, I have performed more than 50% of the visit. Objective - Vital Signs Vital signs: Vital Signs Temp 97.9 F 09/02/22 08:34 Pulse 72 09/02/22 09:43 Resp 20 09/02/22 08:34 BP 191/76 09/02/22 08:34 Pulse Ox 94 L 09/02/22 09:31 FiO2 30 08/25/22 12:00 Intake & Output 09/01/22 09/02/22 09/02/22 18:59 06:59 18:59 Intake Total 110 Output Total 0 550 550 Balance 0 -550 -440 Intake: Oral 110 Output: Drainage 0 0 Neck 0 0 Urine 550 550 Other: Voiding Method External Catheter External Catheter External Catheter ABP, PAP, CO, CI - Last Documented Arterial Blood Pressure 142/47 - Labs CBC & Chem 7: 09/02/22 12:22 09/02/22 12:22 Labs: Abnormal Lab Results - Last 24 Hours (Table) 09/01/22 09/01/22 09/01/22 Range/Units 11:35 16:10 20:05 POC Glucose (mg/dL) 135 H 158 H 165 H (70-110) mg/dL
[2022-09-03] MEDS: LORazepam 2 MG/ML INJ IV PRN (01:39)
[2022-09-03 06:11] LABS: Glucose,Whole Blood 91 mg/dL (70-110)
[2022-09-03] MEDS: HYDROcodone/APAP 5-325MG 1 EACH TAB PO PRN ×3 (06:18→15:22)
[2022-09-03] MEDS: INSULIN ASPART (NovoLOG) 100 UNIT/ML VIAL SQ SCH ×2 (06:27→11:46)
[2022-09-03] MEDS: REPAGLINIDE 1 MG TAB PO SCH (06:29)
[2022-09-03] MEDS: ALBUTEROL NEBULIZED 2.5 MG/3 ML INHALATION SCH ×3 (07:56→15:22)
[2022-09-03 07:58] VITALS: RESP 16
[2022-09-03] MEDS: ISOSORBIDE MONONITRATE ER 60 MG TAB.ER.24H PO SCH (08:13)
[2022-09-03] MEDS: RANOLAZINE 500 MG TAB.ER.12H PO SCH (08:13)
[2022-09-03] MEDS: LOSARTAN 50 MG TAB PO SCH (08:13)
[2022-09-03] MEDS: PIOGLITAZONE 15 MG TAB PO SCH (08:13)
[2022-09-03] MEDS: ISOSORBIDE MONONITRATE ER 30 MG TAB.ER.24H PO SCH (08:13)
[2022-09-03] MEDS: atenoloL 50 MG TAB PO SCH (08:13)
[2022-09-03] MEDS: amLODIPine 5 MG TAB PO SCH (08:13)
[2022-09-03] MEDS: SENNOSIDES-DOCUSATE SODIUM 1 EACH TAB PO SCH (08:13)
[2022-09-03] MEDS: SODIUM BICARBONATE TAB 650 MG TAB PO SCH (08:13)
[2022-09-03] MEDS: diazePAM 2 MG TAB PO PRN (08:13)
[2022-09-03] MEDS: SODIUM CHLORIDE 0.9% 1,000 ML IV SCH (08:14)
--- NOTE | 2022-09-03 08:51 | P.PN ---
Progress Note - Text Progress Note Date: 09/03/22 Orthopedic Spine: History of present illness: Patient is a pleasant 81-year-old female who is seen at the bedside following revision anterior cervical decompression and fusion with posterior cervical decompression and fusion performed on 08/24/2022. She's been progressing slowly postoperatively but has had some progression. Patient's and family is present with her in the room today. They states she has not worked much with physical therapy. She has been able to transfer to a bedside chair. She has nails family assistance of a walker. She needs significant assistance getting in and out of bed. She is unable to ambulate to the restroom independently. She continues to have significant upper extremity weakness but is able to perform some active range of motion of her upper extremities. The plan was for the patient to be discharged to [facility] today. Patient's states he would like more information on this facility. They want the patient discharged to a facility or family is able to stay with the patient overnight. They have talked to the facility mechanic yesterday. There was also like consideration for [facility]. The patient's primary care provider, Dr. Olivas, his medical lab technologist at [facility]. The patient's , Dr. Celis, states Dr. Olivas would like physical therapy reports today once she is evaluated. Patient continues to be seen by medicine and cardiology. Patient is stable from their standpoint. Physical Exam Cervical Fusion: Status post surgical day number 10 Patient is awake, alert, and oriented 3; patient is answering questions appropriately Vital signs stable Adequate chest excursion with deep inspiration and expiration Hard cervical collar is intact Hard cervical collar is removed in pads are change at the bedside Dressings are removed over the anterior cervical incision site and posterior cervical incision site Anterior cervical incision site is clean, dry, and intact; no erythema, purulence, or signs of infection No drainage at the anterior cervical incision site [place] remain intact of the posterior cervical incision site No significant erythema, bruising, or obvious signs of infection of the posterior cervical site There is some serous sanguinous blood drainage which is slow at the superior portion of the posterior cervical incision site Nonstick Telfa and Tegaderm was reapplied over the posterior cervical surgical site Patient has significant weakness of her bilateral upper extremities Patient is able to somewhat make a fist bilaterally Patient is able to reach her hands towards her mouth bilaterally Assessment: Status post revision anterior cervical decompression and fusion C3-7 with corpectomy of C4, C5, and C6 Status post posterior cervical decompression and fusion C2-T2 Failed anterior cervical fixation C4-7 Vertical type fractures of the vertebral bodies of C4, C5, and C6 Cervical kyphosis Cervicalgia Significant upper extremity weakness Cervical myelopathy Severe cervical stenosis Anxiety Atrial fibrillation Coronary artery disease Diabetes mellitus Hypertension Hyperlipidemia History of renal disease History vascular disorder Rheumatoid arthritis Plan: 1. Ambulate as tolerated; work with Physical Therapy to increase mobilization; after patient is able to work with physical therapy today, we will try to have physical therapy contact Dr. Olivas for an update on the patient's physical therapy capabilities per the request of the patient's , Dr. Celis, who states the physical therapy update is requested by Dr. Olivas. 2. Continue pain control with oral medications as needed; we will try to avoid IV narcotic medications in anticipation for discharge 3. Anterior cervical and posterior cervical dressings have been removed. Patient does not need a dressing over the anterior cervical site. Nonstick Telfa and Tegaderm was reapplied over the posterior cervical surgical site. This may be changed as needed. Pads on the hard cervical collar have been changed. 4. Patient must keep hard cervical collar intact at all times 5. Patient will continue to be seen and examined by multiple medical providers including medicine and cardiology 6. Patient is planning for discharge to [facility] today. The patient's family is now questioning this rehabilitation facility. They would like further discussion with case management as they would like discharged to a facility that will allow the family to stay overnight with patient. Patient's family has discussed being allowed to stay overnight with the medical lab technologist of [facility]. Patient's family would also like to consider [facility] as her primary care provider, Dr. Olivas, is the medical lab technologist at this facility. 7. Mirna to remain intact of the posterior cervical spine. Mirna remain intact 14 days postoperatively. 8. We will continue to follow the patient closely 9. Patient can follow-up with Chip Galarza PA-C or Dr. Edmond Edward at [facility] in 1-2 weeks following discharge
--- NOTE | 2022-09-03 09:53 | P.PN ---
Subjective Patient is seen in follow-up for acute kidney injury on chronic disease. GFR at baseline. Resting in bed. Has been voiding. Denies chest pain or shortness of breath. Has been working with physical therapy. Vital signs are stable. General: No acute distress. HEENT: Head exam is unremarkable. LUNGS: No audible rhonchi or wheezes. HEART: Rate and Rhythm are regular. ABDOMEN: Nontender. EXTREMITITES: No edema. Upper extremities swollen. Objective - Vital Signs Vital signs: Vital Signs Temp 97.6 F 09/03/22 08:03 Pulse 68 09/03/22 08:10 Resp 16 09/03/22 08:10 BP 167/68 09/03/22 08:03 Pulse Ox 100 09/03/22 08:03 FiO2 30 08/25/22 12:00 Intake & Output 09/02/22 09/03/22 09/03/22 18:59 06:59 18:59 Intake Total 970 Output Total 550 0 Balance 420 0 Intake: Oral 970 Output: Urine 550 0 Other: Voiding Method External Catheter External Catheter Bedside Commode # Voids 0 1 # Bowel Movements 1 ABP, PAP, CO, CI - Last Documented Arterial Blood Pressure 142/47 - Labs CBC & Chem 7: 09/02/22 12:22 09/02/22 12:22 Labs: Abnormal Lab Results - Last 24 Hours (Table) 09/02/22 09/02/22 09/02/22 Range/Units 11:50 11:50 12:22 Hgb (11.4-16.0) gm/dL Hct (34.0-46.0) % RDW (11.5-15.5) % Lymphocytes # (1.0-4.8) k/uL Sodium 136 L (137-145) mmol/L Carbon Dioxide 21 L (22-30) mmol/L BUN 19 H (7-17) mg/dL Glucose 147 H (74-99) mg/dL POC Glucose (mg/dL) 167 H (70-110) mg/dL Calcium 7.9 L (8.4-10.2) mg/dL Total Protein 5.1 L (6.3-8.2) g/dL Albumin 2.6 L (3.5-5.0) g/dL Urine Protein Trace H (Negative) 09/02/22 09/02/22 09/02/22 Range/Units 12:22 16:32 20:35 Hgb 9.8 L (11.4-16.0) gm/dL Hct 31.2 L (34.0-46.0) % RDW 18.0 H (11.5-15.5) % Lymphocytes # 0.7 L (1.0-4.8) k/uL Sodium (137-145) mmol/L Carbon Dioxide (22-30) mmol/L BUN (7-17) mg/dL Glucose (74-99) mg/dL POC Glucose (mg/dL) 132 H 162 H (70-110) mg/dL Calcium (8.4-10.2) mg/dL Total Protein (6.3-8.2) g/dL Albumin (3.5-5.0) g/dL Urine Protein (Negative) Assessment and Plan Plan: Assessment: 1. Mild acute kidney injury mostly prerenal, improved. 2. 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 GFR at baseline. 3. Status post left nephrectomy due to renal cell cancer. 4. Status post cervical decompression surgery. 5. Acute blood loss anemia status post blood transfusion this admission. No active bleeding. 6. Metabolic acidosis, compensatory for respiratory alkalosis. Currently on oral bicarb. Improved. 7. Hypertension with chronic kidney disease. Labile. 8. Coronary artery disease status post cardiac stenting. 9. Diabetes mellitus. Plan: Encouraged oral intake. Check iron studies. Plan for rehab upon discharge.
[2022-09-03 11:44] LABS: Glucose,Whole Blood 150 mg/dL (70-110)
[2022-09-03 12:22] LABS: Calcium 8.1 mg/dL (8.4-10.2); Magnesium 1.8 mg/dL (1.6-2.3); Potassium 4.3 mmol/L (3.5-5.1)
--- NOTE | 2022-09-03 12:48 | P.DS ---
Providers Date of admission: 08/23/22 12:42 Attending physician: Indio Edward Consults: 08/23/22 16:04 Consult Physician Urgent Consulting Provider: Deborah Rouse Consult Reason/Comments: Medical management Do you want consulting provider notified?: Yes 08/24/22 17:45 Consult Physician Routine Consulting Provider: Bear Jim Consult Reason/Comments: ICU managment Do you want consulting provider notified?: Already Contacted 08/27/22 00:37 Consult Physician Routine Consulting Provider: Jose Rafael Mejia Consult Reason/Comments: A.fib Do you want consulting provider notified?: Yes, Notify in am 08/27/22 08:01 Consult Physician Routine Consulting Provider: Kole Doty Consult Reason/Comments: Possible candidate for rehab versus nursing home Do you want consulting provider notified?: Yes 08/28/22 14:32 Consult Physician Routine Consulting Provider: Fawn Cormier Consult Reason/Comments: Hyperchloremic metabolic acidosis, possible renal tubular acidosis Do you want consulting provider notified?: Yes Primary care physician: Ashley Brendon [place] Hospital Course: The patient presented on the day of her admission as per their operative note. Patient is now postoperative day #9 status post anterior and posterior cervical decompression and fusion. The patient is a pleasant 81-year-old female who has had long-standing issues of troubles with her neck and her lower back. Over the past several months she has been having worsening issues at her cervical spine and was expanding issues with evidence of significant cervical myelopathy with weakness at her bilateral upper extremity is worse on the right than the left as well as weakness of bilateral lower extremity and difficulty ambulating. She also has issues at her lumbar spine with severe stenosis. The patient initially underwent surgical intervention in the beginning of August for anterior cervical decompression with discectomy and fusion. However the patient subsequently have failed fixation anteriorly and had to undergo revision anterior cervical decompression with fusion anteriorly as well as a two-stage procedure with posterior cervical decompression and fusion. This was performed 9 days ago. The patient has been making slow progress since her surgery with further summary to follow. The patient feels she is making some progress but is still very unsteady on her feet and very anxious about movement. She has been able to tolerate a regular diet. She is voiding on her own and had a bowel movement as well. Her strength is improving at her upper and lower extremity so she is still considerably weak. She initially had close valuation in intensive care unit and has been able to progress and be managed closely on the selective care unit. She's been followed closely with multiple medical services as well. Physical Exam She is afebrile stable vital signs. Cervical collar is intact. The incision site is clean dry and intact. There is no erythema no drainage. There is no purulence no evidence of infection. Her anterior cervical incision is clean without any drainage at all there is no erythema there is no inflammation in her neck is supple. Posterior cervical incisions are clear. The mirna are intact. There is some scant serous drainage but no erythema no fluid collection. Abdomen soft and nontender. Chest has good excursion with deep inspiration and expiration. The patient has active and passive range of motion intact at the upper and lower extremities. She has obvious weakness particularly at her right upper extremity. Left upper extremity has more motion but difficulty in her hands and fingers. She has myelopathic changes at her bilateral upper extremity is. Her lower extremities have sustained dorsal to plantar flexion and EHL hip flexion and knee extension but she has some global deconditioning and weakness in her lower extremities. There is no acute change in neurologic status. Hospital Course Patient has severe cervical myelopathy with bilateral upper extremity weakness worse on the right and left and bilateral lower extremity weakness with difficulty with ambulation and gait. The patient initially had surgery approximately 4 weeks ago and then underwent revision surgery with two-stage cervical decompression and fusion approximately 9 days ago. The patient initially underwent surgical intervention in the beginning of August for anterior cervical decompression with discectomy and fusion. However the patient subsequently have failed fixation anteriorly and had to undergo revision anterior cervical decompression with fusion anteriorly as well as a two-stage procedure with posterior cervical decompression and fusion. This was performed 9 days ago. The patient has been making slow progress since her surgery with further summary to follow. The patient feels she is making some progress but is still very unsteady on her feet and very anxious about movement. She has been able to tolerate a regular diet. She is voiding on her own and had a bowel movement as well. Her strength is improving at her upper and lower extremity so she is still considerably weak. Postoperatively the patient remained intubated and was brought to intensive care unit for gentle weaning to protect her airway. Patient was weaned essentially uneventfully but did have some issues with her blood pressure and her paroxysmal atrial for ablation. She is followed closely with critical care service as well as cardiology service and was able to be extubated appropriately and is now breathing comfortably on room air. She is also been monitored closely in terms of her rhythm and his now taking oral medications for control of her rhythm. Cardiology do not feel that she needed any prolonged blood thinners. She's been able to be on the selective care floor and managing appropriately with oral medications and monitoring and breathing on room air. We've been following her closely as well in terms of her mobilization and recovery from her cervical spine surgery. Her x-rays show good alignment and good position from C2 to T2 with her fixation and stabilization. The wounds appear to be healing appropriately. She still has her mirna intact which should remain intact for another week. They can be removed at the nursing facility. Her is a former surgical training specialist and would be comfortable removing the mirna as well but should not do so until at least September 09. I instructed him to of this and he will discuss this with the nursing staff as well. The patient is making progress in terms of her mobility. Her mobility has been quite slow. She has significant weakness at her bilateral upper extremities and is very anxious about falling. She has been able to improve her mobilization and ambulation with a walker. She has significant difficulty supporting herself because of the weakness at her upper extremities and her instability at her feet. When the patient is doing her therapy I would recommend continuing using a gait belt for her Asst. and to make sure that they understand that she has weakness in her upper extremities and it is significant we difficult for her to support herself even with use of a walker due to her upper extremity weakness and myelopathy. The patient has progressed very slowly but is making strides in terms of her mobility pain control and mobilization. Her medical management has been appropriate and it appears to be stabilizing appropriately with oral medications. I think they are in stable condition for discharge today to nursing home facility. They've chosen to reside at [facility] which I think is appropriate for them with regular physical therapy on a daily basis. They're instructed to continue her regular exercises on her own well seated and well in bed. They will be sent with appropriate prescriptions. In regards to her therapy I think that they would both be more comfortable with use of a gait belt during her therapy. The therapy and assistance each unde rstand the patient has considerably weakness at her upper extremities and has significant anxiety due to this. She has difficulty supporting herself on her walker due to her upper extremity weakness as well. I answered their questions to the best of my ability in a language that they can understand and they are agreeable with the plan. They'll follow up with the appropriate medical services They will follow up as directed in a approximately 2 weeks or sooner if having problems. Patient Condition at Discharge: Fair Plan - Discharge Summary Discharge Rx Participant: No New Discharge Prescriptions: New Benzocaine/Menthol Lozeng [Cepacol lozenge] 1 each MUCOUS MEM Q4HR PRN lozenge PRN Reason: Sore Throat Losartan [Cozaar] 100 mg PO QAM tab amLODIPine [Norvasc] 5 mg PO DAILY tab INSULIN ASPART (NovoLOG) [NovoLOG (formulary)] 0 unit SQ ACHS each HYDROcodone/APAP 7.5-325MG [[place] 7.5-325] 1 tab PO Q4H PRN 7 Days #42 tab PRN Reason: Pain cloNIDine 0.3 MG/24HR PATCH [Catapres-TTS] 1 patch TRANSDERM Q7D patch Magnesium Hydroxide [Milk of Magnesia Concentrate] 2,400 mg PO DAILY PRN ml PRN Reason: Constipation Sodium Bicarbonate Tab 650 mg PO BID tab diazePAM [Valium] 2 mg PO Q8HR PRN 7 Days #21 tab PRN Reason: Anxiety Continue Ergocalciferol [Vitamin D2 (1250 Mcg = 68818 Iu)] 1,250 mcg PO Q14D Repaglinide [Prandin] 0.5 mg PO AC-BID Leflunomide [Arava] 20 mg PO QAM Ranolazine [Ranexa] 500 mg PO BID atenoloL [Tenormin] 50 mg PO BID #60 tab Acetaminophen Tab [Tylenol] 650 mg PO Q6HR PRN tab PRN Reason: Pain Sennosides-Docusate Sodium [Senokot-S] 1 tab PO DAILY Nitroglycerin Sl Tabs [Nitrostat] 0.4 mg SUBLINGUAL Q5M PRN PRN Reason: Chest Pain Montelukast Sodium [Singulair] 10 mg PO HS Pioglitazone [Actos] 15 mg PO QAM Isosorbide Mononitrate ER [Imdur] 60 mg PO QAM Fluticasone Propionate 220 Mcg [Flovent 220 Mcg Inhaler] 2 puff INHALATION RT-BID PRN PRN Reason: Shortness Of Breath Isosorbide Mononitrate ER [Imdur] 30 mg PO QAM Cyclobenzaprine [Flexeril] 5 mg PO TID PRN #60 tablet PRN Reason: Spasms HYDROcodone/APAP 5-325MG [[place] 5-325] 1 tab PO Q8HR PRN 7 Days #21 tab PRN Reason: Pain Discontinued amLODIPine [Norvasc] 10 mg PO DAILY #30 tab Aspirin 81 mg PO DAILY traMADol HCl [Ultram] 50 mg PO QID PRN PRN Reason: Pain Irbesartan 300 mg PO QAM Discharge Medication List Ergocalciferol [Vitamin D2 (1250 Mcg = 71300 Iu)] 1,250 mcg PO Q14D 06/05/22 [History] Fluticasone Propionate 220 Mcg [Flovent 220 Mcg Inhaler] 2 puff INHALATION RT- BID PRN 06/05/22 [History] Isosorbide Mononitrate ER [Imdur] 60 mg PO QAM 06/05/22 [History] Leflunomide [Arava] 20 mg PO QAM 06/05/22 [History] Montelukast Sodium [Singulair] 10 mg PO HS 06/05/22 [History] Nitroglycerin Sl Tabs [Nitrostat] 0.4 mg SUBLINGUAL Q5M PRN 06/05/22 [History] Pioglitazone [Actos] 15 mg PO QAM 06/05/22 [History] Ranolazine [Ranexa] 500 mg PO BID 06/05/22 [History] Repaglinide [Prandin] 0.5 mg PO AC-BID 06/05/22 [History] Isosorbide Mononitrate ER [Imdur] 30 mg PO QAM 08/07/22 [History] Cyclobenzaprine [Flexeril] 5 mg PO TID PRN #60 tablet 08/09/22 [Rx] HYDROcodone/APAP 5-325MG [[place] 5-325] 1 tab PO Q8HR PRN 7 Days #21 tab 08/09/22 [Rx] atenoloL [Tenormin] 50 mg PO BID #60 tab 08/09/22 [Rx] Acetaminophen Tab [Tylenol] 650 mg PO Q6HR PRN tab 08/10/22 [Rx] Sennosides-Docusate Sodium [Senokot-S] 1 tab PO DAILY 08/23/22 [History] Benzocaine/Menthol Lozeng [Cepacol lozenge] 1 each MUCOUS MEM Q4HR PRN lozenge 09/03/22 [Rx] HYDROcodone/APAP 7.5-325MG [[place] 7.5-325] 1 tab PO Q4H PRN 7 Days #42 tab 09/03/22 [Rx] INSULIN ASPART (NovoLOG) [NovoLOG (formulary)] 0 unit SQ ACHS each 09/03/22 [Rx] Losartan [Cozaar] 100 mg PO QAM tab 09/03/22 [Rx] Magnesium Hydroxide [Milk of Magnesia Concentrate] 2,400 mg PO DAILY PRN ml 09/03/22 [Rx] Sodium Bicarbonate Tab 650 mg PO BID tab 09/03/22 [Rx] amLODIPine [Norvasc] 5 mg PO DAILY tab 09/03/22 [Rx] cloNIDine 0.3 MG/24HR PATCH [Catapres-TTS] 1 patch TRANSDERM Q7D patch 09/03/22 [Rx] diazePAM [Valium] 2 mg PO Q8HR PRN 7 Days #21 tab 09/03/22 [Rx] Follow up Appointment(s)/Referral(s): Ashley Olivas MD [Primary Care Provider] - 1-2 days Indio Edward DO [Doctor of Osteopathic Medicine] - 2 Weeks (1-2 weeks) Activity/Diet/Wound Care/Special Instructions: Transfers with walker and standby assistance to chair and bathroom and commode Encouraged patient to do exercises on her own with her arms and legs while in bed and well seated Daily physical therapy for activities of daily living, upper and lower extremity strengthening, mobilization, transverse, ambulation, and endurance Keep hard cervical collar on at all times Physical therapy to please use a gait belt. Patient has severe upper extremity weakness and has great difficulty supporting herself even with a walker on her own Keep mirna intact at posterior cervical incision site. Mirna may be removed on 09/09/2022 by nursing staff. 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
--- NOTE | 2022-09-03 13:40 | P.PN ---
Subjective Progress Note Date: 09/03/22 HISTORY OF PRESENT ILLNESS: This is an 81 year old female patient of Dr. Herman with past medical history of angina on Ranexa, coronary artery disease with stent in the mid RCA in 2007, hypertension, dyslipidemia. We have been asked to evaluate the patient for hypertension and new onset atrial fibrillation. Patient had anterior cervical decompression and fusion approximately 3 weeks ago and unfortunately has had progressive issues with her surgery requiring redo surgery 08/23. Cardiology was consulted for A. fib. She had prior episodes preoperatively 08/07 with prior consultation at that time however appeared to be frequent PACs. Patient currently with a neck brace and has been having difficulty swallowing and undergoing swallow eval. Her albumin is decreased at 2.6 and she has been third spacing with significant bilateral upper as well as lower extremity edema. She denies any chest pain or pressure however at home occasionally takes nitro. admits sometimes she has a difficult time explaining some of her symptoms. She denies any recent chest pain or pressure however. Cardiology was consult with secondary to similar episodes of irregular heart rates with reading out of A. fib. It appears she has had sinus rhythm with frequent PACs and no clear-cut prolonged episodes of A. fib. She did have one episode of questionable left upper face numbness and tingling for a few seconds 3-4 months ago however not clearly TIA and denies any history of TIA or stroke. She is on a cleviprex drip with systolics 120s over 30s. Bicarb going down to 14 today. Echocardiogram 2019 revealed normal EF, mild mitral regurgitation, mild mitral annular calcification, mild tricuspid regurgitation, mild pulmonic regurgitation. Cardiolite stress test in 2019 was negative. Abnormal perfusion study with mild reversible defect involving the inferior lateral segment. Gated study shows normal wall motion and thickening. At that time, patient declined coronary a ngiography. 08/28 Patient seen and examined. Echocardiogram performed yesterday which shows left ventricular ejection fraction 60-65% with RVSP 45. Hemoglobin today 8.6, platelets 198, bicarb continues a decreased down to 12, BUN 20, creatinine 0.9, TSH yesterday was 0.3 with free T4 2 0.0, lactic acid was normal. EKG reviewed with episodes overnight clearly consistent with atrial fibrillation with varying heart rates 90s to low 100 100s. 08/30 Patient seen and examined. Denies any SOB, no chest pain or pressure. She had anemia with hgb down from 8.4-6.9 and up to 9.8 after 1UPRBCs. Heparin drip was discontinued. Tolerating diet. Still with some difficulty swallowing and feeling like she has mucous she has to cough up. No hematochezia or melena. 08/31 She reports having a headache. Denies any chest pain or shortness of breath. Hgb stable at 9.3. No reports of bleeding. 09/01 Denies any pain today, no chest pains. Blood pressure remains labile. She got a 1x dose of lasix 20mg po this am. 09/02/2022 Patient examined this morning at the bedside. Patient denies chest pain or pressure. She denies shortness of breath. She complains of pain in her neck. Blood pressure is elevated this morning with a systolic in the 170s. She has been started on Norvasc. 09/03/2022 Patient seen and examined this afternoon. Patient is sitting up in the chair. She denies chest pain or pressure. She denies shortness of breath. Patient's blood pressure is improved today. PHYSICAL EXAM: VITAL SIGNS: Reviewed. GENERAL: Well-developed in no acute distress. NECK: Supple. No JVD or thyromegaly LUNGS: Respirations even and unlabored. Lungs essentially clear to auscultation bilaterally. HEART: Regular rate and rhythm. S1 and S2 heard. EXTREMITIES: Normal range of motion. No clubbing or cyanosis. Peripheral pulses intact. No lower extremity edema ASSESSMENT: Paroxysmal atrial fibrillation Cervical pain, s/p anterior and posterior cervical decompression and fusion History of coronary artery disease PCI to the mid RCA Hypertension Dyslipidemia Upper extremeity edema appears related to third spacing Anemia, s/p transfusion PLAN: Anticoagulation remains on hold Patients blood pressure has improved Continue current cardiac medications Stable for discharge from a cardiac standpoint Nurse practitioner note has been reviewed by physician. Signing provider agrees with the documented findings, assessment, and plan of care. Objective - Vital Signs Vital signs: Vital Signs Temp 97.6 F 09/03/22 08:03 Pulse 79 09/03/22 13:29 Resp 16 09/03/22 11:42 BP 142/72 09/03/22 11:08 Pulse Ox 97 09/03/22 11:08 FiO2 30 08/25/22 12:00 Intake & Output 09/02/22 09/03/22 09/03/22 18:59 06:59 18:59 Intake Total 970 118 Output Total 550 0 Balance 420 0 118 Intake: Oral 970 118 Output: Urine 550 0 Other: Voiding Method External Catheter External Catheter Bedside Commode # Voids 0 1 # Bowel Movements 1 ABP, PAP, CO, CI - Last Documented Arterial Blood Pressure 142/47 - Labs CBC & Chem 7: 09/02/22 12:22 09/03/22 11:23 Labs: Abnormal Lab Results - Last 24 Hours (Table) 09/02/22 09/02/22 09/03/22 Range/Units 16:32 20:35 11:23 Sodium 135 L (137-145) mmol/L BUN 18 H (7-17) mg/dL Glucose 138 H (74-99) mg/dL POC Glucose (mg/dL) 132 H 162 H (70-110) mg/dL Calcium 8.1 L (8.4-10.2) mg/dL 09/03/22 Range/Units 11:42 Sodium (137-145) mmol/L BUN (7-17) mg/dL Glucose (74-99) mg/dL POC Glucose (mg/dL) 150 H (70-110) mg/dL Calcium (8.4-10.2) mg/dL
--- NOTE | 2022-09-03 15:40 | P.PN ---
Subjective Progress Note Date: 09/03/22 This is an 81-year-old lady who was admitted after revision surgery for C4-C7 08/31. Patient seen and examined. Laying comfortably in the bed. Son at the bedside. Vital signs this morning are temperature 90.7, heart rate 70, respirations 18, blood pressure 136/62, WBC 3.3, hemoglobin 9.3, sodium 139, potassium 4, BUN 17 /30. Patient seen and examined. Nephrology recommended giving one more dose of Lasix. Vital signs this morning temperature afebrile, pulse 72, blood pressure 137/72. Patient has not had a bowel movement yet, passing gas. Appetite is poor 09/02/2022 Patient is seen and evaluated in follow-up this morning currently sitting up in the bed and family at bedside reports she was just in the chair and was helping transferred back to the bed. Patient continues with weakness and will be going to [facility] once cleared by consultations. Patient is tolerating oral intake although fair and encouraged to increase activity as tolerated. Patient blood pressure mildly elevated with nephrology following and has been resumed on Norvasc. Cardiology following as well currently rate controlled and recommending to continue with current regimen. Discussed with the patient and family about pain management as patient reports she continues to have anxiety and pain and per nursing staff has been requesting IV Dilaudid. Encourage the patient to avoid IV narcotics and continue with pain control with oral medications. Patient is medically stable for transfer to [facility] once orthopedic d ischarges. 09/03/2022 Patient is seen and evaluated in follow-up today with no acute overnight issues noted. Patient reports some improvement in pain and IV Dilaudid has been discontinued. Patient continues to have some anxiety although is taking as needed anxiety medications. Case management following and patient will be going to [facility] on the [place]. Patient is medically stable for discharge today and med reconciliation was done and patient will be continued on hypertension medications with close outpatient follow-up with cardiology. Patient is currently afebrile denies chest pain or shortness of breath. No reports of nausea or vomiting and is tolerating diet. Recommend continue with supplements in between meals as well. REVIEW OF SYSTEMS: CONSTITUTIONAL: No fever, no malaise,. CARDIOVASCULAR: No chest pain, no palpitations, no syncope. PULMONARY: No shortness of breath, no cough, GASTROINTESTINAL: No diarrhea, no nausea, no vomiting, no abdominal pain. NEUROLOGICAL: No headaches, reports of generalized weakness PHYSICAL EXAMINATION: GENERAL: The patient is alert and oriented x3, not in any acute distress. Well developed, well nourished. Cervical collar in place HEENT: Pupils are round and equally reacting to light. EOMI. No scleral icterus. No conjunctival pallor. Normocephalic, atraumatic. No pharyngeal erythema. No thyromegaly. CARDIOVASCULAR: S1 and S2 present. No murmurs, rubs, or gallops. PULMONARY: Chest is clear to auscultation, no wheezing or crackles. ABDOMEN: Soft, nontender, nondistended, normoactive bowel sounds. No palpable organomegaly. MUSCULOSKELETAL: No joint swelling or deformity. EXTREMITIES: No cyanosis, clubbing, or pedal edema. NEUROLOGICAL: Gross neurological examination did not reveal any focal deficits. Diffusely weak SKIN: No rashes. Assessment: Status post anterior and posterior cervical decompression with revision surgery for C4 to C7 Metabolic acidosis, improved Status post mechanical ventilation perioperatively Cervical myelopathy Atrial fibrillation, paroxysmal currently rate controlled Hypertension Type 2 diabetes mellitus Obesity with a BMI of 30.8 GI prophylaxis DVT prophylaxis Full code Plan: Recommend to continue with current medications and management with multiple medical consultations following Patient working with physical therapy and continues with significant weakness and agreeable to rehab and will be going to [facility] Patient's blood pressure improved and will continue [facility] cardiology following recommending close outpatient follow-up IV Dilaudid has been discontinued and maintained on oral medications per orthopedics Patient did have a bowel movement after suppository and will continue with stool softeners twice daily Encouraged oral intake and increased activity as tolerated Case management/social work following his patient will be going to [facility] today. Patient is medically stable for transfer to [facility] We will continue to follow with orthopedics during this hospitalization. Thank you kindly for this consultation The impression and plan of care has been dictated by Simin Chew, Nurse Practitioner as directed. Dr. Christiano MD I have performed a history and examination and MDM of this patient, discussed the same with the dictator, and agree with the dictator's assessment and plan as written ,documented as a scribe. Based on total visit time, I have performed more than 50% of the visit. Objective - Vital Signs Vital signs: Vital Signs Temp 97.6 F 09/03/22 08:03 Pulse 68 09/03/22 08:10 Resp 16 09/03/22 08:10 BP 167/68 09/03/22 08:03 Pulse Ox 100 09/03/22 08:03 FiO2 30 08/25/22 12:00 Intake & Output 09/02/22 09/03/22 09/03/22 18:59 06:59 18:59 Intake Total 970 Output Total 550 0 Balance 420 0 Intake: Oral 970 Output: Urine 550 0 Other: Voiding Method External Catheter External Catheter Bedside Commode # Voids 0 1 # Bowel Movements 1 ABP, PAP, CO, CI - Last Documented Arterial Blood Pressure 142/47 - Labs CBC & Chem 7: 09/02/22 12:22 09/03/22 11:23 Labs: Abnormal Lab Results - Last 24 Hours (Table) 09/02/22 09/02/22 09/02/22 Range/Units 11:50 11:50 12:22 Hgb (11.4-16.0) gm/dL Hct (34.0-46.0) % RDW (11.5-15.5) % Lymphocytes # (1.0-4.8) k/uL Sodium 136 L (137-145) mmol/L Carbon Dioxide 21 L (22-30) mmol/L BUN 19 H (7-17) mg/dL Glucose 147 H (74-99) mg/dL POC Glucose (mg/dL) 167 H (70-110) mg/dL Calcium 7.9 L (8.4-10.2) mg/dL Total Protein 5.1 L (6.3-8.2) g/dL Albumin 2.6 L (3.5-5.0) g/dL Urine Protein Trace H (Negative) 09/02/22 09/02/22 09/02/22 Range/Units 12:22 16:32 20:35 Hgb 9.8 L (11.4-16.0) gm/dL Hct 31.2 L (34.0-46.0) % RDW 18.0 H (11.5-15.5) % Lymphocytes # 0.7 L (1.0-4.8) k/uL Sodium (137-145) mmol/L Carbon Dioxide (22-30) mmol/L BUN (7-17) mg/dL Glucose (74-99) mg/dL POC Glucose (mg/dL) 132 H 162 H (70-110) mg/dL Calcium (8.4-10.2) mg/dL Total Protein (6.3-8.2) g/dL Albumin (3.5-5.0) g/dL Urine Protein (Negative)
[2022-09-03 15:42] VITALS: BP 152/75; PULSE 70; TEMP 97.9
[2022-09-04 02:51] LABS: % Iron Saturation 11.06 (12.00-45.00)
== END 2022-09-03 15:59 | DRG 453 ==
LOC: EC 11:26 → 4SSUR 12:42 → 2SICU 08-24 16:43 → 3SCARD 08-29 11:50
PROVIDERS: ADMIT Orthopaedic Surgery Orthopaedic Surgery of the Spine; ATTEND Orthopaedic Surgery Orthopaedic Surgery of the Spine
PROC: 0RT30ZZ Resection of Cervical Vertebral Disc, Open Approach (ICD-10-PCS; 2022-08-24)
PROC: 0RG20AJ Fusion of 2 or more Cervical Vertebral Joints with Interbody Fusion Device, Posterior Approach, Anterior Column, Open Approach (ICD-10-PCS; 2022-08-24)
PROC: 0RG2071 Fusion of 2 or more Cervical Vertebral Joints with Autologous Tissue Substitute, Posterior Approach, Posterior Column, Open Approach (ICD-10-PCS; 2022-08-24)
PROC: 0RP10AZ Removal of Interbody Fusion Device from Cervical Vertebral Joint, Open Approach (ICD-10-PCS; 2022-08-24)
PROC: 30233N1 Transfusion of Nonautologous Red Blood Cells into Peripheral Vein, Percutaneous Approach (ICD-10-PCS; 2022-08-24)
PROC: 0RG20A0 Fusion of 2 or more Cervical Vertebral Joints with Interbody Fusion Device, Anterior Approach, Anterior Column, Open Approach (ICD-10-PCS; principal; 2022-08-24 10:00)
PROC: 0PU30JZ Supplement Cervical Vertebra with Synthetic Substitute, Open Approach (ICD-10-PCS; 2022-08-24 10:00)
DX: M97.8XXA Periprosthetic fracture around other internal prosthetic joint, initial encounter (principal); J96.90 Respiratory failure, unspecified, unspecified whether with hypoxia or hypercapnia; N17.0 Acute kidney failure with tubular necrosis; G99.2 Myelopathy in diseases classified elsewhere; E87.20 Acidosis, unspecified; I13.0 Hypertensive heart and chronic kidney disease with heart failure and stage 1 through stage 4 chronic kidney disease, or unspecified chronic kidney disease; D62 Acute posthemorrhagic anemia; E87.3 Alkalosis; D63.1 Anemia in chronic kidney disease; T84.216A Breakdown (mechanical) of internal fixation device of vertebrae, initial encounter; E11.22 Type 2 diabetes mellitus with diabetic chronic kidney disease; E87.8 Other disorders of electrolyte and fluid balance, not elsewhere classified; I50.9 Heart failure, unspecified; E66.9 Obesity, unspecified; J45.20 Mild intermittent asthma, uncomplicated; I48.0 Paroxysmal atrial fibrillation; M06.9 Rheumatoid arthritis, unspecified; M48.02 Spinal stenosis, cervical region; E78.5 Hyperlipidemia, unspecified; M40.202 Unspecified kyphosis, cervical region; M19.90 Unspecified osteoarthritis, unspecified site; M81.0 Age-related osteoporosis without current pathological fracture; N18.31 Chronic kidney disease, stage 3a; M65.89 Other synovitis and tenosynovitis, multiple sites; R26.2 Difficulty in walking, not elsewhere classified; F06.4 Anxiety disorder due to known physiological condition; M25.78 Osteophyte, vertebrae; M79.89 Other specified soft tissue disorders; I25.10 Atherosclerotic heart disease of native coronary artery without angina pectoris; R13.10 Dysphagia, unspecified; I49.1 Atrial premature depolarization; I08.1 Rheumatic disorders of both mitral and tricuspid valves; I44.0 Atrioventricular block, first degree; H91.90 Unspecified hearing loss, unspecified ear; Z96.653 Presence of artificial knee joint, bilateral; Z68.30 Body mass index [BMI] 30.0-30.9, adult; Z88.5 Allergy status to narcotic agent; Z79.899 Other long term (current) drug therapy; Z79.84 Long term (current) use of oral hypoglycemic drugs; Z79.82 Long term (current) use of aspirin; Z90.5 Acquired absence of kidney; Z90.12 Acquired absence of left breast and nipple; Z85.3 Personal history of malignant neoplasm of breast; Z85.528 Personal history of other malignant neoplasm of kidney; Z95.5 Presence of coronary angioplasty implant and graft; Z92.21 Personal history of antineoplastic chemotherapy; Z98.1 Arthrodesis status; Z86.73 Personal history of transient ischemic attack (TIA), and cerebral infarction without residual deficits
CPT/HCPCS: 36430; 71045; 72040; 74230; 80048; 80053; 81001; 81003; 82009; 82728; 82805; 83036; 83540; 83550; 83605; 83735; 83880; 84132; 84133; 84300; 84439; 84443; 85025; 85027; 85610; 85730; 86850; 86900; 86901; 86920; 87070; 87205; 93005; 93306; 93970; 94002; 94003; 94640; 94760; 96361; 96374; 96375; 99285

== ENCOUNTER 2022-09-09 13:51 | Observation (INO) | payer MEDICARE, OTHER ==
[2022-09-09 15:29] LABS: Anisocytosis Slight; Basophils % (A) 0 %; Eosinophils # (A) 0.2 k/uL (0-0.7); Eosinophils % (A) 2 %; HCT 27.7 % (34.0-46.0); HGB 8.6 gm/dL (11.4-16.0); Hypochromasia Slight; Lymphocytes # (A) 1.1 k/uL (1.0-4.8); Lymphocytes % (A) 17 %; MCH 25.1 pg (25.0-35.0); MCHC 31.2 g/dL (31.0-37.0); MCV 80.4 fL (80.0-100.0); Mean Platelet Volume 7.9; Microcytosis Slight; Monocytes # (A) 0.4 k/uL (0-1.0); Monocytes % (A) 5 %; Neutrophils # (A) 4.9 k/uL (1.3-7.7); Neutrophils % (A) 74 %; Platelet Count 241 k/uL (150-450); RBC 3.45 m/uL (3.80-5.40); RDW 17.6 % (11.5-15.5); WBC 6.6 k/uL (3.8-10.6)
[2022-09-09 15:40] LABS: Partial Thromboplastin Time 26.2 sec (22.0-30.0); Prothrombin Time 10.6 sec (9.0-12.0)
[2022-09-09 15:43] LABS: Potassium 3.7 mmol/L (3.5-5.1)
[2022-09-09 15:44] LABS: Albumin 2.7 g/dL (3.5-5.0); Calcium 7.8 mg/dL (8.4-10.2); Magnesium 1.6 mg/dL (1.6-2.3); Total Bilirubin 0.6 mg/dL (0.2-1.3); Total Protein 4.9 g/dL (6.3-8.2)
--- NOTE | 2022-09-09 15:57 | ED ---
General Adult HPI - General Chief complaint: Syncope Stated complaint: syncope Time Seen by Provider: 09/09/22 14:08 Source: patient, EMS, RN notes reviewed, old records reviewed Mode of arrival: EMS Limitations: no limitations - History of Present Illness Initial comments: 81-year-old female with an episode of unresponsiveness lasting approximately 30 minutes. Patient had been undergoing therapy, she is currently in a [facility] receiving physical therapy after her cervical spine fusion. She had taken her medications which include Flexeril and [place] and shortly thereafter became minimally responsive followed by an episode of complete unresponsiveness for 30 minutes. Patient was breathing during this and did have a pulse according to family members. She is awake and alert at the time my evaluation without any complaints. - Related Data Home Medications Medication Instructions Recorded Confirmed Ergocalciferol [Vitamin D2 (1250 1,250 mcg PO FR@89906/05/22 09/09/22 Mcg = 95575 Iu)] Fluticasone Propionate 220 Mcg 2 puff INHALATION RT-BID@899,209906/05/22 09/09/22 [Flovent 220 Mcg Inhaler] Montelukast Sodium [Singulair] 10 mg PO HS@209906/05/22 09/09/22 Nitroglycerin Sl Tabs [Nitrostat] 0.4 mg SUBLINGUAL Q5M PRN 06/05/22 09/09/22 Pioglitazone [Actos] 15 mg PO DAILY@89906/05/22 09/09/22 Ranolazine [Ranexa] 500 mg PO BID@0900,209906/05/22 09/09/22 Repaglinide [Prandin] 0.5 mg PO BID@0600,1700 06/05/22 09/09/22 Isosorbide Mononitrate ER [Imdur] 90 mg PO DAILY@89908/07/22 09/09/22 Sennosides-Docusate Sodium 1 tab PO HS@209908/23/22 09/09/22 [Senokot-S] Benzocaine/Menthol Lozeng [Cepacol 1 lozenge MUCOUS MEM Q4HR PRN 09/09/22 09/09/22 lozenge] Cefuroxime [Ceftin] 250 mg PO BID@0900,209909/09/22 09/09/22 Citalopram Hydrobromide [CeleXA] 20 mg PO DAILY@89909/09/22 09/09/22 Cyanocobalamin [Vitamin B-12 1,000 mcg SQ DIRECTED 09/09/22 09/09/22 Injection] Cyclobenzaprine [Flexeril] 5 mg PO TID PRN 09/09/22 09/09/22 Fluconazole [Diflucan] 100 mg PO DAILY@89909/09/22 09/09/22 Furosemide [Lasix] 40 mg PO DAILY@89909/09/22 09/09/22 HYDROcodone/APAP 5-325MG [[place] 1 tab PO Q4HR PRN 09/09/22 09/09/22 5-325] Insulin Lispro [humaLOG Kwikpen] See Protocol SQ QID@07,12,,09/09/22 09/09/22 Lactose-Reduced Food [Ensure Plus] 1 can PO BID@0900,209909/09/22 09/09/22 Lactulose 20 gm PO HS@209909/09/22 09/09/22 Losartan Potassium 100 mg PO DAILY@89909/09/22 09/09/22 Sodium Bicarbonate Tab 650 mg PO BID@0900,209909/09/22 09/09/22 amLODIPine [Norvasc] 5 mg PO DAILY@89909/09/22 09/09/22 atenoloL [Tenormin] 50 mg PO BID@0900,2100 09/09/22 09/09/22 busPIRone HCL [Buspar] 7.5 mg PO TID@0900,1300,209909/09/22 09/09/22 cloNIDine 0.3 MG/24HR PATCH 1 patch TRANSDERM WE 09/09/22 09/09/22 [Catapres-TTS] lidocaine HCL [Aspercreme 1 applic TOPICAL TID@0900,1300,209909/09/22 09/09/22 Lidocaine] Previous Rx's Medication Instructions Recorded Acetaminophen Tab [Tylenol] 650 mg PO Q6HR PRN tab 08/10/22 Magnesium Hydroxide [Milk of 2,400 mg PO DAILY PRN ml 09/03/22 Magnesia Concentrate] diazePAM [Valium] 2 mg PO QID PRN #6 tab 09/03/22 Allergies Allergy/AdvReac Type Severity Reaction Status Date / Time codeine AdvReac Nausea & Verified 09/09/22 15:58 Vomiting,hyperactive Review of Systems ROS Statement: Those systems with pertinent positive or pertinent negative responses have been documented in the HPI. ROS Other: All systems not noted in ROS Statement are negative. Past Medical History Past Medical History: Atrial Fibrillation, Asthma, Coronary Artery Disease (CAD), Cancer, Chest Pain / Angina, Heart Failure, Diabetes Mellitus, GERD/Reflux, Hearing Disorder / Deafness, Hyperlipidemia, Hypertension, Osteoarthritis (OA), Renal Disease, Rheumatoid Arthritis (RA), Vascular Disorder Additional Past Medical History / Comment(s): Cervical myopathy, spinal jescia nosis, paroxysmal afib, sinus bradycardia, NIDDM type II, 1984 L breast cancer/surgery and chemotherapy, 1985 L renal carcinoma, kidney infections, UTIs with current UTI, pt unsure if she had previous tia, ckd stage III, anemia, past small bowel obstructions, past ulcer, abnormal gait/uses walker, FALLS History of Any Multi-Drug Resistant Organisms: None Reported Past Surgical History: Breast Surgery, Heart Catheterization, Heart Catheterization With Stent, Joint Replacement, Orthopedic Surgery Additional Past Surgical History / Comment(s): Bilateral carpal tunnel releases, bilateral knee replacements, L breast mastectomy, L nephrectomy, colonoscopy, cataract removals. Past Anesthesia/Blood Transfusion Reactions: Motion Sickness, Postoperative Nausea & Vomiting (PONV) Additional Past Anesthesia/Blood Transfusion Reaction / Comment(s): Pt has had blood transfusion without reaction. Pt states she has fear of anesthesia. Date of Last Stent Placement:: 2007 Past Psychological History: Anxiety Smoking Status: Never smoker Past Alcohol Use History: None Reported Past Drug Use History: None Reported - Past Family History Mother Family Medical History: Cancer, Diabetes Mellitus Additional Family Medical History / Comment(s): Breast and colon cancer Father Additional Family Medical History / Comment(s): bowel problems General Exam Limitations: no limitations General appearance: alert, in no apparent distress Head exam: Present: atraumatic, normocephalic Eye exam: Present: normal appearance, PERRL ENT exam: Present: normal exam Neck exam: Present: other (C-collar in place) Respiratory exam: Present: normal lung sounds bilaterally. Absent: respiratory distress, wheezes Cardiovascular Exam: Present: normal rhythm, bradycardia GI/Abdominal exam: Present: soft. Absent: distended, tenderness, guarding Extremities exam: Present: normal capillary refill Neurological exam: Present: alert, oriented X3, CN II-XII intact. Absent: motor sensory deficit Skin exam: Present: warm, dry, intact. Absent: cyanosis, diaphoretic Course Vital Signs 09/09/22 09/09/22 09/09/22 14:00 15:00 16:00 Temperature 98.0 F Pulse Rate 58 L 56 L 57 L Respiratory 18 18 18 Rate Blood Pressure 117/51 126/74 130/76 O2 Sat by Pulse 97 99 98 Oximetry - Reevaluation(s) Reevaluation #1: 09/09/22 16:52 I discussed case with Dr. Olivas who is familiar with the patient, she recommends VQ scan for shortness of breath. Nuclear medicine has left for the day and the study will be ordered for tomorrow. EKG Findings - EKG Comments: EKG Findings:: EKG: See suspect sinus mechanism although definitive P waves are limited, this is a no complex regular rhythm at a rate of 57, QRS duration 84, QTC 431, no ST segment elevation. Medical Decision Making - Medical Decision Making Was pt. sent in by a medical professional or institution (, PA, NON DESTRUCTIVE EVALUATION TECHNICIAN, urgent care, hospital, or chcf...) When possible be specific @ -No Did you speak to anyone other than the patient for history (EMS, parent, family, police, friend...)? What history was obtained from this source @ -No Did you review nursing and triage notes (agree or disagree)? Why? @ -I reviewed and agree with nursing and triage notes Were old charts reviewed (outside hosp., previous admission, EMS record, old EKG, old radiological studies, urgent care reports/EKG's, chcf records)? Report findings @ -No old charts were reviewed Differential Diagnosis (chest pain, altered mental status, abdominal pain women, abdominal pain men, vaginal bleeding, weakness, fever, dyspnea, syncope, headache, dizziness, GI bleed, back pain, seizure, CVA, palpatations, mental he alth, musculoskeletal)? @ Differential Syncope: Valvular disease, hypertrophic cardiomyopathy, pulmonary embolism, tamponade, tachycardia, bradycardia, [place], hypovolemia, hemorrhage, dissection, anemia, intracranial hemorrhage, seizure, hypoglycemia, carbon monoxide poisoning, this is not meant to be an all-inclusive list. EKG interpreted by me (3pts min.). @ -As above X-rays interpreted by me (1pt min.). @ -None done CT interpreted by me (1pt min.). @ Negative for intracranial hemorrhage or mass effect U/S interpreted by me (1pt. min.). @ -None done What testing was considered but not performed or refused? (CT, X-rays, U/S, labs)? Why? @ -None What meds were considered but not given or refused? Why? @ -None Did you discuss the management of the patient with other professionals (professionals i.e. DrKizzy, PA, NON DESTRUCTIVE EVALUATION TECHNICIAN, lab, RT, psych nurse, director social service, store facility technician, teacher, chief credit officer, major case detective)? Give summary @ Dr. Rouse, Dr. Olivas Was smoking cessation discussed for >3mins.? @ -No Was critical care preformed (if so, how long)? @ -No Were there social determinants of health that impacted care today? How? (Ho melessness, low income, unemployed, alcoholism, drug addiction, transportation, low edu. Level, literacy, decrease access to med. care, correction, rehab)? @ -No Was there de-escalation of care discussed even if they declined (Discuss DNR or withdrawal of care, Hospice)? DNR status @ -No What co-morbidities impacted this encounter? (DM, HTN, Smoking, COPD, CAD, Cancer, CVA, ARF, Chemo, Hep., AIDS, mental health diagnosis, sleep apnea, morbid obesity)? @ Anemia Was patient admitted / discharged? Hospital course, mention meds given and route, prescriptions, significant lab abnormalities, going to OR and other pertinent info. @ Patient will be admitted for observation and VQ scan. Undiagnosed new problem with uncertain prognosis? @ -No Drug Therapy requiring intensive monitoring for toxicity (Heparin, Nitro, Insulin, Cardizem)? @ -No Were any procedures done? @ -No Diagnosis/symptom? @ Syncope Acute, or Chronic, or Acute on Chronic? @ Acute - Lab Data Result diagrams: 09/09/22 14:52 09/09/22 14:52 Lab Results 09/09/22 09/09/22 09/09/22 Range/Units 14:52 14:52 14:52 WBC 6.6 (3.8-10.6) k/uL RBC 3.45 L (3.80-5.40) m/uL Hgb 8.6 L (11.4-16.0) gm/dL Hct 27.7 L (34.0-46.0) % MCV 80.4 (80.0-100.0) fL MCH 25.1 (25.0-35.0) pg MCHC 31.2 (31.0-37.0) g/dL RDW 17.6 H (11.5-15.5) % Plt Count 241 (150-450) k/uL MPV 7.9 Neutrophils % 74 % Lymphocytes % 17 % Monocytes % 5 % Eosinophils % 2 % Basophils % 0 % Neutrophils # 4.9 (1.3-7.7) k/uL Lymphocytes # 1.1 (1.0-4.8) k/uL Monocytes # 0.4 (0-1.0) k/uL Eosinophils # 0.2 (0-0.7) k/uL Basophils # 0.0 (0-0.2) k/uL Hypochromasia Slight Anisocytosis Slight Microcytosis Slight PT 10.6 (9.0-12.0) sec INR 1.0 (<1.2) APTT 26.2 (22.0-30.0) sec Sodium 135 L (137-145) mmol/L Potassium 3.7 (3.5-5.1) mmol/L Chloride 100 (98-107) mmol/L Carbon Dioxide 28 (22-30) mmol/L Anion Gap 7 mmol/L BUN 13 (7-17) mg/dL Creatinine 1.21 H (0.52-1.04) mg/dL Est GFR (CKD-EPI)AfAm 49 (>60 ml/min/1.73 sqM) Est GFR (CKD-EPI)NonAf 42 (>60 ml/min/1.73 sqM) Glucose 78 (74-99) mg/dL Calcium 7.8 L (8.4-10.2) mg/dL Magnesium 1.6 (1.6-2.3) mg/dL Total Bilirubin 0.6 (0.2-1.3) mg/dL AST 21 (14-36) U/L ALT 9 (4-34) U/L Alkaline Phosphatase 73 (38-126) U/L Troponin I (0.000-0.034) ng/mL Total Protein 4.9 L (6.3-8.2) g/dL Albumin 2.7 L (3.5-5.0) g/dL 09/09/22 Range/Units 14:52 WBC (3.8-10.6) k/uL RBC (3.80-5.40) m/uL Hgb (11.4-16.0) gm/dL Hct (34.0-46.0) % MCV (80.0-100.0) fL MCH (25.0-35.0) pg MCHC (31.0-37.0) g/dL RDW (11.5-15.5) % Plt Count (150-450) k/uL MPV Neutrophils % % Lymphocytes % % Monocytes % % Eosinophils % % Basophils % % Neutrophils # (1.3-7.7) k/uL Lymphocytes # (1.0-4.8) k/uL Monocytes # (0-1.0) k/uL Eosinophils # (0-0.7) k/uL Basophils # (0-0.2) k/uL Hypochromasia Anisocytosis Microcytosis PT (9.0-12.0) sec INR (<1.2) APTT (22.0-30.0) sec Sodium (137-145) mmol/L Potassium (3.5-5.1) mmol/L Chloride (98-107) mmol/L Carbon Dioxide (22-30) mmol/L Anion Gap mmol/L BUN (7-17) mg/dL Creatinine (0.52-1.04) mg/dL Est GFR (CKD-EPI)AfAm (>60 ml/min/1.73 sqM) Est GFR (CKD-EPI)NonAf (>60 ml/min/1.73 sqM) Glucose (74-99) mg/dL Calcium (8.4-10.2) mg/dL Magnesium (1.6-2.3) mg/dL Total Bilirubin (0.2-1.3) mg/dL AST (14-36) U/L ALT (4-34) U/L Alkaline Phosphatase (38-126) U/L Troponin I 0.029 (0.000-0.034) ng/mL Total Protein (6.3-8.2) g/dL Albumin (3.5-5.0) g/dL Disposition Clinical Impression: Status post cervical spinal fusion, Syncope Disposition: ADMITTED IP TO THIS HOSP Condition: Stable Is patient prescribed a controlled substance at d/c from ED?: No Referrals: Ashley Olivas MD [Primary Care Provider] - 1-2 days Time of Disposition: 16:53
--- NOTE | 2022-09-09 16:06 | CT ---
EXAMINATION TYPE: CT brain wo con DATE OF EXAM: 09/09/2022 COMPARISON: None INDICATION: Syncope DLP: 1159.4 mGycm, Automated exposure control for dose reduction was used. CONTRAST: None CT of the brain is performed utilizing 3 mm thick sections through the posterior fossa and 3 mm thick sections through the remaining calvarium. Study is performed within 24 hours of arrival to the hosp ital. No abnormal hyperdensity is present to suggest an acute intracranial hemorrhage. No mass lesion is evident. No acute infarcts are evident. Mild patchy periventricular white matter hypodensity is present. This nonspecific. Consider chronic white matter ischemic changes within the differential. Ventricles and sulci are appropriate for the patient age. There is opacification of the left maxillary sinus. Remaining paranasal sinuses are clear. Mastoid ai r cells are clear IMPRESSIONS: 1. Chronic appearing periventricular white matter ischemic changes. Follow-up MRI can be performed as clinically indicated 2. Opacified left maxillary sinus. Correlate for chronic sinusitis.
[2022-09-09] MEDS ORDERED: NALOXONE 0.4 MG/ML 1 ML VIAL IV PRN (16:51)
[2022-09-09] MEDS ORDERED: ACETAMINOPHEN TAB 325 MG TAB PO PRN ×2 (16:51→20:16)
[2022-09-09] MEDS ORDERED: Magnesium Replacement Protocol 1 EACH MISC MISCELLANE PRN (20:14)
[2022-09-09] MEDS ORDERED: Potassium Replacement Protocol 1 EACH MISC MISCELLANE PRN (20:15)
[2022-09-09] MEDS ORDERED: BENZOCAINE/MENTHOL LOZENG 1 EACH LOZENGE MUCOUS MEM PRN (20:16)
[2022-09-09] MEDS ORDERED: NITROGLYCERIN SL TABS 0.4 MG TAB SUBLINGUAL PRN (20:16)
[2022-09-09] MEDS ORDERED: MAGNESIUM HYDROXIDE 2,400 MG/10 ML CUP PO PRN (20:16)
[2022-09-09] MEDS ORDERED: ONDANSETRON 4 MG/2 ML VIAL IVP PRN (20:19)
[2022-09-09] MEDS: SODIUM BICARBONATE TAB 650 MG TAB PO SCH (20:42)
[2022-09-09] MEDS: RANOLAZINE 500 MG TAB.ER.12H PO SCH (20:42)
[2022-09-09] MEDS: HEPARIN SODIUM,PORCINE/PF 5,000 UNIT/0.5 ML SYRINGE SQ SCH (20:43)
[2022-09-09] MEDS: MAGNESIUM SULFATE-D5W PMX 1 GM in DEXTROSE/WATER 1 100ML.BAG IVPB SCH ×2 (20:44→22:44)
[2022-09-09] MEDS ORDERED: FLUTICASONE 220 MCG INHALER INHALATION SCH (21:00)
[2022-09-09] MEDS ORDERED: LIDOCAINE HCL TOPICAL SCH (21:00)
[2022-09-09] MEDS ORDERED: POTASSIUM CHLORIDE ER 20 MEQ TAB.ER PO SCH (21:00)
[2022-09-09] MEDS ORDERED: LACTULOSE 20 GM/30 ML CUP PO SCH (21:00)
[2022-09-09] MEDS ORDERED: MONTELUKAST 10 MG TAB PO SCH (21:00)
[2022-09-09] MEDS ORDERED: SENNOSIDES-DOCUSATE SODIUM 1 EACH TAB PO SCH (21:00)
[2022-09-09] MEDS ORDERED: NON FORMULARY DRUG (Lactose-Reduced Food [Ensure Plus] 237 ML Ml) PO SCH (21:00)
--- NOTE | 2022-09-10 07:47 | P.CNOR ---
History of Present Illness - HPI Consult date: 09/10/22 Consult reason: other (Follow-up 2 weeks postop anterior and posterior cervical decompression and fusion for cervical myelopathy) History of present illness: Patient's a very pleasant 81-year-old female who is well known to our service. She had been at a nursing facility for several days but had a change in her mentation status yesterday and was difficult to arouse. She is postoperative day #16 status post revision anterior cervical decompression with 2-stage anterior and posterior cervical decompression and fusion from C2 to T2 for her severe cervical myelopathy upper and lower extremity weakness most significant at the right upper extremity. She had initially undergone anterior cervical decompression and fusion from C4 to C7 for her myelopathy approximately 6 weeks ago but the construct failed and she had undergo revision decompression with anterior and posterior decompression and fusion. She underwent close postoperative management and was in the hospital approximately 10 days postoperatively during her recovery. She may benefits with her risk for status as well as her oral intake and began to make improvements with her mobilization and ablation pain control. Her wounds have remained clear without any evidence of issue. She was able to be discharged to [facility] last week but yesterday had a change in her status. They have great difficulty trying to arouse her or wake her up. She is not able to participate in her physical therapy. She is not having evidence of respiratory difficulty or increased pain. She had been on regular oral medications and pain control. She denies any new medications. She had workup in the emergency room with computed tomography scan which does show any acute changes. She she was not having any gross neurologic changes when she was awake. this morning she says she is doing much better. She had a very good night according to her and her friend at bedside. She is involved with conversation. She is alert awake and understands what happened yesterday. She denies any new complaints. Denies any new weakness. Denies any changes in her thought process or her mentation or ability to speak. She denies any chest pain shortness of breath. Denies any fevers chills. Review of Systems As stated per HPI. She feels that she has been making some progress with her walking and was able to walk over 20 steps with a walker at nursing facility. She feels her left arm is doing better her right arms has some slight improvement but still significantly weak. Her pain has been controlled with oral medications but is still requiring regular medicines. She denies any fevers chills or night sweats. Denies any new changes in her wounds. She says there is occasionally a very small amount of drainage posteriorly. She denies any purulence or pus. Past Medical History Past Medical History: Atrial Fibrillation, Asthma, Coronary Artery Disease (CAD), Cancer, Chest Pain / Angina, Heart Failure, Diabetes Mellitus, GERD/Reflux, Hearing Disorder / Deafness, Hyperlipidemia, Hypertension, Osteoarthritis (OA), Renal Disease, Rheumatoid Arthritis (RA), Vascular Disorder Additional Past Medical History / Comment(s): Cervical myopathy, spinal stenosis, paroxysmal afib, sinus bradycardia, NIDDM type II, 1984 L breast cancer/surgery and chemotherapy, 1985 L renal carcinoma, kidney infections, UTIs with current UTI, pt unsure if she had previous tia, ckd stage III, anemia, past small bowel obstructions, past ulcer, abnormal gait/uses walker, FALLS History of Any Multi-Drug Resistant Organisms: None Reported Past Surgical History: Breast Surgery, Heart Catheterization, Heart Cathet erization With Stent, Joint Replacement, Orthopedic Surgery Additional Past Surgical History / Comment(s): Bilateral carpal tunnel releases, bilateral knee replacements, L breast mastectomy, L nephrectomy, colonoscopy, cataract removals. Past Anesthesia/Blood Transfusion Reactions: Motion Sickness, Postoperative Nausea & Vomiting (PONV) Additional Past Anesthesia/Blood Transfusion Reaction / Comm: Pt has had blood transfusion without reaction. Pt states she has fear of anesthesia. Date of Last Stent Placement:: 2007 Past Psychological History: Anxiety Additional Psychological History / Comment(s): Pt resides with her spouse. Smoking Status: Never smoker Past Alcohol Use History: None Reported Past Drug Use History: None Reported - Past Family History Mother Family Medical History: Cancer, Diabetes Mellitus Additional Family Medical History / Comment(s): Breast and colon cancer Father Additional Family Medical History / Comment(s): bowel problems Medications and Allergies Home Medications Medication Instructions Recorded Confirmed Type Ergocalciferol [Vitamin D2 (1250 1,250 mcg PO FR@89906/05/22 09/09/22 History Mcg = 45490 Iu)] Fluticasone Propionate 220 Mcg 2 puff INHALATION RT-BID@0900,209906/05/22 09/09/22 History [Flovent 220 Mcg Inhaler] Montelukast Sodium [Singulair] 10 mg PO HS@209906/05/22 09/09/22 History Nitroglycerin Sl Tabs [Nitrostat] 0.4 mg SUBLINGUAL Q5M PRN 06/05/22 09/09/22 History Pioglitazone [Actos] 15 mg PO DAILY@0906/05/22 09/09/22 History Ranolazine [Ranexa] 500 mg PO BID@0900,2100 06/05/22 09/09/22 History Repaglinide [Prandin] 0.5 mg PO BID@0600,1700 06/05/22 09/09/22 History Isosorbide Mononitrate ER [Imdur] 90 mg PO DAILY@89908/07/22 09/09/22 History Acetaminophen Tab [Tylenol] 650 mg PO Q6HR PRN tab 08/10/22 09/09/22 Rx Sennosides-Docusate Sodium 1 tab PO HS@209908/23/22 09/09/22 History [Senokot-S] Magnesium Hydroxide [Milk of 2,400 mg PO DAILY PRN ml 09/03/22 09/09/22 Rx Magnesia Concentrate] diazePAM [Valium] 2 mg PO QID PRN #6 tab 09/03/22 09/09/22 Rx Benzocaine/Menthol Lozeng [Cepacol 1 lozenge MUCOUS MEM Q4HR PRN 09/09/22 09/09/22 History lozenge] Cefuroxime [Ceftin] 250 mg PO BID@0900,209909/09/22 09/09/22 History Citalopram Hydrobromide [CeleXA] 20 mg PO DAILY@89909/09/22 09/09/22 History Cyanocobalamin [Vitamin B-12 1,000 mcg SQ DIRECTED 09/09/22 09/09/22 History Injection] Cyclobenzaprine [Flexeril] 5 mg PO TID PRN 09/09/22 09/09/22 History Fluconazole [Diflucan] 100 mg PO DAILY@89909/09/22 09/09/22 History Furosemide [Lasix] 40 mg PO DAILY@0900 09/09/22 09/09/22 History HYDROcodone/APAP 5-325MG [[place] 1 tab PO Q4HR PRN 09/09/22 09/09/22 History 5-325] Insulin Lispro [humaLOG Kwikpen] See Protocol SQ QID@07,12,17,21 09/09/22 History Lactose-Reduced Food [Ensure Plus] 1 can PO BID@0900,2100 09/09/22 09/09/22 History Lactulose 20 gm PO HS@209909/09/22 09/09/22 History Losartan Potassium 100 mg PO DAILY@0900 09/09/22 09/09/22 History Sodium Bicarbonate Tab 650 mg PO BID@0900,209909/09/22 09/09/22 History amLODIPine [Norvasc] 5 mg PO DAILY@0900 09/09/22 09/09/22 History atenoloL [Tenormin] 50 mg PO BID@0900,209909/09/22 09/09/22 History busPIRone HCL [Buspar] 7.5 mg PO TID@0900,1300,209909/09/22 09/09/22 History cloNIDine 0.3 MG/24HR PATCH 1 patch TRANSDERM WE 09/09/22 09/09/22 History [Catapres-TTS] lidocaine HCL [Aspercreme 1 applic TOPICAL TID@0900,1300,209909/09/22 09/09/22 History Lidocaine] Allergies Allergy/AdvReac Type Severity Reaction Status Date / Time codeine AdvReac Nausea & Verified 09/09/22 15:58 Vomiting,hyperactive Physical Examination Osteopathic Statement: *. No significant issues noted on an osteopathic structural exam other than those noted in the History and Physical/Consult. - C Spine: dermatomal strength & reflexes bilateral Shoulder strength: flexion: 3/5 (Significant significant weakness at bilateral upper extremity is worse on the right than left. Her right hand has limited motion with 2/5 strength at her hand. 3 minus strength at her right elbow. Her left upper extremity has 3-3+ out of 5 strength) Wrist strength: extension: 2/5 (She may have some slight improvement in her strength at her left upper extremity and her legs. Her neck incision is clean dry and intact anterior and posteriorly. Her posterior jeremias are removed. There is no active drainage. There is some very small serous spotting on the dressing from 2 days) Results - Labs Labs: Abnormal Lab Results - Last 24 Hours (Table) 09/09/22 09/09/22 Range/Units 14:52 14:52 RBC 3.45 L (3.80-5.40) m/uL Hgb 8.6 L (11.4-16.0) gm/dL Hct 27.7 L (34.0-46.0) % RDW 17.6 H (11.5-15.5) % Sodium 135 L (137-145) mmol/L Creatinine 1.21 H (0.52-1.04) mg/dL Calcium 7.8 L (8.4-10.2) mg/dL Total Protein 4.9 L (6.3-8.2) g/dL Albumin 2.7 L (3.5-5.0) g/dL H & H 09/09/22 Range/Units 14:52 Hgb 8.6 L (11.4-16.0) gm/dL Hct 27.7 L (34.0-46.0) % Coagulation 09/09/22 Range/Units 14:52 INR 1.0 (<1.2) Result Diagrams: 09/09/22 14:52 09/09/22 14:52 - Diagnostic results CT scan - cervical: other (There was a computed tomography scan of her brain yesterday and I'm able see limited view of her cervical spine. The hardware appears to be intact anteriorly and posteriorly. We will obtain further imaging) Assessment and Plan Assessment: Postoperative day #16 status post 2-stage anterior and posterior cervical decompression and fusion from C2 to T2 for her severe cervical myelopathy with upper extremity weakness and 6 weeks status post initial anterior cervical decompression with failed fixation status post revision Decreased mental status yesterday possible syncopal episode, proving si gnificantly today Cervical myelopathy with upper and lower extremity weakness most significant at the right upper extremity Chronic anemia which appears stable Plan: Postoperative day #16 status post 2-stage anterior and posterior cervical decompression and fusion from C2 to T2 for her severe cervical myelopathy with upper extremity weakness and 6 weeks status post initial anterior cervical decompression with failed fixation status post revision Decreased mental status yesterday possible syncopal episode, proving significantly today Cervical myelopathy with upper and lower extremity weakness most significant at the right upper extremity Chronic anemia which appears stable In terms of the patient's cervical spine incision sites appear to be stable and healing appropriately. There is no active drainage or erythema or purulence. I removed her jeremias from her posterior cervical wound is morning and she tolerated well. We replaced the cervical collar which she should use at all times. I've asked to obtain new pad so that she can washed the current pads and change in amount as needed. Is okay from a spine standpoint for the patient to continue to use her hard cervical collar at all times and to be directly involved with physical therapy for amputation strength, transfers, activities of daily living, motion and strengthening at her upper extremity swelling. We will obtain cervical spine x-rays to reevaluate hardware and the alignment. If the hardware appears to be intact appropriately, then from a spine standpoint it would be okay to return to [facility]. The patient is continue further workup and is scheduled to have a V/Q scan this morning to evaluate if there is any respiratory cause for her mental status change yesterday. Medicine is following her closely. The patient was originally scheduled to have a follow-up as an outpatient with our office this morning, however if the x-rays appear to be stable which I anticipate, then we can land for her next follow-up in approximately 3-4 weeks. She should continue her hard cervical collar at all times.
[2022-09-10] MEDS ORDERED: ISOSORBIDE MONONITRATE ER 30 MG TAB.ER.24H PO SCH (09:00)
[2022-09-10] MEDS ORDERED: CITALOPRAM HYDROBROMIDE 20 MG TAB PO SCH (09:00)
[2022-09-10] MEDS: RANOLAZINE 500 MG TAB.ER.12H PO SCH (09:11)
[2022-09-10] MEDS: SODIUM BICARBONATE TAB 650 MG TAB PO SCH (09:11)
[2022-09-10] MEDS: HEPARIN SODIUM,PORCINE/PF 5,000 UNIT/0.5 ML SYRINGE SQ SCH (09:11)
--- NOTE | 2022-09-10 10:17 | XR ---
EXAMINATION TYPE: XR cervical spine limited DATE OF EXAM: 09/10/2022 COMPARISON: 09/02/2022 HISTORY: Cervical spine surgery TECHNIQUE: 3 view cervical spine FINDINGS: Pedicle screws and fixation rods are present posteriorly. Anterior cervical fusion with a v ertebral body spacer is present C3-C7. Alignment appears unchanged from comparison. Tip of the odonto id obscured by overlying occiput. Some prevertebral soft tissue swelling may remain present. IMPRESSION: 1. Stable postsurgical spinal fusion. Some prevertebral soft tissue swelling may remain present.
[2022-09-10] MEDS ORDERED: amLODIPine 10 MG TAB PO SCH (10:30)
--- NOTE | 2022-09-10 10:49 | P.CRDCN ---
History of Present Illness Consult date: 09/10/22 Consult reason: sycope History of present illness: History of present illness. Patient is a pleasant 81-year-old female with significant past medical history of angina on Ranexa, CAD with stent in the mid RCA in 2007, hypertension, dyslipidemia, new-onset A. fib, status post ACDF in August 2022 presented with episodes of unresponsiveness. She follows with Dr. Herman in the office. Patient had ACDF approximately 1 month ago and had a redo surgery 08/23. Cardiology was consulted after that for A. fib, however, it appeared she had sinus rhythm with frequent PACs and no clear-cut prolonged episodes of A. fib. She was initially started on anticoagulation however she was having issues with anemia and therefore this was discontinued. Echocardiogram 08/27/22 with ejection fraction 6065 percent, mild to moderate pulmonary hypertension, RVSP 45.2. Cardiology was consulted for possible syncope and bradycardia this admission. Family at bedside reports that patient was at [facility] and yesterday she was sleepy in the morning, she was too sleepy for physical therapy and required stimulation to stay awake. She then had an episode of unresponsiveness where the family could not wake her up for approximately 30 minutes, questionable syncope, family was concerned for a stroke. Patient does report that she took [place] and Flexeril before physical therapy yesterday morning. However, she does report that she has been taking [place] and Flexeril for a while now. She was awake by the time EMS came. She is awake and oriented 3 this morning, in no acute distress. She does report that she is not eating very much due to decreased appetite. She denies any chest pain or pressure. She does report getting shortness of breath when she is anxious. Swelling in bilateral upper extremities has improved. Head CT with no acute findings. Labs reviewed: WBC 6.6, hemoglobin 8.6, platelets 241, sodium 135, potassium 3.7, creatinine 1.21, magnesium 1.6, troponins negative 3. EKG shows sinus bradycardia with first-degree AV block, 57 bpm, no significant ST or T wave changes. REVIEW OF SYSTEMS: No fever or chills. No cough or expectoration. No diaphoresis. Patient denies headache, dizziness, blurred vision, double vision. Patient denies any stomach discomfort. No nausea, vomiting. No hematochezia. No hematemesis. Denies any black stools or blood in stools. Denies dysuria or hematuria. No muscle weakness or numbness. No chest pain or pressure. Reports decreased appetite. Reports occasional shortness of breath. PHYSICAL EXAMINATION: This is a 81-year-old female in no apparent distress at the time of my examination. HEENT: Head is atraumatic, normocephalic. Pupils are equal, round. Sclerae anicteric. Conjunctivae are clear. Mucous membranes of the mouth are moist. Neck c-collar in place. CHEST EXAMINATION: Lungs are clear to auscultation. No chest wall tenderness is noted on palpation or with deep breathing. HEART EXAMINATION: Heart regular rate and rhythm. S1, S2 heard. No murmurs, gallops or rub. ABDOMEN: Soft, nontender. Bowel sounds are heard. No organomegaly noted. EXTREMITIES: 2+ peripheral pulses, bilateral upper extremity swelling 1+, improved from prior admission. BLE edema +1. NEUROLOGIC EXAMINATION: Patient is awake, alert and oriented x3. IMPRESSION AND PLAN: History of CAD with stent to RCA Hypertension, however blood pressure has been labile prior admission Dyslipidemia Status post ACDF Period of unresponsiveness PLAN: Patient is doing well this morning, she is awake and alert with no compl aints. Blood pressure remains labile at times. Recommend continuing current regimen. Period of decreased responsiveness likely medication related with narcotics and muscle relaxants. Continue telemetry. Will follow. I am dictating on behalf of Dr. Jose Rafael Mejia's history/physical and assessme nt/plan. Past Medical History Past Medical History: Atrial Fibrillation, Asthma, Coronary Artery Disease (CAD), Cancer, Chest Pain / Angina, Heart Failure, Diabetes Mellitus, GERD/Reflux, Hearing Disorder / Deafness, Hyperlipidemia, Hypertension, Osteoarthritis (OA), Renal Disease, Rheumatoid Arthritis (RA), Vascular Disorder Additional Past Medical History / Comment(s): Cervical myopathy, spinal stenosis, paroxysmal afib, sinus bradycardia, NIDDM type II, 1984 L breast cancer/surgery and chemotherapy, 1985 L renal carcinoma, kidney infections, UTIs with current UTI, pt unsure if she had previous tia, ckd stage III, anemia, past small bowel obstructions, past ulcer, abnormal gait/uses walker, FALLS History of Any Multi-Drug Resistant Organisms: None Reported Past Surgical History: Breast Surgery, Heart Catheterization, Heart Catheterization With Stent, Joint Replacement, Orthopedic Surgery Additional Past Surgical History / Comment(s): Bilateral carpal tunnel releases, bilateral knee replacements, L breast mastectomy, L nephrectomy, colonoscopy, cataract removals. Past Anesthesia/Blood Transfusion Reactions: Motion Sickness, Postoperative Nausea & Vomiting (PONV) Additional Past Anesthesia/Blood Transfusion Reaction / Comment(s): Pt has had blood transfusion without reaction. Pt states she has fear of anesthesia. Date of Last Stent Placement:: 2007 Past Psychological History: Anxiety Additional Psychological History / Comment(s): Pt resides with her spouse. Smoking Status: Never smoker Past Alcohol Use History: None Reported Past Drug Use History: None Reported - Past Family History Mother Family Medical History: Cancer, Diabetes Mellitus Additional Family Medical History / Comment(s): Breast and colon cancer Father Additional Family Medical History / Comment(s): bowel problems Medications and Allergies Home Medications Medication Instructions Recorded Confirmed Type Ergocalciferol [Vitamin D2 (1250 1,250 mcg PO FR@89906/05/22 09/09/22 History Mcg = 44098 Iu)] Fluticasone Propionate 220 Mcg 2 puff INHALATION RT-BID@899,209906/05/22 09/09/22 History [Flovent 220 Mcg Inhaler] Montelukast Sodium [Singulair] 10 mg PO HS@209906/05/22 09/09/22 History Nitroglycerin Sl Tabs [Nitrostat] 0.4 mg SUBLINGUAL Q5M PRN 06/05/22 09/09/22 History Pioglitazone [Actos] 15 mg PO DAILY@89906/05/22 09/09/22 History Ranolazine [Ranexa] 500 mg PO BID@00,209906/05/22 09/09/22 History Repaglinide [Prandin] 0.5 mg PO BID@0600,1700 06/05/22 09/09/22 History Isosorbide Mononitrate ER [Imdur] 90 mg PO DAILY@89908/07/22 09/09/22 History Acetaminophen Tab [Tylenol] 650 mg PO Q6HR PRN tab 08/10/22 09/09/22 Rx Sennosides-Docusate Sodium 1 tab PO HS@209908/23/22 09/09/22 History [Senokot-S] Magnesium Hydroxide [Milk of 2,400 mg PO DAILY PRN ml 09/03/22 09/09/22 Rx Magnesia Concentrate] diazePAM [Valium] 2 mg PO QID PRN #6 tab 09/03/22 09/09/22 Rx Benzocaine/Menthol Lozeng [Cepacol 1 lozenge MUCOUS MEM Q4HR PRN 09/09/22 09/09/22 History lozenge] Cefuroxime [Ceftin] 250 mg PO BID@0900,209909/09/22 09/09/22 History Citalopram Hydrobromide [CeleXA] 20 mg PO DAILY@89909/09/22 09/09/22 History Cyanocobalamin [Vitamin B-12 1,000 mcg SQ DIRECTED 09/09/22 09/09/22 History Injection] Cyclobenzaprine [Flexeril] 5 mg PO TID PRN 09/09/22 09/09/22 History Fluconazole [Diflucan] 100 mg PO DAILY@89909/09/22 09/09/22 History Furosemide [Lasix] 40 mg PO DAILY@89909/09/22 09/09/22 History HYDROcodone/APAP 5-325MG [[place] 1 tab PO Q4HR PRN 09/09/22 09/09/22 History 5-325] Insulin Lispro [humaLOG Kwikpen] See Protocol SQ QID@07,12,17,09/09/22 09/09/22 History Lactose-Reduced Food [Ensure Plus] 1 can PO BID@0900,209909/09/22 09/09/22 History Lactulose 20 gm PO HS@209909/09/22 09/09/22 History Losartan Potassium 100 mg PO DAILY@89909/09/22 09/09/22 History Sodium Bicarbonate Tab 650 mg PO BID@0900,209909/09/22 09/09/22 History amLODIPine [Norvasc] 5 mg PO DAILY@89909/09/22 09/09/22 History atenoloL [Tenormin] 50 mg PO BID@0900,209909/09/22 09/09/22 History busPIRone HCL [Buspar] 7.5 mg PO TID@0900,1300,209909/09/22 09/09/22 History cloNIDine 0.3 MG/24HR PATCH 1 patch TRANSDERM WE 09/09/22 09/09/22 History [Catapres-TTS] lidocaine HCL [Aspercreme 1 applic TOPICAL TID@0900,1300,2100 09/09/22 09/09/22 History Lidocaine] Allergies Allergy/AdvReac Type Severity Reaction Status Date / Time codeine AdvReac Nausea & Verified 09/09/22 15:58 Vomiting,hyperactive Physical Exam Vitals: Vital Signs Temp Pulse Pulse Resp BP BP Pulse Ox 09/10/22 08:12 96 09/10/22 08:00 67 18 09/10/22 07:00 98.1 F 67 18 201/79 97 09/10/22 02:37 97.8 F 56 L 16 168/70 96 09/09/22 20:00 66 16 09/09/22 18:58 98.0 F 66 16 168/82 96 09/09/22 17:50 58 L 18 122/76 99 09/09/22 16:00 57 L 18 130/76 98 09/09/22 15:00 56 L 18 126/74 99 09/09/22 14:00 98.0 F 58 L 18 117/51 97 FiO2 09/10/22 08:12 21 09/10/22 08:00 09/10/22 07:00 09/10/22 02:37 09/09/22 20:00 09/09/22 18:58 09/09/22 17:50 09/09/22 16:00 09/09/22 15:00 09/09/22 14:00 Intake and Output 09/09/22 09/10/22 09/10/22 22:59 06:59 14:59 Intake Total 300 Output Total 600 500 Balance -300 -500 Intake: Oral 300 Output: Urine 600 500 Other: Voiding Method External Catheter External Catheter # Bowel Movements 1 Weight 71.668 kg Results 09/09/22 14:52 09/09/22 14:52 Cardiac Enzymes 09/09/22 09/09/22 09/09/22 Range/Units 14:52 14:52 21:44 AST 21 (14-36) U/L Troponin I 0.029 0.014 (0.000-0.034) ng/mL 09/10/22 Range/Units 01:14 AST (14-36) U/L Troponin I 0.018 (0.000-0.034) ng/mL Coagulation 09/09/22 Range/Units 14:52 PT 10.6 (9.0-12.0) sec APTT 26.2 (22.0-30.0) sec CBC 09/09/22 Range/Units 14:52 WBC 6.6 (3.8-10.6) k/uL RBC 3.45 L (3.80-5.40) m/uL Hgb 8.6 L (11.4-16.0) gm/dL Hct 27.7 L (34.0-46.0) % Plt Count 241 (150-450) k/uL Comprehensive Metabolic Panel 09/09/22 Range/Units 14:52 Sodium 135 L (137-145) mmol/L Potassium 3.7 (3.5-5.1) mmol/L Chloride 100 (98-107) mmol/L Carbon Dioxide 28 (22-30) mmol/L BUN 13 (7-17) mg/dL Creatinine 1.21 H (0.52-1.04) mg/dL Glucose 78 (74-99) mg/dL Calcium 7.8 L (8.4-10.2) mg/dL AST 21 (14-36) U/L ALT 9 (4-34) U/L Alkaline Phosphatase 73 (38-126) U/L Total Protein 4.9 L (6.3-8.2) g/dL Albumin 2.7 L (3.5-5.0) g/dL Current Medications Generic Name Dose Route Start Last Admin Trade Name Freq PRN Reason Stop Dose Admin Acetaminophen 650 mg 09/09/22 16:51 Acetaminophen Tab 325 Mg Tab PO Q6HR PRN Mild Pain or Fever > 100.5 Amlodipine Besylate 10 mg 09/10/22 10:30 Amlodipine 10 Mg Tab PO DAILY [facility] Benzocaine/Menthol 1 each 09/09/22 20:16 Benzocaine/Menthol Lozeng 1 Each Lozenge MUCOUS MEM Q4HR PRN Sore Throat Citalopram Hydrobromide 20 mg 09/10/22 09:00 09/10/22 09:11 Citalopram Hydrobromide 20 Mg Tab PO 20 mg DAILY@0900 [facility] Administration Ergocalciferol 1,250 mcg 09/13/22 09:00 Ergocalciferol 1,250 Mcg (50,000 Iu) Capsule PO FR@0900 [facility] Fluticasone Propionate 2 puff 09/09/22 21:00 Fluticasone 220 Mcg Inhaler INHALATION RT-BID@0900,2099 [facility] Heparin Sodium (Porcine) 5,000 unit 09/09/22 21:00 09/10/22 09:11 Heparin Sodium,Porcine/Pf 5,000 Unit/0.5 Ml Syringe SQ 5,000 unit Q12HR [facility] Administration Isosorbide Mononitrate 90 mg 09/10/22 09:00 09/10/22 09:11 Isosorbide Mononitrate Er 30 Mg Tab.Er.24h PO 90 mg DAILY@0900 [facility] Administration Lactulose 20 gm 09/09/22 21:00 09/09/22 20:44 Lactulose 20 Gm/30 Ml Cup PO Not Given HS@2100 [facility] Magnesium Hydroxide 2,400 mg 09/09/22 20:16 Magnesium Hydroxide 2,400 Mg/10 Ml Cup PO DAILY PRN Constipation Miscellaneous Information 1 each 09/09/22 20:14 Magnesium Replacement Protocol 1 Each Misc MISCELLANE DAILY PRN Per Protocol Protocol Miscellaneous Information 1 each 09/09/22 20:15 Potassium Replacement Protocol 1 Each Misc MISCELLANE DAILY PRN Per Protocol Protocol Montelukast Sodium 10 mg 09/09/22 21:00 09/09/22 20:44 Montelukast 10 Mg Tab PO 10 mg HS@2100 [facility] Administration Naloxone HCl 0.2 mg 09/09/22 16:51 Naloxone 0.4 Mg/Ml 1 Ml Vial IV Q2M PRN Opioid Reversal Nitroglycerin 0.4 mg 09/09/22 20:16 Nitroglycerin Sl Tabs 0.4 Mg Tab SUBLINGUAL Q5M PRN Chest Pain Ondansetron HCl 4 mg 09/09/22 20:19 Ondansetron 4 Mg/2 Ml Vial IVP Q6HR PRN Nausea And Vomiting Ranolazine 500 mg 09/09/22 21:00 09/10/22 09:11 Ranolazine 500 Mg Tab.Er.12h PO 500 mg BID@0900,2100 [facility] Administration Senna/Docusate Sodium 1 each 09/09/22 21:00 09/09/22 20:42 Sennosides-Docusate Sodium 1 Each Tab PO 1 each HS@2100 [facility] Administration Sodium Bicarbonate 650 mg 09/09/22 21:00 09/10/22 09:11 Sodium Bicarbonate Tab 650 Mg Tab PO 650 mg BID@899,2099 [facility] Administration Intake and Output 09/09/22 09/10/22 09/10/22 22:59 06:59 14:59 Intake Total 300 Output Total 600 500 Balance -300 -500 Intake: Oral 300 Output: Urine 600 500 Other: Voiding Method External Catheter External Catheter # Bowel Movements 1 Weight 71.668 kg 09/09/22 14:52 09/09/22 14:52
[2022-09-10 11:11] LABS: African American GFR (CKD) 47.6 (60.0-200.0); Anion Gap 10.9 mmol/L (10.00-18.00); BUN/Creat Ratio 8.54 Ratio (12.00-20.00); Blood Urea Nitrogen 10.5 mg/dL (9.0-27.0); Calcium 8.2 mg/dL (8.7-10.3); Carbon Dioxide 25.6 mmol/L (20.0-27.5); Magnesium 2.2 mg/dL (1.5-2.4); Non-African American GFR(CKD) 41.1 (60.0-200.0)
--- NOTE | 2022-09-10 11:53 | HP ---
HISTORY AND PHYSICAL This is a combined History and Physical and Discharge Summary. CHIEF COMPLAINT: Syncope. HISTORY OF PRESENT ILLNESS: This is an 81-year-old woman with a past medical history of multiple complex medical issues including recent neck surgery, was getting rehab in [facility]. The patient had a period of unresponsiveness. The patient apparently took pain medication as well as Flexeril together, and the patient came to [facility]. The patient became totally alert, and Cardiology cleared the patient to go back to [facility]. The pulse ox was normal. V/Q scan was ordered by ER but could not be done because of the patient's difficulties. The creatinine was slightly elevated, and I discussed with Dr. Olivas, who had decided to initiate Lovenox 40 mg subcutaneously daily and then continue to monitoring. PAST MEDICAL HISTORY: Reviewed includes recent surgery. Rest of the history and rest of the chart are also reviewed. HOME MEDICATIONS: Reviewed include fluticasone, and rest of the medications reviewed. ALLERGIES: Codeine. FAMILY HISTORY: History of diabetes mellitus in the family. SOCIAL HISTORY: No history of smoking or alcohol. REVIEW OF SYSTEMS: Fourteen-point review is negative except as mentioned earlier. PHYSICAL EXAMINATION: VITAL SIGNS: Pulse 67, blood pressure 201/79, respirations 18. HEENT: Conjunctivae are normal. NECK: No jugular venous distention. CARDIOVASCULAR: S1 and S2 muffled. RESPIRATORY: Breath sounds diminished at the bases. No rhonchi. No crackles. ABDOMEN: Soft and nontender. LEGS: No edema. NERVOUS SYSTEM: Nonfocal. LABORATORY DATA: Reviewed. ASSESSMENT: 1. Syncope, possibly medication-induced. 2. History of recent cervical surgery x2. 3. History of asthma. 4. History of coronary artery disease. 5. History of gastroesophageal reflux disease. 6. Multiple medical issues. RECOMMENDATIONS AND DISCUSSION: This is an 81-year-old woman, who presented with multiple medical issues. At this time, I recommend to continue the current medications. The patient has improved significantly. As mentioned earlier, I would recommend regular breathing treatments as well as incentive spirometry and also Lovenox 40 subcutaneously daily and continue to monitor with Dr. Olivas in the [facility]. Please refer to the medication requisition sheet for list of medications. MMODL / IJN: [id number] / MTDD
[2022-09-10 13:36] LABS: HCT 28.2 % (37.2-46.3); HGB 8.6 g/dL (12.0-15.0); MCHC 30.5 g/dL (32.0-37.0); Mean Platelet Volume 10.7 fL (9.5-12.2); NRBC Per 100 WBC 0 /100 WBCS (0.0-0.0); Platelet Count 209 X 10*3/uL (140-440); RBC 3.44 X 10*6/uL (4.10-5.20); RDW 19.9 % (11.5-14.5); WBC 6.52 X 10*3/uL (4.50-10.00)
[2022-09-10 13:37] LABS: Basophils # (A) 0.04 X 10*3/uL (0.00-0.10); Basophils % (A) 0.6 %; Elliptocytes 2+; Eosinophils # (A) 0.17 X 10*3/uL (0.04-0.35); Eosinophils % (A) 2.6 %; Hypochromasia (M) 2+; Immature Grans, Automated 0.3 %; Lymphocytes # (A) 1.01 X 10*3/uL (0.90-5.00); Lymphocytes % (A) 15.5 %; Microcytosis (M) 2+; Monocytes # (A) 0.71 X 10*3/uL (0.20-1.00); Monocytes % (A) 10.9 %; Neutrophils # (A) 4.57 X 10*3/uL (1.80-7.70); Neutrophils % (A) 70.1 %; Target Cells 2+
[2022-09-10 14:16] VITALS: BP 145/62; PULSE 72; RESP 16; TEMP 97.5
[2022-09-13] MEDS ORDERED: ERGOCALCIFEROL 1,250 MCG (50,000 IU) CAPSULE PO SCH (09:00)
== END 2022-09-10 15:30 ==
LOC: EC 13:51 → 6NMEDSUR 16:51
PROVIDERS: ADMIT Hospitalist; ATTEND Hospitalist
DX: R55 Syncope and collapse (principal); R00.1 Bradycardia, unspecified; G95.9 Disease of spinal cord, unspecified; M48.02 Spinal stenosis, cervical region; I48.0 Paroxysmal atrial fibrillation; I13.0 Hypertensive heart and chronic kidney disease with heart failure and stage 1 through stage 4 chronic kidney disease, or unspecified chronic kidney disease; E11.22 Type 2 diabetes mellitus with diabetic chronic kidney disease; N18.30 Chronic kidney disease, stage 3 unspecified; I50.9 Heart failure, unspecified; I27.20 Pulmonary hypertension, unspecified; I44.0 Atrioventricular block, first degree; Z98.1 Arthrodesis status; I25.10 Atherosclerotic heart disease of native coronary artery without angina pectoris; K21.9 Gastro-esophageal reflux disease without esophagitis; E78.5 Hyperlipidemia, unspecified; M06.9 Rheumatoid arthritis, unspecified; H91.90 Unspecified hearing loss, unspecified ear; D64.9 Anemia, unspecified; M19.90 Unspecified osteoarthritis, unspecified site; F41.9 Anxiety disorder, unspecified; Z79.4 Long term (current) use of insulin; Z79.84 Long term (current) use of oral hypoglycemic drugs; Z79.51 Long term (current) use of inhaled steroids; Z79.899 Other long term (current) drug therapy; Z88.5 Allergy status to narcotic agent; Z87.39 Personal history of other diseases of the musculoskeletal system and connective tissue; Z85.3 Personal history of malignant neoplasm of breast; Z85.528 Personal history of other malignant neoplasm of kidney; Z92.21 Personal history of antineoplastic chemotherapy; Z87.19 Personal history of other diseases of the digestive system; Z87.440 Personal history of urinary (tract) infections; Z91.81 History of falling; Z95.5 Presence of coronary angioplasty implant and graft; Z90.5 Acquired absence of kidney; Z96.653 Presence of artificial knee joint, bilateral; Z90.12 Acquired absence of left breast and nipple; Z98.49 Cataract extraction status, unspecified eye; Z98.890 Other specified postprocedural states; Z80.0 Family history of malignant neoplasm of digestive organs; Z83.3 Family history of diabetes mellitus; Z80.3 Family history of malignant neoplasm of breast
CPT/HCPCS: 96365; 96366; 96372 ×2; 99285; 36415; 94760; 93005; 97162; 97166; 80053; 80048; 83735 ×2; 84484 ×2; 85025 ×2; 85610; 85730; 72040; 70450; G0378 ×2; J3475; J1644 ×2

== ENCOUNTER → 2022-10-02 | Outpatient (CLI) | payer MEDICARE, OTHER ==
--- NOTE | 2022-10-02 08:23 | CT ---
EXAMINATION TYPE: CT brain cspine wo con DATE OF EXAM: 10/02/2022 COMPARISON: CT brain September 2022. HISTORY: Rt sided arm weakness, recent cervical surgery. Headache. CT DLP: 1292.4 mGycm. Automated Exposure Control for Dose Reduction was Utilized. TECHNIQUE: CT scan of the head and cervical spine are performed without contrast. FINDINGS: There is no acute intracranial hemorrhage or midline shift identified. Mild to moderate v entricular and sulcal prominence redemonstrated. Mild to moderate low attenuation the periventricula r white matter redemonstrated. Partial visualization of mucosal thickening and patchy fluid in the le ft maxillary sinus appears improved from prior. Globes are intact bilaterally. Cervical spine is visualized in its entirety from C1 through upper thoracic levels and redemonstrate long segment surgical change with anterior fusion plate running from C3 through C7 vertebra and now l arge metallic cage now present running from C3-C4 disc space to the superior C7 vertebral body level. Stable slight grade 1 anterolisthesis C7 on T1. Interval posterior decompression change with long s egment interpedicular rods and screws running from bilateral C2 through the bilateral T2 levels. Post erior decompression with multiple bilateral laminectomy defects and spinous process resection is now present. Prevertebral soft tissue appears within normal limits. The C1-C2 articulation remains withi n normal limits on coronal images. Spinal canal is improved with posterior decompression changes. Ill-defined fluid in the posterior sof t tissue extends to the level of the spinal canal. Suboptimal evaluation due to streak artifact from metallic hardware. Screw positioning appears satisfactory on axial images obtained. The right T2 scre w does extend into the prevertebral soft tissue abutting the right upper lung pleural space. Lung api pasquale show no pneumothorax. Thyroid gland remains small in size. There is moderate to severe calcified plaque bilateral carotid bulb level noted. IMPRESSION: 1. Interval long segment posterior decompression. Alignment is stable. Further details as discussed a grzegorz. 2. No acute intracranial hemorrhage or midline shift is seen. [id number] diffuse cerebral atrop hy and chronic small vessel ischemic change redemonstrated. No significant change from prior CT. Impr oving or resolving left maxillary sinus disease suspected.
== END | disposition home or self-care (01) ==
LOC: RADCTMAIN 07:03
PROVIDERS: ATTEND Family Medicine
DX: I67.82 Cerebral ischemia (principal); M50.020 Cervical disc disorder with myelopathy, mid-cervical region, unspecified level; I69.951 Hemiplegia and hemiparesis following unspecified cerebrovascular disease affecting right dominant side; G31.9 Degenerative disease of nervous system, unspecified; R53.1 Weakness
CPT/HCPCS: 70450; 72125

== ENCOUNTER 2022-10-09 10:14 | Inpatient (IN) | payer MEDICARE, OTHER ==
--- NOTE | 2022-10-09 10:51 | ED ---
General Adult HPI - General Chief complaint: Altered Mental Status Stated complaint: Altered Mental Status Time Seen by Provider: 10/09/22 10:31 Source: patient, EMS, RN notes reviewed Mode of arrival: EMS Limitations: altered mental status - History of Present Illness Initial comments: Patient is a pleasant 82-year-old female presenting to the emergency department with concern with mental status change. Patient is from nursing facility. Patient is drowsy but arousable to touch. Patient offers limited information. Patient admits to feeling drowsy. Patient denies complaints otherwise. No reported history of fever. Patient reportedly did have neck surgery done a couple months ago. Patient denies any neck discomfort. Patient denies any dys pnea. - Related Data Home Medications Medication Instructions Recorded Confirmed Ergocalciferol [Vitamin D2 (1250 1,250 mcg PO FR@0906/05/22 10/09/22 Mcg = 53067 Iu)] Montelukast Sodium [Singulair] 10 mg PO DAILY 06/05/22 10/09/22 Nitroglycerin Sl Tabs [Nitrostat] 0.4 mg SUBLINGUAL Q5M PRN 06/05/22 10/09/22 Pioglitazone [Actos] 15 mg PO DAILY@0900 06/05/22 10/09/22 Ranolazine [Ranexa] 500 mg PO BID 06/05/22 10/09/22 Repaglinide [Prandin] 0.5 mg PO DAILY 06/05/22 10/09/22 Isosorbide Mononitrate ER [Imdur] 30 mg PO DAILY 08/07/22 10/09/22 Sennosides-Docusate Sodium 1 tab PO HS 08/23/22 10/09/22 [Senokot-S] Benzocaine/Menthol Lozeng [Cepacol 1 lozenge MUCOUS MEM Q4HR PRN 09/09/22 10/09/22 lozenge] Citalopram Hydrobromide [CeleXA] 20 mg PO HS@2100 09/09/22 10/09/22 Fluconazole [Diflucan] 100 mg PO DAILY@0900 09/09/22 10/09/22 Furosemide [Lasix] 40 mg PO MOWEFR 09/09/22 10/09/22 Insulin Lispro [humaLOG Kwikpen] See Protocol SQ ACHS 09/09/22 10/09/22 Lactulose 20 gm PO HS@209909/09/22 10/09/22 Sodium Bicarbonate Tab 650 mg PO BID 09/09/22 10/09/22 atenoloL [Tenormin] 50 mg PO BID@0900,2100 09/09/22 10/09/22 busPIRone HCL [Buspar] 7.5 mg PO HS@209909/09/22 10/09/22 cloNIDine 0.3 MG/24HR PATCH 1 patch TRANSDERM TH 09/09/22 10/09/22 [Catapres-TTS] Albuterol Sulfate [Proventil Hfa] 2 puff INHALATION RT-BID PRN 10/09/22 10/09/22 Apixaban [Eliquis] 2.5 mg PO BID 10/09/22 10/09/22 Budesonide [Pulmicort] 1 mg INHALATION RT-BID 10/09/22 10/09/22 Collagenase [Santyl Ointment] 1 applic TOPICAL HS 10/09/22 10/09/22 Empagliflozin [Jardiance] 10 mg PO DAILY 10/09/22 10/09/22 Ferrous Sulfate [Iron] 325 mg PO DAILY 10/09/22 10/09/22 Melatonin 10 mg PO HS 10/09/22 10/09/22 Omeprazole [PriLOSEC] 20 mg PO DAILY 10/09/22 10/09/22 hydrALAZINE HCL [Apresoline] 25 mg PO TID 10/09/22 10/09/22 predniSONE [Deltasone] See Taper PO DAILY 10/09/22 10/09/22 traMADol HCl [Ultram] 50 mg PO Q4HR PRN 10/09/22 10/09/22 traMADol HCl [Ultram] 100 mg PO HS 10/09/22 10/09/22 Previous Rx's Medication Instructions Recorded Acetaminophen Tab [Tylenol] 650 mg PO Q6HR PRN tab 08/10/22 Allergies Allergy/AdvReac Type Severity Reaction Status Date / Time codeine AdvReac Nausea & Verified 10/09/22 11:15 Vomiting,hyperactive Review of Systems ROS Statement: Those systems with pertinent positive or pertinent negative responses have been documented in the HPI. ROS Other: All systems not noted in ROS Statement are negative. Constitutional: Reports: as per HPI Eyes: Denies: eye pain ENT: Denies: ear pain Respiratory: Reports: as per HPI. Denies: dyspnea Cardiovascular: Denies: chest pain Endocrine: Denies: fatigue Gastrointestinal: Denies: abdominal pain Genitourinary: Denies: dysuria Musculoskeletal: Denies: back pain Neurological: Denies: weakness Past Medical History Past Medical History: Atrial Fibrillation, Asthma, Coronary Artery Disease (CAD), Cancer, Chest Pain / Angina, Heart Failure, Diabetes Mellitus, GERD/Reflux, Hearing Disorder / Deafness, Hyperlipidemia, Hypertension, Osteoarthritis (OA), Renal Disease, Rheumatoid Arthritis (RA), Vascular Disorder Additional Past Medical History / Comment(s): Cervical myopathy, spinal stenosis, paroxysmal afib, sinus bradycardia, NIDDM type II, 1984 L breast cancer/surgery and chemotherapy, 1985 L renal carcinoma, kidney infections, UTIs with current UTI, pt unsure if she had previous tia, ckd stage III, anemia, past small bowel obstructions, past ulcer, abnormal gait/uses walker, FALLS History of Any Multi-Drug Resistant Organisms: None Reported Past Surgical History: Breast Surgery, Heart Catheterization, Heart Ca theterization With Stent, Joint Replacement, Orthopedic Surgery Additional Past Surgical History / Comment(s): Bilateral carpal tunnel releases, bilateral knee replacements, L breast mastectomy, L nephrectomy, colonoscopy, cataract removals. Past Anesthesia/Blood Transfusion Reactions: Motion Sickness, Postoperative Nausea & Vomiting (PONV) Additional Past Anesthesia/Blood Transfusion Reaction / Comment(s): Pt has had blood transfusion without reaction. Pt states she has fear of anesthesia. Date of Last Stent Placement:: 2007 Past Psychological History: Anxiety Smoking Status: Never smoker Past Alcohol Use History: None Reported Past Drug Use History: None Reported - Past Family History Mother Family Medical History: Cancer, Diabetes Mellitus Additional Family Medical History / Comment(s): Breast and colon cancer Father Additional Family Medical History / Comment(s): bowel problems General Exam Limitations: altered mental status General appearance: alert, in no apparent distress Head exam: Present: atraumatic, normocephalic Eye exam: Present: normal appearance, PERRL ENT exam: Present: normal oropharynx Neck exam: Present: normal inspection. Absent: tenderness, meningismus Respiratory exam: Present: normal lung sounds bilaterally Cardiovascular Exam: Present: normal rhythm, irregular rhythm GI/Abdominal exam: Present: soft. Absent: tenderness Extremities exam: Present: normal inspection Neurological exam: Present: alert, CN II-XII intact. Absent: motor sensory deficit Expanded Neurological exam: Present: protecting the airway Speech: Present: fluid speech Motor strength exam: RUE: 5, LUE: 5, RLE: 5, LLE: 5 Eye Response: (4) open spontaneously Motor Response: (6) obeys commands Verbal Response: (5) oriented Psychiatric exam: Present: flat affect Skin exam: Present: normal color Course Vital Signs 10/09/22 10/09/22 10/09/22 10:19 11:00 11:10 Temperature 102.4 F H Pulse Rate 89 84 Respiratory 16 20 Rate Blood Pressure 104/81 72/46 O2 Sat by Pulse 96 95 89 L Oximetry 10/09/22 10/09/22 10/09/22 11:14 11:16 11:46 Temperature Pulse Rate 85 87 Respiratory 20 16 Rate Blood Pressure 79/44 106/56 O2 Sat by Pulse 96 98 96 Oximetry 10/09/22 10/09/22 12:00 12:09 Temperature 99.2 F Pulse Rate 86 Respiratory 18 Rate Blood Pressure 106/70 O2 Sat by Pulse 97 Oximetry - Reevaluation(s) Reevaluation #1: 10/09/22 12:25 There is concern for sepsis diagnosed at 1158. Blood culture and lactic acid and IV antibiotics will be ordered. EKG Findings - EKG Results: EKG: interpreted by ERMD (Nonspecific ST-T.), normal axis, normal QRS EKG shows: atrial fibrillation Procedures - Sepsis Sepsis Focused Exam #1 Time Sepsis Criteria Met: 11:58 Sepsis Focused Exam Date: 10/09/22 Sepsis Focused Exam Time: 12:40 Sepsis Focused Exam Complete: Yes Vital Signs & RN Notes Reviewed: Yes Capillary Refill: < 2 Seconds: Fingers, Toes Peripheral Pulses: Normal: Radial (R), Radial (L) Skin Color: Normal for Patient Respiratory Exam: normal lung sounds Cardiovascular Exam: regular rate, normal rhythm Medical Decision Making - Medical Decision Making Was pt. sent in by a medical professional or institution (, PA, WIRE WELDER, urgent care, hospital, or usp...) When possible be specific @ -Patient was sent from nursing facility Did you speak to anyone other than the patient for history (EMS, parent, family, police, friend...)? What history was obtained from this source @ -[No] Did you review nursing and triage notes (agree or disagree)? Why? @ -[I reviewed and agree with nursing and triage notes] Were old charts reviewed (outside hosp., previous admission, EMS record, old EKG, old radiological studies, urgent care reports/EKG's, usp records)? Report findings @ -[No old charts were reviewed] Differential Diagnosis (chest pain, altered mental status, abdominal pain women, abdominal pain men, vaginal bleeding, weakness, fever, dyspnea, syncope, headache, dizziness, GI bleed, back pain, seizure, CVA, palpatations, mental health)? @ -Differential Altered Mental Status: Hypoglycemia, DKA, hypercapnia, ETOH, overdose, CO poisoning, trauma, myxedema coma, HTN encephalopathy, infection, encephalitis, psychosis, intercranial hemorrhage, hepatic encephalopathy, meningitis, CVA, this is not meant to be an all-inclusive list EKG interpreted by me (3pts min.). @ -[As above] X-rays interpreted by me (1pt min.). @ -Chest x-ray concerning for hilar infiltrates CT interpreted by me (1pt min.). @ -[None done] U/S interpreted by me (1pt. min.). @ -[None done] What testing was considered but not performed or refused? (CT, X-rays, U/S, labs)? Why? @ -[None] What meds were considered but not given or refused? Why? @ -[None] Did you discuss the management of the patient with other professionals (professionals i.e. , PA, WIRE WELDER, lab, RT, psych nurse, psychologist social, xerox machine operator, teacher, transit authority police officer, dependency case manager)? Give summary @ -Case was discussed with Dr. carrasco, who will admit the covering Dr. Olivas. Was smoking cessation discussed for >3mins.? @ -[No] Was critical care preformed (if so, how long)? @ -32 minutes critical care time Were there social determinants of health that impacted care today? How? (Homelessness, low income, unemployed, alcoholism, drug addiction, t ransportation, low edu. Level, literacy, decrease access to med. care, senior living, rehab)? @ -[No] Was there de-escalation of care discussed even if they declined (Discuss DNR or withdrawal of care, Hospice)? DNR status @ -[No] What co-morbidities impacted this encounter? (DM, HTN, Smoking, COPD, CAD, Cancer, CVA, ARF, Chemo, Hep., AIDS, mental health diagnosis, sleep apnea, morbid obesity)? @ -[None] Was patient admitted / discharged? Hospital course, mention meds given and route, prescriptions, significant lab abnormalities, going to OR and other pertinent info. @ -Patient reevaluated and is improved. Blood pressure has been over 100 twice now. Patient has received fluid boluses. Patient and family are updated on results and plan. Patient will be admitted with IV antibiotics. Undiagnosed new problem with uncertain prognosis? @ -[No] Drug Therapy requiring intensive monitoring for toxicity (Heparin, Nitro, Insulin, Cardizem)? @ -[No] Were any procedures done? @ -[No] Diagnosis/symptom? @ -Pneumonia, UTI, septic shock Acute, or Chronic, or Acute on Chronic? @ acute, acute, acute Uncomplicated (without systemic symptoms) or Complicated (systemic symptoms)? @ -Pneumonia and UTI or complicated with septic shock Side effects of treatment? @ -[No] Exacerbation, Progression, or Severe Exacerbation? @ -[No] Poses a threat to life or bodily function? How? (Chest pain, USA, CT, pneumonia, PE, COPD, DKA, ARF, appy, cholecystitis, CVA, Diverticulitis, Homicidal, Suicidal, threat to staff... and all critical care pts) @ -Septic shock with hypotension does pose threat to life and bodily function - Lab Data Result diagrams: 10/09/22 10:52 10/09/22 10:52 Lab Results 10/09/22 10/09/22 10/09/22 Range/Units 10:48 10:52 10:52 WBC 23.5 H (3.8-10.6) k/uL RBC 3.50 L (3.80-5.40) m/uL Hgb 8.6 L (11.4-16.0) gm/dL Hct 27.3 L (34.0-46.0) % MCV 77.8 L (80.0-100.0) fL MCH 24.7 L (25.0-35.0) pg MCHC 31.7 (31.0-37.0) g/dL RDW 18.8 H (11.5-15.5) % Plt Count 107 L D (150-450) k/uL MPV 9.8 Neutrophils % Not Reportable Neutrophils % (Manual) 85 % Band Neuts % (Manual) 9 % Lymphocytes % Not Reportable Lymphocytes % (Manual) 1 % Monocytes % Not Reportable Monocytes % (Manual) 2 % Eosinophils % Not Reportable Eosinophils % (Manual) 1 % Basophils % Not Reportable Metamyelocytes % 2 % Neutrophils # Not Reportable Neutrophils # (Manual) 22.00 H (1.3-7.7) k/uL Lymphocytes # Not Reportable Lymphocytes # (Manual) 0.24 L (1.0-4.8) k/uL Monocytes # Not Reportable Monocytes # (Manual) 0.47 (0-1.0) k/uL Eosinophils # Not Reportable Eosinophils # (Manual) 0.24 (0-0.7) k/uL Basophils # Not Reportable Metamyelocytes # (Man) 0.47 H (0) k/uL Nucleated RBCs 0 (0-0) /100 WBC Manual Slide Review Performed Hypochromasia Slight Anisocytosis Slight Microcytosis Slight PT 13.5 H (9.0-12.0) sec INR 1.3 H (<1.2) APTT 27.3 (22.0-30.0) sec Sodium (137-145) mmol/L Potassium (3.5-5.1) mmol/L Chloride (98-107) mmol/L Carbon Dioxide (22-30) mmol/L Anion Gap mmol/L BUN (7-17) mg/dL Creatinine (0.52-1.04) mg/dL Est GFR (CKD-EPI)AfAm (>60 ml/min/1.73 sqM) Est GFR (CKD-EPI)NonAf (>60 ml/min/1.73 sqM) Glucose (74-99) mg/dL Plasma Lactic Acid Wu (0.7-2.0) mmol/L Calcium (8.4-10.2) mg/dL Total Bilirubin (0.2-1.3) mg/dL AST (14-36) U/L ALT (4-34) U/L Alkaline Phosphatase (38-126) U/L Total Protein (6.3-8.2) g/dL Albumin (3.5-5.0) g/dL Urine Color Yellow Urine Appearance Turbid H (Clear) Urine pH 5.5 (5.0-8.0) Ur Specific Gardner 1.014 (1.001-1.035) Urine Protein 2+ H (Negative) Urine Glucose (UA) 4+ H (Negative) Urine Ketones Negative (Negative) Urine Blood Moderate H (Negative) Urine Nitrite Negative (Negative) Urine Bilirubin Negative (Negative) Urine Urobilinogen <2.0 (<2.0) mg/dL Ur Leukocyte Esterase Large H (Negative) Urine RBC 17 H (0-5) /hpf Urine WBC >182 H (0-5) /hpf Urine WBC Clumps Many H (None) /hpf Ur Squamous Epith Cells 1 (0-4) /hpf Urine Bacteria Moderate H (None) /hpf Urine Mucus Occasional H (None) /hpf Coronavirus (PCR) (Not Detectd) 10/09/22 10/09/22 10/09/22 Range/Units 10:52 10:52 10:52 WBC (3.8-10.6) k/uL RBC (3.80-5.40) m/uL Hgb (11.4-16.0) gm/dL Hct (34.0-46.0) % MCV (80.0-100.0) fL MCH (25.0-35.0) pg MCHC (31.0-37.0) g/dL RDW (11.5-15.5) % Plt Count (150-450) k/uL MPV Neutrophils % Neutrophils % (Manual) % Band Neuts % (Manual) % Lymphocytes % Lymphocytes % (Manual) % Monocytes % Monocytes % (Manual) % Eosinophils % Eosinophils % (Manual) % Basophils % Metamyelocytes % % Neutrophils # Neutrophils # (Manual) (1.3-7.7) k/uL Lymphocytes # Lymphocytes # (Manual) (1.0-4.8) k/uL Monocytes # Monocytes # (Manual) (0-1.0) k/uL Eosinophils # Eosinophils # (Manual) (0-0.7) k/uL Basophils # Metamyelocytes # (Man) (0) k/uL Nucleated RBCs (0-0) /100 WBC Manual Slide Review Hypochromasia Anisocytosis Microcytosis PT (9.0-12.0) sec INR (<1.2) APTT (22.0-30.0) sec Sodium 134 L (137-145) mmol/L Potassium 3.0 L (3.5-5.1) mmol/L Chloride 91 L (98-107) mmol/L Carbon Dioxide 23 (22-30) mmol/L Anion Gap 20 mmol/L BUN 49 H (7-17) mg/dL Creatinine 2.23 H (0.52-1.04) mg/dL Est GFR (CKD-EPI)AfAm 23 (>60 ml/min/1.73 sqM) Est GFR (CKD-EPI)NonAf 20 (>60 ml/min/1.73 sqM) Glucose 80 (74-99) mg/dL Plasma Lactic Acid Wu 8.6 H* (0.7-2.0) mmol/L Calcium 7.6 L (8.4-10.2) mg/dL Total Bilirubin 0.9 (0.2-1.3) mg/dL AST 34 (14-36) U/L ALT 31 (4-34) U/L Alkaline Phosphatase 218 H (38-126) U/L Total Protein 5.3 L (6.3-8.2) g/dL Albumin 2.9 L (3.5-5.0) g/dL Urine Color Urine Appearance (Clear) Urine pH (5.0-8.0) Ur Specific Gardner (1.001-1.035) Urine Protein (Negative) Urine Glucose (UA) (Negative) Urine Ketones (Negative) Urine Blood (Negative) Urine Nitrite (Negative) Urine Bilirubin (Negative) Urine Urobilinogen (<2.0) mg/dL Ur Leukocyte Esterase (Negative) Urine RBC (0-5) /hpf Urine WBC (0-5) /hpf Urine WBC Clumps (None) /hpf Ur Squamous Epith Cells (0-4) /hpf Urine Bacteria (None) /hpf Urine Mucus (None) /hpf Coronavirus (PCR) Not Detected (Not Detectd) Critical Care Time Critical Care Time: Yes Total Critical Care Time: 32 Disposition Clinical Impression: Pneumonia, Urinary tract infection, Septic shock Disposition: ADMITTED IP TO THIS HOSP Condition: Serious Is patient prescribed a controlled substance at d/c from ED?: No Referrals: Ashley Olivas MD [Primary Care Provider] - 1-2 days Time of Disposition: 12:32
[2022-10-09] MEDS ORDERED: SODIUM CHLORIDE 0.9% 1,000 ML IV STA ×2 (11:03→11:47)
[2022-10-09] MEDS: ACETAMINOPHEN TAB 500 MG TAB PO STA ×2 (11:03→11:08)
[2022-10-09] MEDS ORDERED: ACETAMINOPHEN IV (For NPO) 1,000 MG in EMPTY BAG 1 BAG IVPB STA (11:07)
[2022-10-09 11:39] LABS: AST 34 U/L (14-36); African American GFR (CKD) 23 (>60 ml/min/1.73 sqM); Albumin 2.9 g/dL (3.5-5.0); Alkaline Phosphatase 218 U/L (38-126); Anion Gap 20 mmol/L; Blood Urea Nitrogen 49 mg/dL (7-17); Calcium 7.6 mg/dL (8.4-10.2); Carbon Dioxide 23 mmol/L (22-30); Chloride 91 mmol/L (98-107); Glucose 80 mg/dL (74-99); Non-African American GFR(CKD) 20 (>60 ml/min/1.73 sqM); Sodium 134 mmol/L (137-145); Total Bilirubin 0.9 mg/dL (0.2-1.3); Total Protein 5.3 g/dL (6.3-8.2)
[2022-10-09 11:40] LABS: INR 1.3 (<1.2); Partial Thromboplastin Time 27.3 sec (22.0-30.0); Prothrombin Time 13.5 sec (9.0-12.0)
[2022-10-09 11:46] LABS: ALT 31 U/L (4-34); Anisocytosis Slight; Appearance,Urine Turbid (Clear); Bacteria,Urine Moderate /hpf; Bilirubin,Urine Negative (Negative); Blood,Urine Moderate (Negative); Color,Urine Yellow; Glucose,Urine (UA) 4+ (Negative); HCT 27.3 % (34.0-46.0); HGB 8.6 gm/dL (11.4-16.0); Hypochromasia Slight; Ketones,Urine Negative (Negative); Leukocyte Esterase,Urine Large (Negative); MCH 24.7 pg (25.0-35.0); MCHC 31.7 g/dL (31.0-37.0); MCV 77.8 fL (80.0-100.0); Mean Platelet Volume 9.8; Microcytosis Slight; Mucus,Urine Occasional /hpf; Nitrite,Urine Negative (Negative); PH, Urine 5.5 (5.0-8.0); Protein,Urine 2+ (Negative); RBC,Urine 17 /hpf (0-5); RDW 18.8 % (11.5-15.5); Specific Gravity,Urine 1.014 (1.001-1.035); Squamous Epithelial Cell,Urine 1 /hpf (0-4); Urobilinogen,Urine <2.0 mg/dL (<2.0); WBC 23.5 k/uL (3.8-10.6); WBC,Urine >182 /hpf (0-5)
--- NOTE | 2022-10-09 11:49 | XR ---
EXAMINATION TYPE: XR chest 2V DATE OF EXAM: 10/09/2022 11:42 AM COMPARISON: Chest radiographs from 08/28/2022 TECHNIQUE: XR chest 2V Frontal and lateral views of the chest. CLINICAL INDICATION:Female, 82 years old with history of Fever; FINDINGS: Lungs/Pleura: Patchy perihilar opacities. No pneumothorax of pleural effusion. Pulmonary vascularity: Unremarkable. Heart/mediastinum: Cardiomediastinal silhouette is enlarged and stable. Atherosclerotic calcificatio ns are seen in the aorta. Musculoskeletal: No acute osseous pathology. Extensive cervical fusion hardware. Bilateral shoulder a rthropathy. Other findings: Multiple surgical clips in the left upper quadrant redemonstrated. Large hiatal herni a suspected. IMPRESSION: 1. Patchy perihilar opacities concerning for pneumonia. 2. Cardiomegaly with suspected large hiatal hernia.
[2022-10-09 11:54] LABS: Platelet Count 107 k/uL (150-450)
[2022-10-09] MEDS ORDERED: VANCOMYCIN IV PER PHARMACY 1 EACH MISC MISCELLANE PRN (12:08)
[2022-10-09] MEDS ORDERED: PNEUMONIA PROTOCOL UTILIZED 1 EACH MISC PO PRN (12:12)
[2022-10-09 12:17] LABS: Band Neutrophils % 9 %; Eosinophils # (M) 0.24 k/uL (0-0.7); Lymphocytes # (M) 0.24 k/uL (1.0-4.8); Metamyelocytes # (M) 0.47 k/uL (0); Metamyelocytes % 2 %; Monocytes # (M) 0.47 k/uL (0-1.0); Neutrophils % (M) 85 %; Nucleated Red Blood Cells 0 /100 WBC (0-0); Total Cells Counted 100
[2022-10-09] MEDS ORDERED: POTASSIUM CHLORIDE 20 MEQ in WATER FOR INJECTION 1 100ML.BAG IVPB STA (12:49)
[2022-10-09] MEDS: PANTOPRAZOLE 40 MG/10 ML VIAL IV SCH (12:50)
[2022-10-09] MEDS ORDERED: VANCOMYCIN 1,250 MG in SODIUM CHLORIDE 0.9% 250 ML IVPB ONE (13:00)
[2022-10-09] MEDS: SODIUM CHLORIDE 0.9% 1,000 ML IV SCH ×2 (13:52→20:00)
[2022-10-09] MEDS ORDERED: DEXTROSE 50% SYRINGE 50 ML IVP ONE (14:08)
[2022-10-09 14:09] LABS: Glucose,Whole Blood 21 mg/dL (70-110)
[2022-10-09] MEDS ORDERED: SODIUM CHLORIDE 0.9% 1,000 ML IV ONE (14:15)
[2022-10-09 14:16] LABS: Glucose,Whole Blood 203 mg/dL (70-110)
--- NOTE | 2022-10-09 14:31 | P.HPIM ---
History of Present Illness H&P Date: 10/09/22 Chief Complaint: Altered mental status 82-year-old lady with past medical history significant for degenerative disease of cervical spine status post cervical spine surgery,, history of atrial fibrillation, coronary artery disease, diabetes mellitus, hyperlipidemia, cervical myelopathy, previous history of breast cancer status post surgery and chemotherapy, history of renal cell carcinoma status post left nephrectomy was brought in to the emergency department after an episode of altered mental status. Patient was alert tenderness in facility was noted to be drowsy and difficult to arouse. At the time of presentation in ER patient was minimally arousable initial blood work obtained showed significant lactic acidosis, white cell count of 23,000 Chest x-ray obtained at presentation bilateral opacities Patient was flattening for severe sepsis/septic shock and was resuscitated with IV fluids received 2 L of fluid in ER, patient had a cervical spine collar placed however no further imaging was done and was transferred to ICU Patient was evaluated and nicely and was noted to be minimally responsive blood glucose was 25 patient was given IV 50 amp of glucose And additional 1 L fluid bolus has been ordered, and maintenance IV fluid ordered. Patient started on broad-spectrum antibiotics including Zosyn and vancomycin and maintain on fluid resuscitation Review of Systems Review of systems Unable to obtain minimally responsive altered mental status Past Medical History Past Medical History: Atrial Fibrillation, Asthma, Coronary Artery Disease (CAD), Cancer, Chest Pain / Angina, Heart Failure, Diabetes Mellitus, GERD/Reflux, Hearing Disorder / Deafness, Hyperlipidemia, Hypertension, Osteoarthritis (OA), Renal Disease, Rheumatoid Arthritis (RA), Vascular Disorder Additional Past Medical History / Comment(s): Cervical myopathy, spinal stenosi s, paroxysmal afib, sinus bradycardia, NIDDM type II, 1984 L breast cancer/surgery and chemotherapy, 1985 L renal carcinoma, kidney infections, UTIs with current UTI, pt unsure if she had previous tia, ckd stage III, anemia, past small bowel obstructions, past ulcer, abnormal gait/uses walker, FALLS History of Any Multi-Drug Resistant Organisms: None Reported Past Surgical History: Breast Surgery, Heart Catheterization, Heart Catheterization With Stent, Joint Replacement, Orthopedic Surgery Additional Past Surgical History / Comment(s): Bilateral carpal tunnel releases, bilateral knee replacements, L breast mastectomy, L nephrectomy, colonoscopy, cataract removals. Past Anesthesia/Blood Transfusion Reactions: Motion Sickness, Postoperative Nausea & Vomiting (PONV) Additional Past Anesthesia/Blood Transfusion Reaction / Comment(s): Pt has had blood transfusion without reaction. Pt states she has fear of anesthesia. Date of Last Stent Placement:: 2007 Past Psychological History: Anxiety Smoking Status: Never smoker Past Alcohol Use History: None Reported Past Drug Use History: None Reported - Past Family History Mother Family Medical History: Cancer, Diabetes Mellitus Additional Family Medical History / Comment(s): Breast and colon cancer Father Additional Family Medical History / Comment(s): bowel problems Medications and Allergies Home Medications Medication Instructions Recorded Confirmed Type Ergocalciferol [Vitamin D2 (1250 1,250 mcg PO FR@0900 06/05/22 10/09/22 History Mcg = 22500 Iu)] Montelukast Sodium [Singulair] 10 mg PO DAILY 06/05/22 10/09/22 History Nitroglycerin Sl Tabs [Nitrostat] 0.4 mg SUBLINGUAL Q5M PRN 06/05/22 10/09/22 History Pioglitazone [Actos] 15 mg PO DAILY@0906/05/22 10/09/22 History Ranolazine [Ranexa] 500 mg PO BID 06/05/22 10/09/22 History Repaglinide [Prandin] 0.5 mg PO DAILY 06/05/22 10/09/22 History Isosorbide Mononitrate ER [Imdur] 30 mg PO DAILY 08/07/22 10/09/22 History Acetaminophen Tab [Tylenol] 650 mg PO Q6HR PRN tab 08/10/22 10/09/22 Rx Sennosides-Docusate Sodium 1 tab PO HS 08/23/22 10/09/22 History [Senokot-S] Benzocaine/Menthol Lozeng [Cepacol 1 lozenge MUCOUS MEM Q4HR PRN 09/09/22 10/09/22 History lozenge] Citalopram Hydrobromide [CeleXA] 20 mg PO HS@2100 09/09/22 10/09/22 History Fluconazole [Diflucan] 100 mg PO DAILY@0900 09/09/22 10/09/22 History Furosemide [Lasix] 40 mg PO MOWEFR 09/09/22 10/09/22 History Insulin Lispro [humaLOG Kwikpen] See Protocol SQ ACHS 09/09/22 10/09/22 History Lactulose 20 gm PO HS@2100 09/09/22 10/09/22 History Sodium Bicarbonate Tab 650 mg PO BID 09/09/22 10/09/22 History atenoloL [Tenormin] 50 mg PO BID@0900,2100 09/09/22 10/09/22 History busPIRone HCL [Buspar] 7.5 mg PO HS@2100 09/09/22 10/09/22 History cloNIDine 0.3 MG/24HR PATCH 1 patch TRANSDERM TH 09/09/22 10/09/22 History [Catapres-TTS] Albuterol Sulfate [Proventil Hfa] 2 puff INHALATION RT-BID PRN 10/09/22 10/09/22 History Apixaban [Eliquis] 2.5 mg PO BID 10/09/22 10/09/22 History Budesonide [Pulmicort] 1 mg INHALATION RT-BID 10/09/22 10/09/22 History Collagenase [Santyl Ointment] 1 applic TOPICAL HS 10/09/22 10/09/22 History Empagliflozin [Jardiance] 10 mg PO DAILY 10/09/22 10/09/22 History Ferrous Sulfate [Iron] 325 mg PO DAILY 10/09/22 10/09/22 History Melatonin 10 mg PO HS 10/09/22 10/09/22 History Omeprazole [PriLOSEC] 20 mg PO DAILY 10/09/22 10/09/22 History hydrALAZINE HCL [Apresoline] 25 mg PO TID 10/09/22 10/09/22 History predniSONE [Deltasone] See Taper PO DAILY 10/09/22 10/09/22 History traMADol HCl [Ultram] 50 mg PO Q4HR PRN 10/09/22 10/09/22 History traMADol HCl [Ultram] 100 mg PO HS 10/09/22 10/09/22 History Allergies Allergy/AdvReac Type Severity Reaction Status Date / Time codeine AdvReac Nausea & Verified 10/09/22 11:15 Vomiting,hyperactive Physical Exam Vitals: Vital Signs Temp Pulse Resp BP Pulse Ox 10/09/22 13:55 98.2 F 89 16 96/81 97 10/09/22 13:22 73 19 106/56 98 10/09/22 13:15 78 19 118/93 98 10/09/22 12:53 98.1 F 80 18 110/66 95 10/09/22 12:20 80 17 121/58 95 10/09/22 12:09 86 18 106/70 97 10/09/22 12:00 99.2 F 10/09/22 11:46 87 16 106/56 96 10/09/22 11:16 85 20 79/44 98 10/09/22 11:14 96 10/09/22 11:10 89 L 10/09/22 11:00 84 20 72/46 95 10/09/22 10:19 102.4 F H 89 16 104/81 96 Intake and Output 10/08/22 10/09/22 10/09/22 22:59 06:59 14:59 Other: Weight 63.503 kg PHYSICAL EXAMINATION: GENERAL: Alert and oriented 0, c-collar in place, minimally responsive HEENT : No scleral icterus. No conjunctival pallor. Normocephalic, atraumatic. CARDIOVASCULAR: Regular rate no murmur appreciated no lotion edema PULMONARY: Chest is clear to auscultation, no wheezing or crackles. ABDOMEN: Soft, nontender, nondistended, normoactive bowel sounds. No palpable organomegaly. MUSCULOSKELETAL: No joint swelling or deformity. EXTREMITIES: No cyanosis, clubbing, or pedal edema. NEUROLOGICAL: Disoriented exam limited minimally responsive Results CBC & Chem 7: 10/09/22 10:52 10/09/22 10:52 Labs: Abnormal Lab Results - Last 24 Hours (Table) 10/09/22 10/09/22 10/09/22 Range/Units 10:48 10:52 10:52 WBC 23.5 H (3.8-10.6) k/uL RBC 3.50 L (3.80-5.40) m/uL Hgb 8.6 L (11.4-16.0) gm/dL Hct 27.3 L (34.0-46.0) % MCV 77.8 L (80.0-100.0) fL MCH 24.7 L (25.0-35.0) pg RDW 18.8 H (11.5-15.5) % Plt Count 107 L D (150-450) k/uL Neutrophils # (Manual) 22.00 H (1.3-7.7) k/uL Lymphocytes # (Manual) 0.24 L (1.0-4.8) k/uL Metamyelocytes # (Man) 0.47 H (0) k/uL PT 13.5 H (9.0-12.0) sec INR 1.3 H (<1.2) Sodium (137-145) mmol/L Potassium (3.5-5.1) mmol/L Chloride (98-107) mmol/L BUN (7-17) mg/dL Creatinine (0.52-1.04) mg/dL POC Glucose (mg/dL) (70-110) mg/dL Plasma Lactic Acid Wu (0.7-2.0) mmol/L Calcium (8.4-10.2) mg/dL Alkaline Phosphatase (38-126) U/L Total Protein (6.3-8.2) g/dL Albumin (3.5-5.0) g/dL Urine Appearance Turbid H (Clear) Urine Protein 2+ H (Negative) Urine Glucose (UA) 4+ H (Negative) Urine Blood Moderate H (Negative) Ur Leukocyte Esterase Large H (Negative) Urine RBC 17 H (0-5) /hpf Urine WBC >182 H (0-5) /hpf Urine WBC Clumps Many H (None) /hpf Urine Bacteria Moderate H (None) /hpf Urine Mucus Occasional H (None) /hpf 10/09/22 10/09/22 10/09/22 Range/Units 10:52 10:52 14:07 WBC (3.8-10.6) k/uL RBC (3.80-5.40) m/uL Hgb (11.4-16.0) gm/dL Hct (34.0-46.0) % MCV (80.0-100.0) fL MCH (25.0-35.0) pg RDW (11.5-15.5) % Plt Count (150-450) k/uL Neutrophils # (Manual) (1.3-7.7) k/uL Lymphocytes # (Manual) (1.0-4.8) k/uL Metamyelocytes # (Man) (0) k/uL PT (9.0-12.0) sec INR (<1.2) Sodium 134 L (137-145) mmol/L Potassium 3.0 L (3.5-5.1) mmol/L Chloride 91 L (98-107) mmol/L BUN 49 H (7-17) mg/dL Creatinine 2.23 H (0.52-1.04) mg/dL POC Glucose (mg/dL) 21 L (70-110) mg/dL Plasma Lactic Acid Wu 8.6 H* (0.7-2.0) mmol/L Calcium 7.6 L (8.4-10.2) mg/dL Alkaline Phosphatase 218 H (38-126) U/L Total Protein 5.3 L (6.3-8.2) g/dL Albumin 2.9 L (3.5-5.0) g/dL Urine Appearance (Clear) Urine Protein (Negative) Urine Glucose (UA) (Negative) Urine Blood (Negative) Ur Leukocyte Esterase (Negative) Urine RBC (0-5) /hpf Urine WBC (0-5) /hpf Urine WBC Clumps (None) /hpf Urine Bacteria (None) /hpf Urine Mucus (None) /hpf 10/09/22 Range/Units 14:14 WBC (3.8-10.6) k/uL RBC (3.80-5.40) m/uL Hgb (11.4-16.0) gm/dL Hct (34.0-46.0) % MCV (80.0-100.0) fL MCH (25.0-35.0) pg RDW (11.5-15.5) % Plt Count (150-450) k/uL Neutrophils # (Manual) (1.3-7.7) k/uL Lymphocytes # (Manual) (1.0-4.8) k/uL Metamyelocytes # (Man) (0) k/uL PT (9.0-12.0) sec INR (<1.2) Sodium (137-145) mmol/L Potassium (3.5-5.1) mmol/L Chloride (98-107) mmol/L BUN (7-17) mg/dL Creatinine (0.52-1.04) mg/dL POC Glucose (mg/dL) 203 H (70-110) mg/dL Plasma Lactic Acid Wu (0.7-2.0) mmol/L Calcium (8.4-10.2) mg/dL Alkaline Phosphatase (38-126) U/L Total Protein (6.3-8.2) g/dL Albumin (3.5-5.0) g/dL Urine Appearance (Clear) Urine Protein (Negative) Urine Glucose (UA) (Negative) Urine Blood (Negative) Ur Leukocyte Esterase (Negative) Urine RBC (0-5) /hpf Urine WBC (0-5) /hpf Urine WBC Clumps (None) /hpf Urine Bacteria (None) /hpf Urine Mucus (None) /hpf Assessment and Plan Assessment: Assessment and plan * Septic shock * Multifocal pneumonia * Degenerative disease of cervical spine status post cervical spine surgery in the last 3 months * History of atrial fibrillation * Coronary artery disease * History of renal cell carcinoma status post nephrectomy * Diabetes mellitus type 2 * Patient remains critically ill she has been admitted to ICU continue with fluid resuscitation intensive care unit team consulted as well as her blood pressure does not improve patient will need Levothroid. Serial lactate levels ordered as well after fluid resuscitation * Blood cultures ordered * CT head and CT cervical spine ordered * Infectious disease consulted * Continue broad-spectrum antibiotic Zosyn and vancomycin * Continue patient on correctional insulin for diabetes * Anticoagulation and movements on hold secondary to critical illness * STATUS is full code at this time will discuss with patient and Time with Patient: Greater than 30
--- NOTE | 2022-10-09 16:28 | P.CNPUL ---
History of Present Illness Consult date: 10/09/22 Requesting physician: Waldo Urban Reason for consult: other (Critical care management) Chief complaint: Altered mental status History of present illness: This is a 82-year-old female patient with a known history of atrial fibrillation, anticoagulated with close, coronary disease previous stent placement, left breast cancer with previous mastectomy, left renal carcinoma with left nephrectomy, diabetes mellitus, hearing disorder, hyperlipidemia, hypertension, rheumatoid arthritis. She also had recent neck surgery and was here in this hospital and subsequently placed in subacute rehab. She was brought here this morning with altered mental status. Chest x-ray revealed patchy perihilar opacities concerning for pneumonia. White count 23.5. Hemoglobin 8.6. Platelets 107. Sodium 134. Potassium 3.0. Chloride 91. Bicarb 23. BUN 49. Creatinine 2.23. Lactic acid 8.6. Urinalysis turbid with moderate blood and moderate bacteria with many WBCs. Coronavirus by PCR not detected. She's received 3 units of fluid resuscitation. She was given a dose of vancomycin and ceftriaxone. She is admitted to the intensive care unit and seen today in consultation. Her initial blood glucose on arrival to the ICU was only 21. She was treated and is currently 203. She is more awake and alert. Mean arterial pressure currently 73. T-max of 102.4. Currently 98.2. She is now currently on vancomycin and Zosyn. Review of Systems ROS unobtainable: due to mental status Past Medical History Past Medical History: Atrial Fibrillation, Asthma, Coronary Artery Disease (CAD), Cancer, Chest Pain / Angina, Heart Failure, Diabetes Mellitus, GERD/Reflux, Hearing Disorder / Deafness, Hyperlipidemia, Hypertension, Osteoarthritis (OA), Renal Disease, Rheumatoid Arthritis (RA), Vascular Disorder Additional Past Medical History / Comment(s): Cervical myopathy, spinal stenosis, paroxysmal afib, sinus bradycardia, NIDDM type II, 1984 L breast cancer/surgery and chemotherapy, 1985 L renal carcinoma, kidney infections, UTIs with current UTI, pt unsure if she had previous tia, ckd stage III, anemia, past small bowel obstructions, past ulcer, abnormal gait/uses walker, FALLS History of Any Multi-Drug Resistant Organisms: None Reported Past Surgical History: Breast Surgery, Heart Catheterization, Heart Catheterization With Stent, Joint Replacement, Orthopedic Surgery Additional Past Surgical History / Comment(s): Bilateral carpal tunnel releases, bilateral knee replacements, L breast mastectomy, L nephrectomy, colonoscopy, cataract removals. Past Anesthesia/Blood Transfusion Reactions: Motion Sickness, Postoperative Nausea & Vomiting (PONV) Additional Past Anesthesia/Blood Transfusion Reaction / Comment(s): Pt has had blood transfusion without reaction. Pt states she has fear of anesthesia. Date of Last Stent Placement:: 2007 Past Psychological History: Anxiety Smoking Status: Never smoker Past Alcohol Use History: None Reported Past Drug Use History: None Reported - Past Family History Mother Family Medical History: Cancer, Diabetes Mellitus Additional Family Medical History / Comment(s): Breast and colon cancer Father Additional Family Medical History / Comment(s): bowel problems Medications and Allergies Home Medications Medication Instructions Recorded Confirmed Type Ergocalciferol [Vitamin D2 (1250 1,250 mcg PO FR@0906/05/22 10/09/22 History Mcg = 09101 Iu)] Montelukast Sodium [Singulair] 10 mg PO DAILY 06/05/22 10/09/22 History Nitroglycerin Sl Tabs [Nitrostat] 0.4 mg SUBLINGUAL Q5M PRN 06/05/22 10/09/22 History Pioglitazone [Actos] 15 mg PO DAILY@0900 06/05/22 10/09/22 History Ranolazine [Ranexa] 500 mg PO BID 06/05/22 10/09/22 History Repaglinide [Prandin] 0.5 mg PO DAILY 06/05/22 10/09/22 History Isosorbide Mononitrate ER [Imdur] 30 mg PO DAILY 08/07/22 10/09/22 History Acetaminophen Tab [Tylenol] 650 mg PO Q6HR PRN tab 08/10/22 10/09/22 Rx Sennosides-Docusate Sodium 1 tab PO HS 08/23/22 10/09/22 History [Senokot-S] Benzocaine/Menthol Lozeng [Cepacol 1 lozenge MUCOUS MEM Q4HR PRN 09/09/22 10/09/22 History lozenge] Citalopram Hydrobromide [CeleXA] 20 mg PO HS@2100 09/09/22 10/09/22 History Fluconazole [Diflucan] 100 mg PO DAILY@0900 09/09/22 10/09/22 History Furosemide [Lasix] 40 mg PO MOWEFR 09/09/22 10/09/22 History Insulin Lispro [humaLOG Kwikpen] See Protocol SQ ACHS 09/09/22 10/09/22 History Lactulose 20 gm PO HS@2100 09/09/22 10/09/22 History Sodium Bicarbonate Tab 650 mg PO BID 09/09/22 10/09/22 History atenoloL [Tenormin] 50 mg PO BID@0900,2100 09/09/22 10/09/22 History busPIRone HCL [Buspar] 7.5 mg PO HS@2100 09/09/22 10/09/22 History cloNIDine 0.3 MG/24HR PATCH 1 patch TRANSDERM TH 09/09/22 10/09/22 History [Catapres-TTS] Albuterol Sulfate [Proventil Hfa] 2 puff INHALATION RT-BID PRN 10/09/22 10/09/22 History Apixaban [Eliquis] 2.5 mg PO BID 10/09/22 10/09/22 History Budesonide [Pulmicort] 1 mg INHALATION RT-BID 10/09/22 10/09/22 History Collagenase [Santyl Ointment] 1 applic TOPICAL HS 10/09/22 10/09/22 History Empagliflozin [Jardiance] 10 mg PO DAILY 10/09/22 10/09/22 History Ferrous Sulfate [Iron] 325 mg PO DAILY 10/09/22 10/09/22 History Melatonin 10 mg PO HS 10/09/22 10/09/22 History Omeprazole [PriLOSEC] 20 mg PO DAILY 10/09/22 10/09/22 History hydrALAZINE HCL [Apresoline] 25 mg PO TID 10/09/22 10/09/22 History predniSONE [Deltasone] See Taper PO DAILY 10/09/22 10/09/22 History traMADol HCl [Ultram] 50 mg PO Q4HR PRN 10/09/22 10/09/22 History traMADol HCl [Ultram] 100 mg PO HS 10/09/22 10/09/22 History Allergies Allergy/AdvReac Type Severity Reaction Status Date / Time codeine AdvReac Nausea & Verified 10/09/22 11:15 Vomiting,hyperactive Physical Exam Vitals: Vital Signs Temp Pulse Resp BP Pulse Ox 10/09/22 15:10 79 19 92/49 99 10/09/22 15:00 85 24 84/51 98 10/09/22 14:50 81 24 85/59 98 10/09/22 14:40 82 24 93/62 97 10/09/22 14:30 87 20 103/56 98 10/09/22 14:20 92 21 103/56 100 10/09/22 13:55 98.2 F 89 16 96/81 97 10/09/22 13:40 118/83 10/09/22 13:30 87 24 106/56 10/09/22 13:22 73 19 106/56 98 10/09/22 13:20 80 33 H 115/94 10/09/22 13:15 78 19 118/93 98 10/09/22 13:10 80 36 H 104/57 10/09/22 13:00 81 35 H 110/66 98 10/09/22 12:53 98.1 F 80 18 110/66 95 10/09/22 12:50 81 38 H 110/66 10/09/22 12:40 85 32 H 124/67 92 L 10/09/22 12:30 81 23 121/58 54 L 10/09/22 12:20 88 35 H 121/58 95 10/09/22 12:10 87 36 H 106/56 100 10/09/22 12:09 86 18 106/70 97 10/09/22 12:00 99.2 F 88 35 H 106/56 99 10/09/22 11:50 87 37 H 106/56 10/09/22 11:46 87 16 106/56 96 10/09/22 11:40 69/42 10/09/22 11:30 77 22 79/44 99 10/09/22 11:20 79 18 79/44 98 10/09/22 11:16 85 20 79/44 98 10/09/22 11:14 96 10/09/22 11:10 80 11 L 71/43 94 L 10/09/22 11:00 82 12 104/81 91 L 10/09/22 10:50 84 23 104/81 10/09/22 10:40 85 32 H 104/81 10/09/22 10:30 87 26 H 104/81 10/09/22 10:27 104/81 10/09/22 10:19 102.4 F H 89 16 104/81 96 Intake and Output 10/09/22 10/09/22 10/09/22 06:59 14:59 22:59 Intake Total 3480 Output Total 0 Balance 3480 Intake: Intake, IV Titration 3480 Amount Potassium Chloride 20 meq 100 In Water For Injection 1 100ml.bag @ 50 mls/hr IVPB ONCE STA Rx#: [id number] Sodium Chloride 0.9% 1, 130 000 ml @ 130 mls/hr IV . Q7H42M WILLIS Rx#:[id number] Sodium Chloride 0.9% 1, 1000 000 ml @ 999 mls/hr IV . Q1H1M ONE Rx#:[id number] Sodium Chloride 0.9% 1, 1000 000 ml @ 999 mls/hr IV . Q1H1M STA Rx#:[id number] Sodium Chloride 0.9% 1, 1000 000 ml @ 999 mls/hr IV . Q1H1M STA Rx#:[id number] Vancomycin 1,250 mg In 250 Sodium Chloride 0.9% 250 ml @ 125 mls/hr IVPB ONCE ONE Rx#:[id number] Oral 0 Output: Urine 0 Other: Weight 63.503 kg GENERAL EXAM: Arousable, 82-year-old female, currently on room air, comfortable in no apparent distress. HEAD: Normocephalic. EYES: Normal reaction of pupils, equal size. NOSE: Clear with pink turbinates. THROAT: No erythema or exudates. NECK: Neck collar in place. No masses, no JVD. CHEST: No chest wall deformity. LUNGS: Equal air entry with few scattered rhonchi. CVS: S1 and S2 normal with no audible murmur, regular rhythm. ABDOMEN: No hepatosplenomegaly, normal bowel sounds, no guarding or rigidity. SPINE: No scoliosis or deformity SKIN: No rashes CENTRAL NERVOUS SYSTEM: No focal deficits, tone is normal in all 4 extremities. EXTREMITIES: There is no peripheral edema. No clubbing, no cyanosis. Peripheral pulses are intact. Results - Laboratory Findings CBC and BMP: 10/09/22 10:52 10/09/22 10:52 PT/INR, D-dimer PT 13.5 sec (9.0-12.0) H 10/09/22 10:48 INR 1.3 (<1.2) H 10/09/22 10:48 Abnormal lab findings: Abnormal Labs 10/09/22 10/09/22 10/09/22 10:48 10:52 10:52 WBC 23.5 H RBC 3.50 L Hgb 8.6 L Hct 27.3 L MCV 77.8 L MCH 24.7 L RDW 18.8 H Plt Count 107 L D Neutrophils # (Manual) 22.00 H Lymphocytes # (Manual) 0.24 L Metamyelocytes # (Man) 0.47 H PT 13.5 H INR 1.3 H Sodium Potassium Chloride BUN Creatinine POC Glucose (mg/dL) Plasma Lactic Acid Wu Calcium Alkaline Phosphatase Total Protein Albumin Urine Appearance Turbid H Urine Protein 2+ H Urine Glucose (UA) 4+ H Urine Blood Moderate H Ur Leukocyte Esterase Large H Urine RBC 17 H Urine WBC >182 H Urine WBC Clumps Many H Urine Bacteria Moderate H Urine Mucus Occasional H 10/09/22 10/09/22 10/09/22 10:52 10:52 14:07 WBC RBC Hgb Hct MCV MCH RDW Plt Count Neutrophils # (Manual) Lymphocytes # (Manual) Metamyelocytes # (Man) PT INR Sodium 134 L Potassium 3.0 L Chloride 91 L BUN 49 H Creatinine 2.23 H POC Glucose (mg/dL) 21 L Plasma Lactic Acid Wu 8.6 H* Calcium 7.6 L Alkaline Phosphatase 218 H Total Protein 5.3 L Albumin 2.9 L Urine Appearance Urine Protein Urine Glucose (UA) Urine Blood Ur Leukocyte Esterase Urine RBC Urine WBC Urine WBC Clumps Urine Bacteria Urine Mucus 10/09/22 14:14 WBC RBC Hgb Hct MCV MCH RDW Plt Count Neutrophils # (Manual) Lymphocytes # (Manual) Metamyelocytes # (Man) PT INR Sodium Potassium Chloride BUN Creatinine POC Glucose (mg/dL) 203 H Plasma Lactic Acid Wu Calcium Alkaline Phosphatase Total Protein Albumin Urine Appearance Urine Protein Urine Glucose (UA) Urine Blood Ur Leukocyte Esterase Urine RBC Urine WBC Urine WBC Clumps Urine Bacteria Urine Mucus - Diagnostic Findings Chest x-ray: image reviewed Assessment and Plan Assessment: Altered mental status secondary to urinary tract infection and febrile illness Hypotension secondary to sepsis Leukocytosis secondary to above Febrile illness secondary to above Acute kidney injury secondary to dehydration Urinary tract infection, culture pending Hyponatremia Hypokalemia Acute on chronic anemia Atrial fibrillation anticoagulated with all of chest History of left breast cancer status post mastectomy, chemotherapy History of left renal cell carcinoma status post nephrectomy History of recent cervical neck surgery currently in collar Hearing disorder Hypertension, history of Hyperlipidemia Rheumatoid arthritis Coronary disease with previous stent placement Poor overall functional performance, residing in ECF Plan: The patient was seen and evaluated Chest x-ray, labs and medications reviewed Continue with fluid resuscitation with normal saline at 130 ML's per hour Continue vancomycin and Zosyn Cervical spine CT and CT of the brain pending Triple-lumen catheter placed We will continue to follow and make further recommendations based on her clinical status I have personally seen and examined the patient, performed the documentation and the assessment and plan as written. Number of minutes spent on the visit: 20.
[2022-10-09] MEDS: HEPARIN SODIUM,PORCINE/PF 5,000 UNIT/0.5 ML SYRINGE SQ SCH (17:04)
[2022-10-09] MEDS: PIPERACILLIN-TAZOBACTAM 3.375 GM in SODIUM CHLORIDE 0.9% 100 ML IVPB SCH (17:04)
[2022-10-09] MEDS: INSULIN ASPART (NovoLOG) 100 UNIT/ML VIAL SQ SCH ×2 (19:00→20:02)
[2022-10-09] MEDS: ALBUTEROL NEBULIZED 2.5 MG/3 ML INHALATION PRN (19:40)
[2022-10-09] MEDS: BUDESONIDE 1 MG/2 ML NEBU INHALATION SCH (19:41)
[2022-10-09 20:03] LABS: Glucose,Whole Blood 101 mg/dL (70-110)
--- NOTE | 2022-10-09 20:21 | P.CONS ---
History of Present Illness - Reason for Consult Consult date: 10/09/22 - History of Present Illness Patient is a 82-year-old female with a past medical history significant for diabetes mellitus atrial fibrillation hyperlipidemia rheumatoid arthritis heart failure she is currently resident of the local long-term patient was sent to the ER this morning for evaluation of mental status changes, apparently patient was noticed to be drowsy but arousable to touch no clear history of any fever or any chills nausea or vomiting with the symptoms the patient was evaluated by the ER physician on arrival to the ER patient did have a fever of 102 F patient was borderline hypotensive requiring admission to the ICU patient did have white count 23.5 with a left shift BUN/creatinine has been elevated lactic acid was 8.6 did have a positive UA COVID testing was negative patient did have a chest x-ray patchy perihilar opacities concerning for pneumonia cardiomegaly with suspected large hiatal hernia patient was started on vancomycin and Zosyn admitted to ICU infectious disease was consulted for further management of antibiotic therapy most information has been obtained from review the chart talking nursing staff as patient herself was not able to provide any history Past Medical History Past Medical History: Atrial Fibrillation, Asthma, Coronary Artery Disease (CAD), Cancer, Chest Pain / Angina, Heart Failure, Diabetes Mellitus, GERD/Re flux, Hearing Disorder / Deafness, Hyperlipidemia, Hypertension, Osteoarthritis (OA), Renal Disease, Rheumatoid Arthritis (RA), Vascular Disorder Additional Past Medical History / Comment(s): Cervical myopathy, spinal stenosis, paroxysmal afib, sinus bradycardia, NIDDM type II, 1984 L breast cancer/surgery and chemotherapy, 1985 L renal carcinoma, kidney infections, UTIs with current UTI, pt unsure if she had previous tia, ckd stage III, anemia, past small bowel obstructions, past ulcer, abnormal gait/uses walker, FALLS History of Any Multi-Drug Resistant Organisms: None Reported Past Surgical History: Breast Surgery, Heart Catheterization, Heart Catheterization With Stent, Joint Replacement, Orthopedic Surgery Additional Past Surgical History / Comment(s): Bilateral carpal tunnel releases, bilateral knee replacements, L breast mastectomy, L nephrectomy, colonoscopy, cataract removals. Past Anesthesia/Blood Transfusion Reactions: Motion Sickness, Postoperative Nausea & Vomiting (PONV) Additional Past Anesthesia/Blood Transfusion Reaction / Comm: Pt has had blood transfusion without reaction. Pt states she has fear of anesthesia. Date of Last Stent Placement:: 2007 Past Psychological History: Anxiety Smoking Status: Never smoker Past Alcohol Use History: None Reported Past Drug Use History: None Reported - Past Family History Mother Family Medical History: Cancer, Diabetes Mellitus Additional Family Medical History / Comment(s): Breast and colon cancer Father Additional Family Medical History / Comment(s): bowel problems Medications and Allergies Home Medications Medication Instructions Recorded Confirmed Type Ergocalciferol [Vitamin D2 (1250 1,250 mcg PO FR@0900 06/05/22 10/09/22 History Mcg = 62876 Iu)] Montelukast Sodium [Singulair] 10 mg PO DAILY 06/05/22 10/09/22 History Nitroglycerin Sl Tabs [Nitrostat] 0.4 mg SUBLINGUAL Q5M PRN 06/05/22 10/09/22 History Pioglitazone [Actos] 15 mg PO DAILY@0906/05/22 10/09/22 History Ranolazine [Ranexa] 500 mg PO BID 06/05/22 10/09/22 History Repaglinide [Prandin] 0.5 mg PO DAILY 06/05/22 10/09/22 History Isosorbide Mononitrate ER [Imdur] 30 mg PO DAILY 08/07/22 10/09/22 History Acetaminophen Tab [Tylenol] 650 mg PO Q6HR PRN tab 08/10/22 10/09/22 Rx Sennosides-Docusate Sodium 1 tab PO HS 08/23/22 10/09/22 History [Senokot-S] Benzocaine/Menthol Lozeng [Cepacol 1 lozenge MUCOUS MEM Q4HR PRN 09/09/22 10/09/22 History lozenge] Citalopram Hydrobromide [CeleXA] 20 mg PO HS@2100 09/09/22 10/09/22 History Fluconazole [Diflucan] 100 mg PO DAILY@0900 09/09/22 10/09/22 History Furosemide [Lasix] 40 mg PO MOWEFR 09/09/22 10/09/22 History Insulin Lispro [humaLOG Kwikpen] See Protocol SQ ACHS 09/09/22 10/09/22 History Lactulose 20 gm PO HS@2100 09/09/22 10/09/22 History Sodium Bicarbonate Tab 650 mg PO BID 09/09/22 10/09/22 History atenoloL [Tenormin] 50 mg PO BID@0900,2100 09/09/22 10/09/22 History busPIRone HCL [Buspar] 7.5 mg PO HS@2100 09/09/22 10/09/22 History cloNIDine 0.3 MG/24HR PATCH 1 patch TRANSDERM TH 09/09/22 10/09/22 History [Catapres-TTS] Albuterol Sulfate [Proventil Hfa] 2 puff INHALATION RT-BID PRN 10/09/22 10/09/22 History Apixaban [Eliquis] 2.5 mg PO BID 10/09/22 10/09/22 History Budesonide [Pulmicort] 1 mg INHALATION RT-BID 10/09/22 10/09/22 History Collagenase [Santyl Ointment] 1 applic TOPICAL HS 10/09/22 10/09/22 History Empagliflozin [Jardiance] 10 mg PO DAILY 10/09/22 10/09/22 History Ferrous Sulfate [Iron] 325 mg PO DAILY 10/09/22 10/09/22 History Melatonin 10 mg PO HS 10/09/22 10/09/22 History Omeprazole [PriLOSEC] 20 mg PO DAILY 10/09/22 10/09/22 History hydrALAZINE HCL [Apresoline] 25 mg PO TID 10/09/22 10/09/22 History predniSONE [Deltasone] See Taper PO DAILY 10/09/22 10/09/22 History traMADol HCl [Ultram] 50 mg PO Q4HR PRN 10/09/22 10/09/22 History traMADol HCl [Ultram] 100 mg PO HS 10/09/22 10/09/22 History Allergies Allergy/AdvReac Type Severity Reaction Status Date / Time codeine AdvReac Nausea & Verified 10/09/22 11:15 Vomiting,hyperactive Physical Exam Vitals: Vital Signs Temp Pulse Resp BP Pulse Ox 10/09/22 12:53 98.1 F 80 18 110/66 95 10/09/22 12:09 86 18 106/70 97 10/09/22 12:00 99.2 F 10/09/22 11:46 87 16 106/56 96 10/09/22 11:16 85 20 79/44 98 06/07/23 11:14 96 10/09/22 11:10 89 L 10/09/22 11:00 84 20 72/46 95 10/09/22 10:19 102.4 F H 89 16 104/81 96 Intake and Output 10/08/22 10/09/22 10/09/22 22:59 06:59 14:59 Other: Weight 63.503 kg Results CBC & Chem 7: 10/09/22 10:52 10/09/22 10:52 Labs: Abnormal Lab Results - Last 24 Hours (Table) 10/09/22 10/09/22 10/09/22 Range/Units 10:48 10:52 10:52 WBC 23.5 H (3.8-10.6) k/uL RBC 3.50 L (3.80-5.40) m/uL Hgb 8.6 L (11.4-16.0) gm/dL Hct 27.3 L (34.0-46.0) % MCV 77.8 L (80.0-100.0) fL MCH 24.7 L (25.0-35.0) pg RDW 18.8 H (11.5-15.5) % Plt Count 107 L D (150-450) k/uL Neutrophils # (Manual) 22.00 H (1.3-7.7) k/uL Lymphocytes # (Manual) 0.24 L (1.0-4.8) k/uL Metamyelocytes # (Man) 0.47 H (0) k/uL PT 13.5 H (9.0-12.0) sec INR 1.3 H (<1.2) Sodium (137-145) mmol/L Potassium (3.5-5.1) mmol/L Chloride (98-107) mmol/L BUN (7-17) mg/dL Creatinine (0.52-1.04) mg/dL Plasma Lactic Acid Wu (0.7-2.0) mmol/L Calcium (8.4-10.2) mg/dL Alkaline Phosphatase (38-126) U/L Total Protein (6.3-8.2) g/dL Albumin (3.5-5.0) g/dL Urine Appearance Turbid H (Clear) Urine Protein 2+ H (Negative) Urine Glucose (UA) 4+ H (Negative) Urine Blood Moderate H (Negative) Ur Leukocyte Esterase Large H (Negative) Urine RBC 17 H (0-5) /hpf Urine WBC >182 H (0-5) /hpf Urine WBC Clumps Many H (None) /hpf Urine Bacteria Moderate H (None) /hpf Urine Mucus Occasional H (None) /hpf 10/09/22 10/09/22 Range/Units 10:52 10:52 WBC (3.8-10.6) k/uL RBC (3.80-5.40) m/uL Hgb (11.4-16.0) gm/dL Hct (34.0-46.0) % MCV (80.0-100.0) fL MCH (25.0-35.0) pg RDW (11.5-15.5) % Plt Count (150-450) k/uL Neutrophils # (Manual) (1.3-7.7) k/uL Lymphocytes # (Manual) (1.0-4.8) k/uL Metamyelocytes # (Man) (0) k/uL PT (9.0-12.0) sec INR (<1.2) Sodium 134 L (137-145) mmol/L Potassium 3.0 L (3.5-5.1) mmol/L Chloride 91 L (98-107) mmol/L BUN 49 H (7-17) mg/dL Creatinine 2.23 H (0.52-1.04) mg/dL Plasma Lactic Acid Wu 8.6 H* (0.7-2.0) mmol/L Calcium 7.6 L (8.4-10.2) mg/dL Alkaline Phosphatase 218 H (38-126) U/L Total Protein 5.3 L (6.3-8.2) g/dL Albumin 2.9 L (3.5-5.0) g/dL Urine Appearance (Clear) Urine Protein (Negative) Urine Glucose (UA) (Negative) Urine Blood (Negative) Ur Leukocyte Esterase (Negative) Urine RBC (0-5) /hpf Urine WBC (0-5) /hpf Urine WBC Clumps (None) /hpf Urine Bacteria (None) /hpf Urine Mucus (None) /hpf Assessment and Plan Plan: 1patient was in the hospital with sepsis in this patient who did have a fever elevated white count hypertension requiring admission to ICU source is likely UTI likely from doing gram-negative pathogen however the patient also noted to have perihilar infiltrate concerning for possible pneumonia question of aspiration etiology her abdominal soft medical examination no evidence of any ce llulitis or joint swelling 2-patient with renal insufficiency high risk of nephrotoxicity 3-discontinue vancomycin 4-continue with the Zosyn while waiting for the culture to finalize We will follow on clinical condition and cultures to further adjust medication if needed Thank you for this consultation we will follow the patient along with you Time with Patient: Greater than 30
--- NOTE | 2022-10-09 21:14 | OP ---
OPERATIVE REPORT DATE OF SERVICE : PROCEDURE PERFORMED: Placement of a right femoral triple-lumen catheter. PREOPERATIVE DIAGNOSIS: Urosepsis. POSTOPERATIVE DIAGNOSIS: Urosepsis. ANESTHESIA USED: 2 mL of 1% lidocaine. DESCRIPTION OF PROCEDURE: The right groin was prepared in a sterile fashion, and the drapes were applied. The area of the groin was locally anesthetized. The right femoral vein was easily cannulated medial to the right femoral artery. Then, the guidewire was placed, and the area around the guidewire was dilated. Triple-lumen catheter was inserted over the guidewire, and the guidewire was removed. Good blood flow was noted in the 3 different ports of the triple-lumen catheter. Line was secured using 3-0 silk sutures. No complications. BLOOD LOSS: Zero. MMODL / IJN: [id number] /
[2022-10-09] MEDS: ACETAMINOPHEN TAB 325 MG TAB PO PRN (21:51)
[2022-10-10] MEDS: PIPERACILLIN-TAZOBACTAM 3.375 GM in SODIUM CHLORIDE 0.9% 100 ML IVPB SCH ×3 (00:08→16:24)
[2022-10-10] MEDS: HEPARIN SODIUM,PORCINE/PF 5,000 UNIT/0.5 ML SYRINGE SQ SCH ×2 (00:08→10:02)
[2022-10-10] MEDS: MORPHINE SULFATE 2 MG/ML SYRINGE IVP PRN ×4 (00:08→20:35)
[2022-10-10] MEDS: ACETAMINOPHEN TAB 325 MG TAB PO PRN ×2 (02:15→20:19)
[2022-10-10] MEDS: SODIUM CHLORIDE 0.9% 1,000 ML IV SCH ×3 (02:53→14:51)
[2022-10-10 04:54] LABS: Anisocytosis Slight; HCT 22.5 % (34.0-46.0); Hypochromasia Moderate; MCH 24.5 pg (25.0-35.0); MCHC 31.2 g/dL (31.0-37.0); MCV 78.6 fL (80.0-100.0); Mean Platelet Volume 8.1; Microcytosis Slight; RBC 2.87 m/uL (3.80-5.40); RDW 18.9 % (11.5-15.5); WBC 31.1 k/uL (3.8-10.6)
[2022-10-10 05:16] LABS: Platelet Count 49 k/uL (150-450)
[2022-10-10 06:14] LABS: Glucose,Whole Blood 79 mg/dL (70-110)
[2022-10-10] MEDS: INSULIN ASPART (NovoLOG) 100 UNIT/ML VIAL SQ SCH ×4 (06:25→20:17)
[2022-10-10 07:23] LABS: African American GFR (CKD) 25 (>60 ml/min/1.73 sqM); Anion Gap 13 mmol/L; Blood Urea Nitrogen 47 mg/dL (7-17); Calcium 6.6 mg/dL (8.4-10.2); Carbon Dioxide 23 mmol/L (22-30); Chloride 100 mmol/L (98-107); Glucose 72 mg/dL (74-99); Non-African American GFR(CKD) 21 (>60 ml/min/1.73 sqM); Sodium 136 mmol/L (137-145)
--- NOTE | 2022-10-10 07:25 | XR ---
EXAMINATION TYPE: XR chest 1V portable DATE OF EXAM: 10/10/2022 Comparison: 10/09/2022 Clinical History: 82-year-old female PNA Findings: ACDF and posterior cervical fusion hardware redemonstrated. Multiple surgical clips in the upper abdo men. Heart is mildly enlarged. Continued retrocardiac and left basilar opacity and background interst itial prominence. Severe degenerative changes left shoulder. Impression: 1. Ongoing retrocardiac and left basilar airspace disease. 2. Background mild interstitial prominence. Correlate to exclude pulmonary vascular congestion.
[2022-10-10 07:50] LABS: C Reactive Protein 25.3 mg/dL (<1.0); Potassium 2.4 mmol/L (3.5-5.1)
[2022-10-10] MEDS ORDERED: Potassium Replacement Protocol 1 EACH MISC MISCELLANE PRN ×2 (08:07→14:39)
[2022-10-10] MEDS ORDERED: POTASSIUM CHLORIDE 20 MEQ in WATER FOR INJECTION 1 100ML.BAG IVPB STA (08:08)
[2022-10-10] MEDS: BUDESONIDE 1 MG/2 ML NEBU INHALATION SCH ×2 (08:08→20:08)
[2022-10-10] MEDS: ALBUTEROL NEBULIZED 2.5 MG/3 ML INHALATION PRN ×2 (08:08→20:08)
[2022-10-10] MEDS ORDERED: VANCOMYCIN IV PER PHARMACY 1 EACH MISC MISCELLANE PRN (08:41)
[2022-10-10] MEDS ORDERED: VANCOMYCIN 1,250 MG in SODIUM CHLORIDE 0.9% 250 ML IVPB ONE ×2 (09:00→13:00)
[2022-10-10] MEDS: PANTOPRAZOLE 40 MG/10 ML VIAL IV SCH (09:13)
--- NOTE | 2022-10-10 10:06 | P.NPCON ---
History of Present Illness - Reason for Consult acute renal failure - History of Present Illness Patient is an 82-year-old female with history of chronic kidney disease NKF stage IIIB with baseline creatinine around 1.5 to 1.2 milligrams per deciliter. Etiology is nephrosclerosis and solitary kidney due to history of left nephrectomy for renal cell carcinoma. Patient was admitted from rehab with complaints of increased weakness. She was actually about to be discharged from rehab to go home but developed altered mentation. Blood pressure was low with systolic in the 80s. Lactic acid was elevated at 8.6. Chest x-ray shows perihilar opacities with concern for pneumonia. UA is also suggestive of UTI. Next Patient is admitted to the ICU. Currently maintained on IV fluids. Patient did not need pressors. Patient has been started on IV antibiotics as well. Urine output 20-30 mL per hour. Has an indwelling Cop[place] catheter. Patient had anterior cervical decompression with discectomy and fusion of C4 C5 C6 and C7 for cervical stenosis and cervical myelopathy on 08/25/2022. Review of Systems As per HPI, negative for fever chills nausea vomiting abdominal pain or diarrhea. No cough Past Medical History Past Medical History: Atrial Fibrillation, Asthma, Coronary Artery Disease (CAD), Cancer, Chest Pain / Angina, Heart Failure, Diabetes Mellitus, GERD/Reflux, Hearing Disorder / Deafness, Hyperlipidemia, Hypertension, Osteoarthritis (OA), Renal Disease, Rheumatoid Arthritis (RA), Vascular Disorder Additional Past Medical History / Comment(s): Cervical myopathy, spinal stenosis, paroxysmal afib, sinus bradycardia, NIDDM type II, 1984 L breast cancer/surgery and chemotherapy, 1985 L renal carcinoma, kidney infections, UTIs with current UTI, pt unsure if she had previous tia, ckd stage III, anemia, past small bowel obstructions, past ulcer, abnormal gait/uses walker, FALLS History of Any Multi-Drug Resistant Organisms: None Reported Past Surgical History: Breast Surgery, Heart Catheterization, Heart Catheterization With Stent, Joint Replacement, Orthopedic Surgery Additional Past Surgical History / Comment(s): Bilateral carpal tunnel releases, bilateral knee replacements, L breast mastectomy, L nephrectomy, colonoscopy, cataract removals. Past Anesthesia/Blood Transfusion Reactions: Motion Sickness, Postoperative Nausea & Vomiting (PONV) Additional Past Anesthesia/Blood Transfusion Reaction / Comment(s): Pt has had blood transfusion without reaction. Pt states she has fear of anesthesia. Date of Last Stent Placement:: 2007 Past Psychological History: Anxiety Smoking Status: Never smoker Past Alcohol Use History: None Reported Past Drug Use History: None Reported - Past Family History Mother Family Medical History: Cancer, Diabetes Mellitus Additional Family Medical History / Comment(s): Breast and colon cancer Father Additional Family Medical History / Comment(s): bowel problems Medications and Allergies Home Medications Medication Instructions Recorded Confirmed Type Ergocalciferol [Vitamin D2 (1250 1,250 mcg PO FR@0906/05/22 10/09/22 History Mcg = 81511 Iu)] Montelukast Sodium [Singulair] 10 mg PO DAILY 06/05/22 10/09/22 History Nitroglycerin Sl Tabs [Nitrostat] 0.4 mg SUBLINGUAL Q5M PRN 06/05/22 10/09/22 History Pioglitazone [Actos] 15 mg PO DAILY@0906/05/22 10/09/22 History Ranolazine [Ranexa] 500 mg PO BID 06/05/22 10/09/22 History Repaglinide [Prandin] 0.5 mg PO DAILY 06/05/22 10/09/22 History Isosorbide Mononitrate ER [Imdur] 30 mg PO DAILY 08/07/22 10/09/22 History Acetaminophen Tab [Tylenol] 650 mg PO Q6HR PRN tab 08/10/22 10/09/22 Rx Sennosides-Docusate Sodium 1 tab PO HS 08/23/22 10/09/22 History [Senokot-S] Benzocaine/Menthol Lozeng [Cepacol 1 lozenge MUCOUS MEM Q4HR PRN 09/09/22 10/09/22 History lozenge] Citalopram Hydrobromide [CeleXA] 20 mg PO HS@209909/09/22 10/09/22 History Fluconazole [Diflucan] 100 mg PO DAILY@0900 09/09/22 10/09/22 History Furosemide [Lasix] 40 mg PO MOWEFR 09/09/22 10/09/22 History Insulin Lispro [humaLOG Kwikpen] See Protocol SQ ACHS 09/09/22 10/09/22 History Lactulose 20 gm PO HS@2100 09/09/22 10/09/22 History Sodium Bicarbonate Tab 650 mg PO BID 09/09/22 10/09/22 History atenoloL [Tenormin] 50 mg PO BID@0900,2100 09/09/22 10/09/22 History busPIRone HCL [Buspar] 7.5 mg PO HS@2100 09/09/22 10/09/22 History cloNIDine 0.3 MG/24HR PATCH 1 patch TRANSDERM TH 09/09/22 10/09/22 History [Catapres-TTS] Albuterol Sulfate [Proventil Hfa] 2 puff INHALATION RT-BID PRN 10/09/22 10/09/22 History Apixaban [Eliquis] 2.5 mg PO BID 10/09/22 10/09/22 History Budesonide [Pulmicort] 1 mg INHALATION RT-BID 10/09/22 10/09/22 History Collagenase [Santyl Ointment] 1 applic TOPICAL HS 10/09/22 10/09/22 History Empagliflozin [Jardiance] 10 mg PO DAILY 10/09/22 10/09/22 History Ferrous Sulfate [Iron] 325 mg PO DAILY 10/09/22 10/09/22 History Melatonin 10 mg PO HS 10/09/22 10/09/22 History Omeprazole [PriLOSEC] 20 mg PO DAILY 10/09/22 10/09/22 History hydrALAZINE HCL [Apresoline] 25 mg PO TID 10/09/22 10/09/22 History predniSONE [Deltasone] See Taper PO DAILY 10/09/22 10/09/22 History traMADol HCl [Ultram] 50 mg PO Q4HR PRN 10/09/22 10/09/22 History traMADol HCl [Ultram] 100 mg PO HS 10/09/22 10/09/22 History Allergies Allergy/AdvReac Type Severity Reaction Status Date / Time codeine AdvReac Nausea & Verified 10/09/22 11:15 Vomiting,hyperactive Physical Exam Vitals: Vital Signs Temp Pulse Resp BP Pulse Ox 10/10/22 08:24 74 10/10/22 08:08 80 97 10/10/22 07:00 79 28 H 134/75 97 10/10/22 06:00 91 35 H 124/83 96 10/10/22 05:00 76 26 H 115/55 96 10/10/22 04:00 92 22 117/91 95 10/10/22 03:00 84 16 116/51 96 10/10/22 02:00 93 17 112/59 10/10/22 01:00 84 22 130/73 95 10/10/22 00:00 99.2 F 104 H 22 95 10/09/22 23:00 115 H 30 H 96 10/09/22 22:00 90 31 H 114/74 95 10/09/22 21:00 75 30 H 10/09/22 20:00 97.4 F L 72 31 H 127/78 10/09/22 19:54 69 10/09/22 19:42 69 10/09/22 19:00 66 22 101/62 91 L 10/09/22 18:50 80 26 H 101/62 90 L 10/09/22 18:40 66 24 101/62 95 10/09/22 18:30 77 28 H 97/58 90 L 10/09/22 18:20 76 22 97/58 10/09/22 18:10 79 29 H 97/58 10/09/22 18:00 78 22 133/64 10/09/22 17:50 76 23 10/09/22 17:40 70 26 H 133/64 10/09/22 17:30 70 30 H 107/83 91 L 10/09/22 17:20 63 21 107/83 10/09/22 17:10 63 24 103/52 10/09/22 17:00 64 22 113/59 87 L 10/09/22 16:50 65 21 113/59 10/09/22 16:40 63 22 107/62 90 L 10/09/22 16:30 66 26 H 118/64 90 L 10/09/22 16:20 66 27 H 118/64 100 10/09/22 16:10 65 22 100/59 10/09/22 16:00 98.1 F 63 26 H 100/60 90 L 10/09/22 15:50 64 23 100/60 90 L 10/09/22 15:40 67 22 103/42 88 L 10/09/22 15:30 75 22 84/47 100 10/09/22 15:20 62 19 84/47 95 10/09/22 15:10 79 19 92/49 99 10/09/22 15:00 85 24 84/51 98 10/09/22 14:50 81 24 85/59 98 10/09/22 14:40 82 24 93/62 97 10/09/22 14:30 87 20 103/56 98 10/09/22 14:20 92 21 103/56 100 10/09/22 13:55 98.2 F 89 16 96/81 97 10/09/22 13:40 118/83 10/09/22 13:30 87 24 106/56 10/09/22 13:22 73 19 106/56 98 10/09/22 13:20 80 33 H 115/94 10/09/22 13:15 78 19 118/93 98 10/09/22 13:10 80 36 H 104/57 10/09/22 13:00 81 35 H 110/66 98 10/09/22 12:53 98.1 F 80 18 110/66 95 10/09/22 12:50 81 38 H 110/66 10/09/22 12:40 85 32 H 124/67 92 L 10/09/22 12:30 81 23 121/58 54 L 10/09/22 12:20 88 35 H 121/58 95 10/09/22 12:10 87 36 H 106/56 100 10/09/22 12:09 86 18 106/70 97 10/09/22 12:00 99.2 F 88 35 H 106/56 99 10/09/22 11:50 87 37 H 106/56 10/09/22 11:46 87 16 106/56 96 10/09/22 11:40 69/42 10/09/22 11:30 77 22 79/44 99 10/09/22 11:20 79 18 79/44 98 10/09/22 11:16 85 20 79/44 98 10/09/22 11:14 96 10/09/22 11:10 80 11 L 71/43 94 L 10/09/22 11:00 82 12 104/81 91 L 10/09/22 10:50 84 23 104/81 10/09/22 10:40 85 32 H 104/81 10/09/22 10:30 87 26 H 104/81 10/09/22 10:27 104/81 10/09/22 10:19 102.4 F H 89 16 104/81 96 Intake and Output 10/09/22 10/10/2223 22:59 06:59 14:59 Intake Total 4390 1140 130 Output Total 200 300 20 Balance 4190 840 110 Intake: IV 390 1140 130 0.9 390 1040 130 Piperacillin-Tazobactam 3 100 .375 gm In Sodium Chloride 0.9% 100 ml @ 25 mls/hr IVPB Q8HR [facility] Rx# :[id number] Intake, IV Titration 4000 Amount Potassium Chloride 20 meq 100 In Water For Injection 1 100ml.bag @ 50 mls/hr IVPB ONCE STA Rx#: [id number] Sodium Chloride 0.9% 1, 650 000 ml @ 130 mls/hr IV . Q7H42M [facility] Rx#:[id number] Sodium Chloride 0.9% 1, 1000 000 ml @ 999 mls/hr IV . Q1H1M ONE Rx#:[id number] Sodium Chloride 0.9% 1, 1000 000 ml @ 999 mls/hr IV . Q1H1M ST[facility] Rx#:[id number] Sodium Chloride 0.9% 1, 1000 000 ml @ 999 mls/hr IV . Q1H1M [facility] Rx#:[id number] Vancomycin 1,250 mg In 250 Sodium Chloride 0.9% 250 ml @ 125 mls/hr IVPB ONCE ONE Rx#:[id number] Oral 0 Output: Urine 200 300 20 Other: Voiding Method Indwelling Catheter Indwelling Catheter # Bowel Movements 1 Weight 63.503 kg 67.3 kg Patient is awake, comfortable, no acute distress Alert oriented 3 Examination of the heart S1 and S2 Examination of the lungs decreased breath sounds at the bases Abdomen is soft nontender Examination of lower extremities shows no significant edema TRANSFER DRIVER exam grossly intact Patient has a cervical collar. Results - Lab Results Most recent lab results Calcium 6.6 mg/dL (8.4-10.2) L 10/10/22 04:45 10/10/22 04:45 10/10/22 04:45 Assessment and Plan Assessment: 1. Acute kidney injury secondary to hypotension and sepsis currently n onoliguric with ischemic ATN. 2. 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 Hypotension from sepsis 4. Sepsis from pneumonia as well as UTI 5. Status post recent anterior and posterior cervical decompression and fusion of C4 C5 C6 and C7 on 08/25/2022 for cervical stenosis and cervical myelopathy. 6. History of renal cell cancer status post left nephrectomy. 7. Hypokalemia associated decreased intake, rule out hypomagnesemia 8. Lactic acidosis secondary to hypotension and sepsis Plan: Continue with IV fluids Continue IV antibiotics Replace potassium Check magnesium, suspect hypomagnesemia from proton pump inhibitors. Repeat labs in a.m.
[2022-10-10 11:34] LABS: Glucose,Whole Blood 116 mg/dL (70-110)
[2022-10-10] MEDS ORDERED: Magnesium Replacement Protocol 1 EACH MISC MISCELLANE PRN (11:47)
--- NOTE | 2022-10-10 11:54 | P.PN ---
Subjective Progress Note Date: 10/10/22 Principal diagnosis: Acute urinary tract infection and urosepsis This is a 82-year-old female patient with a known history of atrial fibrillation, anticoagulated with close, coronary disease previous stent placement, left breast cancer with previous mastectomy, left renal carcinoma with left nephrectomy, diabetes mellitus, hearing disorder, hyperlipidemia, hypertension, rheumatoid arthritis. She also had recent neck surgery and was here in this hospital and subsequently placed in subacute rehab. She was brought here this morning with altered mental status. Chest x-ray revealed patchy perihilar opacities concerning for pneumonia. White count 23.5. Hemoglobin 8.6. Platelets 107. Sodium 134. Potassium 3.0. Chloride 91. Bicarb 23. BUN 49. Creatinine 2.23. Lactic acid 8.6. Urinalysis turbid with moderate blood and moderate bacteria with many WBCs. Coronavirus by PCR not detected. She's received 3 units of fluid resuscitation. She was given a dose of vancomycin and ceftriaxone. She is admitted to the intensive care unit and seen today in consultation. Her initial blood glucose on arrival to the ICU was only 21. She was treated and is currently 203. She is more awake and alert. Mean arterial pressure currently 73. T-max of 102.4. Currently 98.2. She is now currently on vancomycin and Zosyn. Reevaluated today in the ICU on 10/10/02, patient remains in the ICU, did not require any pressors, patient is on 2 L nasal cannula, not in any distress, her lactic acid is down to 8 from 8.0 on admission. Cultures are pending, patient remains on antibiotics empirically, patient was seen by infectious disease on consultation. Her labs today were all reviewed. WBC count is 31.1 hemoglobin is 7 potassium is rather low at 2.4 being corrected as per protocol. Renal functioning is abnormal close to her baseline with creatinine of 2.12, being se en by nephrology in consultation. Overall the patient has demonstrated hemodynamic stability over the last 24 hours, she is on proper antibiotics for now, empirically, I will arrange for the patient to transfer to a medical floor. Objective - Vital Signs Vital signs: Vital Signs Temp 97.9 F 10/10/22 08:00 Pulse 72 10/10/22 11:00 Resp 24 10/10/22 11:00 BP 132/69 10/10/22 11:00 Pulse Ox 98 10/10/22 11:00 FiO2 Intake & Output 10/09/22 10/10/22 10/10/22 18:59 06:59 18:59 Intake Total 3870 1660 1300 Output Total 40 460 200 Balance 3830 1200 1100 Weight 63.503 kg 67.3 kg Intake: IV 1530 130 0.9 1430 130 Piperacillin-Tazobactam 3 100 .375 gm In Sodium Chloride 0.9% 100 ml @ 25 mls/hr IVPB Q8HR [facility] Rx# :[id number] Intake, IV Titration 3870 130 720 Amount Piperacillin-Tazobactam 3 100 .375 gm In Sodium Chloride 0.9% 100 ml @ 25 mls/hr IVPB Q8HR [facility] Rx# :[id number] Potassium Chloride 20 meq 100 In Water For Injection 1 100ml.bag @ 50 mls/hr IVPB [facility]CE [facility] Rx#: [id number] Potassium Chloride 20 meq 100 In Water For Injection 1 100ml.bag @ 50 mls/hr IVPB [facility]CE [facility] Rx#: [id number] Sodium Chloride 0.9% 1, 520 130 520 000 ml @ 130 mls/hr IV . Q7H42M [facility] Rx#:[id number] Sodium Chloride 0.9% 1, 1000 000 ml @ 999 mls/hr IV . Q1H1M [facility] Rx#:[id number] Sodium Chloride 0.9% 1, 1000 000 ml @ 999 mls/hr IV . Q1H1M [facility] Rx#:[id number] Sodium Chloride 0.9% 1, 1000 000 ml @ 999 mls/hr IV . Q1H1M [facility] Rx#:[id number] Vancomycin 1,250 mg In 250 Sodium Chloride 0.9% 250 ml @ 125 mls/hr IVPB ONCE [facility] Rx#:[id number] Oral 0 0 450 Output: Urine 40 460 200 Other: Voiding Method Indwelling Catheter Indwelling Catheter Indwelling Catheter # Bowel Movements 1 - Exam Physical Exam: Revealed 83-year-old female pleasant in no distress Head: Atraumatic, normocephalic. HEENT:[Neck is supple.] [No neck masses.] [No thyromegaly.] [No JVD.] Cervical collar is noted in place. Chest: [Clear throughout, no crackles, no rhonchi, no wheezes.] Cardiac Exam: [Normal S1 and S2, no S3 gallop, no murmur.] Abdomen: [Soft, nontender, no megaly, no rebound, no guarding, normal bowel sounds.] Extremities: [No clubbing, no edema, no cyanosis.] Neurological Exam: Alert oriented 3 focal deficits. Psychiatric: Normal mood affect and normal mental status examination. - Labs CBC & Chem 7: 10/10/22 04:45 10/10/22 04:45 Labs: Abnormal Lab Results - Last 24 Hours (Table) 10/09/22 10/09/22 10/09/22 Range/Units 10:48 10:52 10:52 WBC 23.5 H (3.8-10.6) k/uL RBC 3.50 L (3.80-5.40) m/uL Hgb 8.6 L (11.4-16.0) gm/dL Hct 27.3 L (34.0-46.0) % MCV 77.8 L (80.0-100.0) fL MCH 24.7 L (25.0-35.0) pg RDW 18.8 H (11.5-15.5) % Plt Count 107 L D (150-450) k/uL Neutrophils # (Manual) 22.00 H (1.3-7.7) k/uL Lymphocytes # (Manual) 0.24 L (1.0-4.8) k/uL Metamyelocytes # (Man) 0.47 H (0) k/uL PT 13.5 H (9.0-12.0) sec INR 1.3 H (<1.2) Sodium (137-145) mmol/L Potassium (3.5-5.1) mmol/L BUN (7-17) mg/dL Creatinine (0.52-1.04) mg/dL Glucose (74-99) mg/dL POC Glucose (mg/dL) (70-110) mg/dL Plasma Lactic Acid Wu (0.7-2.0) mmol/L Calcium (8.4-10.2) mg/dL C-Reactive Protein (<1.0) mg/dL Urine Appearance Turbid H (Clear) Urine Protein 2+ H (Negative) Urine Glucose (UA) 4+ H (Negative) Urine Blood Moderate H (Negative) Ur Leukocyte Esterase Large H (Negative) Urine RBC 17 H (0-5) /hpf Urine WBC >182 H (0-5) /hpf Urine WBC Clumps Many H (None) /hpf Urine Bacteria Moderate H (None) /hpf Urine Mucus Occasional H (None) /hpf 10/09/22 10/09/22 10/09/22 Range/Units 14:07 14:14 18:20 WBC (3.8-10.6) k/uL RBC (3.80-5.40) m/uL Hgb (11.4-16.0) gm/dL Hct (34.0-46.0) % MCV (80.0-100.0) fL MCH (25.0-35.0) pg RDW (11.5-15.5) % Plt Count (150-450) k/uL Neutrophils # (Manual) (1.3-7.7) k/uL Lymphocytes # (Manual) (1.0-4.8) k/uL Metamyelocytes # (Man) (0) k/uL PT (9.0-12.0) sec INR (<1.2) Sodium (137-145) mmol/L Potassium (3.5-5.1) mmol/L BUN (7-17) mg/dL Creatinine (0.52-1.04) mg/dL Glucose (74-99) mg/dL POC Glucose (mg/dL) 21 L 203 H (70-110) mg/dL Plasma Lactic Acid Wu 2.5 H* (0.7-2.0) mmol/L Calcium (8.4-10.2) mg/dL C-Reactive Protein (<1.0) mg/dL Urine Appearance (Clear) Urine Protein (Negative) Urine Glucose (UA) (Negative) Urine Blood (Negative) Ur Leukocyte Esterase (Negative) Urine RBC (0-5) /hpf Urine WBC (0-5) /hpf Urine WBC Clumps (None) /hpf Urine Bacteria (None) /hpf Urine Mucus (None) /hpf 10/10/22 10/10/22 10/10/22 Range/Units 04:45 04:45 11:32 WBC 31.1 H (3.8-10.6) k/uL RBC 2.87 L (3.80-5.40) m/uL Hgb 7.0 L D (11.4-16.0) gm/dL Hct 22.5 L (34.0-46.0) % MCV 78.6 L (80.0-100.0) fL MCH 24.5 L (25.0-35.0) pg RDW 18.9 H (11.5-15.5) % Plt Count 49 L D (150-450) k/uL Neutrophils # (Manual) (1.3-7.7) k/uL Lymphocytes # (Manual) (1.0-4.8) k/uL Metamyelocytes # (Man) (0) k/uL PT (9.0-12.0) sec INR (<1.2) Sodium 136 L (137-145) mmol/L Potassium 2.4 L* (3.5-5.1) mmol/L BUN 47 H (7-17) mg/dL Creatinine 2.12 H (0.52-1.04) mg/dL Glucose 72 L (74-99) mg/dL POC Glucose (mg/dL) 116 H (70-110) mg/dL Plasma Lactic Acid Wu (0.7-2.0) mmol/L Calcium 6.6 L (8.4-10.2) mg/dL C-Reactive Protein 25.3 H (<1.0) mg/dL Urine Appearance (Clear) Urine Protein (Negative) Urine Glucose (UA) (Negative) Urine Blood (Negative) Ur Leukocyte Esterase (Negative) Urine RBC (0-5) /hpf Urine WBC (0-5) /hpf Urine WBC Clumps (None) /hpf Urine Bacteria (None) /hpf Urine Mucus (None) /hpf Microbiology - Last 24 Hours (Table) 10/09/22 10:52 Blood Culture Gram Stain - Preliminary Blood Assessment and Plan Assessment: Impression: Acute metabolic encephalopathy secondary to acute urinary tract infection and sepsis, Acute gram-negative/E. coli bacteremia, most likely source is her urine. Hypotension secondary to sepsis, resolved did not require pressors Leukocytosis secondary to urosepsis. Febrile illness secondary to above Acute on chronic kidney injury., Patient denies known history of stage IIIB chronic kidney disease Electrolytes imbalance secondary to acute kidney injury Acute on chronic anemia Paroxysmal Atrial fibrillation anticoagulated History of left breast cancer status post mastectomy, chemotherapy History of left renal cell carcinoma status post nephrectomy History of recent cervical neck surgery currently in collar Hearing disorder Hypertension, history of Hyperlipidemia Rheumatoid arthritis Coronary disease with previous stent placement Poor overall functional performance, residing in [facility] History of renal cell carcinoma and previous left nephrectomy Lactic acidosis secondary to hypotension and sepsis. Plan: Continue antibiotics as per ID on the case. Presently on Zosyn, seems to be appropriate considering the patient had gram-negative/E. coli bacteremia so far. Discontinue vancomycin. Nephrology to assess her renal status and acute kidney injury Replace electrolytes including sodium and potassium as well as magnesium as per protocol. Continue to monitor renal status. And electrolytes on a daily basis. Continue IV fluid at 100 mL per hour. Will recommend transfer to a regular medical floor later today Will continue to follow Time with Patient: Less than 30
--- NOTE | 2022-10-10 12:15 | P.PN ---
Subjective Progress Note Date: 10/10/22 82-year-old female patient with a known history of atrial fibrillation, anticoagulated with close, coronary disease previous stent placement, left breast cancer with previous mastectomy, left renal carcinoma with left nephrectomy, diabetes mellitus, hearing disorder, hyperlipidemia, hypertension, rheumatoid arthritis. She also had recent neck surgery and was here in this hospital and subsequently placed in subacute rehab. * Patient admitted with altered mental status, noted to have septic shock and wa s admitted to ICU on 10/09, patient was noted to have urinary tract infection hypotension secondary to sepsis * Consultations obtained from infectious disease, nephrology, pulmonary critical care medicine * 10/10> mentation has improved significantly patient is alert and oriented 3 however slow to respond. Patient resuscitated with fluid lactate levels improving, white cell count did go up. Clinically patient appears stable at this time. We'll get CT C-spine without contrast secondary to elevated creatinine. CT had discontinued since mentation has improved. Continue patient on IV antibiotics managed by infectious disease. Receiving IV Rocephin REVIEW OF SYSTEMS: CONSTITUTIONAL: Fever, weakness, lethargic HEENT: No recent visual problems or hearing problems. Denied any sore throat. CARDIOVASCULAR: No chest pain, orthopnea, PND, no palpitations, no syncope. PULMONARY: No shortness of breath, no cough, no hemoptysis. GASTROINTESTINAL: No diarrhea, no nausea, no vomiting, no abdominal pain. NEUROLOGICAL: No headaches, no weakness, no numbness. HEMATOLOGICAL: Denies any bleeding or petechiae. GENITOURINARY: Denies any burning micturition, frequency, or urgency. MUSCULOSKELETAL/RHEUMATOLOGICAL: Denies any joint pain, swelling, or any muscle pain. ENDOCRINE: Denies any polyuria or polydipsia. Objective - Vital Signs Vital signs: Vital Signs Temp 97.9 F 10/10/22 08:00 Pulse 72 10/10/22 11:00 Resp 24 10/10/22 11:00 BP 132/69 10/10/22 11:00 Pulse Ox 98 10/10/22 11:00 FiO2 Intake & Output 10/09/22 10/10/22 10/10/22 18:59 06:59 18:59 Intake Total 3870 1660 1300 Output Total 40 460 200 Balance 3830 1200 1100 Weight 63.503 kg 67.3 kg Intake: IV 1530 130 0.9 1430 130 Piperacillin-Tazobactam 3 100 .375 gm In Sodium Chloride 0.9% 100 ml @ 25 mls/hr IVPB Q8HR [facility] Rx# :[id number] Intake, IV Titration 3870 130 720 Amount Piperacillin-Tazobactam 3 100 .375 gm In Sodium Chloride 0.9% 100 ml @ 25 mls/hr IVPB Q8HR [facility] Rx# :[id number] Potassium Chloride 20 meq 100 In Water For Injection 1 100ml.bag @ 50 mls/hr IVPB ONCE [facility] Rx#: [id number] Potassium Chloride 20 meq 100 In Water For Injection 1 100ml.bag @ 50 mls/hr IVPB ONCE [facility] Rx#: [id number] Sodium Chloride 0.9% 1, 520 130 520 000 ml @ 130 mls/hr IV . Q7H42M [facility] Rx#:[id number] Sodium Chloride 0.9% 1, 1000 000 ml @ 999 mls/hr IV . Q1H1M [facility] Rx#:[id number] Sodium Chloride 0.9% 1, 1000 000 ml @ 999 mls/hr IV . Q1H1M [facility] Rx#:[id number] Sodium Chloride 0.9% 1, 1000 000 ml @ 999 mls/hr IV . Q1H1M [facility] Rx#:[id number] Vancomycin 1,250 mg In 250 Sodium Chloride 0.9% 250 ml @ 125 mls/hr IVPB ONCE [facility] Rx#:[id number] Oral 0 0 450 Output: Urine 40 460 200 Other: Voiding Method Indwelling Catheter Indwelling Catheter Indwelling Catheter # Bowel Movements 1 - Exam PHYSICAL EXAMINATION: GENERAL: The patient is alert and oriented x3, ill appearance, c-collar in place HEENT: Pupils are round and equally reacting to light. EOMI. CARDIOVASCULAR: S1 and S2 present. No murmurs, rubs, or gallops. PULMONARY: Chest is clear to auscultation, no wheezing or crackles. ABDOMEN: Soft, nontender, nondistended, normoactive bowel sounds. No palpable organomegaly. MUSCULOSKELETAL: No joint swelling or deformity. EXTREMITIES: No cyanosis, clubbing, or pedal edema. NEUROLOGICAL: Alert and oriented 3, slow to respond no focal deficit noted - Labs CBC & Chem 7: 10/10/22 04:45 10/10/22 04:45 Labs: Abnormal Lab Results - Last 24 Hours (Table) 10/09/22 10/09/22 10/09/22 Range/Units 10:52 10:52 14:07 WBC (3.8-10.6) k/uL RBC (3.80-5.40) m/uL Hgb (11.4-16.0) gm/dL Hct (34.0-46.0) % MCV (80.0-100.0) fL MCH (25.0-35.0) pg RDW (11.5-15.5) % Plt Count (150-450) k/uL Neutrophils # (Manual) 22.00 H (1.3-7.7) k/uL Lymphocytes # (Manual) 0.24 L (1.0-4.8) k/uL Metamyelocytes # (Man) 0.47 H (0) k/uL Sodium (137-145) mmol/L Potassium (3.5-5.1) mmol/L BUN (7-17) mg/dL Creatinine (0.52-1.04) mg/dL Glucose (74-99) mg/dL POC Glucose (mg/dL) 21 L (70-110) mg/dL Plasma Lactic Acid Wu (0.7-2.0) mmol/L Calcium (8.4-10.2) mg/dL C-Reactive Protein (<1.0) mg/dL Urine Appearance Turbid H (Clear) Urine Protein 2+ H (Negative) Urine Glucose (UA) 4+ H (Negative) Urine Blood Moderate H (Negative) Ur Leukocyte Esterase Large H (Negative) Urine RBC 17 H (0-5) /hpf Urine WBC >182 H (0-5) /hpf Urine WBC Clumps Many H (None) /hpf Urine Bacteria Moderate H (None) /hpf Urine Mucus Occasional H (None) /hpf 10/09/22 10/09/22 10/10/22 Range/Units 14:14 18:20 04:45 WBC 31.1 H (3.8-10.6) k/uL RBC 2.87 L (3.80-5.40) m/uL Hgb 7.0 L D (11.4-16.0) gm/dL Hct 22.5 L (34.0-46.0) % MCV 78.6 L (80.0-100.0) fL MCH 24.5 L (25.0-35.0) pg RDW 18.9 H (11.5-15.5) % Plt Count 49 L D (150-450) k/uL Neutrophils # (Manual) (1.3-7.7) k/uL Lymphocytes # (Manual) (1.0-4.8) k/uL Metamyelocytes # (Man) (0) k/uL Sodium (137-145) mmol/L Potassium (3.5-5.1) mmol/L BUN (7-17) mg/dL Creatinine (0.52-1.04) mg/dL Glucose (74-99) mg/dL POC Glucose (mg/dL) 203 H (70-110) mg/dL Plasma Lactic Acid Wu 2.5 H* (0.7-2.0) mmol/L Calcium (8.4-10.2) mg/dL C-Reactive Protein (<1.0) mg/dL Urine Appearance (Clear) Urine Protein (Negative) Urine Glucose (UA) (Negative) Urine Blood (Negative) Ur Leukocyte Esterase (Negative) Urine RBC (0-5) /hpf Urine WBC (0-5) /hpf Urine WBC Clumps (None) /hpf Urine Bacteria (None) /hpf Urine Mucus (None) /hpf 10/10/22 10/10/22 Range/Units 04:45 11:32 WBC (3.8-10.6) k/uL RBC (3.80-5.40) m/uL Hgb (11.4-16.0) gm/dL Hct (34.0-46.0) % MCV (80.0-100.0) fL MCH (25.0-35.0) pg RDW (11.5-15.5) % Plt Count (150-450) k/uL Neutrophils # (Manual) (1.3-7.7) k/uL Lymphocytes # (Manual) (1.0-4.8) k/uL Metamyelocytes # (Man) (0) k/uL Sodium 136 L (137-145) mmol/L Potassium 2.4 L* (3.5-5.1) mmol/L BUN 47 H (7-17) mg/dL Creatinine 2.12 H (0.52-1.04) mg/dL Glucose 72 L (74-99) mg/dL POC Glucose (mg/dL) 116 H (70-110) mg/dL Plasma Lactic Acid Wu (0.7-2.0) mmol/L Calcium 6.6 L (8.4-10.2) mg/dL C-Reactive Protein 25.3 H (<1.0) mg/dL Urine Appearance (Clear) Urine Protein (Negative) Urine Glucose (UA) (Negative) Urine Blood (Negative) Ur Leukocyte Esterase (Negative) Urine RBC (0-5) /hpf Urine WBC (0-5) /hpf Urine WBC Clumps (None) /hpf Urine Bacteria (None) /hpf Urine Mucus (None) /hpf Microbiology - Last 24 Hours (Table) 10/09/22 10:52 Blood Culture Gram Stain - Preliminary Blood Assessment and Plan Assessment: Assessment and plan * Septic shock * Urinary tract infection * Acute kidney injury * Multifocal pneumonia * Degenerative disease of cervical spine status post cervical spine surgery in the last 3 months * History of atrial fibrillation * Coronary artery disease * History of renal cell carcinoma status post nephrectomy * Diabetes mellitus type 2 * Patient remains critically ill she has been admitted to ICU continue with fluid resuscitation intensive care unit team consulted * In regards to sepsis ,Blood cultures no growth to date, continue IV Rocephin day 2, vancomycin discontinued secondary to worse kidney function * CT head discontinued since mentation is improved, CT cervical spine without contrast ordered * In regards to acute renal injury continue fluid resuscitation, nephrology consult, Lasix on hold * In regards to septic shock continue to hold home indications including hydralazine, Imdur * In regards to diabetes mellitus Continue patient on correctional insulin for diabetes, oral hypoglycemic agent on hold * STATUS is full code at this time Time with Patient: Greater than 30
[2022-10-10] MEDS: MAGNESIUM SULFATE-D5W PMX 1 GM in DEXTROSE/WATER 1 100ML.BAG IVPB SCH ×2 (14:51→16:24)
[2022-10-10] MEDS: POTASSIUM CHLORIDE 20 MEQ in WATER FOR INJECTION 1 100ML.BAG IVPB SCH ×2 (15:30→16:24)
[2022-10-10 16:29] LABS: Glucose,Whole Blood 123 mg/dL (70-110)
--- NOTE | 2022-10-10 18:23 | CT ---
EXAMINATION TYPE: CT cervical spine wo con CT DLP: 440.2 mGycm, Automated exposure control for dose reduction was used. DATE OF EXAM: 10/10/2022 6:02 PM COMPARISON: 07/03/2022 and 08/20/2022. CLINICAL INDICATION:Female, 82 years old with history of R/O infection; , Rule out infection TECHNIQUE: Axial CT images from the skull base to the inferior aspect of T2 we obtained without intra venous contrast. Coronal and sagittal reformatted images were also reviewed. Contrast used: mL of , (if blank None) Oral contrast used: (if blank None) FINDINGS: Streak artifact limited exam. Fracture: None. Osseous structures: Postsurgical changes to the spine there is fixation hardware extending through C2 -T2 2. Hardware appears intact. Hardware appears in appropriate alignment. Vertebral alignment: Alignment within normal limits. Spinal canal/Neural Foramina: No evidence of significant spinal canal narrowing. No evidence for sign ificant neural foraminal stenosis. Neck soft tissues: There is fluid within the surgical bed posteriorly measuring at least 2.2 x 1.5 x 4.1 cm which is poorly visualized given streak artifact disappears at the level of the C2-C5 spinous processes. Additional fluid collection felt to be posterior to T1 measuring at least 2.4 x 1.5 x 2.2 cm . Other: The airway is patent. Patchy airspace opacities within the lungs with bilateral pleural effusi ons. IMPRESSION: 1. Postsurgical changes 2 spine with fixation hardware which appears intact. 2. There are fluid collection posterior to the C2-C5 spinous processes as well as another more infer iorly at the level of T1 spinous process.. Superimposed infection not entirely excluded correlate wit h MRI. 3. Patchy airspace opacities and bilateral pleural effusions correlate for infection with superimpos ed congestive heart failure not entirely excluded.
[2022-10-10 20:09] LABS: Glucose,Whole Blood 119 mg/dL (70-110)
--- NOTE | 2022-10-10 21:51 | P.PN ---
Subjective Progress Note Date: 10/10/22 Principal diagnosis: Urinary tract infection with bacteremia Patient is a 82-year-old female with a past medical history significant for diabetes mellitus atrial fibrillation hyperlipidemia rheumatoid arthritis heart failure she is [facility] patient was sent to the ER for evaluation of mental status changes patient was noticed to be septic from urinary source now with evidence of gram-negative bacteremia. On today's evaluation that is 10/10/2022, patient is afebrile patient is or awake and alert today patient is breathing comfortably on room air denies any chest pain shortness of breath or cough no nausea no vomiting no abdominal pain no diarrhea Objective - Vital Signs Vital signs: Vital Signs Temp 97.9 F 10/10/22 08:00 Pulse 72 10/10/22 11:00 Resp 24 10/10/22 11:00 BP 132/69 10/10/22 11:00 Pulse Ox 98 10/10/22 11:00 FiO2 Intake & Output 10/09/22 10/10/22 10/10/22 18:59 06:59 18:59 Intake Total 3870 1660 1300 Output Total 40 460 200 Balance 3830 1200 1100 Weight 63.503 kg 67.3 kg Intake: IV 1530 130 0.9 1430 130 Piperacillin-Tazobactam 3 100 .375 gm In Sodium Chloride 0.9% 100 ml @ 25 mls/hr IVPB Q8HR [facility] Rx# :[id number] Intake, IV Titration 3870 130 720 Amount Piperacillin-Tazobactam 3 100 .375 gm In Sodium Chloride 0.9% 100 ml @ 25 mls/hr IVPB Q8HR [facility] Rx# :[id number] Potassium Chloride 20 meq 100 In Water For Injection 1 100ml.bag @ 50 mls/hr IVPB ONCE [facility] Rx#: [id number] Potassium Chloride 20 meq 100 In Water For Injection 1 100ml.bag @ 50 mls/hr IVPB ONCE [facility] Rx#: [id number] Sodium Chloride 0.9% 1, 520 130 520 000 ml @ 130 mls/hr IV . Q7H42M [facility] Rx#:[id number] Sodium Chloride 0.9% 1, 1000 000 ml @ 999 mls/hr IV . Q1H1M [facility] Rx#:[id number] Sodium Chloride 0.9% 1, 1000 000 ml @ 999 mls/hr IV . Q1H1M [facility] Rx#:[id number] Sodium Chloride 0.9% 1, 1000 000 ml @ 999 mls/hr IV . Q1H1M [facility] Rx#:[id number] Vancomycin 1,250 mg In 250 Sodium Chloride 0.9% 250 ml @ 125 mls/hr IVPB ONCE [facility] Rx#:[id number] Oral 0 0 450 Output: Urine 40 460 200 Other: Voiding Method Indwelling Catheter Indwelling Catheter Indwelling Catheter # Bowel Movements 1 - Exam GENERAL DESCRIPTION: An elderly female lying in bed in no distress RESPIRATORY SYSTEM: Unlabored breathing , decreased breath sounds at bases HEART: S1 S2 regular rate and rhythm , ABDOMEN: Soft , no tenderness EXTREMITIES: No edema feet - Labs CBC & Chem 7: 10/10/22 04:45 10/10/22 12:10 Labs: Abnormal Lab Results - Last 24 Hours (Table) 10/09/22 10/09/22 10/09/22 Range/Units 14:07 14:14 18:20 WBC (3.8-10.6) k/uL RBC (3.80-5.40) m/uL Hgb (11.4-16.0) gm/dL Hct (34.0-46.0) % MCV (80.0-100.0) fL MCH (25.0-35.0) pg RDW (11.5-15.5) % Plt Count (150-450) k/uL Sodium (137-145) mmol/L Potassium (3.5-5.1) mmol/L BUN (7-17) mg/dL Creatinine (0.52-1.04) mg/dL Glucose (74-99) mg/dL POC Glucose (mg/dL) 21 L 203 H (70-110) mg/dL Plasma Lactic Acid Wu 2.5 H* (0.7-2.0) mmol/L Calcium (8.4-10.2) mg/dL C-Reactive Protein (<1.0) mg/dL 10/10/22 10/10/22 10/10/22 Range/Units 04:45 04:45 11:32 WBC 31.1 H (3.8-10.6) k/uL RBC 2.87 L (3.80-5.40) m/uL Hgb 7.0 L D (11.4-16.0) gm/dL Hct 22.5 L (34.0-46.0) % MCV 78.6 L (80.0-100.0) fL MCH 24.5 L (25.0-35.0) pg RDW 18.9 H (11.5-15.5) % Plt Count 49 L D (150-450) k/uL Sodium 136 L (137-145) mmol/L Potassium 2.4 L* (3.5-5.1) mmol/L BUN 47 H (7-17) mg/dL Creatinine 2.12 H (0.52-1.04) mg/dL Glucose 72 L (74-99) mg/dL POC Glucose (mg/dL) 116 H (70-110) mg/dL Plasma Lactic Acid Wu (0.7-2.0) mmol/L Calcium 6.6 L (8.4-10.2) mg/dL C-Reactive Protein 25.3 H (<1.0) mg/dL Microbiology - Last 24 Hours (Table) 10/09/22 10:52 Blood Culture Gram Stain - Preliminary Blood Assessment and Plan (1) Gram-negative bacteremia Current Visit: Yes Status: Acute Code(s): R78.81 - BACTEREMIA SNOMED Code(s): 539194873450 (2) Urinary tract infection Current Visit: Yes Status: Acute Code(s): N39.0 - URINARY TRACT INFECTION, SITE NOT SPECIFIED SNOMED Code(s): 36183741 Plan: 1patient was in the hospital with sepsis in this patient who did have a fever elevated white count hypertension requiring admission to ICU source is likely UTI likely from doing gram-negative pathogen however the patient also noted to have perihilar infiltrate concerning for possible pneumonia question of aspiration etiology her abdominal soft medical examination no evidence of any cellulitis or joint swelling 2-patient with renal insufficiency high risk of nephrotoxicity 3Patient with a positive blood culture with gram-negative bacilli likely from the urinary source 4-patient to continue with the Zosyn while waiting for the culture to finalize Time with Patient: Less than 30
[2022-10-11 05:36] LABS: Anisocytosis Slight; HCT 22.8 % (34.0-46.0); HGB 7.1 gm/dL (11.4-16.0); Hypochromasia Moderate; MCH 24.5 pg (25.0-35.0); MCV 79.1 fL (80.0-100.0); Microcytosis Slight; RBC 2.88 m/uL (3.80-5.40); RDW 19.4 % (11.5-15.5); WBC 21.6 k/uL (3.8-10.6)
[2022-10-11 06:01] LABS: African American GFR (CKD) 29 (>60 ml/min/1.73 sqM); Anion Gap 10 mmol/L; Blood Urea Nitrogen 45 mg/dL (7-17); Carbon Dioxide 23 mmol/L (22-30); Chloride 105 mmol/L (98-107); Glucose 83 mg/dL (74-99); Magnesium 2.4 mg/dL (1.6-2.3); Non-African American GFR(CKD) 25 (>60 ml/min/1.73 sqM); Sodium 138 mmol/L (137-145)
[2022-10-11 06:20] LABS: C Reactive Protein 24.6 mg/dL (<1.0)
[2022-10-11] MEDS: INSULIN ASPART (NovoLOG) 100 UNIT/ML VIAL SQ SCH ×4 (06:29→21:48)
[2022-10-11] MEDS: POTASSIUM CHLORIDE 20 MEQ in WATER FOR INJECTION 1 100ML.BAG IVPB SCH ×2 (06:44→09:32)
[2022-10-11] MEDS: MORPHINE SULFATE 2 MG/ML SYRINGE IVP PRN ×2 (06:44→14:29)
[2022-10-11] MEDS: PIPERACILLIN-TAZOBACTAM 3.375 GM in SODIUM CHLORIDE 0.9% 100 ML IVPB SCH ×4 (08:45→21:34)
[2022-10-11 08:56] LABS: Platelet Count 38 k/uL (150-450)
[2022-10-11] MEDS: BUDESONIDE 1 MG/2 ML NEBU INHALATION SCH ×2 (09:08→21:20)
[2022-10-11] MEDS: PANTOPRAZOLE 40 MG/10 ML VIAL IV SCH (09:31)
[2022-10-11] MEDS: FERROUS SULFATE 325 MG TAB PO SCH (09:31)
[2022-10-11] MEDS: MONTELUKAST 10 MG TAB PO SCH (09:31)
[2022-10-11] MEDS: SODIUM BICARBONATE TAB 650 MG TAB PO SCH ×2 (09:31→21:35)
[2022-10-11] MEDS: RANOLAZINE 500 MG TAB.ER.12H PO SCH ×2 (09:32→21:35)
[2022-10-11] MEDS: SODIUM CHLORIDE 0.9% 1,000 ML IV SCH ×2 (09:32)
--- NOTE | 2022-10-11 11:08 | P.PN ---
Subjective Patient is seen for follow-up for acute kidney injury and top of chronic kidney disease. Currently being treated for sepsis from UTI and pneumonia. Maintained on IV fluids at 100 mL an hour Patient has been hemodynamically stable. Urine output at 1.1 L for 24 hours Serum creatinine down to 1.86 with grams per deciliter. Blood cultures and urine cultures are growing gram-negative bacilli Objective - Vital Signs Vital signs: Vital Signs Temp 98.7 F 10/11/22 08:00 Pulse 74 10/11/22 08:00 Resp 23 10/11/22 08:00 BP 110/85 10/11/22 08:00 Pulse Ox 93 L 10/11/22 04:00 FiO2 Intake & Output 10/10/22 10/11/22 10/11/22 18:59 06:59 18:59 Intake Total 2710 1430 Output Total 510 610 Balance 2200 820 Intake: IV 130 1300 0.9 130 1300 Intake, IV Titration 2130 130 Amount Magnesium Sulfate-D5w Pmx 200 1 gm In Dextrose/Water 1 100ml.bag @ 100 mls/hr IVPB Q1H [facility] Rx#: [id number] Piperacillin-Tazobactam 3 200 .375 gm In Sodium Chloride 0.9% 100 ml @ 25 mls/hr IVPB Q8HR [facility] Rx# :[id number] Potassium Chloride 20 meq 100 In Water For Injection 1 100ml.bag @ 50 mls/hr IVPB ONCE [facility] Rx#: [id number] Potassium Chloride 20 meq 200 In Water For Injection 1 100ml.bag @ 50 mls/hr IVPB Q2H [facility] Rx#: [id number] Sodium Chloride 0.9% 1, 1430 130 000 ml @ 130 mls/hr IV . Q7H42M [facility] Rx#:[id number] Oral 450 0 Output: Urine 510 610 Other: Voiding Method Indwelling Catheter Indwelling Catheter Indwelling Catheter # Bowel Movements 1 - Exam Patient is awake, comfortable, no acute distress Examination of the heart S1 and S2 Examination of the lungs bilateral breath sounds are heard Abdomen is soft nontender Examination of the lower extremities shows trace edema bilaterally [employer]ING [employer]ATOR exam grossly intact Patient is in a cervical collar - Labs CBC & Chem 7: 10/11/22 05:15 10/11/22 05:15 Labs: Abnormal Lab Results - Last 24 Hours (Table) 10/10/22 10/10/22 10/10/22 Range/Units 11:32 12:10 16:28 WBC (3.8-10.6) k/uL RBC (3.80-5.40) m/uL Hgb (11.4-16.0) gm/dL Hct (34.0-46.0) % MCV (80.0-100.0) fL MCH (25.0-35.0) pg RDW (11.5-15.5) % Plt Count (150-450) k/uL Potassium 3.2 L (3.5-5.1) mmol/L BUN (7-17) mg/dL Creatinine (0.52-1.04) mg/dL POC Glucose (mg/dL) 116 H 123 H (70-110) mg/dL Calcium (8.4-10.2) mg/dL Magnesium (1.6-2.3) mg/dL C-Reactive Protein (<1.0) mg/dL 10/10/22 10/11/22 10/11/22 Range/Units 20:07 05:15 05:15 WBC 21.6 H (3.8-10.6) k/uL RBC 2.88 L (3.80-5.40) m/uL Hgb 7.1 L (11.4-16.0) gm/dL Hct 22.8 L (34.0-46.0) % MCV 79.1 L (80.0-100.0) fL MCH 24.5 L (25.0-35.0) pg RDW 19.4 H (11.5-15.5) % Plt Count 38 L (150-450) k/uL Potassium 3.0 L (3.5-5.1) mmol/L BUN 45 H (7-17) mg/dL Creatinine 1.86 H (0.52-1.04) mg/dL POC Glucose (mg/dL) 119 H (70-110) mg/dL Calcium 7.0 L (8.4-10.2) mg/dL Magnesium 2.4 H (1.6-2.3) mg/dL C-Reactive Protein 24.6 H (<1.0) mg/dL Microbiology - Last 24 Hours (Table) 10/09/22 10:52 Blood Culture Gram Stain - Preliminary Blood Blood Culture - Preliminary Gram Neg Bacilli 10/09/22 10:52 Blood Culture Gram Stain - Preliminary Blood 10/09/22 10:52 Urine Culture - Preliminary Urine,Voided Gram Neg Bacilli Assessment and Plan Assessment: 1. Acute kidney injury secondary to hypotension and sepsis currently nonoliguric with ischemic ATN. Improving. 2. 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 Hypotension from sepsis 4. Sepsis from pneumonia as well as UTI. Blood cultures are growing gram- negative bacilli 5. Status post recent anterior and posterior cervical decompression and fusion of C4 C5 C6 and C7 on 08/25/2022 for cervical stenosis and cervical myelopathy. 6. History of renal cell cancer status post left nephrectomy. 7. Hypokalemia associated decreased intake, rule out hypomagnesemia 8. Lactic acidosis secondary to hypotension and sepsis Plan: Decrease IV fluids Encourage increased oral intake Continue with IV antibiotics Okay to DC Copeland catheter.
[2022-10-11 11:54] LABS: Glucose,Whole Blood 123 mg/dL (70-110)
--- NOTE | 2022-10-11 12:04 | P.PN ---
Subjective Progress Note Date: 10/11/22 82-year-old female patient with a known history of atrial fibrillation, anticoagulated with close, coronary disease previous stent placement, left breast cancer with previous mastectomy, left renal carcinoma with left nephrectomy, diabetes mellitus, hearing disorder, hyperlipidemia, hypertension, rheumatoid arthritis. She also had recent neck surgery and was here in this hospital and subsequently placed in subacute rehab. * Patient admitted with altered mental status, noted to have septic shock and wa s admitted to ICU on 10/09, patient was noted to have urinary tract infection hypotension secondary to sepsis * Consultations obtained from infectious disease, nephrology, pulmonary critical care medicine * 10/10> mentation has improved significantly patient is alert and oriented 3 however slow to respond. Patient resuscitated with fluid lactate levels improving, white cell count did go up. Clinically patient appears stable at this time. We'll get CT C-spine without contrast secondary to elevated creatinine. CT had discontinued since mentation has improved. Continue patient on IV antibiotics managed by infectious disease. Receiving IV Rocephin * 10/11>> patient mentation continues to remain stable alert and oriented 3, antibiotic transitioned to Zosyn, patient noted to have thrombocytopenia and anemia as well use SCDs for DVT prophylaxis continue to hold anticoagulation. Nephrology following creatinine continues to improve, urine cultures show gram-negative bacilli, blood cultures show gram-negative bacilli * REVIEW OF SYSTEMS: CONSTITUTIONAL: Fever, weakness, lethargic HEENT: No recent visual problems or hearing problems. Denied any sore throat. CARDIOVASCULAR: No chest pain, orthopnea, PND, no palpitations, no syncope. PULMONARY: No shortness of breath, no cough, no hemoptysis. GASTROINTESTINAL: No diarrhea, no nausea, no vomiting, no abdominal pain. NEUROLOGICAL: No headaches, no weakness, no numbness. HEMATOLOGICAL: Denies any bleeding or petechiae. GENITOURINARY: Denies any burning micturition, frequency, or urgency. MUSCULOSKELETAL/RHEUMATOLOGICAL: Denies any joint pain, swelling, or any muscle pain. ENDOCRINE: Denies any polyuria or polydipsia. Objective - Vital Signs Vital signs: Vital Signs Temp 98.7 F 10/11/22 08:00 Pulse 74 10/11/22 08:00 Resp 23 10/11/22 08:00 BP 110/85 10/11/22 08:00 Pulse Ox 93 L 10/11/22 04:00 FiO2 Intake & Output 10/10/22 10/11/22 10/11/22 18:59 06:59 18:59 Intake Total 2710 1430 Output Total 510 610 Balance 2200 820 Intake: IV 130 1300 0.9 130 1300 Intake, IV Titration 2130 130 Amount Magnesium Sulfate-D5w Pmx 200 1 gm In Dextrose/Water 1 100ml.bag @ 100 mls/hr IVPB Q1H [facility] Rx#: [id number] Piperacillin-Tazobactam 3 200 .375 gm In Sodium Chloride 0.9% 100 ml @ 25 mls/hr IVPB Q8HR [facility] Rx# :[id number] Potassium Chloride 20 meq 100 In Water For Injection 1 100ml.bag @ 50 mls/hr IVPB ONCE [facility] Rx#: [id number] Potassium Chloride 20 meq 200 In Water For Injection 1 100ml.bag @ 50 mls/hr IVPB Q2H [facility] Rx#: [id number] Sodium Chloride 0.9% 1, 1430 130 000 ml @ 130 mls/hr IV . Q7H42M [facility] Rx#:[id number] Oral 450 0 Output: Urine 510 610 Other: Voiding Method Indwelling Catheter Indwelling Catheter Indwelling Catheter # Bowel Movements 1 - Exam PHYSICAL EXAMINATION: GENERAL: The patient is alert and oriented x3, ill appearance, c-collar in place HEENT: Pupils are round and equally reacting to light. EOMI. CARDIOVASCULAR: S1 and S2 present. No murmurs, rubs, or gallops. PULMONARY: Chest is clear to auscultation, no wheezing or crackles. ABDOMEN: Soft, nontender, nondistended, normoactive bowel sounds. No palpable organomegaly. MUSCULOSKELETAL: No joint swelling or deformity. EXTREMITIES: No cyanosis, clubbing, or pedal edema. NEUROLOGICAL: Alert and oriented 3, slow to respond no focal deficit noted - Labs CBC & Chem 7: 10/11/22 05:15 10/11/22 05:15 Labs: Abnormal Lab Results - Last 24 Hours (Table) 10/10/22 10/10/22 10/10/22 Range/Units 12:10 16:28 20:07 WBC (3.8-10.6) k/uL RBC (3.80-5.40) m/uL Hgb (11.4-16.0) gm/dL Hct (34.0-46.0) % MCV (80.0-100.0) fL MCH (25.0-35.0) pg RDW (11.5-15.5) % Plt Count (150-450) k/uL Potassium 3.2 L (3.5-5.1) mmol/L BUN (7-17) mg/dL Creatinine (0.52-1.04) mg/dL POC Glucose (mg/dL) 123 H 119 H (70-110) mg/dL Calcium (8.4-10.2) mg/dL Magnesium (1.6-2.3) mg/dL C-Reactive Protein (<1.0) mg/dL 10/11/22 10/11/22 10/11/22 Range/Units 05:15 05:15 11:52 WBC 21.6 H (3.8-10.6) k/uL RBC 2.88 L (3.80-5.40) m/uL Hgb 7.1 L (11.4-16.0) gm/dL Hct 22.8 L (34.0-46.0) % MCV 79.1 L (80.0-100.0) fL MCH 24.5 L (25.0-35.0) pg RDW 19.4 H (11.5-15.5) % Plt Count 38 L (150-450) k/uL Potassium 3.0 L (3.5-5.1) mmol/L BUN 45 H (7-17) mg/dL Creatinine 1.86 H (0.52-1.04) mg/dL POC Glucose (mg/dL) 123 H (70-110) mg/dL Calcium 7.0 L (8.4-10.2) mg/dL Magnesium 2.4 H (1.6-2.3) mg/dL C-Reactive Protein 24.6 H (<1.0) mg/dL Microbiology - Last 24 Hours (Table) 10/09/22 10:52 Blood Culture Gram Stain - Preliminary Blood Blood Culture - Preliminary Gram Neg Bacilli 10/09/22 10:52 Blood Culture Gram Stain - Preliminary Blood 10/09/22 10:52 Urine Culture - Preliminary Urine,Voided Gram Neg Bacilli Assessment and Plan Assessment: Assessment and plan * Septic shock * Bacteremia and gram-negative bacilli * Urinary tract infection gram-negative bacilli * Acute kidney injury * Multifocal pneumonia * Degenerative disease of cervical spine status post cervical spine surgery in the last 3 months * History of atrial fibrillation * Coronary artery disease * History of renal cell carcinoma status post nephrectomy * Diabetes mellitus type 2 * Patient remains critically ill she has been admitted to ICU continue with fluid resuscitation intensive care unit team consulted * In regards to sepsis ,Blood cultures and urine culture grew gram-negative bacilli 10/11>> final identification pending. Antibiotic escalated to Zosyn by infectious disease * CT head discontinued since mentation is improved, CT cervical spine shows postsurgical changes, fluid collection noted we'll consult spines team as well * In regards to acute renal injury continue fluid resuscitation, nephrology consult, Lasix on hold * In regards to septic shock continue to hold home indications including hydralazine, Imdur * In regards to diabetes mellitus Continue patient on correctional insulin for diabetes, oral hypoglycemic agent on hold * STATUS is full code at this time
--- NOTE | 2022-10-11 13:42 | P.PN ---
Subjective Progress Note Date: 10/11/22 Principal diagnosis: Acute urinary tract infection and urosepsis This is a 82-year-old female patient with a known history of atrial fibrillation, anticoagulated with close, coronary disease previous stent placement, left breast cancer with previous mastectomy, left renal carcinoma with left nephrectomy, diabetes mellitus, hearing disorder, hyperlipidemia, hypertension, rheumatoid arthritis. She also had recent neck surgery and was here in this hospital and subsequently placed in subacute rehab. She was brought here this morning with altered mental status. Chest x-ray revealed patchy perihilar opacities concerning for pneumonia. White count 23.5. Hemoglobin 8.6. Platelets 107. Sodium 134. Potassium 3.0. Chloride 91. Bicarb 23. BUN 49. Creatinine 2.23. Lactic acid 8.6. Urinalysis turbid with moderate blood and moderate bacteria with many WBCs. Coronavirus by PCR not detected. She's received 3 units of fluid resuscitation. She was given a dose of vancomycin and ceftriaxone. She is admitted to the intensive care unit and seen today in consultation. Her initial blood glucose on arrival to the ICU was only 21. She was treated and is currently 203. She is more awake and alert. Mean arterial pressure currently 73. T-max of 102.4. Currently 98.2. She is now currently on vancomycin and Zosyn. Reevaluated today in the ICU on 10/10/02, patient remains in the ICU, did not require any pressors, patient is on 2 L nasal cannula, not in any distress, her lactic acid is down to 8 from 8.0 on admission. Cultures are pending, patient remains on antibiotics empirically, patient was seen by infectious disease on consultation. Her labs today were all reviewed. WBC count is 31.1 hemoglobin is 7 potassium is rather low at 2.4 being corrected as per protocol. Renal functioning is abnormal close to her baseline with creatinine of 2.12, being se en by nephrology in consultation. Overall the patient has demonstrated hemodynamic stability over the last 24 hours, she is on proper antibiotics for now, empirically, I will arrange for the patient to transfer to a medical floor. Patient was reevaluated, patient continues to do well, remains in the ICU as an overflow, she is on 2 L nasal cannula, hair urinary tract infection is being addressed properly, patient has gram-negative bacilli in the urine, remains on Zosyn. He is hemodynamically stable, and I will recommend that the patient gets transferred to a regular medical floor as soon as a bed is available. Continues to have a bit of leukocytosis with WBC count of 21.6 hemoglobin is 7.1 7 normal BUN is 45 creatinine is 1.86, improving steadily since admission. Patient had positive blood cultures and positive urine cultures, final identification and sensitivity is pending. Objective - Vital Signs Vital signs: Vital Signs Temp 98.7 F 10/11/22 08:00 Pulse 74 10/11/22 08:00 Resp 23 10/11/22 08:00 BP 110/85 10/11/22 08:00 Pulse Ox 93 L 10/11/22 04:00 FiO2 Intake & Output 10/10/22 10/11/22 10/11/22 18:59 06:59 18:59 Intake Total 2710 1430 Output Total 510 610 Balance 2200 820 Intake: IV 130 1300 0.9 130 1300 Intake, IV Titration 2130 130 Amount Magnesium Sulfate-D5w Pmx 200 1 gm In Dextrose/Water 1 100ml.bag @ 100 mls/hr IVPB Q1H [facility] Rx#: [id number] Piperacillin-Tazobactam 3 200 .375 gm In Sodium Chloride 0.9% 100 ml @ 25 mls/hr IVPB Q8HR [facility] Rx# :[id number] Potassium Chloride 20 meq 100 In Water For Injection 1 100ml.bag @ 50 mls/hr IVPB ONCE [facility] Rx#: [id number] Potassium Chloride 20 meq 200 In Water For Injection 1 100ml.bag @ 50 mls/hr IVPB Q2H [facility] Rx#: [id number] Sodium Chloride 0.9% 1, 1430 130 000 ml @ 130 mls/hr IV . Q7H42M [facility] Rx#:[id number] Oral 450 0 Output: Urine 510 610 Other: Voiding Method Indwelling Catheter Indwelling Catheter Indwelling Catheter # Bowel Movements 1 - Exam Physical Exam: Revealed 83-year-old female pleasant in no distress on 2 L nasal cannula Head: Atraumatic, normocephalic. HEENT:[Neck is supple.] [No neck masses.] [No thyromegaly.] [No JVD.] Cervical collar is noted in place. Chest: [Clear throughout, no crackles, no rhonchi, no wheezes.] Cardiac Exam: [Normal S1 and S2, no S3 gallop, no murmur.] Abdomen: [Soft, nontender, no megaly, no rebound, no guarding, normal bowel sounds.] Extremities: [No clubbing, no edema, no cyanosis.] Neurological Exam: Alert oriented 3 focal deficits. Psychiatric: Normal mood affect and normal mental status examination. - Labs CBC & Chem 7: 10/11/22 05:15 10/11/22 05:15 Labs: Abnormal Lab Results - Last 24 Hours (Table) 10/10/22 10/10/22 10/11/22 Range/Units 16:28 20:07 05:15 WBC 21.6 H (3.8-10.6) k/uL RBC 2.88 L (3.80-5.40) m/uL Hgb 7.1 L (11.4-16.0) gm/dL Hct 22.8 L (34.0-46.0) % MCV 79.1 L (80.0-100.0) fL MCH 24.5 L (25.0-35.0) pg RDW 19.4 H (11.5-15.5) % Plt Count 38 L (150-450) k/uL Potassium (3.5-5.1) mmol/L BUN (7-17) mg/dL Creatinine (0.52-1.04) mg/dL POC Glucose (mg/dL) 123 H 119 H (70-110) mg/dL Calcium (8.4-10.2) mg/dL Magnesium (1.6-2.3) mg/dL C-Reactive Protein (<1.0) mg/dL 10/11/22 10/11/22 Range/Units 05:15 11:52 WBC (3.8-10.6) k/uL RBC (3.80-5.40) m/uL Hgb (11.4-16.0) gm/dL Hct (34.0-46.0) % MCV (80.0-100.0) fL MCH (25.0-35.0) pg RDW (11.5-15.5) % Plt Count (150-450) k/uL Potassium 3.0 L (3.5-5.1) mmol/L BUN 45 H (7-17) mg/dL Creatinine 1.86 H (0.52-1.04) mg/dL POC Glucose (mg/dL) 123 H (70-110) mg/dL Calcium 7.0 L (8.4-10.2) mg/dL Magnesium 2.4 H (1.6-2.3) mg/dL C-Reactive Protein 24.6 H (<1.0) mg/dL Microbiology - Last 24 Hours (Table) 10/09/22 10:52 Blood Culture Gram Stain - Preliminary Blood Blood Culture - Preliminary Gram Neg Bacilli 10/09/22 10:52 Blood Culture Gram Stain - Preliminary Blood 10/09/22 10:52 Urine Culture - Preliminary Urine,Voided Gram Neg Bacilli Assessment and Plan Assessment: Impression: Acute metabolic encephalopathy secondary to acute urinary tract infection and sepsis, Acute gram-negative bacteremia Hypotension secondary to sepsis, resolved did not require pressors Leukocytosis secondary to urosepsis. Febrile illness secondary to above Acute on chronic kidney injury., Patient denies known history of stage IIIB chronic kidney disease Electrolytes imbalance secondary to acute kidney injury Acute on chronic anemia Paroxysmal Atrial fibrillation anticoagulated History of left breast cancer status post mastectomy, chemotherapy History of left renal cell carcinoma status post nephrectomy History of recent cervical neck surgery currently in collar Hearing disorder Hypertension, history of Hyperlipidemia Rheumatoid arthritis Coronary disease with previous stent placement Poor overall functional performance, residing in [facility] History of renal cell carcinoma and previous left nephrectomy Lactic acidosis secondary to hypotension and sepsis. Plan: Continue antibiotics , presently on Zosyn, patient is off vancomycin Nephrology is following her renal status Replace electrolytes including sodium and potassium as well as magnesium as per protocol. Continue GI and DVT prophylaxis Transfer patient out of the ICU to regular medical floor once a bed is available Continue IV fluid at 100 mL per hour. Will continue to follow, while in ICU Time with Patient: Less than 30
--- NOTE | 2022-10-11 15:37 | P.PN ---
Subjective Progress Note Date: 10/11/22 Principal diagnosis: Urinary tract infection with bacteremia Patient is a 82-year-old female with a past medical history significant for diabetes mellitus atrial fibrillation hyperlipidemia rheumatoid arthritis heart failure she is [facility] patient was sent to the ER for evaluation of mental status changes patient was noticed to be septic from urinary source now with evidence of gram-negative bacteremia. On today's evaluation that is 10/11/2022, patient remains to be afebrile patient is awake and alert, the patient is breathing comfortably on room air , the patient is hemodynamically stable not requiring pressor support, the patient denies any chest pain shortness of breath or cough no nausea no vomiting no abdominal pain no diarrhea Objective - Vital Signs Vital signs: Vital Signs Temp 98.7 F 10/11/22 08:00 Pulse 74 10/11/22 08:00 Resp 23 10/11/22 08:00 BP 110/85 10/11/22 08:00 Pulse Ox 93 L 10/11/22 04:00 FiO2 Intake & Output 10/10/22 10/11/22 10/11/22 18:59 06:59 18:59 Intake Total 2710 1430 Output Total 510 610 Balance 2200 820 Intake: IV 130 1300 0.9 130 1300 Intake, IV Titration 2130 130 Amount Magnesium Sulfate-D5w Pmx 200 1 gm In Dextrose/Water 1 100ml.bag @ 100 mls/hr IVPB Q1H [facility] Rx#: [id number] Piperacillin-Tazobactam 3 200 .375 gm In Sodium Chloride 0.9% 100 ml @ 25 mls/hr IVPB Q8HR [facility] Rx# :[id number] Potassium Chloride 20 meq 100 In Water For Injection 1 100ml.bag @ 50 mls/hr IVPB [facility] Rx#: [id number] Potassium Chloride 20 meq 200 In Water For Injection 1 100ml.bag @ 50 mls/hr IVPB Q2H [facility] Rx#: [id number] Sodium Chloride 0.9% 1, 1430 130 000 ml @ 130 mls/hr IV . Q7H42M [facility] Rx#:[id number] Oral 450 0 Output: Urine 510 610 Other: Voiding Method Indwelling Catheter Indwelling Catheter Indwelling Catheter # Bowel Movements 1 - Exam GENERAL DESCRIPTION: An elderly female lying in bed in no distress RESPIRATORY SYSTEM: Unlabored breathing , decreased breath sounds at bases HEART: S1 S2 regular rate and rhythm , ABDOMEN: Soft , no tenderness EXTREMITIES: No edema feet - Labs CBC & Chem 7: 10/11/22 05:15 10/11/22 05:15 Labs: Abnormal Lab Results - Last 24 Hours (Table) 10/10/22 10/10/22 10/10/22 Range/Units 12:10 16:28 20:07 WBC (3.8-10.6) k/uL RBC (3.80-5.40) m/uL Hgb (11.4-16.0) gm/dL Hct (34.0-46.0) % MCV (80.0-100.0) fL MCH (25.0-35.0) pg RDW (11.5-15.5) % Plt Count (150-450) k/uL Potassium 3.2 L (3.5-5.1) mmol/L BUN (7-17) mg/dL Creatinine (0.52-1.04) mg/dL POC Glucose (mg/dL) 123 H 119 H (70-110) mg/dL Calcium (8.4-10.2) mg/dL Magnesium (1.6-2.3) mg/dL C-Reactive Protein (<1.0) mg/dL 10/11/22 10/11/22 10/11/22 Range/Units 05:15 05:15 11:52 WBC 21.6 H (3.8-10.6) k/uL RBC 2.88 L (3.80-5.40) m/uL Hgb 7.1 L (11.4-16.0) gm/dL Hct 22.8 L (34.0-46.0) % MCV 79.1 L (80.0-100.0) fL MCH 24.5 L (25.0-35.0) pg RDW 19.4 H (11.5-15.5) % Plt Count 38 L (150-450) k/uL Potassium 3.0 L (3.5-5.1) mmol/L BUN 45 H (7-17) mg/dL Creatinine 1.86 H (0.52-1.04) mg/dL POC Glucose (mg/dL) 123 H (70-110) mg/dL Calcium 7.0 L (8.4-10.2) mg/dL Magnesium 2.4 H (1.6-2.3) mg/dL C-Reactive Protein 24.6 H (<1.0) mg/dL Microbiology - Last 24 Hours (Table) 10/09/22 10:52 Blood Culture Gram Stain - Preliminary Blood Blood Culture - Preliminary Gram Neg Bacilli 10/09/22 10:52 Blood Culture Gram Stain - Preliminary Blood 10/09/22 10:52 Urine Culture - Preliminary Urine,Voided Gram Neg Bacilli Assessment and Plan (1) Gram-negative bacteremia Current Visit: Yes Status: Acute Code(s): R78.81 - BACTEREMIA SNOMED Code(s): 381845289657 (2) Urinary tract infection Current Visit: Yes Status: Acute Code(s): N39.0 - URINARY TRACT INFECTION, SITE NOT SPECIFIED SNOMED Code(s): 65377348 Plan: 1patient was in the hospital with sepsis in this patient who did have a fever elevated white count hypertension requiring admission to ICU source is likely UTI likely from doing gram-negative pathogen however the patient also noted to have perihilar infiltrate concerning for possible pneumonia question of aspiration etiology her abdominal soft medical examination no evidence of any cellulitis or joint swelling 2-patient with renal insufficiency high risk of nephrotoxicity 3Patient with a positive blood culture with gram-negative bacilli likely from the urinary source, urinary also growing gram-negative 4-patient to continue with the Zosyn while waiting for the culture to finalize to determine her discharge antibiotics Time with Patient: Less than 30
[2022-10-11 16:22] LABS: Glucose,Whole Blood 152 mg/dL (70-110)
[2022-10-11] MEDS: hydrALAZINE HCL 25 MG TAB PO SCH (19:09)
[2022-10-11] MEDS: atenoloL 50 MG TAB PO SCH (19:09)
[2022-10-11 20:09] LABS: Glucose,Whole Blood 114 mg/dL (70-110)
[2022-10-11] MEDS: LACTULOSE 20 GM/30 ML CUP PO SCH (21:48)
[2022-10-11] MEDS ORDERED: cloNIDine 0.3 MG/24HR PATCH TRANSDERM SCH (22:00)
[2022-10-11 22:50] LABS: Glucose,Whole Blood 109 mg/dL (70-110)
[2022-10-11] MEDS: LORazepam 0.5 MG TAB PO PRN (23:50)
[2022-10-12] MEDS: ALBUTEROL NEBULIZED 2.5 MG/3 ML INHALATION PRN ×3 (01:32→21:37)
[2022-10-12] MEDS: MORPHINE SULFATE 2 MG/ML SYRINGE IVP PRN (03:35)
[2022-10-12 05:41] LABS: Glucose,Whole Blood 134 mg/dL (70-110)
[2022-10-12] MEDS: PANTOPRAZOLE 40 MG TABLET PO SCH (06:52)
[2022-10-12] MEDS: INSULIN ASPART (NovoLOG) 100 UNIT/ML VIAL SQ SCH ×4 (06:52→22:11)
--- NOTE | 2022-10-12 07:11 | P.CNOR ---
History of Present Illness - HPI Consult date: 10/12/22 Consult reason: neck pain History of present illness: Patient is well known to our service. She is 82-year-old female who was seen and examined at bedside this morning. I also saw the patient yesterday morning. She had undergone spinal surgery with our service at her cervical spine most recently approximately 6 a half weeks ago with anterior and posterior cervical spinal fusion and decompression. She had undergone prior anterior cervical surgery about 4 weeks prior to that as well. The patient is in the hospital in terms of her sepsis and we are asked to see the patient in regards to her neck and the computed tomography scan findings. Patient has not had any new neurologic change or deficit. She is not complaining of new pain at her neck. She does not have problems and her wound sites. I did see the patient in the office last week and she had been making progress in terms of her cervical spine and her activity in general. Currently she denies any new complaints. Denies any chest pain shortness breath. Denies abdominal pain. Denies any new changes in her upper extremities with motion. Denies any new neurologic change. Review of Systems As stated per HPI. She denies any problems with her neck. Denies any new pain in her neck her changes in the surgical sites. She continues to wear her hard cervical collar. Past Medical History Past Medical History: Atrial Fibrillation, Asthma, Coronary Artery Disease (CAD), Cancer, Chest Pain / Angina, Heart Failure, Diabetes Mellitus, GERD/Reflux, Hearing Disorder / Deafness, Hyperlipidemia, Hypertension, Osteoarthritis (OA), Renal Disease, Rheumatoid Arthritis (RA), Vascular Disorder Additional Past Medical History / Comment(s): Cervical myopathy, spinal stenosis, paroxysmal afib, sinus bradycardia, NIDDM type II, 1984 L breast cancer/surgery and chemotherapy, 1985 L renal carcinoma, kidney infections, UTIs with current UTI, pt unsure if she had previous tia, ckd stage III, anemia, past small bowel obstructions, past ulcer, abnormal gait/uses walker, FALLS History of Any Multi-Drug Resistant Organisms: None Reported Past Surgical History: Breast Surgery, Heart Catheterization, Heart C atheterization With Stent, Joint Replacement, Orthopedic Surgery Additional Past Surgical History / Comment(s): Bilateral carpal tunnel releases, bilateral knee replacements, L breast mastectomy, L nephrectomy, colonoscopy, cataract removals. Past Anesthesia/Blood Transfusion Reactions: Motion Sickness, Postoperative Nausea & Vomiting (PONV) Additional Past Anesthesia/Blood Transfusion Reaction / Comm: Pt has had blood transfusion without reaction. Pt states she has fear of anesthesia. Date of Last Stent Placement:: 2007 Past Psychological History: Anxiety Smoking Status: Never smoker Past Alcohol Use History: None Reported Past Drug Use History: None Reported - Past Family History Mother Family Medical History: Cancer, Diabetes Mellitus Additional Family Medical History / Comment(s): Breast and colon cancer Father Additional Family Medical History / Comment(s): bowel problems Medications and Allergies Home Medications Medication Instructions Recorded Confirmed Type Ergocalciferol [Vitamin D2 (1250 1,250 mcg PO FR@0900 06/05/22 10/09/22 History Mcg = 53424 Iu)] Montelukast Sodium [Singulair] 10 mg PO DAILY 06/05/22 10/09/22 History Nitroglycerin Sl Tabs [Nitrostat] 0.4 mg SUBLINGUAL Q5M PRN 06/05/22 10/09/22 History Pioglitazone [Actos] 15 mg PO DAILY@89906/05/22 10/09/22 History Ranolazine [Ranexa] 500 mg PO BID 06/05/22 10/09/22 History Repaglinide [Prandin] 0.5 mg PO DAILY 06/05/22 10/09/22 History Isosorbide Mononitrate ER [Imdur] 30 mg PO DAILY 08/07/22 10/09/22 History Acetaminophen Tab [Tylenol] 650 mg PO Q6HR PRN tab 08/10/22 10/09/22 Rx Sennosides-Docusate Sodium 1 tab PO HS 08/23/22 10/09/22 History [Senokot-S] Benzocaine/Menthol Lozeng [Cepacol 1 lozenge MUCOUS MEM Q4HR PRN 09/09/22 10/09/22 History lozenge] Citalopram Hydrobromide [CeleXA] 20 mg PO HS@2100 09/09/22 10/09/22 History Fluconazole [Diflucan] 100 mg PO DAILY@0900 09/09/22 10/09/22 History Furosemide [Lasix] 40 mg PO MOWEFR 09/09/22 10/09/22 History Insulin Lispro [humaLOG Kwikpen] See Protocol SQ ACHS 09/09/22 10/09/22 History Lactulose 20 gm PO HS@2100 09/09/22 10/09/22 History Sodium Bicarbonate Tab 650 mg PO BID 09/09/22 10/09/22 History atenoloL [Tenormin] 50 mg PO BID@0900,2100 09/09/22 10/09/22 History busPIRone HCL [Buspar] 7.5 mg PO HS@2100 09/09/22 10/09/22 History cloNIDine 0.3 MG/24HR PATCH 1 patch TRANSDERM TH 09/09/22 10/09/22 History [Catapres-TTS] Albuterol Sulfate [Proventil Hfa] 2 puff INHALATION RT-BID PRN 10/09/22 10/09/22 History Apixaban [Eliquis] 2.5 mg PO BID 10/09/22 10/09/22 History Budesonide [Pulmicort] 1 mg INHALATION RT-BID 10/09/22 10/09/22 History Collagenase [Santyl Ointment] 1 applic TOPICAL HS 10/09/22 10/09/22 History Empagliflozin [Jardiance] 10 mg PO DAILY 10/09/22 10/09/22 History Ferrous Sulfate [Iron] 325 mg PO DAILY 10/09/22 10/09/22 History Melatonin 10 mg PO HS 10/09/22 10/09/22 History Omeprazole [PriLOSEC] 20 mg PO DAILY 10/09/22 10/09/22 History hydrALAZINE HCL [Apresoline] 25 mg PO TID 10/09/22 10/09/22 History predniSONE [Deltasone] See Taper PO DAILY 10/09/22 10/09/22 History traMADol HCl [Ultram] 50 mg PO Q4HR PRN 10/09/22 10/09/22 History traMADol HCl [Ultram] 100 mg PO HS 10/09/22 10/09/22 History Allergies Allergy/AdvReac Type Severity Reaction Status Date / Time codeine AdvReac Nausea & Verified 10/09/22 11:15 Vomiting,hyperactive Physical Examination Osteopathic Statement: *. No significant issues noted on an osteopathic structural exam other than those noted in the History and Physical/Consult. - C Spine: dermatomal strength & reflexes right Shoulder strength: flexion: 3/5 (At her neck incision site is clear. Anteriorly and posteriorly there is no erythema there is no swelling there is no drainage. She is nontender to palpation at her posterior cervical spine or anterior cervical spine. Her right upper extremity strength remains weak globally at about 3 out of 5.) Shoulder strength: extension: 3/5 (She is able to flex and extend her right elbow but unable lift her shoulder up on her own. Her left lower extremity has about 3+ strength at her biceps triceps and shoulder. She is about 3-4 minus strength at her left hand.) Results - Labs Labs: Abnormal Lab Results - Last 24 Hours (Table) 10/11/22 10/11/22 10/11/22 Range/Units 05:15 11:52 16:20 WBC 21.6 H (3.8-10.6) k/uL RBC 2.88 L (3.80-5.40) m/uL Hgb 7.1 L (11.4-16.0) gm/dL Hct 22.8 L (34.0-46.0) % MCV 79.1 L (80.0-100.0) fL MCH 24.5 L (25.0-35.0) pg RDW 19.4 H (11.5-15.5) % Plt Count 38 L (150-450) k/uL POC Glucose (mg/dL) 123 H 152 H (70-110) mg/dL 10/11/22 10/12/22 Range/Units 20:06 05:38 WBC (3.8-10.6) k/uL RBC (3.80-5.40) m/uL Hgb (11.4-16.0) gm/dL Hct (34.0-46.0) % MCV (80.0-100.0) fL MCH (25.0-35.0) pg RDW (11.5-15.5) % Plt Count (150-450) k/uL POC Glucose (mg/dL) 114 H 134 H (70-110) mg/dL Microbiology - Last 24 Hours (Table) 10/09/22 10:52 Blood Culture Gram Stain - Preliminary Blood Blood Culture - Preliminary Gram Neg Bacilli 10/09/22 10:52 Blood Culture Gram Stain - Preliminary Blood H & H 06/07/23 06/08/23 06/09/23 Range/Units 10:52 04:45 05:15 Hgb 8.6 L 7.0 L D 7.1 L (11.4-16.0) gm/dL Hct 27.3 L 22.5 L 22.8 L (34.0-46.0) % Coagulation 10/09/22 Range/Units 10:48 INR 1.3 H (<1.2) Result Diagrams: 10/11/22 05:15 10/11/22 13:00 - Diagnostic results CT scan - cervical: report reviewed (There was extensive laminectomy at at C2 to C7 where there is fluid is located. This would be expected given the space at the area of the laminectomy. There is no gas or gas/fluid lines.), image rev iewed (Reports and imaging the cervical spine reviewed which shows the hardware from C2 to T2 posteriorly and anteriorly from C3 to C7 all of the hardware appears to be intact and in good alignment and and positioning. There is some fluid collection at the posterior space where the laminectomy was perform) Assessment and Plan Assessment: Bacteremia Urinary tract infection Almost 7 weeks status post anterior and posterior cervical spine decompression and fusion revision No obvious evidence of wound infection or wound changes at the anterior or posterior cervical spine Bilateral upper extremity weakness worse on the right and left which is unchanged Cervical myelopathy Plan: Bacteremia Urinary tract infection Almost 7 weeks status post anterior and posterior cervical spine decompression and fusion revision No obvious evidence of wound infection or wound changes at the anterior or posterior cervical spine Bilateral upper extremity weakness worse on the right and left which is unchanged Cervical myelopathy The patient is continue her management for bacteremia and urinary tract infection as per medicine. She has remained afebrile and has been able to be out of the intensive care unit down to the regular floor. There continues to monitor and treat her closely. In terms of patient's cervical spine, I do see fluid collection on the computed tomography scan but that incision site looked very clear and she is nontender to palpation over anterior and posterior cervical spine. Clinically she does not have evidence of infectious process at her cervical spine and I do not think that she has infection at the area. She has bacteremic and I think this is due to her urinary tract infection and I agree with infectious disease in this regard. I do not plan on acute surgical intervention at this point at her cervi raphael spine. I think that she should continue her antibiotics and her management. She is showing good evidence of healing around the site and I think it is okay to decrease the amount that she uses her hard cervical collar. I think that she can discontinue the hard cervical collar while she is in bed or elevated less than 45. If she is elevated more than 45 she have her hard cervical collar i ntact. She may remove the hard cervical collar and use a soft collar while she is eating if she is sitting upright. She should use the hard cervical collar while she is doing therapy. I communicated this to the patient her caregiver and to the nursing staff.
[2022-10-12 07:19] LABS: Glucose,Whole Blood 152 mg/dL (70-110)
[2022-10-12] MEDS: PIPERACILLIN-TAZOBACTAM 3.375 GM in SODIUM CHLORIDE 0.9% 100 ML IVPB SCH ×2 (07:45→22:11)
[2022-10-12] MEDS: MONTELUKAST 10 MG TAB PO SCH (07:45)
[2022-10-12] MEDS: RANOLAZINE 500 MG TAB.ER.12H PO SCH ×2 (07:45→22:30)
[2022-10-12] MEDS: SODIUM BICARBONATE TAB 650 MG TAB PO SCH ×2 (07:45→22:11)
[2022-10-12] MEDS: hydrALAZINE HCL 25 MG TAB PO SCH ×3 (07:45→22:11)
[2022-10-12] MEDS: atenoloL 50 MG TAB PO SCH ×2 (07:45→22:11)
[2022-10-12] MEDS: FERROUS SULFATE 325 MG TAB PO SCH (07:45)
[2022-10-12] MEDS: SODIUM CHLORIDE 0.9% 1,000 ML IV SCH ×2 (07:59→22:10)
[2022-10-12] MEDS: BUDESONIDE 1 MG/2 ML NEBU INHALATION SCH ×2 (09:11→21:36)
--- NOTE | 2022-10-12 09:42 | P.PN ---
Subjective Patient is seen in follow-up for acute kidney injury on chronic kidney disease. Renal function improving with creatinine 1.86 yesterday. Currently resting in bed. Family present at bedside. Receiving IV fluids. Being treated for gram- negative UTI and bacteremia. Has external catheter. Nonoliguric. Vital signs are stable. General: No acute distress. HEENT: Head exam is unremarkable. LUNGS: No audible rhonchi or wheezes. HEART: Rate and Rhythm are regular. ABDOMEN: Nontender. EXTREMITITES: No edema. Objective - Vital Signs Vital signs: Vital Signs Temp 99.0 F 10/12/22 07:33 Pulse 100 10/12/22 09:24 Resp 20 10/12/22 09:24 BP 161/89 10/12/22 07:33 Pulse Ox 100 10/12/22 09:14 FiO2 Intake & Output 10/11/22 10/12/22 10/12/22 18:59 06:59 18:59 Intake Total 880 200 Output Total 300 650 Balance 580 -450 Intake: IV 880 0.9 780 Piperacillin-Tazobactam 3 100 .375 gm In Sodium Chloride 0.9% 100 ml @ 25 mls/hr IVPB Q8HR [facility] Rx# :[id number] Oral 200 Output: Urine 300 650 Other: Voiding Method Indwelling Catheter External Catheter External Catheter # Voids 1 - Labs CBC & Chem 7: 10/11/22 05:15 10/11/22 13:00 Labs: Abnormal Lab Results - Last 24 Hours (Table) 10/11/22 10/11/22 10/11/22 Range/Units 11:52 16:20 20:06 POC Glucose (mg/dL) 123 H 152 H 114 H (70-110) mg/dL 10/12/22 10/12/22 Range/Units 05:38 07:13 POC Glucose (mg/dL) 134 H 152 H (70-110) mg/dL Microbiology - Last 24 Hours (Table) 10/09/22 10:52 Blood Culture Gram Stain - Preliminary Blood Blood Culture - Preliminary Gram Neg Bacilli 10/09/22 10:52 Blood Culture Gram Stain - Preliminary Blood Assessment and Plan Plan: Assessment: 1. Acute kidney injury mostly prerenal due to severe sepsis. Improving. Creatinine 2.23 on admission and 1.86 yesterday. 2. Chronic kidney disease stage IIIA with baseline creatinine 1-1.2 secondary to solitary right kidney. 3. Status post left nephrectomy. 4. Gram-negative UTI and bacteremia on antibiotics. 5. Anemia. Rule out iron deficiency. 6. Hypokalemia from poor intake. Replaced. Plan: Maintain IV fluids. Encourage oral intake. Follow-up cultures. Avoid nephrotoxins. Continue to monitor renal function and urine output. Check iron studies.
--- NOTE | 2022-10-12 10:06 | P.PN ---
Subjective Progress Note Date: 10/12/22 Principal diagnosis: Urinary tract infection with bacteremia Patient is a 82-year-old female with a past medical history significant for diabetes mellitus atrial fibrillation hyperlipidemia rheumatoid arthritis heart failure she is currently resident of the local long term patient was sent to the ER for evaluation of mental status changes patient was noticed to be septic from urinary source now with evidence of gram-negative bacteremia. On today's evaluation that is 10/12/2022, patient continues to be afebrile patient has been moved out of the ICU apparently did have problem with shortness of breath last night and discomfort with the sudden white count, which has been removed patient is currently sleepy lethargic and did not provide any history most information from the family at the bedside Objective - Vital Signs Vital signs: Vital Signs Temp 97.8 F 10/12/22 01:57 Pulse 97 10/12/22 01:57 Resp 20 10/12/22 01:57 BP 134/84 10/12/22 01:57 Pulse Ox 100 10/12/22 01:57 FiO2 Intake & Output 10/11/22 10/12/22 10/12/22 18:59 06:59 18:59 Intake Total 880 200 Output Total 300 650 Balance 580 -450 Intake: IV 880 0.9 780 Piperacillin-Tazobactam 3 100 .375 gm In Sodium Chloride 0.9% 100 ml @ 25 mls/hr IVPB Q8HR [facility] [place] Rx# :[id number] Oral 200 Output: Urine 300 650 Other: Voiding Method Indwelling Catheter External Catheter # Voids 1 - Exam GENERAL DESCRIPTION: An elderly female lying in bed in no distress RESPIRATORY SYSTEM: Unlabored breathing , decreased breath sounds at bases HEART: S1 S2 regular rate and rhythm , ABDOMEN: Soft , no tenderness EXTREMITIES: No edema feet - Labs CBC & Chem 7: 10/11/22 05:15 10/11/22 13:00 Labs: Abnormal Lab Results - Last 24 Hours (Table) 10/11/22 10/11/22 10/11/22 Range/Units 05:15 11:52 16:20 WBC 21.6 H (3.8-10.6) k/uL RBC 2.88 L (3.80-5.40) m/uL Hgb 7.1 L (11.4-16.0) gm/dL Hct 22.8 L (34.0-46.0) % MCV 79.1 L (80.0-100.0) fL MCH 24.5 L (25.0-35.0) pg RDW 19.4 H (11.5-15.5) % Plt Count 38 L (150-450) k/uL POC Glucose (mg/dL) 123 H 152 H (70-110) mg/dL 10/11/22 10/12/22 10/12/22 Range/Units 20:06 05:38 07:13 WBC (3.8-10.6) k/uL RBC (3.80-5.40) m/uL Hgb (11.4-16.0) gm/dL Hct (34.0-46.0) % MCV (80.0-100.0) fL MCH (25.0-35.0) pg RDW (11.5-15.5) % Plt Count (150-450) k/uL POC Glucose (mg/dL) 114 H 134 H 152 H (70-110) mg/dL Microbiology - Last 24 Hours (Table) 10/09/22 10:52 Blood Culture Gram Stain - Preliminary Blood Blood Culture - Preliminary Gram Neg Bacilli 10/09/22 10:52 Blood Culture Gram Stain - Preliminary Blood Assessment and Plan (1) Gram-negative bacteremia Current Visit: Yes Status: Acute Code(s): R78.81 - BACTEREMIA SNOMED Code(s): 826679572891 (2) Urinary tract infection Current Visit: Yes Status: Acute Code(s): N39.0 - URINARY TRACT INFECTION, SITE NOT SPECIFIED SNOMED Code(s): 24701204 Plan: 1patient was in the hospital with sepsis in this patient who did have a fever elevated white count hypertension requiring admission to ICU source is likely UTI likely from doing gram-negative pathogen however the patient also noted to have perihilar infiltrate concerning for possible pneumonia question of aspiration etiology her abdominal soft medical examination no evidence of any cellulitis or joint swelling 2-patient with renal insufficiency high risk of nephrotoxicity 3Patient with a positive blood culture with gram-negative bacilli likely from the urinary source, urinary also growing gram-negative, ID sensitivities are pending 4-patient with evidence of any cellulitis at the cervical incision, the patient did have abnormal CT possible postoperative seroma, has been evaluated by spine surgery with no concern for infection at that location 5-patient to continue with the Zosyn while waiting for the culture to finalize to determine her discharge antibiotics Family the bedside questions and concerns were answered Time with Patient: Less than 30
[2022-10-12 11:11] LABS: Glucose,Whole Blood 164 mg/dL (70-110)
--- NOTE | 2022-10-12 13:35 | P.PN ---
Subjective Progress Note Date: 10/12/22 This is a 82-year-old female patient with a known history of atrial fibrillation, anticoagulated with close, coronary disease previous stent placement, left breast cancer with previous mastectomy, left renal carcinoma with left nephrectomy, diabetes mellitus, hearing disorder, hyperlipidemia, hypertension, rheumatoid arthritis. She also had recent neck surgery and was here in this hospital and subsequently placed in subacute rehab. She was brought here this morning with altered mental status. Chest x-ray revealed patchy perihilar opacities concerning for pneumonia. White count 23.5. Hemoglobin 8.6. Platelets 107. Sodium 134. Potassium 3.0. Chloride 91. Bicarb 23. BUN 49. Creatinine 2.23. Lactic acid 8.6. Urinalysis turbid with moderate blood and moderate bacteria with many WBCs. Coronavirus by PCR not detected. She's received 3 units of fluid resuscitation. She was given a dose of vancomycin and ceftriaxone. She is admitted to the intensive care unit and seen today in consultation. Her initial blood glucose on arrival to the ICU was only 21. She was treated and is currently 203. She is more awake and alert. Mean arterial pressure currently 73. T-max of 102.4. Currently 98.2. She is now currently on vancomycin and Zosyn. Reevaluated today in the ICU on 10/10/02, patient remains in the ICU, did not require any pressors, patient is on 2 L nasal cannula, not in any distress, her lactic acid is down to 8 from 8.0 on admission. Cultures are pending, patient remains on antibiotics empirically, patient was seen by infectious disease on consultation. Her labs today were all reviewed. WBC count is 31.1 hemoglobin is 7 potassium is rather low at 2.4 being corrected as per protocol. Renal functioning is abnormal close to her baseline with creatinine of 2.12, being seen by nephrology in consultation. Overall the patient has demonstrated hemodynamic stability over the last 24 hours, she is on proper antibiotics for now, empirically, I will arrange for the patient to transfer to a medical floor. Patient was reevaluated, patient continues to do well, remains in the ICU as an overflow, she is on 2 L nasal cannula, hair urinary tract infection is be ing addressed properly, patient has gram-negative bacilli in the urine, remains on Zosyn. He is hemodynamically stable, and I will recommend that the patient gets transferred to a regular medical floor as soon as a bed is available. Continues to have a bit of leukocytosis with WBC count of 21.6 hemoglobin is 7.1 7 normal BUN is 45 creatinine is 1.86, improving steadily since admission. Patient had positive blood cultures and positive urine cultures, final identification and sensitivity is pending. The patient is seen today 10/12/2022 and follow-up on the regular medical floor. She is currently sitting up in bed. Awake and alert in no acute distress. Denies any worsening shortness of breath, cough or congestion. Maintaining good O2 saturations in the 90s on 3 L/m per nasal cannula. Urine culture is positive for gram-negative bacilli. Blood cultures positive for gram-negative bacilli. Blood sugar 164. She is continued on Zosyn. Remains on bronchodilators. Objective - Vital Signs Vital signs: Vital Signs Temp 99.0 F 10/12/22 07:33 Pulse 100 10/12/22 09:24 Resp 20 10/12/22 09:24 BP 161/89 10/12/22 07:33 Pulse Ox 100 10/12/22 09:14 FiO2 Intake & Output 10/11/22 10/12/22 10/12/22 18:59 06:59 18:59 Intake Total 880 200 Output Total 300 650 Balance 580 -450 Intake: IV 880 0.9 780 Piperacillin-Tazobactam 3 100 .375 gm In Sodium Chloride 0.9% 100 ml @ 25 mls/hr IVPB Q8HR [facility] Rx# :[id number] Oral 200 Output: Urine 300 650 Other: Voiding Method Indwelling Catheter External Catheter External Catheter # Voids 1 - Exam GENERAL EXAM: Alert, active, pleasant 82-year-old female, on 2 L nasal cannula, comfortable in no apparent distress. HEAD: Normocephalic. EYES: Normal reaction of pupils, equal size. NOSE: Clear with pink turbinates. THROAT: No erythema or exudates. NECK: No masses, no JVD. CHEST: No chest wall deformity. LUNGS: Equal air entry with no crackles, wheeze, rhonchi or dullness. CVS: S1 and S2 normal with no audible murmur, regular rhythm. ABDOMEN: No hepatosplenomegaly, normal bowel sounds, no guarding or rigidity. SPINE: No scoliosis or deformity SKIN: No rashes CENTRAL NERVOUS SYSTEM: No focal deficits, tone is normal in all 4 extremities. EXTREMITIES: There is no peripheral edema. No clubbing, no cyanosis. P eripheral pulses are intact. - Labs CBC & Chem 7: 10/11/22 05:15 10/11/22 13:00 Labs: Abnormal Lab Results - Last 24 Hours (Table) 10/11/22 10/11/22 10/12/22 Range/Units 16:20 20:06 05:38 POC Glucose (mg/dL) 152 H 114 H 134 H (70-110) mg/dL 10/12/22 10/12/22 Range/Units 07:13 11:09 POC Glucose (mg/dL) 152 H 164 H (70-110) mg/dL Microbiology - Last 24 Hours (Table) 10/09/22 10:52 Blood Culture Gram Stain - Preliminary Blood Blood Culture - Preliminary Gram Neg Bacilli 10/09/22 10:52 Blood Culture Gram Stain - Preliminary Blood Assessment and Plan Assessment: Altered mental status secondary to urinary tract infection and febrile illness Bacteremia secondary to gram-negative bacilli Urinary tract infection secondary to gram-negative bacilli Hypotension secondary to sepsis Leukocytosis secondary to above Febrile illness secondary to above Acute kidney injury secondary to dehydration Hyponatremia improved currently 138 Hypokalemia improve currently 3.9 Acute on chronic anemia Atrial fibrillation anticoagulated with all of chest History of left breast cancer status post mastectomy, chemotherapy History of left renal cell carcinoma status post nephrectomy History of recent cervical neck surgery currently in collar Hearing disorder Hypertension, history of Hyperlipidemia Rheumatoid arthritis Coronary disease with previous stent placement Poor overall functional performance, residing in [place] Plan: The patient was seen and evaluated Medications reviewed Continue Zosyn Titrate down the FiO2 as tolerated Increase her activity as tolerated We will see as needed I have personally seen and examined the patient, performed the documentation and the assessment and plan as written. Number of minutes spent on the visit: 10.
[2022-10-12 14:14] VITALS: BMI 29.0
[2022-10-12 16:43] LABS: Glucose,Whole Blood 181 mg/dL (70-110)
[2022-10-12 20:11] LABS: Glucose,Whole Blood 213 mg/dL (70-110)
[2022-10-12] MEDS: LACTULOSE 20 GM/30 ML CUP PO SCH (22:11)
[2022-10-12] MEDS: LORazepam 0.5 MG TAB PO PRN (22:12)
[2022-10-13 05:30] LABS: Glucose,Whole Blood 152 mg/dL (70-110)
[2022-10-13] MEDS: INSULIN ASPART (NovoLOG) 100 UNIT/ML VIAL SQ SCH ×4 (08:19→22:10)
[2022-10-13] MEDS: hydrALAZINE HCL 25 MG TAB PO SCH ×3 (08:20→22:10)
[2022-10-13] MEDS: MONTELUKAST 10 MG TAB PO SCH (08:20)
[2022-10-13] MEDS: RANOLAZINE 500 MG TAB.ER.12H PO SCH ×2 (08:20→22:10)
[2022-10-13] MEDS: PANTOPRAZOLE 40 MG TABLET PO SCH (08:20)
[2022-10-13] MEDS: atenoloL 50 MG TAB PO SCH ×2 (08:20→22:10)
[2022-10-13] MEDS: SODIUM BICARBONATE TAB 650 MG TAB PO SCH ×2 (08:20→22:10)
[2022-10-13] MEDS: FERROUS SULFATE 325 MG TAB PO SCH (08:20)
[2022-10-13 08:29] LABS: % Iron Saturation 22.69 (12.00-45.00)
[2022-10-13] MEDS: PIPERACILLIN-TAZOBACTAM 3.375 GM in SODIUM CHLORIDE 0.9% 100 ML IVPB SCH (09:00)
[2022-10-13] MEDS: ALBUTEROL NEBULIZED 2.5 MG/3 ML INHALATION PRN ×2 (09:15→19:32)
[2022-10-13] MEDS: BUDESONIDE 1 MG/2 ML NEBU INHALATION SCH ×2 (09:15→19:32)
--- NOTE | 2022-10-13 09:59 | P.PN ---
Subjective Progress Note Date: 10/13/22 This is an 82-year-old female who is admitted for sepsis. Orthopedics is following due to anterior and posterior cervical spinal fusion and decompression approximately [address] Edward. Patient is seen and evaluated at bedside today. Patient's family member is present at bedside today. Patient denies any new complaints today. Objective - Vital Signs Vital signs: Vital Signs Temp 99.2 F 10/13/22 06:49 Pulse 100 10/13/22 09:29 Resp 19 10/13/22 06:49 BP 150/83 10/13/22 06:49 Pulse Ox 100 10/13/22 09:15 FiO2 Intake & Output 10/12/22 10/13/22 10/13/22 18:59 06:59 18:59 Intake Total 250 Output Total 100 Balance 150 Weight 67.3 kg Intake: Oral 250 Output: Urine 100 Other: Voiding Method External Catheter External Catheter # Voids 3 1 - Exam On exam patient is resting comfortably in bed in no acute distress. There is swelling of the right upper extremity. Patient continues to have weakness in krystal ateral upper extremities which is unchanged. Surgical site is benign. - Labs CBC & Chem 7: 10/11/22 05:15 10/11/22 13:00 Labs: Abnormal Lab Results - Last 24 Hours (Table) 10/11/22 10/12/22 10/12/22 Range/Units 05:15 11:09 16:39 POC Glucose (mg/dL) 164 H 181 H (70-110) mg/dL Iron 27 L (50-170) UG/DL TIBC 119 L (228-460) UG/DL Transferrin 84.7 L (204.0-354.0) mg/dL Ferritin 1205.0 H (10.0-291.0) ng/mL 10/12/22 10/13/22 Range/Units 20:10 05:29 POC Glucose (mg/dL) 213 H 152 H (70-110) mg/dL Iron (50-170) UG/DL TIBC (228-460) UG/DL Transferrin (204.0-354.0) mg/dL Ferritin (10.0-291.0) ng/mL Microbiology - Last 24 Hours (Table) 10/10/22 07:55 Blood Culture - Preliminary Blood 10/09/22 10:52 Blood Culture Gram Stain - Final Blood Blood Culture - Final Escherichia coli 10/09/22 10:52 Blood Culture Gram Stain - Final Blood 10/09/22 10:52 Urine Culture - Final Urine,Voided Escherichia coli Assessment and Plan Assessment: Bacteremia Urinary tract infection Status post anterior and posterior cervical spine decompression and fusion mike ion on No obvious evidence of wound infection or wound changes at the anterior or posterior cervical spine Bilateral upper extremity weakness worse on the right and left which is unchanged Cervical myelopathy (1) Gram-negative bacteremia Current Visit: Yes Status: Acute Code(s): R78.81 - BACTEREMIA SNOMED Code(s): 914714510664 (2) Septic shock Current Visit: Yes Status: Acute Code(s): A41.9 - SEPSIS, UNSPECIFIED ORGANISM; R65.21 - SEVERE SEPSIS WITH SEPTIC SHOCK SNOMED Code(s): 99709984 (3) Urinary tract infection Current Visit: Yes Status: Acute Code(s): N39.0 - URINARY TRACT INFECTION, SITE NOT SPECIFIED SNOMED Code(s): 85468365 Plan: 1. Patient is to continue use of hard collar when out of bed, working with PT or sitting higher than 45. Patient may have soft collar in place when eating. 2. Appreciate input from infectious disease and internal medicine. 3. At this time there is no concern for postoperative infection. We will continue to follow closely.
--- NOTE | 2022-10-13 10:23 | P.PN ---
Subjective Patient is seen in follow-up for acute kidney injury on chronic kidney disease. Renal function improving with creatinine 1.86 dated 10/11/2022. Currently resting in bed. Family present at bedside. IV access infiltrated. Being treated for E. coli UTI and bacteremia. Has external catheter. Nonoliguric. Vital signs are stable. General: No acute distress. Lethargic. HEENT: Head exam is unremarkable. LUNGS: No audible rhonchi or wheezes. HEART: Rate and Rhythm are regular. ABDOMEN: Nontender. EXTREMITITES: No edema. Objective - Vital Signs Vital signs: Vital Signs Temp 99.2 F 10/13/22 06:49 Pulse 100 10/13/22 09:29 Resp 19 10/13/22 06:49 BP 150/83 10/13/22 06:49 Pulse Ox 100 10/13/22 09:15 FiO2 Intake & Output 10/12/22 10/13/22 10/13/22 18:59 06:59 18:59 Intake Total 250 Output Total 100 Balance 150 Weight 67.3 kg Intake: Oral 250 Output: Urine 100 Other: Voiding Method External Catheter External Catheter # Voids 3 1 - Labs CBC & Chem 7: 10/11/22 05:15 10/11/22 13:00 Labs: Abnormal Lab Results - Last 24 Hours (Table) 10/11/22 10/12/22 10/12/22 Range/Units 05:15 11:09 16:39 POC Glucose (mg/dL) 164 H 181 H (70-110) mg/dL Iron 27 L (50-170) UG/DL TIBC 119 L (228-460) UG/DL Transferrin 84.7 L (204.0-354.0) mg/dL Ferritin 1205.0 H (10.0-291.0) ng/mL 10/12/22 10/13/22 Range/Units 20:10 05:29 POC Glucose (mg/dL) 213 H 152 H (70-110) mg/dL Iron (50-170) UG/DL TIBC (228-460) UG/DL Transferrin (204.0-354.0) mg/dL Ferritin (10.0-291.0) ng/mL Microbiology - Last 24 Hours (Table) 10/10/22 07:55 Blood Culture - Preliminary Blood 10/09/22 10:52 Blood Culture Gram Stain - Final Blood Blood Culture - Final Escherichia coli 10/09/22 10:52 Blood Culture Gram Stain - Final Blood 10/09/22 10:52 Urine Culture - Final Urine,Voided Escherichia coli Assessment and Plan Plan: Assessment: 1. Acute kidney injury mostly prerenal due to severe sepsis. Improving. Creatinine 2.23 on admission and 1.86 dated 10/11/2022. 2. Chronic kidney disease stage IIIA with baseline creatinine 1-1.2 secondary to solitary right kidney. 3. Status post left nephrectomy. 4. E. coli UTI and bacteremia on antibiotics. 5. Anemia. High ferritin noted. 6. Hypokalemia from poor intake. Replaced. Plan: Currently doesn't have an IV access. Encouraged oral intake. Check right upper extremity Doppler to rule out DVT. Avoid nephrotoxins. Continue to monitor renal function and urine output. Morning labs pending. Case discussed with patient's son present at bedside.
[2022-10-13] MEDS: predniSONE 20 MG TAB PO SCH (10:26)
[2022-10-13 11:38] LABS: Glucose,Whole Blood 195 mg/dL (70-110)
--- NOTE | 2022-10-13 12:09 | US ---
EXAMINATION TYPE: US venous doppler duplex UE RT DATE OF EXAM: 10/13/2022 COMPARISON: NONE CLINICAL INDICATION: Female, 82 years old with history of right arm edema; Right arm edema. SIDE PERFORMED: Right Right Arm: Vessels imaged negative for DVT. Cephalic, Radial and Ulnar Veins not well visualized due to edema. IMPRESSION: No evidence for DVT within the right upper extremity. The cephalic, radial, and ulnar veins are not v isualized due to the degree of soft tissue edema.
[2022-10-13] MEDS: CIPROFLOXACIN HCL 500 MG TAB PO SCH (12:38)
[2022-10-13 15:38] LABS: Anisocytosis Slight; Basophils % (A) 0 %; Eosinophils % (A) 0 %; HCT 26.1 % (34.0-46.0); HGB 8.2 gm/dL (11.4-16.0); Hypochromasia Slight; Lymphocytes # (A) 0.4 k/uL (1.0-4.8); Lymphocytes % (A) 5 %; MCHC 31.5 g/dL (31.0-37.0); Microcytosis Moderate; Monocytes # (A) 0.3 k/uL (0-1.0); Monocytes % (A) 4 %; Neutrophils # (A) 7.6 k/uL (1.3-7.7); Neutrophils % (A) 90 %; Poikilocytosis Slight; RBC 3.44 m/uL (3.80-5.40); RDW 19.7 % (11.5-15.5); WBC 8.4 k/uL (3.8-10.6)
[2022-10-13 15:40] LABS: African American GFR (CKD) 31 (>60 ml/min/1.73 sqM); Anion Gap 9 mmol/L; Blood Urea Nitrogen 55 mg/dL (7-17); Calcium 7.6 mg/dL (8.4-10.2); Carbon Dioxide 16 mmol/L (22-30); Chloride 116 mmol/L (98-107); Glucose 168 mg/dL (74-99); Non-African American GFR(CKD) 27 (>60 ml/min/1.73 sqM); Sodium 141 mmol/L (137-145)
[2022-10-13 15:46] LABS: Magnesium 2.4 mg/dL (1.6-2.3); Potassium 4.7 mmol/L (3.5-5.1)
[2022-10-13 15:56] LABS: Target Cells Present
[2022-10-13 15:59] LABS: Polychromasia Present
[2022-10-13 16:44] LABS: Glucose,Whole Blood 193 mg/dL (70-110)
[2022-10-13 20:01] VITALS: RESP 18
[2022-10-13 20:27] LABS: Glucose,Whole Blood 312 mg/dL (70-110)
[2022-10-13] MEDS: LACTULOSE 20 GM/30 ML CUP PO SCH (22:09)
--- NOTE | 2022-10-13 22:58 | P.PN ---
Subjective Progress Note Date: 10/12/22 82-year-old female patient with a known history of atrial fibrillation, anticoagulated with close, coronary disease previous stent placement, left breast cancer with previous mastectomy, left renal carcinoma with left nephrectomy, diabetes mellitus, hearing disorder, hyperlipidemia, hypertension, rheumatoid arthritis. She also had recent neck surgery and was here in this hospital and subsequently placed in subacute rehab. * Patient admitted with altered mental status, noted to have septic shock and wa s admitted to ICU on 10/09, patient was noted to have urinary tract infection hypotension secondary to sepsis * Consultations obtained from infectious disease, nephrology, pulmonary critical care medicine * 10/10> mentation has improved significantly patient is alert and oriented 3 however slow to respond. Patient resuscitated with fluid lactate levels improving, white cell count did go up. Clinically patient appears stable at this time. We'll get CT C-spine without contrast secondary to elevated creatinine. CT had discontinued since mentation has improved. Continue patient on IV antibiotics managed by infectious disease. Receiving IV Rocephin * 10/11>> patient mentation continues to remain stable alert and oriented 3, antibiotic transitioned to Zosyn, patient noted to have thrombocytopenia and anemia as well use SCDs for DVT prophylaxis continue to hold anticoagulation. Nephrology following creatinine continues to improve, urine cultures show gram-negative bacilli, blood cultures show gram-negative bacilli * 10/12/2022 Patient is currently lying in the bed. Lethargic and weak. Awake alert and oriented. Denies any chest pain or worsening shortness of breath. No cough or sputum production. Currently on 3 L oxygen via nasal cannula. Urine culture showed gram-negative bacilli and also blood cultures showed gram- negative bacilli. Patient is being continued on antibiotics and follow-up with Zosyn. Patient is being continued on breathing treatments as needed. Laboratory data reviewed. Creatinine 1.86 yesterday. WBC 21.6 and hemoglobin 7.1. Follow-up repeat CBC and BMP tomorrow. Pulmonary, nephrology and ID is on board. Current medications reviewed. REVIEW OF SYSTEMS: CONSTITUTIONAL: no Fever, weakness, lethargic HEENT: No recent visual problems or hearing problems. Denied any sore throat. CARDIOVASCULAR: No chest pain, orthopnea, PND, no palpitations, no syncope. PULMONARY: No shortness of breath, no cough, no hemoptysis. GASTROINTESTINAL: No diarrhea, no nausea, no vomiting, no abdominal pain. NEUROLOGICAL: No headaches, no weakness, no numbness. HEMATOLOGICAL: Denies any bleeding or petechiae. GENITOURINARY: Denies any burning micturition, frequency, or urgency. MUSCULOSKELETAL/RHEUMATOLOGICAL: Denies any joint pain, swelling, or any muscle pain. ENDOCRINE: Denies any polyuria or polydipsia. Objective - Vital Signs Vital signs: Vital Signs Temp 98.7 F 10/12/22 13:47 Pulse 97 10/12/22 13:47 Resp 14 10/12/22 13:47 BP 113/70 10/12/22 13:47 Pulse Ox 100 10/12/22 13:47 FiO2 Intake & Output 10/12/22 10/12/22 10/13/22 06:59 18:59 06:59 Intake Total 200 Output Total 650 Balance -450 Weight 67.3 kg Intake: Oral 200 Output: Urine 650 Other: Voiding Method External Catheter External Catheter External Catheter # Voids 3 - Exam PHYSICAL EXAMINATION: GENERAL: The patient is alert and oriented x3, ill appearance, c-collar in place HEENT: Pupils are round and equally reacting to light. EOMI. CARDIOVASCULAR: S1 and S2 present. No murmurs, rubs, or gallops. PULMONARY: Chest is clear to auscultation, no wheezing or crackles. ABDOMEN: Soft, nontender, nondistended, normoactive bowel sounds. No palpable organomegaly. MUSCULOSKELETAL: No joint swelling or deformity. EXTREMITIES: No cyanosis, clubbing, or pedal edema. NEUROLOGICAL: Alert and oriented 3, slow to respond no focal deficit noted - Labs CBC & Chem 7: 10/13/22 15:07 10/13/22 15:07 Labs: Abnormal Lab Results - Last 24 Hours (Table) 10/12/22 10/12/22 10/12/22 Range/Units 05:38 07:13 11:09 POC Glucose (mg/dL) 134 H 152 H 164 H (70-110) mg/dL 10/12/22 10/12/22 Range/Units 16:39 20:10 POC Glucose (mg/dL) 181 H 213 H (70-110) mg/dL Microbiology - Last 24 Hours (Table) 10/09/22 10:52 Blood Culture Gram Stain - Final Blood Blood Culture - Final Escherichia coli 10/09/22 10:52 Blood Culture Gram Stain - Final Blood 10/10/22 07:55 Blood Culture - Preliminary Blood 10/09/22 10:52 Urine Culture - Final Urine,Voided Escherichia coli Assessment and Plan Assessment: Assessment and plan * Septic shock * Bacteremia and gram-negative bacilli * Urinary tract infection gram-negative bacilli * Acute kidney injury * Multifocal pneumonia * Degenerative disease of cervical spine status post cervical spine surgery in the last 3 months * History of atrial fibrillation * Coronary artery disease * History of renal cell carcinoma status post nephrectomy * Diabetes mellitus type 2 * Patient was transferred to medical floor. * In regards to sepsis ,Blood cultures and urine culture grew gram-negative bacilli 10/11>> final identification pending. Antibiotic escalated to Zosyn by infectious disease * CT head discontinued since mentation is improved, CT cervical spine shows postsurgical changes, fluid collection noted we'll consult spines team as well * In regards to acute renal injury continue fluid resuscitation, nephrology consult, Lasix on hold * In regards to septic shock continue to hold home indications including hy dralazine, Imdur * In regards to diabetes mellitus Continue patient on correctional insulin for diabetes, oral hypoglycemic agent on hold * STATUS is full code at this time Time with Patient: Greater than 30
--- NOTE | 2022-10-13 23:00 | P.PN ---
Subjective Progress Note Date: 10/13/22 82-year-old female patient with a known history of atrial fibrillation, anticoagulated with close, coronary disease previous stent placement, left breast cancer with previous mastectomy, left renal carcinoma with left nephrectomy, diabetes mellitus, hearing disorder, hyperlipidemia, hypertension, rheumatoid arthritis. She also had recent neck surgery and was here in this hospital and subsequently placed in subacute rehab. * Patient admitted with altered mental status, noted to have septic shock and wa s admitted to ICU on 10/09, patient was noted to have urinary tract infection hypotension secondary to sepsis * Consultations obtained from infectious disease, nephrology, pulmonary critical care medicine * 10/10> mentation has improved significantly patient is alert and oriented 3 however slow to respond. Patient resuscitated with fluid lactate levels improving, white cell count did go up. Clinically patient appears stable at this time. We'll get CT C-spine without contrast secondary to elevated creatinine. CT had discontinued since mentation has improved. Continue patient on IV antibiotics managed by infectious disease. Receiving IV Rocephin * 10/11>> patient mentation continues to remain stable alert and oriented 3, antibiotic transitioned to Zosyn, patient noted to have thrombocytopenia and anemia as well use SCDs for DVT prophylaxis continue to hold anticoagulation. Nephrology following creatinine continues to improve, urine cultures show gram-negative bacilli, blood cultures show gram-negative bacilli * 10/12/2022 Patient is currently lying in the bed. Lethargic and weak. Awake alert and oriented. Denies any chest pain or worsening shortness of breath. No cough or sputum production. Currently on 3 L oxygen via nasal cannula. Urine culture showed gram-negative bacilli and also blood cultures showed gram- negative bacilli. Patient is being continued on antibiotics and follow-up with Zosyn. Patient is being continued on breathing treatments as needed. Laboratory data reviewed. Creatinine 1.86 yesterday. WBC 21.6 and hemoglobin 7.1. Follow-up repeat CBC and BMP tomorrow. Pulmonary, nephrology and ID is on board. 10/13/2022 Patient is currently lying in the bed. Able to open her eyes with verbal stimuli. Weak and lethargic. No complaints of chest pain or worsening shortness of breath. Currently requiring 3 L oxygen via nasal cannula. No cough or sputum production. Urine culture and blood cultures finalized as E. coli. Patient lost IV access on the right upper extremity, which is infiltrated with swelling of the arm mainly at the cubital region. Laboratory data showed WBC 8.4 hemoglobin 8.1 platelets could not be counted. BUN 55 and creatinine 1.76 and bicarb is 16. Calcium 7.6. Patient is being continued on IV hydration with normal saline at 50 cc/h. IV antibiotics changed to ciprofloxacin as per ID recommendations. Current medications reviewed. REVIEW OF SYSTEMS: CONSTITUTIONAL: no Fever, weakness, lethargic HEENT: No recent visual problems or hearing problems. Denied any sore throat. CARDIOVASCULAR: No chest pain, orthopnea, PND, no palpitations, no syncope. PULMONARY: No shortness of breath, no cough, no hemoptysis. GASTROINTESTINAL: No diarrhea, no nausea, no vomiting, no abdominal pain. NEUROLOGICAL: No headaches, no weakness, no numbness. HEMATOLOGICAL: Denies any bleeding or petechiae. GENITOURINARY: Denies any burning micturition, frequency, or urgency. MUSCULOSKELETAL/RHEUMATOLOGICAL: Denies any joint pain, swelling, or any muscle pain. ENDOCRINE: Denies any polyuria or polydipsia. Objective - Vital Signs Vital signs: Vital Signs Temp 97.9 F 10/13/22 13:29 Pulse 91 10/13/22 13:29 Resp 19 10/13/22 13:29 BP 123/73 10/13/22 13:29 Pulse Ox 100 10/13/22 13:29 FiO2 Intake & Output 10/12/22 10/13/22 10/13/22 18:59 06:59 18:59 Intake Total 250 Output Total 100 200 Balance 150 -200 Weight 67.3 kg Intake: Oral 250 Output: Urine 100 200 Other: Voiding Method External Catheter External Catheter External Catheter # Voids 3 1 - Exam PHYSICAL EXAMINATION: GENERAL: The patient is alert and oriented x3, ill appearance, c-collar in place HEENT: Pupils are round and equally reacting to light. EOMI. CARDIOVASCULAR: S1 and S2 present. No murmurs, rubs, or gallops. PULMONARY: Chest is clear to auscultation, no wheezing or crackles. ABDOMEN: Soft, nontender, nondistended, normoactive bowel sounds. No palpable organomegaly. MUSCULOSKELETAL: No joint swelling or deformity. EXTREMITIES: No cyanosis, clubbing, or pedal edema. NEUROLOGICAL: Alert and oriented 3, slow to respond no focal deficit noted - Labs CBC & Chem 7: 06/11/23 15:07 10/13/22 15:07 Labs: Abnormal Lab Results - Last 24 Hours (Table) 10/11/22 10/12/22 10/13/22 Range/Units 05:15 20:10 05:29 RBC (3.80-5.40) m/uL Hgb (11.4-16.0) gm/dL Hct (34.0-46.0) % MCV (80.0-100.0) fL MCH (25.0-35.0) pg RDW (11.5-15.5) % Lymphocytes # (1.0-4.8) k/uL Chloride (98-107) mmol/L Carbon Dioxide (22-30) mmol/L BUN (7-17) mg/dL Creatinine (0.52-1.04) mg/dL Glucose (74-99) mg/dL POC Glucose (mg/dL) 213 H 152 H (70-110) mg/dL Calcium (8.4-10.2) mg/dL Magnesium (1.6-2.3) mg/dL Iron 27 L (50-170) UG/DL TIBC 119 L (228-460) UG/DL Transferrin 84.7 L (204.0-354.0) mg/dL Ferritin 1205.0 H (10.0-291.0) ng/mL 10/13/22 10/13/22 10/13/22 Range/Units 11:36 15:07 15:07 RBC 3.44 L (3.80-5.40) m/uL Hgb 8.2 L (11.4-16.0) gm/dL Hct 26.1 L (34.0-46.0) % MCV 76.0 L (80.0-100.0) fL MCH 24.0 L (25.0-35.0) pg RDW 19.7 H (11.5-15.5) % Lymphocytes # 0.4 L (1.0-4.8) k/uL Chloride 116 H (98-107) mmol/L Carbon Dioxide 16 L (22-30) mmol/L BUN 55 H (7-17) mg/dL Creatinine 1.76 H (0.52-1.04) mg/dL Glucose 168 H (74-99) mg/dL POC Glucose (mg/dL) 195 H (70-110) mg/dL Calcium 7.6 L (8.4-10.2) mg/dL Magnesium 2.4 H (1.6-2.3) mg/dL Iron (50-170) UG/DL TIBC (228-460) UG/DL Transferrin (204.0-354.0) mg/dL Ferritin (10.0-291.0) ng/mL 10/13/22 Range/Units 16:39 RBC (3.80-5.40) m/uL Hgb (11.4-16.0) gm/dL Hct (34.0-46.0) % MCV (80.0-100.0) fL MCH (25.0-35.0) pg RDW (11.5-15.5) % Lymphocytes # (1.0-4.8) k/uL Chloride (98-107) mmol/L Carbon Dioxide (22-30) mmol/L BUN (7-17) mg/dL Creatinine (0.52-1.04) mg/dL Glucose (74-99) mg/dL POC Glucose (mg/dL) 193 H (70-110) mg/dL Calcium (8.4-10.2) mg/dL Magnesium (1.6-2.3) mg/dL Iron (50-170) UG/DL TIBC (228-460) UG/DL Transferrin (204.0-354.0) mg/dL Ferritin (10.0-291.0) ng/mL Microbiology - Last 24 Hours (Table) 10/10/22 07:55 Blood Culture - Preliminary Blood 10/09/22 10:52 Blood Culture Gram Stain - Final Blood Blood Culture - Final Escherichia coli 10/09/22 10:52 Blood Culture Gram Stain - Final Blood 10/09/22 10:52 Urine Culture - Final Urine,Voided Escherichia coli Assessment and Plan Assessment: Assessment and plan * Septic shock * E. coli bacteremia and E. coli urinary tract infection * Acute kidney injury * Multifocal pneumonia * Degenerative disease of cervical spine status post cervical spine surgery in the last 3 months * History of atrial fibrillation * Coronary artery disease * History of renal cell carcinoma status post nephrectomy * Diabetes mellitus type 2 * In regards to sepsis ,Blood cultures and urine culture grew gram-negative bacilli 10/11>> final identification pending. Antibiotic escalated to Zosyn by infectious disease * CT head discontinued since mentation is improved, CT cervical spine shows postsurgical changes, fluid collection noted we'll consult spines team as well * In regards to acute renal injury continue fluid resuscitation, nephrology consult, Lasix on hold * started back on hydralazine, Imdur * In regards to diabetes mellitus Continue patient on correctional insulin for diabetes, oral hypoglycemic agent on hold * STATUS is full code at this time Time with Patient: Greater than 30
[2022-10-14 05:48] LABS: Glucose,Whole Blood 278 mg/dL (70-110)
[2022-10-14] MEDS: PANTOPRAZOLE 40 MG TABLET PO SCH (06:12)
[2022-10-14] MEDS: INSULIN ASPART (NovoLOG) 100 UNIT/ML VIAL SQ SCH ×2 (06:13→12:01)
[2022-10-14] MEDS: CIPROFLOXACIN HCL 500 MG TAB PO SCH (06:13)
[2022-10-14] MEDS ORDERED: SODIUM BICARB 8.4% 50 ML SYR (1 MEQ/ML) IV STA (06:43)
--- NOTE | 2022-10-14 07:26 | P.PN ---
Subjective Progress Note Date: 10/13/22 Principal diagnosis: Urinary tract infection with bacteremia Patient is a 82-year-old female with a past medical history significant for diabetes mellitus atrial fibrillation hyperlipidemia rheumatoid arthritis heart failure she is currently resident of the local care home patient was sent to the ER for evaluation of mental status changes patient was noticed to be septic from urinary source now with evidence of gram-negative bacteremia. On today's evaluation that is 10/13/2022, patient remains to be afebrile patient is currently sleepy lethargic however did answer some simple questions , no vomiting or diarrhea reported Objective - Vital Signs Vital signs: Vital Signs Temp 99.2 F 10/13/22 06:49 Pulse 100 10/13/22 09:29 Resp 19 10/13/22 06:49 BP 150/83 10/13/22 06:49 Pulse Ox 100 10/13/22 09:15 FiO2 Intake & Output 10/12/22 10/13/22 10/13/22 18:59 06:59 18:59 Intake Total 250 Output Total 100 Balance 150 Weight 67.3 kg Intake: Oral 250 Output: Urine 100 Other: Voiding Method External Catheter External Catheter # Voids 3 1 - Exam GENERAL DESCRIPTION: An elderly female lying in bed in no distress RESPIRATORY SYSTEM: Unlabored breathing , decreased breath sounds at bases HEART: S1 S2 regular rate and rhythm , ABDOMEN: Soft , no tenderness EXTREMITIES: No edema feet - Labs CBC & Chem 7: 10/13/22 15:07 10/13/22 15:07 Labs: Abnormal Lab Results - Last 24 Hours (Table) 10/11/22 10/12/22 10/12/22 Range/Units 05:15 16:39 20:10 POC Glucose (mg/dL) 181 H 213 H (70-110) mg/dL Iron 27 L (50-170) UG/DL TIBC 119 L (228-460) UG/DL Transferrin 84.7 L (204.0-354.0) mg/dL Ferritin 1205.0 H (10.0-291.0) ng/mL 10/13/22 Range/Units 05:29 POC Glucose (mg/dL) 152 H (70-110) mg/dL Iron (50-170) UG/DL TIBC (228-460) UG/DL Transferrin (204.0-354.0) mg/dL Ferritin (10.0-291.0) ng/mL Microbiology - Last 24 Hours (Table) 10/10/22 07:55 Blood Culture - Preliminary Blood 10/09/22 10:52 Blood Culture Gram Stain - Final Blood Blood Culture - Final Escherichia coli 10/09/22 10:52 Blood Culture Gram Stain - Final Blood 10/09/22 10:52 Urine Culture - Final Urine,Voided Escherichia coli Assessment and Plan (1) Gram-negative bacteremia Current Visit: Yes Status: Acute Code(s): R78.81 - BACTEREMIA SNOMED Code(s): 664435888112 (2) Urinary tract infection Current Visit: Yes Status: Acute Code(s): N39.0 - URINARY TRACT INFECTION, SITE NOT SPECIFIED SNOMED Code(s): 79192292 Plan: 1patient was in the hospital with sepsis in this patient who did have a fever elevated white count hypertension requiring admission to ICU source is likely UTI likely from doing gram-negative pathogen however the patient also noted to have perihilar infiltrate concerning for possible pneumonia question of aspiration etiology her abdominal soft medical examination no evidence of any cellulitis or joint swelling 2- -patient with no evidence of any cellulitis at the cervical incision, the patient did have abnormal CT possible postoperative seroma, has been evaluated by spine surgery with no concern for infection at that location 3- Pt blood and urine cultures positive with E.coli , pt has lost IV site , we will stop Zosyn and start PO cipro Time with Patient: Less than 30
[2022-10-14 07:37] VITALS: BP 147/81; TEMP 97.6
[2022-10-14] MEDS: SODIUM CHLORIDE 0.9% 1,000 ML IV SCH (07:43)
--- NOTE | 2022-10-14 08:41 | P.PN ---
Progress Note - Text Progress Note Date: 10/14/22 Orthopedic spine: History of present illness: Patient is a very pleasant 82-year-old female who is resting comfortably who is seen at the bedside with her family present in regards to her cervical spine. She has not had any change in regards to her cervical spine during her admission. Patient's family states the patient does continue to have difficulty with eating regular activities with her upper extremities. Her hard cervical collar has been discontinued at rest. A prescription for a soft cervical collar was written, signed, Friday case management. They do have this brace available today and the patient will be fitted appropriately. Patient is currently maintained treated for bacteremia with urinary tract infection. Patient has remained afebrile without an elevated WBC. Patient has been very lethargic over the weekend. Physical Exam: Patient is awake, alert, and oriented 3 Vital signs stable Patient is currently sleeping and resting comfortably Hard cervical collar not intact Anterior cervical incision is clean, dry, and intact; no erythema, purulence, or signs of infection Assessment: Urinary tract infection with gram-negative bacteremia Bacteremia Status post anterior posterior cervical decompression and fusion with revision Bilateral upper extremity weakness greater on the right than the left; unchanged Cervical myelopathy Diabetes mellitus Atrial fibrillation Hyperlipidemia Acute kidney injury Coronary artery disease History of renal cell carcinoma status post nephrectomy Multifocal pneumonia Plan: 1. Currently, we're not planning for further surgical intervention at her cervical spine. She'll continue with her postoperative care regards to her cervical spine. From an orthopedic spine standpoint, patient is clear for discharge. We'll continue to follow the outpatient setting as previously scheduled. It was discussed in detail with the patient's family and previously with nursing, the patient does not have to wear her hard cervical collar while lying in bed or sitting at less than 45. Patient is sitting upright, ambulatory, working with physical therapy, patient should keep her hard cervical collar intact. Patient may utilize soft cervical collar for comfort and support while at rest. She may also wear the soft cervical collar while sitting upright to eat. 2. Patient will continue be seen and examined by medicine, infectious disease, and nephrology for her other medical diagnoses.
[2022-10-14] MEDS ORDERED: SODIUM BICARBONATE TAB 650 MG TAB PO SCH (09:00)
[2022-10-14] MEDS: atenoloL 50 MG TAB PO SCH (09:13)
[2022-10-14] MEDS: hydrALAZINE HCL 25 MG TAB PO SCH (09:13)
[2022-10-14] MEDS: MONTELUKAST 10 MG TAB PO SCH (09:13)
[2022-10-14] MEDS: predniSONE 20 MG TAB PO SCH (09:14)
[2022-10-14] MEDS: RANOLAZINE 500 MG TAB.ER.12H PO SCH (09:14)
[2022-10-14] MEDS: FERROUS SULFATE 325 MG TAB PO SCH (09:14)
[2022-10-14] MEDS: ALBUTEROL NEBULIZED 2.5 MG/3 ML INHALATION PRN (09:20)
[2022-10-14] MEDS: BUDESONIDE 1 MG/2 ML NEBU INHALATION SCH (09:20)
[2022-10-14 09:35] VITALS: PULSE 88
[2022-10-14 11:00] LABS: Glucose,Whole Blood 268 mg/dL (70-110)
[2022-10-14 11:42] LABS: African American GFR (CKD) 30 (>60 ml/min/1.73 sqM); Anion Gap 11 mmol/L; Blood Urea Nitrogen 55 mg/dL (7-17); Calcium 7.3 mg/dL (8.4-10.2); Carbon Dioxide 18 mmol/L (22-30); Chloride 110 mmol/L (98-107); Glucose 244 mg/dL (74-99); Magnesium 2.3 mg/dL (1.6-2.3); Non-African American GFR(CKD) 26 (>60 ml/min/1.73 sqM); Sodium 139 mmol/L (137-145)
[2022-10-14 11:47] LABS: Potassium 4.3 mmol/L (3.5-5.1)
--- NOTE | 2022-10-14 12:25 | P.PN ---
Subjective Patient is seen in follow-up for acute kidney injury on chronic kidney disease. Renal function stable. Sitting up in chair. More awake and alert today. Being treated for E. coli UTI and bacteremia. Vital signs are stable. General: No acute distress. Lethargic. HEENT: Head exam is unremarkable. LUNGS: No audible rhonchi or wheezes. HEART: Rate and Rhythm are regular. ABDOMEN: Nontender. EXTREMITITES: No edema. Objective - Vital Signs Vital signs: Vital Signs Temp 97.6 F 10/14/22 07:00 Pulse 88 10/14/22 09:34 Resp 18 10/14/22 07:00 BP 147/81 10/14/22 07:00 Pulse Ox 99 10/14/22 09:20 FiO2 Intake & Output 10/13/22 10/14/22 10/14/22 18:59 06:59 18:59 Output Total 200 100 Balance -200 -100 Output: Urine 200 100 Other: Voiding Method External Catheter External Catheter Incontinent - Labs CBC & Chem 7: 10/13/22 15:07 10/14/22 10:25 Labs: Abnormal Lab Results - Last 24 Hours (Table) 10/13/22 10/13/22 10/13/22 Range/Units 15:07 15:07 16:39 RBC 3.44 L (3.80-5.40) m/uL Hgb 8.2 L (11.4-16.0) gm/dL Hct 26.1 L (34.0-46.0) % MCV 76.0 L (80.0-100.0) fL MCH 24.0 L (25.0-35.0) pg RDW 19.7 H (11.5-15.5) % Lymphocytes # 0.4 L (1.0-4.8) k/uL Chloride 116 H (98-107) mmol/L Carbon Dioxide 16 L (22-30) mmol/L BUN 55 H (7-17) mg/dL Creatinine 1.76 H (0.52-1.04) mg/dL Glucose 168 H (74-99) mg/dL POC Glucose (mg/dL) 193 H (70-110) mg/dL Calcium 7.6 L (8.4-10.2) mg/dL Magnesium 2.4 H (1.6-2.3) mg/dL 10/13/22 10/14/22 10/14/22 Range/Units 20:25 05:44 10:25 RBC (3.80-5.40) m/uL Hgb (11.4-16.0) gm/dL Hct (34.0-46.0) % MCV (80.0-100.0) fL MCH (25.0-35.0) pg RDW (11.5-15.5) % Lymphocytes # (1.0-4.8) k/uL Chloride 110 H (98-107) mmol/L Carbon Dioxide 18 L (22-30) mmol/L BUN 55 H (7-17) mg/dL Creatinine 1.79 H (0.52-1.04) mg/dL Glucose 244 H (74-99) mg/dL POC Glucose (mg/dL) 312 H 278 H (70-110) mg/dL Calcium 7.3 L (8.4-10.2) mg/dL Magnesium (1.6-2.3) mg/dL 10/14/22 Range/Units 10:58 RBC (3.80-5.40) m/uL Hgb (11.4-16.0) gm/dL Hct (34.0-46.0) % MCV (80.0-100.0) fL MCH (25.0-35.0) pg RDW (11.5-15.5) % Lymphocytes # (1.0-4.8) k/uL Chloride (98-107) mmol/L Carbon Dioxide (22-30) mmol/L BUN (7-17) mg/dL Creatinine (0.52-1.04) mg/dL Glucose (74-99) mg/dL POC Glucose (mg/dL) 268 H (70-110) mg/dL Calcium (8.4-10.2) mg/dL Magnesium (1.6-2.3) mg/dL Assessment and Plan Plan: Assessment: 1. Acute kidney injury mostly prerenal due to severe sepsis. Improving. Creatinine 2.23 on admission - 1.79 today. 2. Chronic kidney disease stage IIIA with baseline creatinine 1-1.2 secondary to solitary right kidney. 3. Status post left nephrectomy. 4. E. coli UTI and bacteremia on antibiotics. 5. Anemia. High ferritin noted. 6. Hypokalemia from poor intake. Replaced. 7. Metabolic acidosis secondary to acute kidney injury and IV fluids. On oral bicarb. Improving. Plan: Hep-Lock IV fluids. Encouraged oral intake. Add Aranesp. Avoid nephrotoxins. Continue to monitor renal function and urine output. Follow-up outpatient in 1 week post discharge. Repeat BMP and magnesium level 2-3 days postdischarge.
[2022-10-14] MEDS ORDERED: DARBEPOETIN ALFA 40 MCG/0.4 ML SYRINGE SQ SCH (12:30)
--- NOTE | 2022-10-14 14:31 | P.DS ---
Providers Date of admission: 10/09/22 12:32 Expected date of discharge: 10/14/22 Attending physician: Waldo Urban MD Consults: 10/09/22 12:11 Consult Physician Routine Consulting Provider: Shashank Napier Consult Reason/Comments: Septic shock Do you want consulting provider notified?: Yes 10/09/22 12:41 Consult Physician Urgent Consulting Provider: Myles Hutchins Consult Reason/Comments: septic shock, pneumonia Do you want consulting provider notified?: Yes 10/10/22 09:02 Consult Physician Routine Consulting Provider: Fawn Cormier Consult Reason/Comments: VANITA Do you want consulting provider notified?: Yes 10/10/22 11:44 Consult Physician Routine Consulting Provider: Fawn Cormier Consult Reason/Comments: Kidney function Do you want consulting provider notified?: Yes 10/11/22 12:05 Consult Physician Routine Consulting Provider: Indio Edward Consult Reason/Comments: History of cervical spine surgery, abnormal CT cervical spine noted, eval Do you want consulting provider notified?: Yes Primary care physician: Ashley Olivas Hospital Course: Discharge diagnosis Septic shock E. coli bacteremia and E. 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 She also had recent neck surgery and was here in this hospital and subsequently placed in subacute rehab. Patient admitted with altered mental status, noted to have septic shock and was admitted to ICU on 10/09, patient was noted to have urinary tract infection hypotension secondary to sepsis Consultations obtained from infectious disease, nephrology, pulmonary critical care medicine 10/10> mentation has improved significantly patient is alert and oriented 3 however slow to respond. Patient resuscitated with fluid lactate levels improving, white cell count did go up. Clinically patient appears stable at thi s time. We'll get CT C-spine without contrast secondary to elevated creatinine. CT had discontinued since mentation has improved. Continue patient on IV antibiotics managed by infectious disease. Receiving IV Rocephin 10/11>> patient mentation continues to remain stable alert and oriented 3, antibiotic transitioned to Zosyn, patient noted to have thrombocytopenia and anemia as well use SCDs for DVT prophylaxis continue to hold anticoagulation. Nephrology following creatinine continues to improve, urine cultures show gram- negative bacilli, blood cultures show gram-negative bacilli 10/12/2022 Patient is currently lying in the bed. Lethargic and weak. Awake alert and oriented. Denies any chest pain or worsening shortness of breath. No cough or sputum production. Currently on 3 L oxygen via nasal cannula. Urine culture showed gram-negative bacilli and also blood cultures showed gram- negative bacilli. Patient is being continued on antibiotics and follow-up with Zosyn. Patient is being continued on breathing treatments as needed. Laboratory data reviewed. Creatinine 1.86 yesterday. WBC 21.6 and hemoglobin 7.1. Follow-up repeat CBC and BMP tomorrow. Pulmonary, nephrology and ID is on board. 10/13/2022 Patient is currently lying in the bed. Able to open her eyes with verbal stimuli. Weak and lethargic. No complaints of chest pain or worsening shortness of breath. Currently requiring 3 L oxygen via nasal cannula. No cough or sputum production. Urine culture and blood cultures finalized as E. coli. Patient lost IV access on the right upper extremity, which is infiltrated with swelling of the arm mainly at the cubital region. Laboratory data showed WBC 8.4 hemoglobin 8.1 platelets could not be counted. BUN 55 and creatinine 1.76 and bicarb is 16. Calcium 7.6. Patient is being continued on IV hydration with normal saline at 50 cc/h. IV antibiotics changed to ciprofloxacin as per ID recommendations. 10/14/2022 Patient is more awake and oriented today. Able to stand the chair comfortably. No complaints of chest pain or shortness of breath. Currently on 2 L oxygen via nasal cannula. Patient is being continued on antibiotics ciprofloxacin for E. coli urinary tract infection and bacteremia of the same. Renal function is stable with creatinine level I.79. Patient will be continued on sodium bicarbonate and Aricept as per nephrology recommendations. Diuretics on hold. Continue with insulin sliding scale. Patient will be continued on continued on prednisone tapering course. Currently on 20 mg daily for one more day and followed by 10 mg daily for 3 days and stop. Patient is being discharged to rehab today. PHYSICAL EXAMINATION: GENERAL: The patient is alert and oriented x3, c-collar in place HEENT: Pupils are round and equally reacting to light. EOMI. CARDIOVASCULAR: S1 and S2 present. No murmurs, rubs, or gallops. PULMONARY: Chest is clear to auscultation, no wheezing or crackles. ABDOMEN: Soft, nontender, nondistended, normoactive bowel sounds. No palpable organomegaly. MUSCULOSKELETAL: No joint swelling or deformity. EXTREMITIES: No cyanosis, clubbing, or pedal edema. NEUROLOGICAL: Alert and oriented 3, slow to respond no focal deficit noted Vital Signs 10/14/22 10/14/22 10/14/22 07:00 09:20 09:34 Temperature 97.6 F Pulse Rate 90 88 Pulse Rate [ 85 Right] Respiratory 18 Rate Blood Pressure 147/81 [Right Arm] O2 Sat by Pulse 100 99 Oximetry Total time taken greater than 35 minutes including 18 minutes for counseling and coordination of care. Patient Condition at Discharge: Serious Plan - Discharge Summary Discharge Rx Participant: No New Discharge Prescriptions: New Sodium Bicarbonate Tab 1,300 mg PO BID #30 tab Ciprofloxacin HCl [Cipro] 500 mg PO Q18H 8 Days #15 tab Darbepoetin [place] [Aranesp] 40 mcg SQ Q7D #4 each Continue Ergocalciferol [Vitamin D2 (1250 Mcg = 93024 Iu)] 1,250 mcg PO FR@0900 Ranolazine [Ranexa] 500 mg PO BID Acetaminophen Tab [Tylenol] 650 mg PO Q6HR PRN tab PRN Reason: Pain Sennosides-Docusate Sodium [Senokot-S] 1 tab PO HS atenoloL [Tenormin] 50 mg PO BID@0900,2100 busPIRone HCL [Buspar] 7.5 mg PO HS@2100 Citalopram Hydrobromide [CeleXA] 20 mg PO HS@2100 Lactulose 20 gm PO HS@2100 Collagenase [Santyl Ointment] 1 applic TOPICAL HS Albuterol Sulfate [Proventil Hfa] 2 puff INHALATION RT-BID PRN PRN Reason: Shortness Of Breath predniSONE [Deltasone] See Taper PO DAILY hydrALAZINE HCL [Apresoline] 25 mg PO TID Apixaban [Eliquis] 2.5 mg PO BID Nitroglycerin Sl Tabs [Nitrostat] 0.4 mg SUBLINGUAL Q5M PRN PRN Reason: Chest Pain Montelukast Sodium [Singulair] 10 mg PO DAILY Isosorbide Mononitrate ER [Imdur] 30 mg PO DAILY cloNIDine 0.3 MG/24HR PATCH [Catapres-TTS] 1 patch TRANSDERM TH Insulin Lispro [humaLOG Kwikpen] See Protocol SQ ACHS Benzocaine/Menthol Lozeng [Cepacol lozenge] 1 lozenge MUCOUS MEM Q4HR PRN PRN Reason: Sore Throat Budesonide [Pulmicort] 1 mg INHALATION RT-BID Omeprazole [PriLOSEC] 20 mg PO DAILY Melatonin 10 mg PO HS Ferrous Sulfate [Iron] 325 mg PO DAILY Changed traMADol HCl [Ultram] 50 mg PO Q6HR PRN 3 Days #12 tab PRN Reason: Pain Discontinued Repaglinide [Prandin] 0.5 mg PO DAILY Fluconazole [Diflucan] 100 mg PO DAILY@0900 Sodium Bicarbonate Tab 650 mg PO BID traMADol HCl [Ultram] 100 mg PO HS Empagliflozin [Jardiance] 10 mg PO DAILY Pioglitazone [Actos] 15 mg PO DAILY@0900 Furosemide [Lasix] 40 mg PO [id number] Discharge Medication List Ergocalciferol [Vitamin D2 (1250 Mcg = 65697 Iu)] 1,250 mcg PO FR@0900 06/05/22 [History] Montelukast Sodium [Singulair] 10 mg PO DAILY 06/05/22 [History] Nitroglycerin Sl Tabs [Nitrostat] 0.4 mg SUBLINGUAL Q5M PRN 06/05/22 [History] Ranolazine [Ranexa] 500 mg PO BID 06/05/22 [History] Isosorbide Mononitrate ER [Imdur] 30 mg PO DAILY 08/07/22 [History] Acetaminophen Tab [Tylenol] 650 mg PO Q6HR PRN tab 08/10/22 [Rx] Sennosides-Docusate Sodium [Senokot-S] 1 tab PO HS 08/23/22 [History] Benzocaine/Menthol Lozeng [Cepacol lozenge] 1 lozenge MUCOUS MEM Q4HR PRN 09/09/22 [History] Citalopram Hydrobromide [CeleXA] 20 mg PO HS@209909/09/22 [History] Insulin Lispro [humaLOG Kwikpen] See Protocol SQ ACHS 09/09/22 [History] Lactulose 20 gm PO HS@209909/09/22 [History] atenoloL [Tenormin] 50 mg PO BID@0900,209909/09/22 [History] busPIRone HCL [Buspar] 7.5 mg PO HS@209909/09/22 [History] cloNIDine 0.3 MG/24HR PATCH [Catapres-TTS] 1 patch TRANSDERM TH 09/09/22 [History] Albuterol Sulfate [Proventil Hfa] 2 puff INHALATION RT-BID PRN 10/09/22 [History] Apixaban [Eliquis] 2.5 mg PO BID 10/09/22 [History] Budesonide [Pulmicort] 1 mg INHALATION RT-BID 10/09/22 [History] Collagenase [Santyl Ointment] 1 applic TOPICAL HS 10/09/22 [History] Ferrous Sulfate [Iron] 325 mg PO DAILY 10/09/22 [History] Melatonin 10 mg PO HS 10/09/22 [History] Omeprazole [PriLOSEC] 20 mg PO DAILY 10/09/22 [History] hydrALAZINE HCL [Apresoline] 25 mg PO TID 10/09/22 [History] predniSONE [Deltasone] See Taper PO DAILY 10/09/22 [History] Ciprofloxacin HCl [Cipro] 500 mg PO Q18H 8 Days #15 tab 10/14/22 [Rx] Darbepoetin [place] [Aranesp] 40 mcg SQ Q7D #4 each 10/14/22 [Rx] Sodium Bicarbonate Tab 1,300 mg PO BID #30 tab 10/14/22 [Rx] traMADol HCl [Ultram] 50 mg PO Q6HR PRN 3 Days #12 tab 10/14/22 [Rx] Follow up Appointment(s)/Referral(s): Ashley Olivas MD [Primary Care Provider] - 1-2 days (Please call for appointment.) Indio Edward DO [Doctor of Osteopathic Medicine] - 11/01/22 1:05 pm (Patient may follow-up with Chip Galarza PA-C or Dr. Edmond Edward at [facility] as previously scheduled following discharge. ) Activity/Diet/Wound Care/Special Instructions: 1. Patient should keep her cervical collar intact when sitting upright at greater than 45, during increased activities, and while working with physical therapy 2. Patient may utilize soft cervical collar for comfort support while lying in bed or sitting upright at less than 45 3. Patient may also utilize soft cervical collar instead of a hard collar while sitting upright to eat 4. Patient is encouraged to work with physical therapy to try to increase her upper extremity strength Discharge Disposition: TRANSFER TO SNF/ECF
== END 2022-10-14 16:14 | DRG 871 ==
LOC: EC 10:14 → 3SCARD 12:32 → 2SICU 13:02 → 4SSUR 10-11 17:43
PROVIDERS: ADMIT Internal Medicine; ATTEND Internal Medicine
PROC: 06HM33Z Insertion of Infusion Device into Right Femoral Vein, Percutaneous Approach (ICD-10-PCS; principal; 2022-10-09)
PROC: 05HB33Z Insertion of Infusion Device into Right Basilic Vein, Percutaneous Approach (ICD-10-PCS; 2022-10-11)
DX: A41.51 Sepsis due to Escherichia coli [E. coli] (principal); G93.41 Metabolic encephalopathy; N17.0 Acute kidney failure with tubular necrosis; J69.0 Pneumonitis due to inhalation of food and vomit; R65.21 Severe sepsis with septic shock; J18.9 Pneumonia, unspecified organism; M50.021 Cervical disc disorder at C4-C5 level with myelopathy; E87.20 Acidosis, unspecified; I13.0 Hypertensive heart and chronic kidney disease with heart failure and stage 1 through stage 4 chronic kidney disease, or unspecified chronic kidney disease; E87.1 Hypo-osmolality and hyponatremia; N39.0 Urinary tract infection, site not specified; D63.8 Anemia in other chronic diseases classified elsewhere; E11.22 Type 2 diabetes mellitus with diabetic chronic kidney disease; I50.9 Heart failure, unspecified; M06.9 Rheumatoid arthritis, unspecified; N18.31 Chronic kidney disease, stage 3a; Z79.4 Long term (current) use of insulin; B96.20 Unspecified Escherichia coli [E. coli] as the cause of diseases classified elsewhere; I48.0 Paroxysmal atrial fibrillation; I25.10 Atherosclerotic heart disease of native coronary artery without angina pectoris; E78.5 Hyperlipidemia, unspecified; H91.90 Unspecified hearing loss, unspecified ear; E87.6 Hypokalemia; E83.42 Hypomagnesemia; T47.8X5A Adverse effect of other agents primarily affecting gastrointestinal system, initial encounter; K44.9 Diaphragmatic hernia without obstruction or gangrene; E86.0 Dehydration; Z96.653 Presence of artificial knee joint, bilateral; Z20.822 Contact with and (suspected) exposure to COVID-19; Z90.5 Acquired absence of kidney; Z90.12 Acquired absence of left breast and nipple; Z85.3 Personal history of malignant neoplasm of breast; Z85.528 Personal history of other malignant neoplasm of kidney; Z92.21 Personal history of antineoplastic chemotherapy; Z88.5 Allergy status to narcotic agent; Z98.1 Arthrodesis status; Z79.899 Other long term (current) drug therapy; Z79.84 Long term (current) use of oral hypoglycemic drugs; Z79.51 Long term (current) use of inhaled steroids; Z79.01 Long term (current) use of anticoagulants; Z95.5 Presence of coronary angioplasty implant and graft
CPT/HCPCS: 36410; 36415; 71045; 71046; 72125; 76937; 80048; 80053; 81001; 82728; 83540; 83550; 83605; 83735; 84132; 85025; 85027; 85610; 85730; 86140; 87040; 87077; 87086; 87186; 87449; 87635; 93005; 94640; 94760; 96361; 96365; 96366; 96367; 96368; 96375; 99291